=== PATIENT | male | born 1940 | race Caucasian/White ===

== ENCOUNTER 2021-11-14 08:51 | Emergency (ER) | payer MEDICAID, SELFPAY ==
[2021-11-14 08:54] VITALS: BP 153/77; PULSE 66; RESP 14; TEMP 36.6; O2SAT 97; BMI 25.8
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
[2021-11-14] MEDS: Ketorolac 30 MG/ML Syringe IM (10:09)
[2021-11-14 10:33] VITALS: BP 128/77; PULSE 62; RESP 15; O2SAT 98
== END 2021-11-14 10:34 | disposition home or self-care (01) ==
LOC: ED 10:29
PROVIDERS: Emergency Provider Emergency Medicine; Visit Provider Emergency Medicine
DX: E11.40 Type 2 diabetes mellitus with diabetic neuropathy, unspecified (principal); G89.29 Other chronic pain; Z87.891 Personal history of nicotine dependence; Z86.73 Personal history of transient ischemic attack (TIA), and cerebral infarction without residual deficits
CPT/HCPCS: 96372; 99282

== ENCOUNTER 2022-01-04 20:11 | Observation (INO) | payer MEDICAID, SELFPAY ==
[2022-01-04] VITALS (9 sets, daily range): BP systolic 129–168; BP diastolic 62–88; PULSE 56–59; RESP 18–20; TEMP 37.1; O2SAT 96; BMI 26.6
--- NOTE | 2022-01-04 21:10 | RAD_ITS ---
STUDY: X-RAY CHEST REASON FOR EXAM: Male, 81 years old. Neuro deficit, acute, stroke suspected TECHNIQUE: Single AP portable view of the chest. COMPARISON: None. FINDINGS: The lungs are clear and expanded. There is no demonstrated pleural abnormality. There is moderate cardiac enlargement. Normal mediastinum and deepa. Normal visualized pulmonary arteries. Normal visualized aortic arch and descending thoracic aorta. Normal visualized thoracic spine. Healed fracture the right clavicle. Status post resection of the medial left clavicle. There is no demonstrated abnormality of the visualized soft tissue structures of the upper abdomen. RAD/Chest 1 View IMPRESSION: No active disease. Electronically Signed: Jake Lima MD at 22:41 EDT ,
--- NOTE | 2022-01-04 21:10 | CT_ITS ---
EXAM: CT HEAD WITHOUT INTRAVENOUS CONTRAST CLINICAL INDICATION: Neuro deficit, acute, stroke suspected TECHNIQUE: Multiple axial images were obtained of the head without intravenous contrast. This CT exam was performed using one or more of the following dose reduction techniques: automated exposure control, adjustment of the mA and/or kV according to patient size, and/or use of iterative reconstruction technique. This report was created using Neurotrack report generation technology. COMPARISON: None. FINDINGS: BRAIN AND EXTRA-AXIAL SPACES: Low density regions in the brain may signify early microvascular ischemic changes, a demyelinating process, vasculitis, or sequela related to migraines. Mild cerebral atrophy. No intra- or extra-axial hemorrhage. No intracranial mass or mass effect. Posterior fossa structures are unremarkable. No hydrocephalus. Basal cisterns are patent. BONES/JOINTS: Unremarkable. No discrete lytic or blastic abnormalities. SINUSES: There is sinus disease. MASTOID AIR CELLS: Unremarkable. Clear. ORBITS: Visualized globes, extraocular muscles, optic nerves and retrobulbar fat appear unremarkable. CT/STROKE Brain/Head without Cont IMPRESSION: No acute findings in the head/brain. N.B. : The above Results were Read Back by Ike Desai MD to Maurilio Dillon MD, and understanding confirmed on 01/04/2022 21:33:16 (ET). Electronically Signed: Ike Desai MD at 21:25 EDT ,
--- NOTE | 2022-01-04 21:10 | EKG12_ITS ---
Test Reason : GEN ILL Blood Pressure : / mmHG Vent. Rate : 058 BPM Atrial Rate : 058 BPM P-R Int : 196 ms QRS Dur : 080 ms QT Int : 410 ms P-R-T Axes : 061 012 032 degrees QTc Int : 402 ms Sinus bradycardia with marked sinus arrhythmia Otherwise normal ECG Confirmed by MARIAELENA PRINGLE, LAUREN ([id number]), editor newspaper NIURKA LEBRON ([id number]) on 01/08/2022 9:51:07 A M Referred By: LORRAINE Confirmed By:CHARLES FERRELL MD
--- NOTE | 2022-01-04 21:10 | CT_ITS ---
We are attempting to reach an attending provider to discuss findings. An addendum with communication details will be sent when the communication is complete. STUDY: CTA HEAD AND NECK WITH CONTRAST REASON FOR EXAM: Male, 81 years old. Neuro deficit, acute, stroke suspected RADIATION DOSAGE (If Supplied By Facility): CTDIvol = ( 34.45 ) mGy, DLP = ( 841.43 ) mGycm TECHNIQUE: CT angiography was performed with a multi-detector CT scanner. Data acquisition was obtained from the skull base through the vertex following intravenous administration of IV 100mL Isovue-370. MIP images were reconstructed from the axial data set. Post-processing of the angiographic images was performed, with multiplanar reformation and 3D reconstruction. Individualized dose optimization techniques were used for this CT. COMPARISON: No relevant priors. FINDINGS: Normal bilateral petrous carotid arteries. There is calcified plaque formation of the right cavernous carotid artery, with a mild stenosis (less than 50%). There is calcified plaque formation of the left cavernous carotid artery, with a mild stenosis (less than 50%). Normal right A1 segments of the anterior cerebral artery. Normal left A1 segments of the anterior cerebral artery. Normal intact anterior communicating artery (ACOM). Normal bilateral A2 segments of the anterior cerebral arteries. Normal right M1 and M2 segments of the middle cerebral arteries, with a normal M1 bifurcation. Normal left M1 and M2 segments of the middle cerebral arteries, with a normal M1 bifurcation. There is a persistent origin of the right posterior cerebral artery with absence of the posterior communicating artery (PCOM). Normal left posterior communicating artery (PCOM). Normal bilateral vertebral arteries. Normal basilar artery with a normal basilar bifurcation. The visualized bilateral superior cerebellar (SCA) arteries are normal. Normal bilateral P1, P2 and visualized P3 segments of the posterior cerebral arteries. There is no demonstrated aneurysm of the [place]. There is no demonstrated abnormality of the visualized brain. AORTIC ARCH: Normal visualized aortic arch. Normal origins of the brachiocephalic, left common carotid, and left subclavian arteries. RIGHT CAROTID ARTERIES: Normal right common carotid artery (CCA). There is mild atherosclerotic plaque formation with minimal narrowing of the right carotid bulb. There is mild atherosclerotic plaque formation of the origin of the right internal carotid artery with less than 50% cross sectional diameter stenosis. Normal visualized cervical portion of the right internal carotid artery. Normal origin of the right external carotid artery (ECA). LEFT CAROTID ARTERIES: Normal left common carotid artery (CCA). There is mild atherosclerotic plaque formation with minimal narrowing of the left carotid bulb. There is mild atherosclerotic plaque formation of the origin of the left internal carotid artery with less than 50% cross sectional diameter stenosis. Normal visualized cervical portion of the left internal carotid artery. Normal origin of the left external carotid artery (ECA). VERTEBRAL ARTERIES: Normal bilateral vertebral arteries. CT/STROKE CTA Head AND Neck W/Con IMPRESSION: Normal CTA Head with contrast. Mild (40%) right carotid stenosis. Mild (20%) left carotid stenosis. Patent vertebral arteries bilaterally. Electronically Signed: Jake Lima MD at 22:09 EDT ,
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
[2022-01-04 21:23] LABS: Absolute Lymphocyte Count 0.95 X10^3/uL (0.83-4.51); Absolute Neutrophil Count 5.4 X10^3/uL (2.0-7.7); Basophil# 0.01 X10^3/uL; Basophil% 0.1 % (0-1); Eosinophil# 0.03 X10^3/uL; Eosinophils% 0.4 % (0-5); Hematocrit 33.3 % (40-54); Hemoglobin 10.2 g/dL (13.0-16.5); Lymphocyte # 0.95 X10^3/ul (0.83-4.51); Lymphocyte % 13.9 % (19-41); Mean Corp Hgb Conc 30.6 g/dL (32-36); Mean Corpuscular Hgb 26.6 pg (27.0-32.0); Mean Corpuscular Volume 86.7 fL (80-94); Mean Platelet Vol. 10.7 fl (6.2-12.0); Monocyte% 5.8 % (0-10); NRBC Flagged by Analyzer 0 % (0-5); Neutrophil # 5.44 X10^3/uL (2.7-7.7); Neutrophil % 79.5 % (47-70); Platelet Count 231 K/mm3 (150-450); RBC Distribution Width CV 15.7 % (11.6-14.6); RBC Distribution Width SD 49.8 fl (35.1-43.9); Red Blood Count 3.84 M/mm3 (4.6-6.2); White Blood Count 6.9 K/mm3 (4.4-11.0)
[2022-01-04 21:33] LABS: International Normalized Ratio 1.1; Partial Thromboplast Time 30.5 Seconds (24.1-36.2); Prothrombin Time (Protime)PT. 13.9 SECONDS (11.7-14.9)
--- NOTE | 2022-01-04 21:39 | ED.RN ---
2013 TRIAGE INFORMATION OBTAINED FROM [facility]ER[facility] NELSON CONVERSATION WITH DAUGHTER ON PHONE AND SOME FROM THE PT'S .PT AND DECLINE THE INTEPRETOR IPAD.
[2022-01-04 21:44] LABS: Anion Gap 6 (5-15); BUN 26 mg/dL (7-18); BUN/Creat Ratio 12.3 RATIO (10-20); Calcium,Total 8.9 mg/dL (8.5-10.1); Chloride 106 mmol/L (98-107); Creatinine, Serum 2.12 mg/dL (0.70-1.30); EST Glomerular Filtration Rate 32 mL/min (>60); Est Glom Filt Rate - Afr Amer 39 mL/min (>60); Estimated Creatinine Clearance 26.42 ml/min; Glucose 153 mg/dL (74-106); Potassium 4.7 mmol/L (3.5-5.1); Sodium Level 135 mmol/L (136-145); Troponin-I HS 31 pg/mL (3.0-78.0)
[2022-01-04] MEDS: Ondansetron 4 MG/2 ML Vial IV (21:53)
--- NOTE | 2022-01-04 22:12 | ED.RN ---
At triage desk, received pt's name and from daughter on phone that was handed to this RN from pt's . stated complaint of nausea/vomitting and confusion. offered ela teacher ipad and took down daughter Fozia's phone number.
[2022-01-04 22:20] LABS: Bedside Glucose 151 mg/dL (74-106)
--- NOTE | 2022-01-04 23:08 | PCM.HP.STD ---
HPI - General General Date of Admission: 01/04/22 Date of Service: 01/04/22 Chief Complaint: Right facial droop, slurred speech, headache, unsteady gait. 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 He notes onset vertigo with Neurology upon their evaluation which is typical for him at ~ 1 pm with room spinning sensation. Patient is primarily Bermudian speaking and ED physician did discuss case with patient's daughter who reports that he has had significant stroke prior history with at least 13-14 other strokes potentially TIAs which have not left him permanently debilitated reportedly only taking daily aspirin therapy. Daughter reports that he is able to perform his own ADLs with no history of falls or injuries. Initial NIH stroke scale per ED physician 1 for LOC questions, 1 for facial palsy, 1 for left upper extremity motor as well as 1 for dysarthria with a total score of 4. Repeat NIHSS by staff later in ED evaluation improved to 2 for minor paralysis face and mild to moderate aphasia. Given patient timeline of unclear duration as noted to have occurred upon awakening he was not considered a tPA candidate per neurology. Work-up in the ED included T98.7, heart rate 58, BP 168/88 with most recent repeat 141/62, respiratory rate 18, 96% on room air, CBC with WC 6.9, hemoglobin 10.2, MCV 86.7, platelet 231 without marked shift, unremarkable coags, BMP with sodium 135, BUN/creat 26/2.12, glucose 153, troponin 31, CT head no acute intracranial findings, CTA head and neck with normal CT of the head with contrast, mild 40% right carotid stenosis, mild 20% left carotid stenosis, patent vertebral arteries bilaterally, chest x-ray with no acute cardiopulmonary findings 8 sodium is, EKG with sinus rhythm with no acute evidence of ischemia. In the ED patient ministered Zofran 4 mg IV x1. PFSH Medical History (Updated 01/05/22 @ 00:[address] Roseanna Solomon MD) Chronic asthmatic bronchitis CKD (chronic kidney disease), stage III Diabetic neuropathy DM type 2 (diabetes mellitus, type 2) History of CVA (cerebrovascular accident) History of seizure disorder History of tobacco use Hypercholesterolemia Home Medications oxycodone-acetaminophen 5 mg-325 mg tablet 1 - 2 tab PO Q4H PRN PRN Pain #20 tabs 08/24/15 [Rx Last Taken Unknown] atorvastatin 40 mg tablet 40 mg PO DAILY 11/14/21 [History Last Taken Unknown] dulaglutide 0.75 mg/0.5 mL subcutaneous pen injector (Trulicity) 0.5 mg subcut QWEEK 11/14/21 [History Last Taken Unknown] losartan 25 mg tablet 25 mg PO DAILY 11/14/21 [History Last Taken Unknown] oxycodone-acetaminophen 5 mg-325 mg tablet 1 tab PO Q6H PRN PRN pain 5 days #20 TABLETS 11/14/21 [Rx Last Taken Unknown] pregabalin 150 mg capsule 150 mg PO TID 11/14/21 [History Last Taken Unknown] ropinirole 4 mg tablet mg 11/14/21 [History Last Taken Unknown] Allergy/AdvReac Type Severity Reaction Status Date / Time No Known Allergies Allergy Verified 01/04/22 20:15 Family History (Updated 01/05/22 @ 00:[address] Roseanna Solomon MD) Mother Myocardial infarction Hypertension Father Diabetes Alzheimer disease Surgical History (Updated 01/05/22 @ 00:[address] Roseanna Solomon MD) History of appendectomy History of esophageal surgery History of eye surgery Social History (Updated 01/05/22 @ 00:[address] Roseanna Solomon MD) household members: spouse Smoking Status: Former smoker how long ago did patient quit smoking: Quit 1-2 years prior, smoked occasional cigars. alcohol intake: never substance use type: does not use ROS ROS Narrative Physical Examination: General: Awake, alert, oriented to self, place and recent events, does speak some Lithuanian but it is limited and is primarily Bermudian speaking, remains cooperative, laying in the ED bed, no acute distress, NIH stroke scale continues to improve, currently down to 2. Skin: Normal color, normal turgor, no icterus, no cyanosis except occasional staged ecchymoses, graft scarring to the right lower extremity notable. HEENT: AT/NC, EOMI, PERRLA, MMM, no carotid bruits or JVD noted, mild residual right facial droop but corrects mostly with smiling and primarily more so flattening of the nasolabial fold, still mild dysarthria. Lungs: CTA bilaterally, moderate effort, mild decrease BL bases, no rales, ronchi or wheezing. Heart: Currently regular rate and rhythm; no gallop, rub audible. Abdomen: Soft, overweight, NTTP, ND, normal BS, no HSM. Extremities: No cyanosis, clubbing, or edema, see skin. Neurological: Patient awake, alert, oriented as noted, cognitive function appears baseline intact; pupils equally reactive to light and accommodation, cranial nerves grossly normal except noted mild right-sided flattening nasolabial fold but corrects with smiling, very mild ongoing dysarthria, finger-nose and utyg-hi-vady appropriate except where limited by left upper extremity and right lower extremity chronic debility/pain, equivocal Babinski, strength preserved although difficulty with left upper extremity movements and also right lower extremity movement secondary to chronic debility/pain. Psychiatric: Affect appears normal, no acute evidence of depressive or anxiety feelings. Vital Signs Vital Signs Vital Signs: 01/04/22 20:13 01/04/22 20:55 01/04/22 20:55 Temperature 98.7 F Temperature Source Temporal Pulse Rate 58 L 59 L Respiratory Rate 18 20 H Respiratory Pattern Normal Blood Pressure 168/88 H 141/62 H Blood Pressure Mean 114 88 Pulse Ox 96 96 Oxygen Delivery Method Room Air Room Air 01/04/22 21:10 01/04/22 21:40 01/04/22 21:57 Temperature Temperature Source Pulse Rate 58 L 59 L Respiratory Rate 20 H 18 Respiratory Pattern Blood Pressure 161/71 H 141/72 H Blood Pressure Mean 101 95 Pulse Ox 96 96 Oxygen Delivery Method Room Air Room Air Room Air Weight Weight: 170 lb Body Mass Index (BMI) 26.6 Results Lab / Micro Data Result Diagrams: 01/04/22 21:00 01/04/22 21:00 Labs: Laboratory Results - last 24 hr 01/04/22 21:00: WBC 6.9, RBC 3.84 L, Hgb 10.2 L, Hct 33.3 L, MCV 86.7, MCH 26.6 L, MCHC 30.6 L, RDW Std Deviation 49.8 H, RDW Coeff of Meenu 15.7 H, Plt Count 231, MPV 10.7, Immature Gran % (Auto) 0.300, Neut % (Auto) 79.5 H, Lymph % (Auto) 13.9 L, Alexander % (Auto) 5.8, Eos % (Auto) 0.4, Baso % (Auto) 0.1, Absolute Neuts (auto) 5.4, Absolute Lymphs (auto) 0.95, Nucleated RBC % 0 01/04/22 21:00: PT 13.9, INR 1.1, APTT 30.5 01/04/22 21:00: Sodium 135 L, Potassium 4.7, Chloride 106, Carbon Dioxide 23.0, Anion Gap 6, BUN 26 H, Creatinine 2.12 H, Estim Creat Clear Calc 26.42, Est GFR (MDRD) Af Amer 39 L, Est GFR (MDRD) Non-Af 32 L, BUN/Creatinine Ratio 12.3, Glucose 153 H, Calcium 8.9, Troponin I High Sens 31 01/04/22 21:30: POC Glucose 151 H Rhythm Strip Rhythm Strip: Sinus Rhythm Rate: 60 Ectopy: None Radiology Impression Brain CT 01/04/22 21:10 IMPRESSION: No acute findings in the head/brain. N.B. : The above Results were Read Back by Ike Desai MD to Maurilio Dillon MD, and understanding confirmed on 01/04/2022 21:33:16 (ET). Electronically Signed: Ike Desai MD at 21:25 EDT , ADDENDUM: 01/04/222231 IMPRESSION: undefined Chest X-Ray 01/04/22 21:10 IMPRESSION: No active disease. Electronically Signed: Jake Lima MD at 22:41 EDT , Head/Neck CTA 01/04/22 21:10 IMPRESSION: Normal CTA Head with contrast. Mild (40%) right carotid stenosis. Mild (20%) left carotid stenosis. Patent vertebral arteries bilaterally. Electronically Signed: Jake Lima MD at 22:09 EDT , ADDENDUM: 01/04/228 IMPRESSION: Normal CTA Head with contrast. Mild (40%) right carotid stenosis. Mild (20%) left carotid stenosis. Patent vertebral arteries bilaterally. N.B. : The above Results were Read Back by Jake Lima MD to Maurilio Dillon MD, and understanding confirmed on 01/04/2022 22:11:38 (ET). 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 He notes onset vertigo with Neurology upon their evaluation which is typical for him at ~ 1 pm with room spinning sensation. #1. Right-sided facial droop, slurred speech and gait disturbance concerning for Acute CVA/TIA, possible concurrent BPPV w/ prior Hx CVA/TIA with mild bilateral carotid stenosis: Will admit to PCU, will obtain MRI Brain, ECHO, PT/OT/Speech/Nutrition evaluation per protocol. Will allow permissive HTN, maintain on asa, given history will add plavix, continue home statin w/ AM FLP, fall precautions. TSH, Mag, FLP, HgbA1c pending. Will obtain carotid ultrasound in order for baseline and may consider vascular surgery consultation to establish. Once imaging and work-up obtained would potentially plan for Neurology re-assessment for recommendations. Neurologist upon ED evaluation noted suspected BPPV but inability to rule out small acute CVA. Will have PRN low dose meclizine. #2. Mild cognitive impairment/possibly dementia: Unclear type of possible dementia and noted to be without behavioral disturbance history, complicates presentation, maintain on fall and aspiration precautions, therapies and CM consulted as noted. #3. Chronic Kidney Disease Stage III, unclear subtype: Admission BUN/Cr 26/2.12, baseline renal function noted remotely prior 08/24/2015 with BUN/creatinine 25/1.86, will continue to trend and judiciously hydrate given acute presentation #1 is noted. #4. Normocytic anemia, unclear chronicity: Admission hemoglobin 10.2, most recent lab noted prior remotely in 2016 Hgb 13.9, will obtain iron panel, ferritin, guaiac especially given potential use for dual antiplatelet therapy as noted above #1. #5. Diabetes mellitus type II with neuropathy: Hold oral home regimen, continue home insulin regimen, ADA diet, accu checks w/ ISS, continue patient home pregabalin regimen. #6. Chronic COPD/asthma: Not on any chronic inhalers per current list, will maintain on PRN albuterol, HOB, IS parameters. #7. Stiff-man syndrome: Patient utilizes chronic as needed diazepam regimen, will continue closely monitor, as needed diazepam if necessary but hold if able given need for serial NIHSS evaluations. #8. Hypertension: We will maintain permissive hypertension given acute presentation as noted with as needed agents per stroke protocol. #9. Hyperlipidemia: Continue home statin regimen. AM FLP. #10. Former Tobacco Abuse: Encouraged continued tobacco cessation. #11. Restless leg syndrome: We will continue patient home Requip regimen. #12. DVT prophylaxis: SCDs, heparin. #13. CODE status: Patient HCPOA is and daughter and living will is currently in place. Discussed CODE status at length including difference between FULL code, DNR-CCA and DNR-CC status. Following discussions about the differences in these status, requested Full Code status. Advanced Care Planning Face to Face Time: 16 minutes. Charges/Coding Visit Charges OBSV E&M: 87308 Initial observation care L3 Procedures Hospitalists Procedures: 14231 Advncd Care Plan 30 Min
[2022-01-04 23:41] LABS: Magnesium 1.9 mg/dL (1.6-2.6)
[2022-01-05] VITALS (10 sets, daily range): BP systolic 126–163; BP diastolic 69–77; PULSE 48–58; RESP 16–20; TEMP 36.4–36.8; O2SAT 94–100; BMI 29.4
--- NOTE | 2022-01-05 01:20 | ECHOCS_ITS ---
Reason For Study: CVA Procedure This was a 2D Doppler, Color Flow transthoracic echocardiogram. The study was technically difficult. Contrast injection was performed. Exam performed portable in patient room. Left Ventricle Normal LV size. The estimated ejection fraction is 65 %. No evidence for diastolic dysfunction. No regional wall motion abnormalities noted. Right Ventricle Normal RV size. Normal systolic function. Atria The left atrium is moderately enlarged. Normal right atrium. No doppler evidence for ASD. Mitral Valve There is moderate to severe mitral annular calcification. There is no mitral valve stenosis. Trivial mitral valve insufficiency. Tricuspid Valve There is no tricuspid stenosis. Trivial tricuspid valve insufficiency. Unable to estimate RV systolic pressure due to insufficient tricuspid regurgitant envelope. Aortic Valve Trisinus/trileaflet aortic valve. There is no aortic stenosis. Mild (1+) aortic valve insufficiency. Pulmonic Valve There is no pulmonic valvular stenosis. No pulmonic valve insufficiency. Great Vessels Normal aortic root. Pericardium/Pleural No pericardial effusion. Medication Diluted definity 1ml given slow IV push to enhance endocardial definition. Performed a rapid injection of agitated mix of 9 cc saline and 1cc air to assess for atrial septal defect. MMode/2D Measurements & Calculations LVIDd: 4.8 cm IVSd: 1.3 cm LA dimension: 4.2 cm LVIDs: 3.0 cm LVPWd: 1.5 cm RVDd: 3.7 cm FS: 37.1 % LAV(MOD-bp): 92.4 ml LA A4 area: 26.7 cm2 RA A4 area: 20.8 cm2 LAV(MOD-bp) Indexed: 49.0 ml/m2 LAV(MOD-sp2): 81.5 ml LAV(MOD-sp4): 78.8 ml Time Measurements MV dec time: 0.19 sec Doppler Measurements & Calculations MV E max frank: 65.0 cm/sec Lat Peak E' Frank: 10.0 cm/sec Med Peak E' Frank: 8.9 cm/sec MV A max frank: 75.1 cm/sec E/E' lat: 6.5 E/E' med: 7.3 MV E/A: 0.86 MV V2 max: 85.7 cm/sec MV P1/2t max frank: 85.7 cm/sec Ao V2 max: 133.0 cm/sec MV max P.9 mmHg MV P1/2t: 81.4 msec Ao max P.1 mmHg MV V2 mean: 44.8 cm/sec MV dec slope: 308.5 cm/sec2 MV mean P.99 mmHg MV V2 VTI: 32.8 cm MVA(P1/2t): 2.7 cm2 AI max frank: 476.7 cm/sec LV V1 max: 85.5 cm/sec PA V2 max: 74.2 cm/sec AI max P.9 mmHg LV V1 max P.9 mmHg AI dec slope: 167.0 cm/sec2 AI P1/2t: 836.3 msec TR max frank: 278.1 cm/sec TR max P.1 mmHg ECHO/Echo Complete W/ Contrast Interpretation Summary The estimated ejection fraction is 65 %. No evidence for diastolic dysfunction. The left atrium is moderately enlarged. Trivial mitral valve insufficiency. Mild (1+) aortic valve insufficiency. Ordering Physician: Roseanna Solomon Referring Physician: Lloyd Jalloh M.D. Performed By: Maxime Sierra RCS
--- NOTE | 2022-01-05 01:28 | NURSING ---
[pt states had Juno and Juno immunization. pt is unsure of administration date. per pt medications will have to be reviewed with spouse in AM
[2022-01-05] MEDS: 0.9% Saline Lock 10 ML Syringe IV (01:51)
[2022-01-05] MEDS: 0.9% Normal Saline 1,000 ML 100 ML IV ×2 (01:51→13:43)
[2022-01-05] MEDS: Meclizine 12.5 MG Tablet PO (01:54)
[2022-01-05 04:37] LABS: Absolute Lymphocyte Count 1.76 X10^3/uL (0.83-4.51); Absolute Neutrophil Count 4.6 X10^3/uL (2.0-7.7); Basophil# 0.02 X10^3/uL; Basophil% 0.3 % (0-1); Eosinophil# 0.11 X10^3/uL; Eosinophils% 1.5 % (0-5); Hematocrit 33.8 % (40-54); Hemoglobin 10.4 g/dL (13.0-16.5); Lymphocyte # 1.76 X10^3/ul (0.83-4.51); Lymphocyte % 24.7 % (19-41); Mean Corp Hgb Conc 30.8 g/dL (32-36); Mean Corpuscular Hgb 26.3 pg (27.0-32.0); Mean Corpuscular Volume 85.6 fL (80-94); Mean Platelet Vol. 10.9 fl (6.2-12.0); Monocyte# 0.61 X10^3/uL; Monocyte% 8.6 % (0-10); NRBC Flagged by Analyzer 0 % (0-5); Neutrophil # 4.61 X10^3/uL (2.7-7.7); Neutrophil % 64.6 % (47-70); Platelet Count 225 K/mm3 (150-450); RBC Distribution Width CV 15.8 % (11.6-14.6); RBC Distribution Width SD 49.2 fl (35.1-43.9); Red Blood Count 3.95 M/mm3 (4.6-6.2); White Blood Count 7.1 K/mm3 (4.4-11.0)
[2022-01-05] MEDS: Pregabalin 75 MG Capsule 150 MG PO ×2 (05:03→13:45)
[2022-01-05 05:16] LABS: ALB/GLOB Ratio 1.1 RATIO (0.9-2.4); AST(SGOT) 17 U/L (15-37); Alanine Aminotransfer ALT/SGPT 32 U/L (16-61); Albumin, Serum 3.3 g/dL (3.2-5.0); Alkaline Phosphatase 49 U/L (45-117); Anion Gap 5 (5-15); BUN 23 mg/dL (7-18); BUN/Creat Ratio 11.7 RATIO (10-20); Calcium,Total 8.8 mg/dL (8.5-10.1); Chloride 108 mmol/L (98-107); Cholesterol 177 mg/dL (200); Creatinine, Serum 1.97 mg/dL (0.70-1.30); EST Glomerular Filtration Rate 35 mL/min (>60); Est Glom Filt Rate - Afr Amer 42 mL/min (>60); Estimated Creatinine Clearance 28.43 ml/min; Globulin 3.1 g/dL (2.2-4.2); Glucose 95 mg/dL (74-106); High Density Lipoprotein 72 mg/dL; Potassium 4.7 mmol/L (3.5-5.1); Protein, Total 6.4 g/dL (6.4-8.2); Sodium Level 138 mmol/L (136-145); Thyroid Stim Hormone (TSH) 0.23 uIU/mL (0.358-3.74); Triglycerides 68 mg/dL; Very Low Density Lipoprotein 14 mg/dL (5-40)
--- NOTE | 2022-01-05 05:22 | NURSING ---
MRI checklist completed with pt daughter MANUEL, per pt daughter pt had MRI 2 years ago. MANUEL is no able to verify pt medications. MANUEL states, pt will know
--- NOTE | 2022-01-05 05:55 | CDU_ITS ---
Reason For Study: Carotid Stenosis Rt. Velocities/BP Lt. Velocities/BP Prox CCA 45/11 cm/sec. Prox CCA 53/7 cm/sec. Mid CCA 49/10 cm/sec. Mid CCA 44/7 cm/sec. Dist CCA 42/12 cm/sec. Dist CCA 54/10 cm/sec. Prox ICA 77/25 cm/sec. Prox ICA 60/15 cm/sec. Mid ICA 74/22 cm/sec. Mid ICA 40/15 cm/sec. Dist ICA 121/35 cm/sec. Dist ICA 69/22 cm/sec. Rt. ICA/CCA = 2.47. Lt. ICA/CCA = 1.57. Prox ECA 83 cm/sec. Prox ECA 50/5 cm/sec. Rt. Vert. 59/9 cm/sec. Lt. Vert. 43/11 cm/sec. Right Extracranial There is intimal thickening but no significant atherosclerotic plaque noted in the right common carotid artery. There is heterogeneous, irregular atherosclerotic plaque noted in the right internal carotid artery. The right internal carotid artery is very tortuous. There is no significant atherosclerotic plaque noted in the right external carotid artery. Antegrade flow is noted in the right vertebral artery. Left Extracranial There is heterogeneous, irregular atherosclerotic plaque noted in the left common carotid artery. There is heterogeneous, irregular atherosclerotic plaque noted in the left internal carotid artery. The left internal carotid artery is very tortuous. There is heterogeneous, irregular atherosclerotic plaque noted in the left external carotid artery. Antegrade flow is noted in the left vertebral artery. Procedure Carotid Duplex 76273. This is a Carotid Duplex examination using B-mode, color flow and specral Doppler. Exam performed portable in patient room. VL/Carotid Duplex Ultrasound Interpretation Summary Mild (<50%) stenosis right extracranial internal carotid. Mild (<50%) stenosis left extracranial internal carotid. Patent and antegrade vertebrals bilaterally. Ordering Physician: Roseanna Solomon Referring Physician: Lloyd Jalloh Performed By: Bri Gomez, NADINE, RVT
[2022-01-05 07:00] LABS: Bedside Glucose 82 mg/dL (74-106)
[2022-01-05 08:12] LABS: Hemoglobin A1c 7.5 % (3.8-5.6)
[2022-01-05] MEDS: Aspirin 81 MG TAB.CHEW PO (09:14)
[2022-01-05] MEDS: Heparin Injection (Vial) 5,000 UNIT/ML VIAL 5000 UNIT SC (09:14)
[2022-01-05] MEDS: Clopidogrel Bisulfate 75 MG Tablet PO (09:14)
[2022-01-05 11:30] LABS: Bedside Glucose 102 mg/dL (74-106)
--- NOTE | 2022-01-05 12:18 | MRI_ITS ---
STUDY: MRI BRAIN WITHOUT CONTRAST REASON FOR EXAM: Male, 81 years old. CVA VOMITING, SLURRED SPEECH, DIFFICULTY WALKING SINCE YESTERDAY. Hx of MULTIPLE TIAs/CVAs. HX OF SEIZURE DISORDER. CTA HEAD AND NECK 01/04/22;CT BRAIN 01/04/22. TECHNIQUE: Standardized multiplanar fat and water weighted pulse sequences were obtained. COMPARISON: None. FINDINGS: There is mild cerebral atrophy with widening of the extra-axial spaces and ventricular dilatation. There are a limited number of small white matter hyperintensities, distributed throughout the deep white matter tracts of the cerebral hemispheres, consistent with mild chronic white matter ischemic changes. There is no evidence for recent intracranial ischemia or other cause of cytotoxic edema on diffusion weighted imaging (DWI). Normal T2* images of the brain without demonstrated susceptibility artifact. There is no demonstrated hemosiderin stain. Normal bilateral basal ganglia. Normal thalami. There is no extra-axial fluid accumulation. Normal flow voids within the major intracranial circulation suggesting patency by spin echo criteria. Normal sella turcica, pituitary gland, infundibular stalk, optic chiasm and hypothalamus. Normal tectal plate and pineal gland. Normal midbrain, darion and medulla. Normal cerebellum. Normal basal cisterns. Normal bilateral temporal bones. Normal bilateral internal auditory canals. No demonstrated orbital abnormality, within the constraints of a routine brain study. Normal visualized paranasal sinuses. Normal calvarium and skull base. Normal visualized soft tissue structures. Normal visualized upper cervical spine. MRI/Brain without Contrast IMPRESSION: 1. Mild chronic ischemic changes of the brain, as described above. 2. No demonstrated acute infarct or intracranial hemorrhage. Electronically Signed: Bishnu Carrasco MD at 13:46 EDT ,
--- NOTE | 2022-01-05 14:10 | CASEMGMT ---
Pt states has returned to baseline and therapy states no need for any further therapy at discharge. Brigido NELSON CM
--- NOTE | 2022-01-05 14:36 | DCINST_ITS ---
Discharge Instructions Diet Discharge Diet: Low fat / Low cholesterol Activity Discharge Activity: Return to Normal Activity Dressing / Incision Call your doctor if you observe: Fever of 101 or Higher, Shortness of breath, Dizziness, Fainting spells, Swelling in the ankles, Chest pain and Increased palpitations (irregular heartbeat) Follow Up Care Test Results: Test results from this visit will be discussed in further detail at your follow- up appointment, if applicable. Discharge Plan Admission Admit Date/Time: 01/04/22 23:16 Attending Provider: Juanito Samuels Primary Care Provider: Lloyd Jalloh Consulting Providers: Roseanna Solomon Discharge Orders/Prescriptions Prescriptions: New aspirin 81 mg Tablet,Chewable 81 mg PO BREAKFAST Qty: 30 0RF Continued oxycodone-acetaminophen 1 TABLET tablet 1 - 2 tab PO Q4H PRN PRN (Reason: Pain) Qty: 20 0RF atorvastatin 40 mg tablet 40 mg PO DAILY Label Comments: TAKE ONE TABLET BY MOUTH EVERY DAY losartan 25 mg tablet 25 mg PO DAILY Label Comments: TAKE ONE TABLET BY MOUTH EVERY DAY ropinirole 4 mg tablet Label Comments: TAKE ONE TABLET BY MOUTH AT BEDTIME pregabalin 150 mg capsule 150 mg PO TID Label Comments: TAKE ONE CAPSULE BY MOUTH THREE TIMES DAILY Trulicity 0.75 mg/0.5 mL pen injector 0.5 mg SUBCUT QWEEK Label Comments: Inject 0.75 mg subcutaneously one time a week. Inject dose once per week. Discard Pen After oxycodone-acetaminophen 5-325 mg tablet 1 tab PO Q6H PRN PRN (Reason: pain) 5 Days Qty: 20 0RF Referrals / Follow Up: Lloyd Jalloh MD [Primary Care Provider] - Within 1 Week Disposition Disposition (needs filled in before D/C Order can be placed): Home, Self Care
--- NOTE | 2022-01-05 14:45 | PCM.DC.SUM ---
Providers Date of Admission: 01/04/22 Primary Care Physician: Dr. Lloyd Jalloh MD Reason For Visit: CVA, POSSIBLE BPPV Diagnosis Discharge Diagnosis (1) Acute ischemic stroke: Status: Acute Code(s): I63.9 - Cerebral infarction, unspecified Medications at Discharge Home Medications oxycodone-acetaminophen 5 mg-325 mg tablet 1 - 2 tab PO Q4H PRN PRN Pain #20 tabs 08/24/15 atorvastatin 40 mg tablet 40 mg PO DAILY 11/14/21 dulaglutide 0.75 mg/0.5 mL subcutaneous pen injector (Trulicity) 0.5 mg subcut QWEEK 11/14/21 losartan 25 mg tablet 25 mg PO DAILY 11/14/21 oxycodone-acetaminophen 5 mg-325 mg tablet 1 tab PO Q6H PRN PRN pain 5 days #20 TABLETS 11/14/21 pregabalin 150 mg capsule 150 mg PO TID 11/14/21 ropinirole 4 mg tablet mg 11/14/21 aspirin 81 mg chewable tablet 81 mg PO BREAKFAST #30 tabs 01/05/22 Hospital Course Operations None Procedures 2-D Echocardiogram Summary of Care Provided Minutes Spent on Discharge: 38 Hospital Course: Per HPI: The patient is a 81 y/o M w/ PMHx: Hx recurrent episodes BPPV, CKD stage III unclear subtype, Mild cognitive impairment/possibly dementia unclear type without behavioral disturbance history, Hx Multiple TIA/CVA, Seizure disorder, HTN, HLD, Former Tobacco use, Chronic Asthma/COPD, Diabetes mellitus type II w/ neuropathy, 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 ED on 01/04/22 with history of following lunch at approximately 1-2 pm, decision to take a nap secondary to not feeling well and upon awakening noted headache, right facial droop with associated slurred speech and difficulty with ambulation with associated nausea and emesis prompting ED evaluation. He notes onset vertigo with Neurology upon their evaluation which is typical for him at ~ 1 pm with room spinning sensation. Patient is primarily Wallisian speaking and ED physician did discuss case with patient's daughter who reports that he has had significant stroke prior history with at least 13-14 other strokes potentially TIAs which have not left him permanently debilitated reportedly only taking daily aspirin therapy.? Daughter reports that he is able to perform his own ADLs with no history of falls or injuries.? Initial NIH stroke scale per ED physician 1 for LOC questions, 1 for facial palsy, 1 for left upper extremity motor as well as 1 for dysarthria with a total score of 4.? Repeat NIHSS by staff later in ED evaluation improved to 2 for minor paralysis face and mild to moderate aphasia. Given patient timeline of unclear duration as noted to have occurred upon awakening he was not considered a tPA candidate per neurology. Work-up in the ED included T98.7, heart rate 58, BP 168/88 with most recent repeat 141/62, respiratory rate 18, 96% on room air, CBC with WC 6.9, hemoglobin 10.2, MCV 86.7, platelet 231 without marked shift, unremarkable coags, BMP with sodium 135, BUN/creat 26/2.12, glucose 153, troponin 31, CT head no acute intracranial findings, CTA head and neck with normal CT of the head with contrast, mild 40% right carotid stenosis, mild 20% left carotid stenosis, patent vertebral arteries bilaterally, chest x-ray with no acute cardiopulmonary findings 8 sodium is, EKG with sinus rhythm with no acute evidence of ischemia. In the ED patient ministered Zofran 4 mg IV x1. Hospital Course: 1. TIA?81-year-old male presents to the hospital with concerns for possible stroke, he was having a right facial droop as well as slurred speech and a gait disturbance. PT and OT have worked with him today and did not recommend any further physical therapy, MRI was negative for stroke and I do not appreciate a facial droop. He does have a heavy [place]ian accent and combined with not having any dentures I feel like this is probably contributing to the diagnosis of dysarthria. Regardless, with the MRI being normal and his entire work-up being normal we will plan for discharge today aspirin and his home statin. I do recommend that he follow-up with his PCP in 3 to 5 days. I discussed with him the plan for discharge she expressed understanding of risks going and would like to go home today. 2. Possible dementia, CKD 3B, normocytic anemia, type 2 diabetes, chronic COPD, stiff man syndrome, hypertension, hyperlipidemia, restless legs are all chronic medical conditions which complicate his care. His home medications were continued where appropriate Physical Exam Narrative General: Alert, Oriented x3, Cooperative, No apparent distress HEENT: Atraumatic, PERRLA, EOMI, Normocephalic Oral: Moist Mucosa Neck: Supple, No JVD Lungs: Diminished, Normal air movement, No rhonchi, No wheeze, No rales Cardiovascular: Regular rate, Regular Rhythm, Normal S1, Normal S2, No murmurs Abdomen: Soft, Non Tender, Non-Distended, No Hepato-splenomegaly Extremities: No edema, Capillary Refill Less than 3 Seconds Skin: No rashes, No breakdown Musculoskeletal: No Tenderness to Palpation of Joints or Extremities Neurological: Cranial nerves II-XII grossly intact, Motor Exam 5/5 strength throughout, Sensory exam intact to light touch and pain, NIH of 0 Psych/Mental Status: Normal Affect, Appropriate Weight / BMI Weight Weight: 188 lb 0.869 oz Body Mass Index (BMI) 29.4 ABG / Lab / Microbiology Data Result Diagrams: 01/05/22 04:05 01/05/22 04:05 Laboratory: Laboratory Results - last 24 hr 01/04/22 21:00: WBC 6.9, RBC 3.84 L, Hgb 10.2 L, Hct 33.3 L, MCV 86.7, MCH 26.6 L, MCHC 30.6 L, RDW Std Deviation 49.8 H, RDW Coeff of Meenu 15.7 H, Plt Count 231, MPV 10.7, Immature Gran % (Auto) 0.300, Neut % (Auto) 79.5 H, Lymph % (Auto) 13.9 L, [place] % (Auto) 5.8, Eos % (Auto) 0.4, Baso % (Auto) 0.1, Absolute Neuts (auto) 5.4, Absolute Lymphs (auto) 0.95, Nucleated RBC % 0 01/04/22 21:00: PT 13.9, INR 1.1, APTT 30.5 01/04/22 21:00: Sodium 135 L, Potassium 4.7, Chloride 106, Carbon Dioxide 23.0, Anion Gap 6, BUN 26 H, Creatinine 2.12 H, Estim Creat Clear Calc 26.42, Est GFR (MDRD) Af Amer 39 L, Est GFR (MDRD) Non-Af 32 L, BUN/Creatinine Ratio 12.3, Glucose 153 H, Calcium 8.9, Troponin I High Sens 31 01/04/22 21:00: Magnesium 1.9 01/04/22 21:30: POC Glucose 151 H 01/05/22 04:05: WBC 7.1, RBC 3.95 L, Hgb 10.4 L, Hct 33.8 L, MCV 85.6, MCH 26.3 L, MCHC 30.8 L, RDW Std Deviation 49.2 H, RDW Coeff of Meenu 15.8 H, Plt Count 225, MPV 10.9, Immature Gran % (Auto) 0.300, Neut % (Auto) 64.6, Lymph % (Auto) 24.7, [place] % (Auto) 8.6, Eos % (Auto) 1.5, Baso % (Auto) 0.3, Absolute Neuts (auto) 4.6, Absolute Lymphs (auto) 1.76, Nucleated RBC % 0 01/05/22 04:05: Sodium 138, Potassium 4.7, Chloride 108 H, Carbon Dioxide 25.0, Anion Gap 5, BUN 23 H, Creatinine 1.97 H, Estim Creat Clear Calc 28.43, Est GFR (MDRD) Af Amer 42 L, Est GFR (MDRD) Non-Af 35 L, BUN/Creatinine Ratio 11.7, Glucose 95, Calcium 8.8, Total Bilirubin 0.50, AST 17, ALT 32, Alkaline Phosphatase 49, Total Protein 6.4, Albumin 3.3, Globulin 3.1, Albumin/Globulin Ratio 1.1, Triglycerides 68, Cholesterol 177, LDL Cholesterol 91, VLDL Cholesterol 14, HDL Cholesterol 72, TSH 0.23 L 01/05/22 04:05: Hemoglobin A1c 7.5 H 01/05/22 06:33: POC Glucose 82 01/05/22 11:09: POC Glucose 102 Radiography Diagnostic Testing: Radiology Impression Brain CT 01/04/22 21:10 IMPRESSION: No acute findings in the head/brain. N.B. : The above Results were Read Back by Ike Desai MD to Maurilio Dillon MD, and understanding confirmed on 01/04/2022 21:33:16 (ET). Electronically Signed: Ike Desai MD at 21:25 EDT Reading Location ID and State: [facility] / [place] , Service support , ADDENDUM: 01/04/222231 IMPRESSION: undefined Chest X-Ray 01/04/22 21:10 IMPRESSION: No active disease. Electronically Signed: Jake Lima MD at 22:41 EDT , Head/Neck CTA 01/04/22 21:10 IMPRESSION: Normal CTA Head with contrast. Mild (40%) right carotid stenosis. Mild (20%) left carotid stenosis. Patent vertebral arteries bilaterally. Electronically Signed: Jake Lima MD at 22:09 EDT , ADDENDUM: 01/04/228 IMPRESSION: Normal CTA Head with contrast. Mild (40%) right carotid stenosis. Mild (20%) left carotid stenosis. Patent vertebral arteries bilaterally. N.B. : The above Results were Read Back by Jake Lima MD to Maurilio Dillon MD, and understanding confirmed on 01/04/2022 22:11:38 (ET). Electronically Signed: Jake Lima MD at 22:09 EDT , Echocardiogram 01/05/22 01:20 Interpretation Summary The estimated ejection fraction is 65 %. No evidence for diastolic dysfunction. The left atrium is moderately enlarged. Trivial mitral valve insufficiency. Mild (1+) aortic valve insufficiency. Ordering Physician: Roseanna Solomon Referring Physician: Lloyd Jalloh M.D. Performed By: Maxime Sierra RCS Brain MRI 01/05/22 12:18 IMPRESSION: 1. Mild chronic ischemic changes of the brain, as described above. 2. No demonstrated acute infarct or intracranial hemorrhage. Electronically Signed: Bishnu Carrasco MD at 13:46 EDT Reading Location ID and State: [facility] / [place] , Service support , D/C Instructions Discharge Diet: Low fat / Low cholesterol Call your doctor if you observe: Fever of 101 or Higher, Shortness of breath, Dizziness, Fainting spells, Swelling in the ankles, Chest pain and Increased palpitations (irregular heartbeat) Meaningful Use Info Meaningful Use Diagnoses (Choose all that apply): None applicable Discharge Plan Admission Admit Date/Time: 01/04/22 23:16 Attending Provider: Juanito Samuels Primary Care Provider: Lloyd Jalloh Consulting Providers: Roseanna Solomon Discharge Orders/Prescriptions Prescriptions: New aspirin 81 mg Tablet,Chewable 81 mg PO BREAKFAST Qty: 30 0RF Continued oxycodone-acetaminophen 1 TABLET tablet 1 - 2 tab PO Q4H PRN PRN (Reason: Pain) Qty: 20 0RF atorvastatin 40 mg tablet 40 mg PO DAILY Label Comments: TAKE ONE TABLET BY MOUTH EVERY DAY losartan 25 mg tablet 25 mg PO DAILY Label Comments: TAKE ONE TABLET BY MOUTH EVERY DAY ropinirole 4 mg tablet Label Comments: TAKE ONE TABLET BY MOUTH AT BEDTIME pregabalin 150 mg capsule 150 mg PO TID Label Comments: TAKE ONE CAPSULE BY MOUTH THREE TIMES DAILY Trulicity 0.75 mg/0.5 mL pen injector 0.5 mg SUBCUT QWEEK Label Comments: Inject 0.75 mg subcutaneously one time a week. Inject dose once per week. Discard Pen After oxycodone-acetaminophen 5-325 mg tablet 1 tab PO Q6H PRN PRN (Reason: pain) 5 Days Qty: 20 0RF Referrals / Follow Up: Lloyd Jalloh MD [Primary Care Provider] - Within 1 Week Disposition Disposition (needs filled in before D/C Order can be placed): Home, Self Care Charges/Coding Visit Charges OBSV E&M: 10695 Observation care discharge
--- NOTE | 2022-01-05 14:59 | CASEMGMT ---
SW did not complete a PHQ9 as per physician patient did not have a TIA or Stroke. Cassandra CARREON
== END 2022-01-05 14:43 | disposition home or self-care (01) ==
LOC: ED 22:23 → PCU 01-05 00:03
PROVIDERS: Admitting Provider Family Medicine; Emergency Provider Emergency Medicine; PCP Internal Medicine; Visit Provider Family Medicine
DX: G45.9 Transient cerebral ischemic attack, unspecified (principal); J44.9 Chronic obstructive pulmonary disease, unspecified; E11.22 Type 2 diabetes mellitus with diabetic chronic kidney disease; E11.40 Type 2 diabetes mellitus with diabetic neuropathy, unspecified; N18.30 Chronic kidney disease, stage 3 unspecified; E78.00 Pure hypercholesterolemia, unspecified; I12.9 Hypertensive chronic kidney disease with stage 1 through stage 4 chronic kidney disease, or unspecified chronic kidney disease; R42 Dizziness and giddiness; R11.2 Nausea with vomiting, unspecified; R26.81 Unsteadiness on feet; R47.81 Slurred speech; E78.5 Hyperlipidemia, unspecified; R47.1 Dysarthria and anarthria; R29.810 Facial weakness; G31.84 Mild cognitive impairment of uncertain or unknown etiology; Z87.891 Personal history of nicotine dependence; Z79.899 Other long term (current) drug therapy; R29.704 NIHSS score 4; Z79.85 Long-term (current) use of injectable non-insulin antidiabetic drugs; G25.82 Stiff-man syndrome; G25.81 Restless legs syndrome
CPT/HCPCS: 36415; 70450; 70496; 70498; 70551; 71045; 80048; 80053; 80061; 82962; 83036; 83735; 84443; 84484; 85025; 85610; 85730; 92523; 92610; 93005; 93306; 93880; 94762; 96361; 96372; 96374; 97162; 97166; 99218; 99285; J7030; Q9957; Q9967; A4216; C8929; G0378; J2405

== ENCOUNTER 2022-02-17 03:06 | Emergency (ER) | payer MEDICAID, SELFPAY ==
[2022-02-17 03:07] VITALS: BP 150/75; PULSE 67; RESP 18; TEMP 36.3; O2SAT 97; BMI 29.5
--- NOTE | 2022-02-17 03:28 | CT_ITS ---
STUDY: CT ABDOMEN AND PELVIS WITHOUT CONTRAST REASON FOR EXAM: Male, 81 years old. flank pain RADIATION DOSAGE (If Supplied By Facility): CTDIvol = ( 11.21 ) mGy, DLP = ( 545.93 ) mGycm TECHNIQUE: Transaxial images were obtained from the dome of the diaphragm to the symphysis pubis without oral contrast, and without intravenous contrast. Sagittal and coronal images were reconstructed. Individualized dose optimization techniques were used for this CT. COMPARISON: None. FINDINGS: The visualized lung bases are unremarkable. The visualized portions of the heart are within normal limits. Normal liver. Normal gallbladder and extrahepatic biliary system. Normal spleen. Normal pancreas. Normal bilateral adrenal glands. 15 mm stone in the distal right ureter within 5 cm from the UVJ with resultant moderate right hydronephrosis. There is 9 mm stone in the right kidney. Bilateral renal cysts the largest measures 3 cm. Esophagectomy and partial gastrectomy. There are multiple colonic diverticula consistent with diverticulosis. The patient had partial colectomy. There is right lower quadrant ileostomy. Normal abdominal aorta. Normal inferior vena cava. Normal retroperitoneum. Normal urinary bladder. Normal abdominal wall. Normal osseous structures. CT/Abdomen/Pelvis without Cont IMPRESSION: 15 mm stone in the distal right ureter within 5 cm from the UVJ with resultant moderate right hydronephrosis. There is 9 mm stone in the right kidney. Electronically Signed: Alan Perez MD at 4:15 EST ,
[2022-02-17 03:36] LABS: Absolute Neutrophil Count 5.5 X10^3/uL (2.0-7.7); Basophil# 0.02 X10^3/uL; Basophil% 0.2 % (0-1); Eosinophil# 0.18 X10^3/uL; Eosinophils% 2.2 % (0-5); Hematocrit 36.3 % (40-54); Hemoglobin 11.1 g/dL (13.0-16.5); Lymphocyte % 22.9 % (19-41); Mean Corp Hgb Conc 30.6 g/dL (32-36); Mean Corpuscular Hgb 26.4 pg (27.0-32.0); Mean Corpuscular Volume 86.4 fL (80-94); Mean Platelet Vol. 10.3 fl (6.2-12.0); Monocyte# 0.63 X10^3/uL; Monocyte% 7.6 % (0-10); NRBC Flagged by Analyzer 0 % (0-5); Neutrophil # 5.51 X10^3/uL (2.7-7.7); Neutrophil % 66.5 % (47-70); Platelet Count 214 K/mm3 (150-450); RBC Distribution Width CV 15.9 % (11.6-14.6); RBC Distribution Width SD 50.2 fl (35.1-43.9); White Blood Count 8.3 K/mm3 (4.4-11.0)
[2022-02-17] MEDS: Ondansetron 4 MG/2 ML Vial IV (03:39)
[2022-02-17] MEDS: Morphine 4 MG/ML Syringe IV (03:39)
[2022-02-17 03:48] LABS: Anion Gap 4 (5-15); BUN 34 mg/dL (7-18); BUN/Creat Ratio 13.9 RATIO (10-20); Calcium,Total 8.6 mg/dL (8.5-10.1); Chloride 110 mmol/L (98-107); Creatinine, Serum 2.44 mg/dL (0.70-1.30); EST Glomerular Filtration Rate 27 mL/min (>60); Est Glom Filt Rate - Afr Amer 33 mL/min (>60); Estimated Creatinine Clearance 22.15 ml/min; Glucose 162 mg/dL (74-106); Sodium Level 138 mmol/L (136-145)
--- NOTE | 2022-02-17 04:46 | EDS_ITS ---
HPI History of Present Illness Chief Complaint: Flank Pain Narrative Narrative: Patient is a 81-year-old male with past medical history of chronic kidney disease as well as type 2 diabetes. He is also had previous kidney stones in the past. He states he went to bed normally then awoke around 2 in the morning with right-sided flank/abdominal pain. He states the pain is sharp in nature and feels similar to his previous kidney stone. He has concern for that and therefore comes in for evaluation. He denies any fevers or chills or recent dysuria. He denies any recent trauma or excessive activity [facility] Medical History Chronic asthmatic bronchitis CKD (chronic kidney disease), stage III Diabetic neuropathy DM type 2 (diabetes mellitus, type 2) History of CVA (cerebrovascular accident) History of seizure disorder History of tobacco use Hypercholesterolemia Home Medications oxycodone-acetaminophen 5 mg-325 mg tablet 1 - 2 tab PO Q4H PRN PRN Pain #20 tabs 08/24/15 [Rx Last Taken Unknown] atorvastatin 40 mg tablet 40 mg PO DAILY 11/14/21 [History Last Taken Unknown] dulaglutide 0.75 mg/0.5 mL subcutaneous pen injector (Trulicity) 0.5 mg subcut QWEEK 11/14/21 [History Last Taken Unknown] losartan 25 mg tablet 25 mg PO DAILY 11/14/21 [History Last Taken Unknown] oxycodone-acetaminophen 5 mg-325 mg tablet 1 tab PO Q6H PRN PRN pain 5 days #20 TABLETS 11/14/21 [Rx Last Taken Unknown] pregabalin 150 mg capsule 150 mg PO TID 11/14/21 [History Last Taken Unknown] ropinirole 4 mg tablet mg 11/14/21 [History Last Taken Unknown] aspirin 81 mg chewable tablet 81 mg PO BREAKFAST #30 tabs 01/05/22 [Rx Last Taken Unknown] oxycodone-acetaminophen 5 mg-325 mg tablet (Percocet) 1 tab PO Q6H PRN pain 5 days #20 tabs 02/17/22 [Rx Last Taken Unknown] tamsulosin 0.4 mg capsule (Flomax) 0.4 mg PO DAILY 14 days #14 caps 02/17/22 [Rx Last Taken Unknown] Allergy/AdvReac Type Severity Reaction Status Date / Time No Known Allergies Allergy Verified 01/04/22 20:15 Family History (Updated 01/05/22 @ 00:[address] Roseanna Solomon MD) Mother Myocardial infarction Hypertension Father Diabetes Alzheimer disease Surgical History (Updated 01/05/22 @ 00:[address] Roseanna Solomon MD) History of appendectomy History of esophageal surgery History of eye surgery Social History (Updated 01/05/22 @ 00:[address] Roseanna Solomon MD) household members: spouse Smoking Status: Former smoker how long ago did patient quit smoking: Quit 1-2 years prior, smoked occasional cigars. alcohol intake: never substance use type: does not use ROS ROS ED Constitutional Constitutional ED: Denies chills or fever(s) ENT ENT ED: Denies sore throat Cardiovascular Cardiovascular: Denies chest pain Respiratory/Chest Respiratory/Chest: Denies cough or dyspnea Gastrointestinal Gastrointestinal: Reports abdominal pain; Denies diarrhea, nausea or vomiting Genitourinary Genitourinary ED: Denies dysuria or hematuria Musculoskeletal Musculoskeletal: Reports back pain; Denies myalgias Integumentary Denies rash Neurologic Neurologic: Denies headache(s) Hematologic/Lymphatic Hematologic/Lymphatic: Denies easy bleeding or easy bruising EXAM Physical Exam Const Vital Signs: 02/17/22 03:07 02/17/22 03:41 Temperature 97.3 F L Temperature Source Temporal Pulse Rate 67 Respiratory Rate 18 Respiratory Pattern Normal Blood Pressure 150/75 H Blood Pressure Mean 100 Pulse Ox 97 Oxygen Delivery Method Room Air Positive well nourished and well developed General Appearance ED: well developed Eyes PERRL and EOMs intact bilaterally Neck supple Resp normal respiratory effort and clear to auscultation bilaterally Cardio regular rate and regular rhythm Rate: other Other Details: Radial pulses are +2-4 bilaterally are equal and symmetric GI non-tender, non-distended and no masses GI Narrative: Patient has a colostomy in place in the right lower quadrant that is draining brown stool. 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 Otherwise no voluntary guarding or rigidity no pulsatile mass Auscultation: normoactive bowel sounds Palpation: soft Back/Spine Back/Spine Narrative: Positive right CVA pain Extremity normal to inspection Neuro oriented x3 and CN's II-XII intact bilaterally Sensorium / Orientation: alert Psych mental status grossly normal Skin no rashes or lesions noted Skin Narrative: No soft tissue changes to suggest trauma or infection MDM MDM MDM Narrative Medical decision making narrative: Patient presented to the ER mildly hypertensive but does have a history of this and is in pain so this is to be expected. He has right-sided flank pain with history of kidney stone and it came on spontaneously while he was sleeping. Therefore as his history and exam most likely correlates with kidney stone basic labs and a noncontrast CT were ordered. Patient has elevation to his kidney function with a creatinine of 2.44. Chart review reveals that his baseline is approximately 1.9-2. Therefore he is only up slightly compared to his baseline and does not classify as acute kidney injury. His white count is not elevated he is afebrile going against infectious process associated with the. CT scan confirmed a large stone that is 15 mm in size approximate 5 cm from the distal UVJ. The patient was given IV fluids and morphine and did report improvement of his pain down to a value of a 4. Therefore this time as he does not have changes to suggest urosepsis or acute kidney injury and his pain is improved he will be given symptomatic medications and follow-up with urology on an outpatient basis. He does understand to return to the ER if he has worsening pain or develops a fever before his urology appointment. Lab Data Attestation: I reviewed the patient's lab results. Labs: Laboratory Results - last 24 hr 02/17/22 02/17/22 03:13 03:13 WBC 8.3 RBC 4.20 L Hgb 11.1 L Hct 36.3 L MCV 86.4 MCH 26.4 L MCHC 30.6 L RDW Std Deviation 50.2 H RDW Coeff of Meenu 15.9 H Plt Count 214 MPV 10.3 Immature Gran % (Auto) 0.600 Neut % (Auto) 66.5 Lymph % (Auto) 22.9 [place] % (Auto) 7.6 Eos % (Auto) 2.2 Baso % (Auto) 0.2 Absolute Neuts (auto) 5.5 Absolute Lymphs (auto) 1.90 Nucleated RBC % 0 Sodium 138 Potassium 4.0 Chloride 110 H Carbon Dioxide 24.0 Anion Gap 4 L BUN 34 H Creatinine 2.44 H Estim Creat Clear Calc 22.15 Est GFR (MDRD) Af Amer 33 L Est GFR (MDRD) Non-Af 27 L BUN/Creatinine Ratio 13.9 Glucose 162 H Calcium 8.6 Radiography Diagnostic Testing: Clinical Impression(s) from Imaging Studies Abdomen/Pelvis CT 02/17/22 03:28 IMPRESSION: 15 mm stone in the distal right ureter within 5 cm from the UVJ with resultant moderate right hydronephrosis. There is 9 mm stone in the right kidney. Electronically Signed: Alan Perez MD at 4:15 EST , Discharge Plan Triage Chief Complaint: Flank Pain ED Provider: Hu Pappas Dx/Rx/DC Orders Clinical Impression: Renal colic, Kidney stone, Hydronephrosis Instructions: ED Kidney Stone w/ Colic Prescriptions: New oxycodone-acetaminophen [Percocet] 5-325 mg tablet 1 tab PO Q6H PRN (Reason: pain) 5 Days Qty: 20 0RF tamsulosin [Flomax] 0.4 mg capsule 0.4 mg PO DAILY 14 Days Qty: 14 0RF No Action oxycodone-acetaminophen 1 TABLET tablet 1 - 2 tab PO Q4H PRN PRN (Reason: Pain) Qty: 20 0RF atorvastatin 40 mg tablet 40 mg PO DAILY Label Comments: TAKE ONE TABLET BY MOUTH EVERY DAY losartan 25 mg tablet 25 mg PO DAILY Label Comments: TAKE ONE TABLET BY MOUTH EVERY DAY ropinirole 4 mg tablet Label Comments: TAKE ONE TABLET BY MOUTH AT BEDTIME pregabalin 150 mg capsule 150 mg PO TID Label Comments: TAKE ONE CAPSULE BY MOUTH THREE TIMES DAILY Trulicity 0.75 mg/0.5 mL pen injector 0.5 mg SUBCUT QWEEK Label Comments: Inject 0.75 mg subcutaneously one time a week. Inject dose once per week. Discard Pen After oxycodone-acetaminophen 5-325 mg tablet 1 tab PO Q6H PRN PRN (Reason: pain) 5 Days Qty: 20 0RF aspirin 81 mg Tablet,Chewable 81 mg PO BREAKFAST Qty: 30 0RF Primary Care Provider: Lloyd Jalloh Referrals: Alphonse Aguero MD [Med Staff - Active Staff] - Jalloh,Lloyd, MD [Primary Care Provider] - Activity Restrictions/Additional Instructions: Please call the urologist on Saturday to schedule a repeat appointment to discuss need for stent placement and/or lithotripsy because of your large kidney stone. If you develop a fever over 100.4 or have intractable pain despite taking your Percocet please return for repeat evaluation. Disposition Disposition: Home, Self Care
[2022-02-17] MEDS: oxyCODONE 5 MG Tablet PO (05:03)
== END 2022-02-17 04:46 | disposition home or self-care (01) ==
PROVIDERS: Emergency Provider Emergency Medicine; PCP Internal Medicine; Visit Provider Emergency Medicine
DX: N13.2 Hydronephrosis with renal and ureteral calculous obstruction (principal); E11.40 Type 2 diabetes mellitus with diabetic neuropathy, unspecified; E11.22 Type 2 diabetes mellitus with diabetic chronic kidney disease; N18.30 Chronic kidney disease, stage 3 unspecified; N23 Unspecified renal colic; E78.00 Pure hypercholesterolemia, unspecified; Z87.891 Personal history of nicotine dependence; Z86.73 Personal history of transient ischemic attack (TIA), and cerebral infarction without residual deficits; Z87.442 Personal history of urinary calculi
CPT/HCPCS: 74176; 80048; 85025; 96361; 96374; 96375; 99283; J7040; A4216; J2405

== ENCOUNTER 2022-05-30 17:36 | Inpatient (IN) | payer MEDICAID, SELFPAY ==
[2022-05-30] VITALS (11 sets, daily range): BP systolic 119–169; BP diastolic 78–114; PULSE 46–60; RESP 13–17; TEMP 36.3–37; O2SAT 97–100; BMI 29.2; BMI 25.4
--- NOTE | 2022-05-30 18:16 | EDS_ITS ---
HPI History of Present Illness Chief Complaint: Chest Other Narrative Narrative: 81-year-old male presenting with his for evaluation. They are Kuwaiti and Mauritanian speaking. Even with an diplomatic interpreter iPad it is quite difficult to get a history from them. The diplomatic interpreter is able to get some information, but repeatedly cannot hear the patient speaking because she does not keep her face near the speaker and is mumbling any either Kuwaiti or [place]ian. Initially she stated the patient had chest pain, cough, fever. She then stated he was having abdominal pain and pointed to his ostomy bag. She states she was here a few weeks ago with him and he had kidney stones. I did try to ask her about follow- up and she was able to say it was Dr. Membreno, she also states that she was in the emergency room at [facility] for several hours and then went home. I do not know if she saw me in follow-up or prior to this. The patient himself is a poor informant. The does tell me that he is too weak at home to get around, he was having difficulty having a bowel movement, she has trouble caring for him. [facility] Medical History Chronic asthmatic bronchitis CKD (chronic kidney disease), stage III Diabetic neuropathy DM type 2 (diabetes mellitus, type 2) History of CVA (cerebrovascular accident) History of seizure disorder History of tobacco use Hypercholesterolemia Home Medications oxycodone-acetaminophen 5 mg-325 mg tablet 1 - 2 tab PO Q4H PRN PRN Pain #20 tabs 08/24/15 [Rx Last Taken Unknown] atorvastatin 40 mg tablet 80 mg PO DAILY 11/14/21 [History Last Taken Unknown] dulaglutide 0.75 mg/0.5 mL subcutaneous pen injector (Trulicity) 0.5 mg subcut QWEEK 11/14/21 [History Last Taken Unknown] losartan 25 mg tablet 25 mg PO DAILY 11/14/21 [History Last Taken Unknown] pregabalin 150 mg capsule 150 mg PO TID 11/14/21 [History Last Taken Unknown] ropinirole 4 mg tablet 4 mg PO QHS 11/14/21 [History Last Taken Unknown] aspirin 81 mg chewable tablet 81 mg PO BREAKFAST #30 tabs 01/05/22 [Rx Last Taken Unknown] albuterol sulfate 90 mcg/actuation aerosol inhaler (Ventolin HFA) 2 puff inha lation Q6H PRN sob 05/30/22 [History Last Taken Unknown] ascorbic acid (vitamin C) 500 mg tablet 500 mg PO BID 05/30/22 [History Last Taken Unknown] diazepam 5 mg/5 mL (1 mg/mL) oral solution 5 mg PO BID PRN Muscle Spasm 05/30/22 [History Last Taken Unknown] donepezil 10 mg tablet 10 mg PO DAILY 05/30/22 [History Last Taken Unknown] insulin lispro 100 unit/mL subcutaneous pen subcut 05/30/22 [History Last Taken Unknown] melatonin 3 mg tablet 3 mg PO QHS 05/30/22 [History Last Taken Unknown] tamsulosin 0.4 mg capsule 0.4 mg PO QHS 05/30/22 [History Last Taken Unknown] triamcinolone acetonide 0.025 % topical cream 1 applic topical BID 05/30/22 [History Last Taken Unknown] venlafaxine 37.5 mg capsule,extended release 24 hr 37.5 mg PO DAILY 05/30/22 [History Last Taken Unknown] Allergy/AdvReac Type Severity Reaction Status Date / Time No Known Allergies Allergy Verified 05/30/22 17:43 Family History Mother Myocardial infarction Hypertension Father Diabetes Alzheimer disease Surgical History History of appendectomy History of esophageal surgery History of eye surgery Social History household members: spouse Smoking Status: Former smoker how long ago did patient quit smoking: Quit 1-2 years prior, smoked occasional cigars. alcohol intake: never substance use type: does not use ROS ROS ED Constitutional Constitutional ED: Reports fever(s) Eyes Eyes: Denies change in vision or diplopia ENT ENT ED: Denies rhinorrhea or sore throat Cardiovascular Cardiovascular: Reports chest pain; Denies palpitations Respiratory/Chest Respiratory/Chest: Reports cough Gastrointestinal Gastrointestinal: Reports abdominal pain and constipation; Denies vomiting Genitourinary Genitourinary ED: Reports urinary frequency Musculoskeletal Musculoskeletal: Reports back pain; Denies arthralgias Integumentary Denies abscess or Abrasions Neurologic Neurologic: Reports headache(s) Psychiatric Psychiatric: Reports anxiety and depression EXAM Physical Exam Const Vital Signs: 05/30/22 17:37 05/30/22 17:51 05/30/22 18:33 Temperature 98.6 F Temperature Source Temporal Pulse Rate 52 L 53 L Respiratory Rate 17 16 Respiratory Effort Normal Non-Labored Respiratory Pattern Normal Blood Pressure 166/114 H 162/78 H Blood Pressure Mean 131 106 Pulse Ox 100 99 Oxygen Delivery Method Room Air Room Air 05/30/22 19:32 05/30/22 19:38 05/30/22 20:02 Temperature Temperature Source Pulse Rate 51 L 46 L 59 L Respiratory Rate 15 13 Respiratory Effort Respiratory Pattern Blood Pressure 119/79 157/80 H Blood Pressure Mean 92 105 Pulse Ox 98 99 Oxygen Delivery Method Room Air Room Air Positive obese General Appearance ED: NAD Nutritional Appearance: obese HEENT Reports moist mucous membranes Resp normal respiratory effort Cardio regular rhythm Rate: bradycardia GI GI Narrative: Generalized tenderness. No peritoneal signs. No rebound or guarding. Ostomy bag full of brown stool. Extremity normal to inspection Neuro Sensorium / Orientation: alert Skin no rashes or lesions noted and no wounds MDM MDM MDM Narrative Medical decision making narrative: Patient seen and evaluated with the diplomatic interpreter phone. Even with the diplomatic interpreter phone it was fairly difficult to get any kind of a history. The patient and his speaks Mauritanian and [place]i. The patient himself is a poor informant, and his does all of the speaking for him. I was able to speak with her about he was generally weak and unable to care for himself. We did discuss the possibility of group home placement at that point since I had her on the diplomatic interpreter phone. She was adamant that this would not happen. At this point the patient has symptoms of chest pain, abdominal pain, cough, fever although his vital signs are stable he is afebrile. Patient's states that he had a fever of 101 ?F yesterday. I asked her if she had given anything that would mask a fever in the last 24 hours and she initially said no but the diplomatic interpreter stated she said something about Tylenol which she could not make out. The patient's was repeatedly redirected to speak closer to the microphone and to answer the questions asked so we can get answers to some of these questions. She repeatedly keeps talking about kidneys. At this point I was called from the room to speak with their daughter who does speak Turkmen. She states that she does not have any idea why her parents are there. I informed her that there was a language barrier and that we were going to get lab work and that hit her mother was saying he was having chest pain, abdominal pain, fever so we would need to do a work-up. At this point the differential is broad since he is having chest pain differential includes but is not limited to ACS, PE, aortic dissection, pneumonia, pneumothorax, muscle strain, costochondritis, GERD, gastritis, peptic ulcer disease, acute cholecystitis, acute cholelithiasis, appendicitis, diverticulitis, pancreatitis, small bowel obstruction. EKG is sinus rhythm with a ventricular to 62 bpm with first-degree AV block. No evidence of ischemia or dysrhythmia. Chest x-ray my interpretation shows no acute process. The radiologist services agrees. Patient is PERC negative. CBC shows a white blood cell count of 6.4. Hemoglobin 11.4. Platelets 235. Creatinine improved to 2.20. GFR 31 it was previously 27. Glucose 144 without anion gap. Lipase returned at 1679. Patient is having severe pain and unable to ambulate at this point I feel he should probably stay in the hospital for treatment of his pain and some gentle hydration. Discussed this with the hospitalist. I did call the patient's daughter again to explain everything to her so that she could better explain it to her mother as the diplomatic interpreter phone was not working very well. Hospitalist also interpreted these were findings. Patient was admitted in stable condition. Impression: 1. Chest pain 2. Abdominal pain 3. Acute pancreatitis 4. History of fever Lab Data Labs: Laboratory Results - last 24 hr 05/30/22 05/30/22 05/30/22 18:20 18:20 18:20 WBC 6.4 RBC 4.14 L Hgb 11.4 L Hct 36.4 L MCV 87.9 MCH 27.5 MCHC 31.3 L RDW Std Deviation 46.9 H RDW Coeff of Meenu 14.7 H Plt Count 235 MPV 10.3 Immature Gran % (Auto) 0.300 Neut % (Auto) 64.0 Lymph % (Auto) 24.4 Grainger % (Auto) 8.3 Eos % (Auto) 2.7 Baso % (Auto) 0.3 Absolute Neuts (auto) 4.1 Absolute Lymphs (auto) 1.55 Nucleated RBC % 0 Sodium 138 Potassium 4.2 Chloride 109 H Carbon Dioxide 26.0 Anion Gap 3 L BUN 23 H Creatinine 2.20 H Estim Creat Clear Calc 25.46 Est GFR (MDRD) Af Amer 37 L Est GFR (MDRD) Non-Af 31 L BUN/Creatinine Ratio 10.5 Glucose 144 H Calcium 8.9 Total Bilirubin 0.40 Direct Bilirubin 0.14 AST 16 ALT 23 Alkaline Phosphatase 60 Troponin I High Sens 19 Total Protein 6.7 Albumin 3.6 Globulin 3.1 Albumin/Globulin Ratio 1.2 Lipase 1679 H Radiography Diagnostic Testing: Clinical Impression(s) from Imaging Studies Abdomen/Pelvis CT 05/30/22 19:11 IMPRESSION: Postoperative change including with ileostomy in the right lower quadrant. No obstruction. Electronically Signed: Maurilio Garcia MD at 20:06 EST , Chest X-Ray 05/30/22 19:18 IMPRESSION: Degenerative changes, as described above. No demonstrated acute cardiopulmonary process. Electronically Signed: Maurilio Garcia MD at 19:50 EST , Discharge Plan Triage Chief Complaint: Chest Other ED Provider: Lexa Maldonado Dx/Rx/DC Orders Primary Care Provider: Lloyd Jalloh
[2022-05-30 18:31] LABS: Absolute Lymphocyte Count 1.55 X10^3/uL (0.83-4.51); Absolute Neutrophil Count 4.1 X10^3/uL (2.0-7.7); Basophil# 0.02 X10^3/uL; Basophil% 0.3 % (0-1); Eosinophil# 0.17 X10^3/uL; Eosinophils% 2.7 % (0-5); Hematocrit 36.4 % (40-54); Hemoglobin 11.4 g/dL (13.0-16.5); Lymphocyte # 1.55 X10^3/ul (0.83-4.51); Lymphocyte % 24.4 % (19-41); Mean Corp Hgb Conc 31.3 g/dL (32-36); Mean Corpuscular Hgb 27.5 pg (27.0-32.0); Mean Corpuscular Volume 87.9 fL (80-94); Mean Platelet Vol. 10.3 fl (6.2-12.0); Monocyte# 0.53 X10^3/uL; Monocyte% 8.3 % (0-10); NRBC Flagged by Analyzer 0 % (0-5); Neutrophil # 4.06 X10^3/uL (2.7-7.7); Platelet Count 235 K/mm3 (150-450); RBC Distribution Width CV 14.7 % (11.6-14.6); RBC Distribution Width SD 46.9 fl (35.1-43.9); Red Blood Count 4.14 M/mm3 (4.6-6.2); White Blood Count 6.4 K/mm3 (4.4-11.0)
[2022-05-30 18:50] LABS: ALB/GLOB Ratio 1.2 RATIO (0.9-2.4); AST(SGOT) 16 U/L (15-37); Alanine Aminotransfer ALT/SGPT 23 U/L (16-61); Albumin, Serum 3.6 g/dL (3.2-5.0); Alkaline Phosphatase 60 U/L (45-117); Anion Gap 3 (5-15); BUN 23 mg/dL (7-18); BUN/Creat Ratio 10.5 RATIO (10-20); Bilirubin, Direct 0.14 mg/dL (0.00-0.30); Calcium,Total 8.9 mg/dL (8.5-10.1); Chloride 109 mmol/L (98-107); EST Glomerular Filtration Rate 31 mL/min (>60); Est Glom Filt Rate - Afr Amer 37 mL/min (>60); Estimated Creatinine Clearance 25.46 ml/min; Globulin 3.1 g/dL (2.2-4.2); Glucose 144 mg/dL (74-106); Potassium 4.2 mmol/L (3.5-5.1); Protein, Total 6.7 g/dL (6.4-8.2); Sodium Level 138 mmol/L (136-145); Troponin-I HS 19 pg/mL (3.0-78.0)
--- NOTE | 2022-05-30 19:11 | CT_ITS ---
STUDY: CT ABDOMEN AND PELVIS WITH CONTRAST REASON FOR EXAM: Male, 81 years old. Abdominal pain RADIATION DOSAGE (If Supplied By Facility): CTDIvol = ( 21.19 ) mGy, DLP = ( 969.01 ) mGycm TECHNIQUE: Transaxial images were obtained from the dome of the diaphragm to the symphysis pubis without oral contrast. IV 100mL Isovue-[id number] was administered. Sagittal and coronal images were reconstructed. Individualized dose optimization techniques were used for this CT. COMPARISON: February 17, 2022 FINDINGS: There are chronic interstitial fibrotic changes of the lung bases. There are valvular calcifications of the heart Normal liver. Normal gallbladder and extrahepatic biliary system. Normal spleen. Normal pancreas. Normal bilateral adrenal glands. There is mild atrophy of the right kidney. There are bilateral renal cysts Normal left kidney. There is postoperative change of the stomach with possible colonic interposition in the anterior lower chest. Normal small intestine. There is resection of the right colon. There are multiple diverticula of the distal colon. There is non-visualization of the appendix. There is ileostomy in the right lower quadrant. Normal abdominal aorta. Normal inferior vena cava. Normal retroperitoneum. Normal urinary bladder. There is no free fluid in the abdomen or pelvis. There is postoperative change of the abdominal wall. There is mild degenerative change of the spine. CT/Abdomen/Pelvis W IV Cont ONLY IMPRESSION: Postoperative change including with ileostomy in the right lower quadrant. No obstruction. Electronically Signed: Maurilio Garcia MD at 20:06 EST ,
--- NOTE | 2022-05-30 19:18 | RAD_ITS ---
STUDY: X-RAY CHEST REASON FOR EXAM: Male, 81 years old. Cough TECHNIQUE: Single AP portable view of the chest. COMPARISON: January 04, 2022 FINDINGS: There are monitoring devices. There are surgical clips in the upper chest. There is stable right lower lung scarring or atelectasis. There is no demonstrated pleural abnormality. Normal size heart. Normal mediastinum and deepa. Normal visualized pulmonary arteries. Normal visualized aortic arch and descending thoracic aorta. Normal visualized thoracic spine. There is resection of the medial left clavicle. There is no demonstrated abnormality of the visualized soft tissue structures of the upper abdomen. RAD/Chest 1 View (Portable) IMPRESSION: Degenerative changes, as described above. No demonstrated acute cardiopulmonary process. Electronically Signed: Maurilio Garcia MD at 19:50 EST ,
[2022-05-30] MEDS: 0.9% Normal Saline 1,000 ML 999 ML IV (19:37)
[2022-05-30] MEDS: Ondansetron 4 MG/2 ML Vial IV (19:53)
[2022-05-30] MEDS: Morphine 4 MG/ML Syringe IV (19:54)
--- NOTE | 2022-05-30 19:59 | ED.RN ---
dr bang made aware of pt's heart rate dropping down to 36 (nonsustaining). heart rate ranges 36-50
[2022-05-30 20:16] LABS: Lipase 1679 U/L (73-393)
--- NOTE | 2022-05-30 20:43 | PCM.HP.STD ---
HPI - General General Date of Admission: 05/30/22 Date of Service: 05/30/22 Chief Complaint: Abdominal pain. 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 notes that he is been very weak and she is unable to assist him in the home. Unfortunately the and are poor historians with need for questioning the same item and different ways to get an answer occasionally encumbered by translation used given primary language Icelandic. The colostomy is continue to make stool. Work-up in the ED included T98.6, heart rate 52, BP 166/114 initially with most recent repeat 157/80, respiratory rate 17, 100% room air, CBC with WC 6.4, hemoglobin 11.4, MCV 87.9, platelet 235 without marked shift, CMP with chloride 109, anion gap 3, BUN/creatinine 23/2.20, glucose 144, unremarkable hepatic profile, troponin 19, lipase 1679, rapid COVID antigen and influenza antigen negative, chest x-ray with degenerative changes with no acute cardiopulmonary findings, CT abdomen and pelvis with postop changes including ileostomy right lower quadrant possible colonic interposition in the anterior lower chest, evidence resection right colon with normal-appearing pancreas as well as gallbladder and extrahepatic biliary system. In the ED patient administered Zofran 4 mg IV x1, morphine 4 mg IV x1 and 1 L normal saline bolus. [facility] Medical History (Updated 05/30/22 @ 22:[address] Roseanna Solomon MD) Anxiety and depression Chronic asthmatic bronchitis CKD (chronic kidney disease), stage III Diabetic neuropathy DM type 2 (diabetes mellitus, type 2) History of CVA (cerebrovascular accident) History of seizure disorder History of tobacco use Hypercholesterolemia Home Medications oxycodone-acetaminophen 5 mg-325 mg tablet 1 - 2 tab PO Q4H PRN PRN Pain #20 tabs 08/24/15 [Rx Last Taken Unknown] atorvastatin 40 mg tablet 80 mg PO DAILY 11/14/21 [History Last Taken Unknown] dulaglutide 0.75 mg/0.5 mL subcutaneous pen injector (Trulicity) 0.5 mg subcut QWEEK 11/14/21 [History Last Taken Unknown] losartan 25 mg tablet 25 mg PO DAILY 11/14/21 [History Last Taken Unknown] pregabalin 150 mg capsule 150 mg PO TID 11/14/21 [History Last Taken Unknown] ropinirole 4 mg tablet 4 mg PO QHS 11/14/21 [History Last Taken Unknown] aspirin 81 mg chewable tablet 81 mg PO BREAKFAST #30 tabs 01/05/22 [Rx Last Taken Unknown] albuterol sulfate 90 mcg/actuation aerosol inhaler (Ventolin HFA) 2 puff inhalation Q6H PRN sob 05/30/22 [History Last Taken Unknown] ascorbic acid (vitamin C) 500 mg tablet 500 mg PO BID 05/30/22 [History Last Taken Unknown] diazepam 5 mg/5 mL (1 mg/mL) oral solution 5 mg PO BID PRN Muscle Spasm 05/30/22 [History Last Taken Unknown] donepezil 10 mg tablet 10 mg PO DAILY 05/30/22 [History Last Taken Unknown] insulin lispro 100 unit/mL subcutaneous pen 10 unit subcut Check with primary doctor 05/30/22 [History Last Taken Unknown] melatonin 3 mg tablet 3 mg PO QHS 05/30/22 [History Last Taken Unknown] tamsulosin 0.4 mg capsule 0.4 mg PO QHS 05/30/22 [History Last Taken Unknown] triamcinolone acetonide 0.025 % topical cream 1 applic topical BID 05/30/22 [History Last Taken Unknown] venlafaxine 37.5 mg capsule,extended release 24 hr 37.5 mg PO DAILY 05/30/22 [History Last Taken Unknown] Allergy/AdvReac Type Severity Reaction Status Date / Time No Known Allergies Allergy Verified 05/30/22 17:43 Family History Mother Myocardial infarction Hypertension Father Diabetes Alzheimer disease Surgical History History of appendectomy History of esophageal surgery History of eye surgery Social History household members: spouse Smoking Status: Former smoker how long ago did patient quit smoking: Quit 1-2 years prior, smoked occasional cigars. alcohol intake: never substance use type: does not use ROS ROS Narrative Admission Review of Systems: CONSTITUTIONAL: No weight loss, fever, chills, + weakness or fatigue. HEENT: Eyes: No visual loss, blurred vision, double vision or yellow sclerae. Ears, Nose, Throat: No hearing loss, sneezing, congestion, runny nose or sore throat. SKIN: No rash or itching, lesions, wounds. CARDIOVASCULAR: No chest pain, chest pressure or chest discomfort, palpitations, edema, orthopnea, syncopal events. RESPIRATORY: No shortness of breath, cough or sputum, wheezing, hemoptysis. GASTROINTESTINAL: + anorexia, nausea without vomiting, abdominal pain, ostomy in place with history of extensive surgery following hiatal hernia repair, no significant increased ostomy output above prior baseline, melena or BRBPR. GENITOURINARY: No dysuria, frequency, urgency or retention. NEUROLOGICAL: + Generalized weakness and debility, history of stiff man syndrome, chronic mild cognitive impairment, no headache, dizziness, syncope, paralysis, ataxia, numbness or tingling in the extremities, focal weakness, change in bowel or bladder control, seizure. MUSCULOSKELETAL: + muscle, back pain, joint pain or stiffness. HEMATOLOGIC: + anemia, bleeding or bruising. LYMPHATICS: No enlarged nodes. No history of splenectomy. PSYCHIATRIC: + history of depression or anxiety. ENDOCRINOLOGIC: No reports of sweating, cold or heat intolerance. No polyuria or polydipsia. ALLERGIES: No history of asthma, hives, eczema or rhinitis. Vital Signs Vital Signs Vital Signs: 05/30/22 17:37 05/30/22 17:51 05/30/22 18:33 Temperature 98.6 F Temperature Source Temporal Pulse Rate 52 L 53 L Respiratory Rate 17 16 Respiratory Effort Normal Non-Labored Respiratory Pattern Normal Blood Pressure 166/114 H 162/78 H Blood Pressure Mean 131 106 Pulse Ox 100 99 Oxygen Delivery Method Room Air Room Air 05/30/22 19:32 05/30/22 19:38 05/30/22 20:02 Temperature Temperature Source Pulse Rate 51 L 46 L 59 L Respiratory Rate 15 13 Respiratory Effort Respiratory Pattern Blood Pressure 119/79 157/80 H Blood Pressure Mean 92 105 Pulse Ox 98 99 Oxygen Delivery Method Room Air Room Air Weight Weight: 186 lb 11.704 oz Body Mass Index (BMI) 29.2 Physical Exam Narrative Physical Examination: General: Awake, alert, oriented x 3 and cooperative, seated upright in the ED bed, fatigued appearing, discussions via translation, notes still abdominal pain ongoing, aching, 2-3 out of 10. Skin: Normal color, normal turgor, no icterus, no cyanosis except for occasional staged ecchymoses. HEENT: AT/NC, EOMI, PERRLA, dry MM, no carotid bruits or JVD noted. Lungs: Diminished, greater bases, mildly decreased effort, no rales, ronchi or wheezing. Heart: Currently regular rate and rhythm; no gallop, rub audible. Abdomen: Soft, mild epigastric discomfort with no marked rebound or guarding, no obvious marked distention, right lower quadrant with ostomy in place with appropriate output in the bag, currently normal bowel sounds, no obvious HSM. Extremities: No cyanosis, no clubbing, mild bilateral ankle edema. Neurological: Patient awake, alert, oriented as noted, cognitive function appears per family baseline intact but more fatigued and weak per their report; pupils equally reactive to light and accommodation, cranial nerves grossly normal, moving all 4 extremities, strength moderately to severely globally decreased secondary to acute presentation complaints. Psychiatric: Affect appears fatigued, no acute evidence of depressive or anxiety feelings but does have underlying history. Results Lab / Micro Data Result Diagrams: 05/30/22 18:20 05/30/22 18:20 Labs: Laboratory Results - last 24 hr 05/30/22 18:20: WBC 6.4, RBC 4.14 L, Hgb 11.4 L, Hct 36.4 L, MCV 87.9, MCH 27.5, MCHC 31.3 L, RDW Std Deviation 46.9 H, RDW Coeff of Meenu 14.7 H, Plt Count 235, MPV 10.3, Immature Gran % (Auto) 0.300, Neut % (Auto) 64.0, Lymph % (Auto) 24.4, Crane % (Auto) 8.3, Eos % (Auto) 2.7, Baso % (Auto) 0.3, Absolute Neuts (auto) 4.1, Absolute Lymphs (auto) 1.55, Nucleated RBC % 0 05/30/22 18:20: Sodium 138, Potassium 4.2, Chloride 109 H, Carbon Dioxide 26.0, Anion Gap 3 L, BUN 23 H, Creatinine 2.20 H, Estim Creat Clear Calc 25.46, Est GFR (MDRD) Af Amer 37 L, Est GFR (MDRD) Non-Af 31 L, BUN/Creatinine Ratio 10.5, Glucose 144 H, Calcium 8.9, Total Bilirubin 0.40, Direct Bilirubin 0.14, AST 16, ALT 23, Alkaline Phosphatase 60, Troponin I High Sens 19, Total Protein 6.7, Albumin 3.6, Globulin 3.1, Albumin/Globulin Ratio 1.2 05/30/22 18:20: Lipase 1679 H Micro: Microbiology 05/30/22 18:45 Nasal Secretion SARS-CoV-2 & FLU Antigen (Rapid) - Final Radiology Impression Abdomen/Pelvis CT 05/30/22 19:11 IMPRESSION: Postoperative change including with ileostomy in the right lower quadrant. No obstruction. Electronically Signed: Maurilio Garcia MD at 20:06 EST , Chest X-Ray 05/30/22 19:18 IMPRESSION: Degenerative changes, as described above. No demonstrated acute cardiopulmonary process. 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 #1. Adult FTT secondary to underlying comorebidities and Acute pancreatitis w/ abdominal pain, nausea without emesis: Will admit to medical surgical floor, maintain on IVFs, NPO, PPI, IV/po pain control, trend lipase, CMP. CT abdomen pelvis with no obvious acute findings of the gallbladder, will obtain FLP, denies alcohol consumption as etiology for pancreatitis but will obtain level to be cautious. PT, OT, case management consulted for discharge planning #2. Mild cognitive impairment/possibly dementia: Unclear type of possible dementia and noted to be without behavioral disturbance history, we will continue patient home donepezil regimen, complicates presentation, maintain on fall and aspiration precautions, therapies and CM consulted for discharge planning with potential need for skilled versus assisted living as is unable to safely assist in caring for him at their home although seems hesitant about placement. #3. Chronic Kidney Disease Stage III, unclear subtype: Admission BUN/Cr 23/2.20, baseline renal function appears primarily 1.9-2.4, will continue to closely monitor. #4. Chronic normocytic anemia: Admission hemoglobin 11.4, most recent trending 10-11, stable, continue to monitor. #5. Diabetes mellitus type II with neuropathy: Hold oral home regimen, will hold patient Trulicity, n.p.o. status given acute presentation with every 6 hours accu checks w/ ISS, continue patient home pregabalin regimen. #6. Chronic COPD/asthma: Not on any chronic inhalers per current list, will maintain on PRN albuterol, HOB, IS parameters. #7. Stiff-man syndrome: Patient previously utilized as needed diazepam, will continue. #8. Hypertension: We will continue patient home losartan regimen, as needed IV hydralazine. #9. Hyperlipidemia: Continue home statin regimen. AM FLP. #10. Former Tobacco Abuse: Encouraged continued tobacco cessation. #11. Restless leg syndrome: We will continue patient home Requip regimen. #12. BPH: We will continue patient on Flomax regimen. #13. Anxiety and depression: We will continue patient home venlafaxine regimen. #14. History TIA/CVA: We will continue patient aspirin, statin, hypertensive regimen as noted, diabetic regimen with alterations as noted. #15. DVT prophylaxis: We will maintain on chemoprophylaxis with heparin. #16. CODE status: Patient HCPOA is and daughter and living will is currently in place. Discussed CODE status at length including difference between FULL code, DNR-CCA and DNR-CC status. Following discussions about the differences in these status, requested Full Code status. ED physician discussed admission with patient daughter and updated on plan of care. Advanced Care Planning Face to Face Time: 16 minutes. Admission Evaluation Time spent evaluating chart, patient history, patient evaluation, care planning and discussion with specialists: 75 minutes. Charges/Coding Visit Charges Inpatient E&M: 83746 Init Hosp L3 Procedures Hospitalists Procedures: 81728 Advncd Care Plan 30 Min
[2022-05-30] MEDS: 0.9% Normal Saline 1,000 ML 150 ML IV (22:32)
[2022-05-30] MEDS: proCHLORPERazine 10 MG/2 ML Vial 5 MG IV (22:35)
[2022-05-30] MEDS: Heparin Injection (Vial) 5,000 UNIT/ML VIAL 5000 UNIT SC (22:52)
[2022-05-30] MEDS: MELATONIN 3 MG TABLET PO (22:59)
[2022-05-30] MEDS: Pramipexole Di-HCl 1 MG Tablet 1.5 MG PO (23:00)
[2022-05-31] VITALS (9 sets, daily range): BP systolic 117–169; BP diastolic 61–81; PULSE 55–65; RESP 16–18; TEMP 36.3–36.7; O2SAT 97–99; BMI 25.4
[2022-05-31 00:15] LABS: Bedside Glucose 162 mg/dL (74-106)
[2022-05-31 05:27] LABS: Absolute Lymphocyte Count 1.25 X10^3/uL (0.83-4.51); Absolute Neutrophil Count 5.8 X10^3/uL (2.0-7.7); Basophil# 0.02 X10^3/uL; Basophil% 0.3 % (0-1); Eosinophil# 0.03 X10^3/uL; Eosinophils% 0.4 % (0-5); Hematocrit 33.4 % (40-54); Hemoglobin 10.5 g/dL (13.0-16.5); Lymphocyte # 1.25 X10^3/ul (0.83-4.51); Lymphocyte % 16.6 % (19-41); Mean Corp Hgb Conc 31.4 g/dL (32-36); Mean Corpuscular Hgb 27.4 pg (27.0-32.0); Mean Corpuscular Volume 87.2 fL (80-94); Mean Platelet Vol. 10.5 fl (6.2-12.0); Monocyte% 5.3 % (0-10); NRBC Flagged by Analyzer 0 % (0-5); Neutrophil % 76.9 % (47-70); Platelet Count 225 K/mm3 (150-450); RBC Distribution Width CV 14.6 % (11.6-14.6); Red Blood Count 3.83 M/mm3 (4.6-6.2); White Blood Count 7.5 K/mm3 (4.4-11.0)
[2022-05-31] MEDS: 0.9% Normal Saline 1,000 ML 150 ML IV ×3 (05:48→19:13)
[2022-05-31 05:58] LABS: ALB/GLOB Ratio 1.1 RATIO (0.9-2.4); AST(SGOT) 20 U/L (15-37); Alanine Aminotransfer ALT/SGPT 24 U/L (16-61); Alkaline Phosphatase 50 U/L (45-117); Anion Gap 8 (5-15); BUN 21 mg/dL (7-18); BUN/Creat Ratio 10.9 RATIO (10-20); Calcium,Total 8.4 mg/dL (8.5-10.1); Chloride 109 mmol/L (98-107); Creatinine, Serum 1.93 mg/dL (0.70-1.30); EST Glomerular Filtration Rate 36 mL/min (>60); Est Glom Filt Rate - Afr Amer 43 mL/min (>60); Estimated Creatinine Clearance 34.06 ml/min; Globulin 2.7 g/dL (2.2-4.2); Glucose 138 mg/dL (74-106); Lipase 281 U/L (73-393); Potassium 4.7 mmol/L (3.5-5.1); Protein, Total 5.7 g/dL (6.4-8.2); Sodium Level 138 mmol/L (136-145)
[2022-05-31] MEDS: Pregabalin 75 MG Capsule 150 MG PO ×3 (07:04→21:21)
[2022-05-31 07:26] LABS: Bedside Glucose 130 mg/dL (74-106)
[2022-05-31 08:43] LABS: Hemoglobin A1c 7.7 % (3.8-5.6)
[2022-05-31] MEDS: Donepezil HCl 10 MG Tablet PO (08:46)
[2022-05-31] MEDS: Losartan Potassium 25 MG Tablet PO (08:46)
[2022-05-31] MEDS: Heparin Injection (Vial) 5,000 UNIT/ML VIAL 5000 UNIT SC ×2 (08:46→20:58)
[2022-05-31] MEDS: Aspirin 81 MG TAB.CHEW PO (08:46)
[2022-05-31] MEDS: Venlafaxine XR 37.5 MG Capsule PO (08:46)
[2022-05-31] MEDS: Tamsulosin HCl 0.4 MG Capsule PO (08:46)
[2022-05-31] MEDS: Ondansetron 4 MG/2 ML Vial IV ×2 (10:25→21:20)
--- NOTE | 2022-05-31 10:25 | CASEMGMT ---
RN?CM?SECURITY TECHNICIAN?CM?to room to meet with patient for initial transition planning/care coordination?assessment.?RN?CM?introduced self and role at [facility].? ? Pt resting in bed in no distress at this time.? Pt difficult to understand, as Yoruba is his primary language. Pt did request for OMAR LINARES to contact his dtr, Fozia, re: car keys that she was looking for, as he wished to speak to her. OMAR LINARES placed call to Fozia at this time, who states she did find the keys. Pt spoke w/Olympia briefly and then Olympia got back on the phone with OMAR LINARES to complete assessment. Care providers, pharmacy, and demographics verified/updated at this time. PCP: Dr Jalloh Specialists: Dr Membreno-nephrology. Fozia states he has referred them to f/u with a manager diesel in [place]. Preferred Pharmacy: [facility] Retail Insurance: [employer] Prescription Benefit:?yes Living Will/HPOA:?[place]ia states pt has completed both LW and HCPOA, stating her mother is HCPOA, and she (Fozia) is 1st alternative. LNOK: , [place]. Dtr, Fozia. Son who [place] of the [place]. Living Arrangements: Lives w/his in one-story home w/2 steps to enter. When pt @ his baseline, he is able to navigate the stairs well, is indep w/ADL's, and manages his own medications. does oversee his meds and she does home mgmt tasks. also does colostomy care. Transportation:?Pt, family DME: Pt has the following DME:?functioning glucometer w/supplies, colostomy supplies via mail-order (dtr, Fozia, takes care of ordering supplies), shower chair. Pt also has a cane and walker available, but does not use them. ?Dtr states no need for further DME at this time.? HHC/SNF: Pt has been to a SNF in the past in [place], but states it was a bad experience. Pt has also had HHC in the past. Discussed discharge planning and Fozia made aware therapy evals pending. Fozia states wants to avoid pt going to a SNF, if possible. She prefers for pt to be able to go home and agreeable to HHC, if is is recommended. CM?to follow for any further discharge planning/needs.?Dtr voices no further concerns/needs at this time.? Advised her to ask for?CM?if any further questions/concerns/needs arise.? Voices understanding. PLAN:??TBD--most likely home w/possible HHC. PT/OT evals pending. Henri BSN?RN?CM
--- NOTE | 2022-05-31 10:55 | PN_ITS ---
Subjective Subjective Patient seen and examined. He was able to communicate in Cambodian fairly well. He denied any abdominal pain and said he felt very well. He denied any nausea, vomiting, fever or chills or any other symptoms. Review of systems is otherwise negative. He has remained hemodynamically stable. Objective Data Objective Data Vital Signs: Vital Signs Temp Pulse Resp BP Pulse Ox O2 Del Method 98.1 F 56 L 18 118/67 99 Room Air 05/31/22 10:00 05/31/22 10:00 05/31/22 10:00 05/31/22 10:00 05/31/22 10:00 05/31/22 10:00 Oxygen Delivery Method Room Air Weight: 187 lb 13.341 oz Body Mass Index (BMI) 25.4 Intake & Output: Intake and Output for Last 24 Hours 05/29/22 05/30/22 05/31/22 23:59 23:59 23:59 Intake Total 1000 / 1000 1220 / 1220 Output Total 0 / 0 Balance 1000 / 1000 1220 / 1220 Lab / Micro Data Result Diagrams: 05/31/22 04:28 05/31/22 04:28 Labs: Laboratory Results - last 24 hr 05/30/22 18:20: WBC 6.4, RBC 4.14 L, Hgb 11.4 L, Hct 36.4 L, MCV 87.9, MCH 27.5, MCHC 31.3 L, RDW Std Deviation 46.9 H, RDW Coeff of Meenu 14.7 H, Plt Count 235, MPV 10.3, Immature Gran % (Auto) 0.300, Neut % (Auto) 64.0, Lymph % (Auto) 24.4, Hopkins % (Auto) 8.3, Eos % (Auto) 2.7, Baso % (Auto) 0.3, Absolute Neuts (auto) 4.1, Absolute Lymphs (auto) 1.55, Nucleated RBC % 0 05/30/22 18:20: Sodium 138, Potassium 4.2, Chloride 109 H, Carbon Dioxide 26.0, Anion Gap 3 L, BUN 23 H, Creatinine 2.20 H, Estim Creat Clear Calc 25.46, Est GFR (MDRD) Af Amer 37 L, Est GFR (MDRD) Non-Af 31 L, BUN/Creatinine Ratio 10.5, Glucose 144 H, Calcium 8.9, Total Bilirubin 0.40, Direct Bilirubin 0.14, AST 16, ALT 23, Alkaline Phosphatase 60, Troponin I High Sens 19, Total Protein 6.7, Albumin 3.6, Globulin 3.1, Albumin/Globulin Ratio 1.2 05/30/22 18:20: Lipase 1679 H 05/30/22 23:46: POC Glucose 162 H 05/31/22 04:28: WBC 7.5, RBC 3.83 L, Hgb 10.5 L, Hct 33.4 L, MCV 87.2, MCH 27.4, MCHC 31.4 L, RDW Std Deviation 46.0 H, RDW Coeff of Meenu 14.6, Plt Count 225, MPV 10.5, Immature Gran % (Auto) 0.500, Neut % (Auto) 76.9 H, Lymph % (Auto) 16.6 L, Hopkins % (Auto) 5.3, Eos % (Auto) 0.4, Baso % (Auto) 0.3, Absolute Neuts (auto) 5.8, Absolute Lymphs (auto) 1.25, Nucleated RBC % 0 05/31/22 04:28: Sodium 138, Potassium 4.7, Chloride 109 H, Carbon Dioxide 21.0, Anion Gap 8, BUN 21 H, Creatinine 1.93 H, Estim Creat Clear Calc 34.06, Est GFR (MDRD) Af Amer 43 L, Est GFR (MDRD) Non-Af 36 L, BUN/Creatinine Ratio 10.9, Glucose 138 H, Calcium 8.4 L, Total Bilirubin 0.70, AST 20, ALT 24, Alkaline Phosphatase 50, Total Protein 5.7 L, Albumin 3.0 L, Globulin 2.7, Albumin/Globulin Ratio 1.1, Lipase 281 05/31/22 04:28: Hemoglobin A1c 7.7 H 05/31/22 06:51: POC Glucose 130 H Micro: Microbiology 05/30/22 18:45 Nasal Secretion SARS-CoV-2 & FLU Antigen (Rapid) - Final Radiography Diagnostic Testing: Radiology Impression Abdomen/Pelvis CT 05/30/22 19:11 IMPRESSION: Postoperative change including with ileostomy in the right lower quadrant. No obstruction. Electronically Signed: Maurilio Garcia MD at 20:06 EST , Chest X-Ray 05/30/22 19:18 IMPRESSION: Degenerative changes, as described above. No demonstrated acute cardiopulmonary process. Electronically Signed: Maurilio Garcia MD at 19:50 EST Reading Location ID and State: [address] [place] [address] , Service support , Physical Exam Const alert, oriented x3 and no apparent distress General Appearance: cooperative HEENT normocephalic, head/scalp atraumatic, moist oral mucous membranes and oropharynx normal Eyes PERRL and EOMs intact bilaterally Neck no lymphadenopathy, supple and no JVD Lymph Lymphatic: no lymphadenopathy noted Resp normal respiratory effort, normal air movement and clear to auscultation bilaterally Cardio regular rate, regular rhythm, S1 normal heart sound, S2 normal heart sound and no murmurs GI normal to inspection, nondistended, normoactive bowel sounds, soft to palpation, non-tender and non-distended GI Narrative: colostomy bag in place Extremity normal capillary refill and no clubbing, cyanosis or edema Skin General Skin Exam: no breakdown Neuro CN's II-XII intact bilaterally, no focal motor deficits and no sensory deficits noted Motor Exam: strength 5/5 throughout Psych thought process normal Assessment & Plan Assessment/Plan (1) Acute pancreatitis: PLAN: Plan #Acute pancreatitis * improved markedly. Abdominal pain is much better * will start on full liquid diet and advance as tolerated * PO tylenol and PO oxycodone prn for pain * * #CKD: Cr is 1.93; his baseline is ~ 1.8-1.9. Stable. Will monitor. #Dementia: On donepezil #Hypertension: On losartan #Type 2 diabetes mellitus: On Trulicity 0.5 subcu weekly. Accuchecks ACHS since he is now on a diet BPH: On Flomax Depression: On venlafaxine DVT prophylaxis: heparin Charges/Coding Visit Charges Inpatient E&M: 78242 Subs Hosp L2
[2022-05-31] MEDS: Acetaminophen 325 MG Tablet 650 MG PO ×3 (11:41→21:21)
[2022-05-31] MEDS: oxyCODONE 5 MG Tablet PO ×3 (11:42→21:21)
[2022-05-31] MEDS: proCHLORPERazine 10 MG/2 ML Vial 5 MG IV (11:42)
[2022-05-31] MEDS: Insulin Lispro 100 UNIT/ML INSULN.PEN SC ×3 (11:42→20:59)
[2022-05-31 12:21] LABS: Bedside Glucose 162 mg/dL (74-106)
[2022-05-31 17:10] LABS: Bedside Glucose 226 mg/dL (74-106)
[2022-05-31] MEDS: MELATONIN 3 MG TABLET PO (20:59)
[2022-05-31] MEDS: Pramipexole Di-HCl 1 MG Tablet 1.5 MG PO (20:59)
[2022-05-31] MEDS: Atorvastatin Calcium 40 MG Tablet PO (20:59)
[2022-05-31] MEDS: Triamcinolone Acetonide 0.1% Cream 15 gm 1 APPLIC TOPICAL (21:00)
[2022-05-31] MEDS: Mag Hydrox/Al Hydrox/Simeth 30 ML UDC PO (21:20)
[2022-05-31] MEDS: 0.9% Saline Lock 10 ML Syringe IV (21:21)
[2022-05-31 22:25] LABS: Bedside Glucose 175 mg/dL (74-106)
[2022-06-01] MEDS: 0.9% Normal Saline 1,000 ML 150 ML IV ×4 (01:18→22:18)
[2022-06-01 02:32] VITALS: BP 126/72; PULSE 64; RESP 16; TEMP 36.5; O2SAT 97
[2022-06-01 04:37] LABS: Absolute Lymphocyte Count 0.68 X10^3/uL (0.83-4.51); Basophil# 0.02 X10^3/uL; Basophil% 0.2 % (0-1); Eosinophil# 0.04 X10^3/uL; Eosinophils% 0.4 % (0-5); Hematocrit 33.9 % (40-54); Hemoglobin 10.6 g/dL (13.0-16.5); Lymphocyte # 0.68 X10^3/ul (0.83-4.51); Lymphocyte % 6.6 % (19-41); Mean Corp Hgb Conc 31.3 g/dL (32-36); Mean Corpuscular Hgb 27.8 pg (27.0-32.0); Mean Platelet Vol. 10.1 fl (6.2-12.0); Monocyte# 0.45 X10^3/uL; Monocyte% 4.4 % (0-10); NRBC Flagged by Analyzer 0 % (0-5); Neutrophil # 8.98 X10^3/uL (2.7-7.7); Neutrophil % 87.6 % (47-70); Platelet Count 232 K/mm3 (150-450); RBC Distribution Width CV 14.6 % (11.6-14.6); RBC Distribution Width SD 46.6 fl (35.1-43.9); Red Blood Count 3.81 M/mm3 (4.6-6.2); White Blood Count 10.3 K/mm3 (4.4-11.0)
[2022-06-01 04:55] LABS: Anion Gap 7 (5-15); BUN 19 mg/dL (7-18); BUN/Creat Ratio 10.1 RATIO (10-20); Calcium,Total 8.4 mg/dL (8.5-10.1); Chloride 108 mmol/L (98-107); Creatinine, Serum 1.89 mg/dL (0.70-1.30); EST Glomerular Filtration Rate 37 mL/min (>60); Est Glom Filt Rate - Afr Amer 44 mL/min (>60); Estimated Creatinine Clearance 34.79 ml/min; Glucose 148 mg/dL (74-106); Potassium 4.7 mmol/L (3.5-5.1); Sodium Level 137 mmol/L (136-145)
[2022-06-01] MEDS: Acetaminophen 325 MG Tablet 650 MG PO (05:20)
[2022-06-01] MEDS: Mag Hydrox/Al Hydrox/Simeth 30 ML UDC PO (05:20)
[2022-06-01] MEDS: Pregabalin 75 MG Capsule 150 MG PO ×3 (05:21→22:23)
[2022-06-01 06:00] VITALS: BMI 25.8
[2022-06-01 07:20] LABS: Bedside Glucose 145 mg/dL (74-106)
[2022-06-01 08:28] VITALS: O2SAT 97
[2022-06-01 08:58] VITALS: BP 140/78; PULSE 68; RESP 17; TEMP 36.8; O2SAT 98
[2022-06-01] MEDS: Losartan Potassium 25 MG Tablet PO (09:01)
[2022-06-01] MEDS: Venlafaxine XR 37.5 MG Capsule PO (09:01)
[2022-06-01] MEDS: Donepezil HCl 10 MG Tablet PO (09:01)
[2022-06-01] MEDS: Tamsulosin HCl 0.4 MG Capsule PO (09:01)
[2022-06-01] MEDS: Aspirin 81 MG TAB.CHEW PO (09:02)
[2022-06-01] MEDS: Heparin Injection (Vial) 5,000 UNIT/ML VIAL 5000 UNIT SC ×2 (09:02→22:24)
--- NOTE | 2022-06-01 11:47 | WOUNDNOTE ---
Was asked to see patient for his ileostomy. patient difficult to understand. patient currently has a coloplast high volume pouch, but only has the pouches and not the flange. there is stool noted under the current flange. there is moderate soft brown stool in the appliance. removed the entire appliance. pt does have a peristomal hernia as well as a stomal prolapse. family not present currently at bedside. peristomal skin is intact otherwise. new appliance placed
--- NOTE | 2022-06-01 11:58 | PN_ITS ---
Subjective Subjective Patient seen and examined. He feels better today. His abdominal pain has improved. He did have some recurrence of the pain when he was placed on a diet yesterday but this has improved and he is tolerating his breakfast today. Review of stems otherwise negative. He has remained hemodynamically stable. Objective Data Objective Data Vital Signs: Vital Signs Temp Pulse Resp BP Pulse Ox O2 Del Method 98.2 F 68 17 140/78 H 98 Room Air 06/01/22 08:58 06/01/22 08:58 06/01/22 08:58 06/01/22 08:58 06/01/22 08:58 06/01/22 09:00 Oxygen Delivery Method Room Air Weight: 190 lb 4.143 oz Body Mass Index (BMI) 25.8 Intake & Output: Intake and Output for Last 24 Hours 05/30/22 05/31/22 06/01/22 23:59 23:59 23:59 Intake Total 1000 / 1000 4580 / 4580 1872.5 / 1872.5 Output Total 1500 / 1500 300 / 300 Balance 1000 / 1000 3080 / 3080 1572.5 / 1572.5 Lab / Micro Data Result Diagrams: 06/01/22 04:24 06/01/22 04:24 Labs: Laboratory Results - last 24 hr 05/31/22 11:36: POC Glucose 162 H 05/31/22 16:25: POC Glucose 226 H 05/31/22 20:56: POC Glucose 175 H 06/01/22 04:24: WBC 10.3, RBC 3.81 L, Hgb 10.6 L, Hct 33.9 L, MCV 89.0, MCH 27.8, MCHC 31.3 L, RDW Std Deviation 46.6 H, RDW Coeff of Meenu 14.6, Plt Count 232, MPV 10.1, Immature Gran % (Auto) 0.800, Neut % (Auto) 87.6 H, Lymph % (Auto) 6.6 L, [place] % (Auto) 4.4, Eos % (Auto) 0.4, Baso % (Auto) 0.2, Absolute Neuts (auto) 9.0 H, Absolute Lymphs (auto) 0.68 L, Nucleated RBC % 0 06/01/22 04:24: Sodium 137, Potassium 4.7, Chloride 108 H, Carbon Dioxide 22.0, Anion Gap 7, BUN 19 H, Creatinine 1.89 H, Estim Creat Clear Calc 34.79, Est GFR (MDRD) Af Amer 44 L, Est GFR (MDRD) Non-Af 37 L, BUN/Creatinine Ratio 10.1, Glucose 148 H, Calcium 8.4 L 06/01/22 06:59: POC Glucose 145 H Micro: Microbiology 05/30/22 18:45 Nasal Secretion SARS-CoV-2 & FLU Antigen (Rapid) - Final Physical Exam Const alert, oriented x3 and no apparent distress General Appearance: cooperative HEENT normocephalic, head/scalp atraumatic, moist oral mucous membranes and oropharynx normal Eyes PERRL and EOMs intact bilaterally Neck no lymphadenopathy, supple and no JVD Lymph Lymphatic: no lymphadenopathy noted Resp normal respiratory effort, normal air movement and clear to auscultation bilaterally Cardio regular rate, regular rhythm, S1 normal heart sound, S2 normal heart sound and no murmurs GI normal to inspection, nondistended, normoactive bowel sounds, soft to palpation, non-tender and non-distended GI Narrative: colostomy bag in place Extremity normal capillary refill and no clubbing, cyanosis or edema Skin General Skin Exam: no breakdown Neuro CN's II-XII intact bilaterally, no focal motor deficits and no sensory deficits noted Motor Exam: strength 5/5 throughout Psych thought process normal Assessment & Plan Assessment/Plan (1) Acute pancreatitis: PLAN: Plan #Acute pancreatitis * improved markedly. Abdominal pain is much better today * did have some pain with the diet yesterday, but has resolved today * on full liquid diet, advance as tolerated. * PO tylenol and PO oxycodone prn for pain * * #CKD stage IIIB: Cr is 1.89; his baseline is ~ 1.8-1.9. Stable. Will monitor. #Dementia: On donepezil #Hypertension: On losartan #Type 2 diabetes mellitus: On Trulicity 0.5 subcu weekly. Accuchecks ACHS since he is now on a diet BPH: On Flomax Depression: On venlafaxine DVT prophylaxis: heparin Disposition: For discharge home today. Patient said he want to stay 1 more day as he was having challenges with transportation with regards to his and brayan uld be ready to pick him up tomorrow. Charges/Coding Visit Charges Inpatient E&M: 74416 Subs Hosp L2
[2022-06-01 12:06] LABS: Bedside Glucose 155 mg/dL (74-106)
--- NOTE | 2022-06-01 14:21 | CASEMGMT ---
Addendum entered by Christianne Hansen 06/01/22 16:00: Per [place], [facility] and both unable to accept pt. Call received from Kristine @ [facility]. They have received the referral and it is still being reviewed. She states someone will either call this OMAR LINARES back today re: acceptance or will respond in [facility]. Addendum entered by Christianne Hansen 06/01/22 15:18: Per [place], [facility] and [facility] unable to accept pt. OMAR LINARES had spoken w/Mook @ [facility] earlier today and she stated they may have an opening, but would review referral once received. No response from N yet in [facility]. Referral faxed to [facility] at this time. Original Note: OMAR LINARES NOTE: Anticipate pt may discharge home either today or tomorrow. OMAR LINARES attempted to contact pt's dtr, [place], x 3 today w/out success and have left VM, but no return call as of yet. OMAR LINARES to room to discuss discharge planning w/pt. Pt w/limited German, but OMAR LINARES was able to communicate w/him re: d/c plan. Pt states he does want to go home and is agreeable to having C. Offered list of [facility] agencies, but pt states anyone. OMAR LINARES sent referral to [address] [facility] agencies via [facility] at this time. Awaiting responses. Henri BRAVO RN, CM
[2022-06-01 15:20] VITALS: BP 132/72; PULSE 70; RESP 16; TEMP 36.6; O2SAT 100
[2022-06-01] MEDS: Insulin Lispro 100 UNIT/ML INSULN.PEN SC (16:52)
[2022-06-01 20:45] VITALS: BP 147/68; PULSE 66; RESP 18; TEMP 36.6; O2SAT 98
[2022-06-01] MEDS: MELATONIN 3 MG TABLET PO (22:23)
[2022-06-01] MEDS: Pramipexole Di-HCl 1 MG Tablet 1.5 MG PO (22:23)
[2022-06-01] MEDS: Atorvastatin Calcium 40 MG Tablet PO (22:24)
[2022-06-01] MEDS: Triamcinolone Acetonide 0.1% Cream 15 gm 1 APPLIC TOPICAL (22:25)
[2022-06-01 22:40] LABS: Bedside Glucose 105 mg/dL (74-106)
[2022-06-02 02:51] LABS: Bedside Glucose 199 mg/dL (74-106)
[2022-06-02 03:34] VITALS: BP 152/81; PULSE 66; RESP 18; TEMP 36.6; O2SAT 95
[2022-06-02] MEDS: 0.9% Normal Saline 1,000 ML 150 ML IV (04:10)
[2022-06-02 06:00] VITALS: BMI 25.7
[2022-06-02] MEDS: Pregabalin 75 MG Capsule 150 MG PO ×3 (06:11→23:24)
[2022-06-02 06:30] LABS: Bedside Glucose 110 mg/dL (74-106)
[2022-06-02 07:17] LABS: Absolute Lymphocyte Count 1.01 X10^3/uL (0.83-4.51); Absolute Neutrophil Count 5.3 X10^3/uL (2.0-7.7); Basophil# 0.01 X10^3/uL; Basophil% 0.1 % (0-1); Eosinophil# 0.12 X10^3/uL; Eosinophils% 1.7 % (0-5); Hematocrit 34.3 % (40-54); Hemoglobin 10.3 g/dL (13.0-16.5); Lymphocyte # 1.01 X10^3/ul (0.83-4.51); Lymphocyte % 14.6 % (19-41); Mean Corpuscular Hgb 27.2 pg (27.0-32.0); Mean Corpuscular Volume 90.7 fL (80-94); Mean Platelet Vol. 10.8 fl (6.2-12.0); Monocyte# 0.47 X10^3/uL; Monocyte% 6.8 % (0-10); NRBC Flagged by Analyzer 0 % (0-5); Neutrophil # 5.29 X10^3/uL (2.7-7.7); Neutrophil % 76.4 % (47-70); Platelet Count 216 K/mm3 (150-450); RBC Distribution Width CV 14.7 % (11.6-14.6); RBC Distribution Width SD 48.8 fl (35.1-43.9); Red Blood Count 3.78 M/mm3 (4.6-6.2); White Blood Count 6.9 K/mm3 (4.4-11.0)
[2022-06-02 07:52] VITALS: O2SAT 96
[2022-06-02 07:53] LABS: Anion Gap 4 (5-15); BUN 14 mg/dL (7-18); BUN/Creat Ratio 7.1 RATIO (10-20); Calcium,Total 8.3 mg/dL (8.5-10.1); Chloride 110 mmol/L (98-107); Creatinine, Serum 1.96 mg/dL (0.70-1.30); EST Glomerular Filtration Rate 35 mL/min (>60); Est Glom Filt Rate - Afr Amer 43 mL/min (>60); Estimated Creatinine Clearance 33.54 ml/min; Glucose 128 mg/dL (74-106); Potassium 4.5 mmol/L (3.5-5.1); Sodium Level 138 mmol/L (136-145)
[2022-06-02 09:30] VITALS: BP 148/85; PULSE 66; RESP 17; TEMP 36.7; O2SAT 94
[2022-06-02] MEDS: Venlafaxine XR 37.5 MG Capsule PO (09:34)
[2022-06-02] MEDS: Heparin Injection (Vial) 5,000 UNIT/ML VIAL 5000 UNIT SC ×2 (09:35→23:16)
[2022-06-02] MEDS: Donepezil HCl 10 MG Tablet PO (09:35)
[2022-06-02] MEDS: Losartan Potassium 25 MG Tablet PO (09:35)
[2022-06-02] MEDS: Tamsulosin HCl 0.4 MG Capsule PO (09:35)
[2022-06-02] MEDS: Aspirin 81 MG TAB.CHEW PO (09:35)
--- NOTE | 2022-06-02 11:27 | DS.PCM_ITS ---
Providers Date of Admission: 05/30/22 Primary Care Physician: Dr. Lloyd Jalloh MD Consultations 05/31/22 21:42 Consult: Onc/Wound/jute bag clipper Routine Comment: Reason for Consult:: ILEOSTOMY Reason For Visit: ACUTE PANCREATITIS Diagnosis Discharge Diagnosis (1) Acute pancreatitis: Status: Acute Code(s): K85.90 - Acute pancreatitis without necrosis or infection, unspecified Plan #Acute pancreatitis * improved markedly. Abdominal pain is much better today * did have some pain with the diet yesterday, but has resolved today * on full liquid diet, advance as tolerated. * PO tylenol and PO oxycodone prn for pain * * #CKD stage IIIB: Cr is 1.89; his baseline is ~ 1.8-1.9. Stable. Will monitor. #Dementia: On donepezil #Hypertension: On losartan #Type 2 diabetes mellitus: On Trulicity 0.5 subcu weekly. Accuchecks ACHS since he is now on a diet BPH: On Flomax Depression: On venlafaxine DVT prophylaxis: heparin Disposition: For discharge home today. Patient said he want to stay 1 more day as he was having challenges with transportation with regards to his and ould be ready to pick him up tomorrow. Medications at Discharge Home Medications oxycodone-acetaminophen 5 mg-325 mg tablet 1 - 2 tab PO Q4H PRN PRN Pain #20 tabs 08/24/15 atorvastatin 40 mg tablet 80 mg PO DAILY 11/14/21 dulaglutide 0.75 mg/0.5 mL subcutaneous pen injector (Trulicity) 0.5 mg subcut QWEEK 11/14/21 losartan 25 mg tablet 25 mg PO DAILY 11/14/21 pregabalin 150 mg capsule 150 mg PO TID 11/14/21 ropinirole 4 mg tablet 4 mg PO QHS 11/14/21 aspirin 81 mg chewable tablet 81 mg PO BREAKFAST #30 tabs 01/05/22 albuterol sulfate 90 mcg/actuation aerosol inhaler (Ventolin HFA) 2 puff inhalation Q6H PRN sob 05/30/22 ascorbic acid (vitamin C) 500 mg tablet 500 mg PO BID 05/30/22 diazepam 5 mg/5 mL (1 mg/mL) oral solution 5 mg PO BID PRN Muscle Spasm 05/30/22 donepezil 10 mg tablet 10 mg PO DAILY 05/30/22 insulin lispro 100 unit/mL subcutaneous pen 10 unit subcut Check with primary doctor 05/30/22 melatonin 3 mg tablet 3 mg PO QHS 05/30/22 tamsulosin 0.4 mg capsule 0.4 mg PO QHS 05/30/22 triamcinolone acetonide 0.025 % topical cream 1 applic topical BID 05/30/22 venlafaxine 37.5 mg capsule,extended release 24 hr 37.5 mg PO DAILY 05/30/22 Weight / BMI Weight Weight: 189 lb 6.033 oz Body Mass Index (BMI) 25.7 ABG / Lab / Microbiology Data Result Diagrams: 06/02/22 06:11 06/02/22 06:11 Laboratory: Laboratory Results - last 24 hr 06/01/22 11:39: POC Glucose 155 H 06/01/22 16:51: POC Glucose 199 H 06/01/22 22:17: POC Glucose 105 06/02/22 06:09: POC Glucose 110 H 06/02/22 06:11: WBC 6.9, RBC 3.78 L, Hgb 10.3 L, Hct 34.3 L, MCV 90.7, MCH 27.2, MCHC 30.0 L, RDW Std Deviation 48.8 H, RDW Coeff of Meenu 14.7 H, Plt Count 216, MPV 10.8, Immature Gran % (Auto) 0.400, Neut % (Auto) 76.4 H, Lymph % (Auto) 14.6 L, [place] % (Auto) 6.8, Eos % (Auto) 1.7, Baso % (Auto) 0.1, Absolute Neuts (auto) 5.3, Absolute Lymphs (auto) 1.01, Nucleated RBC % 0 06/02/22 06:11: Sodium 138, Potassium 4.5, Chloride 110 H, Carbon Dioxide 24.0, Anion Gap 4 L, BUN 14, Creatinine 1.96 H, Estim Creat Clear Calc 33.54, Est GFR (MDRD) Af Amer 43 L, Est GFR (MDRD) Non-Af 35 L, BUN/Creatinine Ratio 7.1 L, Glucose 128 H, Calcium 8.3 L Microbiology: Microbiology 05/30/22 18:45 Nasal Secretion SARS-CoV-2 & FLU Antigen (Rapid) - Final D/C Instructions Discharge Diet: Low fat / Low cholesterol Weight Bearing Status: Weight bearing as tolerated Call your doctor if you observe: Fever of 101 or Higher, Shortness of breath, Dizziness, Swelling in the ankles, Chest pain and Uncontrolled pain Discharge Plan Admission Admit Date/Time: 05/30/22 20:45 Primary Reason for Your Visit: acute pancreatitis Attending Provider: Dede Alvarez Primary Care Provider: Lloyd Jalloh Consulting Providers: Roseanna Solomon Instructions Patient Instructions: Understanding Pancreatitis, Pancreatitis Acute Dc Discharge Orders/Prescriptions Prescriptions: Continued oxycodone-acetaminophen 1 TABLET tablet 1 - 2 tab PO Q4H PRN PRN (Reason: Pain) Qty: 20 0RF atorvastatin 40 mg tablet 80 mg PO DAILY Label Comments: TAKE ONE TABLET BY MOUTH EVERY DAY losartan 25 mg tablet 25 mg PO DAILY Label Comments: TAKE ONE TABLET BY MOUTH EVERY DAY ropinirole 4 mg tablet 4 mg PO QHS Label Comments: TAKE ONE TABLET BY MOUTH AT BEDTIME pregabalin 150 mg capsule 150 mg PO TID Label Comments: TAKE ONE CAPSULE BY MOUTH THREE TIMES DAILY Trulicity 0.75 mg/0.5 mL pen injector 0.5 mg SUBCUT QWEEK Label Comments: Inject 0.75 mg subcutaneously one time a week. Inject dose once per week. Discard Pen After aspirin 81 mg Tablet,Chewable 81 mg PO BREAKFAST Qty: 30 0RF melatonin 3 mg tablet 3 mg PO QHS Label Comments: TAKE ONE TABLET BY MOUTH AT BEDTIME ascorbic acid (vitamin C) 500 mg tablet 500 mg PO BID Label Comments: TAKE ONE TABLET BY MOUTH TWICE DAILY diazepam 5 mg/5 mL (1 mg/mL) solution 5 mg PO BID PRN (Reason: Muscle Spasm) Label Comments: Take 5 mL by mouth twice daily for 90 days. As needed. Muscle cramps donepezil 10 mg tablet 10 mg PO DAILY Label Comments: TAKE 1 TABLET BY MOUTH ONCE DAILY WITH FOOD tamsulosin 0.4 mg capsule 0.4 mg PO QHS Label Comments: TAKE 1 CAPSULE BY MOUTH ONCE DAILY AT BEDTIME triamcinolone acetonide 0.025 % cream 1 applic TOPICAL BID Label Comments: APPLY TO THE AFFECTED AREA(S) ON FOR BACK TWICE DAILY NEEDED FOR ITCHING venlafaxine 37.5 mg capsule,extended release 24hr 37.5 mg PO DAILY Label Comments: TAKE ONE CAPSULE BY MOUTH EVERY DAY albuterol sulfate [Ventolin HFA] 90 mcg/actuation HFA aerosol inhaler 2 puff INHALATION Q6H PRN (Reason: sob) Label Comments: INHALE TWO PUFFS BY MOUTH EVERY 6 HOURS NEEDED FOR wheezing OR SHORTNESS OF BREATH insulin lispro 100 unit/mL insulin pen 10 unit SUBCUT Label Comments: USE 3 TIMES DAILY DIRECTED PER SLIDING SCALE. UNDER 200= NONE. 201-300= 4 UNITS. 301-400= 6 UNITS. OVER 400= 8 UNITS Referrals / Follow Up: Lloyd Jalloh MD [Primary Care Provider] - Within 2 Weeks Disposition Disposition (needs filled in before D/C Order can be placed): Home, Self Care
[2022-06-02 11:45] LABS: Bedside Glucose 136 mg/dL (74-106)
--- NOTE | 2022-06-02 12:01 | CASEMGMT ---
OMAR LINARES Follow-up: Face to face with pt in room. Pt alert and sitting up in chair. Discussed previous plan for HHC. Pt's speech is difficult to understand but pt did convey concern related to cost. Explained to pt it would be covered under his CARR[employer]. Pt then nodded his head. Explained that [facility] has not yet responded to referral request. Offered to contact pt's daughter Fozia which pt nodded and pointed to her phone number on the white board. Call placed to pt's daughter Fozia, relayed pt's discharge on this date and plan for HHC which has not been secured. Explained that 4 providers have declined pt and [facility] referral is pending. Fozia states pt has had HHC in the past and she can provide the phone number for this provider when she arrives to the hospital. Reviewed PT notes and explained to [place] that pt did not do well with PT today and recommendation for SNF at [facility] for ongoin tx. Fozia states pt will not be agreeable as pt has gone to SNF in the past and it was not a good experience. Fozia states pt's will be with him at all times and that [place] will be available to assist intermittently. Fozia also states pt's broke her elbow and when this RN CM explained that pt required a lot of assistance to stand this AM, Fozia states pt's will still be able to assist him. Will continue to discuss when [place] arrives to pt's room. This RN CM discussed with PREMA Griffith pt's mobility during today's treatment. Gladis to work with pt a second time with family present to all family to eval pt's level of assist needed. Will continue to follow. Sheila Gonzales RN CM
--- NOTE | 2022-06-02 12:41 | PCM.PROGNOTE ---
Subjective Subjective Patient seen and examined. He had no active complaints today. He had an uneventful night. Review of systems was otherwise negative. Plan was for discharge home today, but family subsequently said he was too weak for them to care for him at home. Family now opting for placement. Objective Data Objective Data Vital Signs: Vital Signs Temp Pulse Resp BP Pulse Ox O2 Del Method 98.1 F 66 17 148/85 H 94 Room Air 06/02/22 09:30 06/02/22 09:30 06/02/22 09:30 06/02/22 09:30 06/02/22 09:30 06/02/22 09:30 Oxygen Delivery Method Room Air Weight: 189 lb 6.033 oz Body Mass Index (BMI) 25.7 Intake & Output: Intake and Output for Last 24 Hours 05/31/22 06/01/22 06/02/22 23:59 23:59 23:59 Intake Total 4580 / 4580 4877.5 / 4877.5 1989 Output Total 1500 / 1500 750 / 750 200 / 200 Balance 3080 / 3080 4127.5 / 4127.5 1790 / 1790 Lab / Micro Data Result Diagrams: 06/02/22 06:11 06/02/22 06:11 Labs: Laboratory Results - last 24 hr 06/01/22 16:51: POC Glucose 199 H 06/01/22 22:17: POC Glucose 105 06/02/22 06:09: POC Glucose 110 H 06/02/22 06:11: WBC 6.9, RBC 3.78 L, Hgb 10.3 L, Hct 34.3 L, MCV 90.7, MCH 27.2, MCHC 30.0 L, RDW Std Deviation 48.8 H, RDW Coeff of Meenu 14.7 H, Plt Count 216, MPV 10.8, Immature Gran % (Auto) 0.400, Neut % (Auto) 76.4 H, Lymph % (Auto) 14.6 L, [place] % (Auto) 6.8, Eos % (Auto) 1.7, Baso % (Auto) 0.1, Absolute Neuts (auto) 5.3, Absolute Lymphs (auto) 1.01, Nucleated RBC % 0 06/02/22 06:11: Sodium 138, Potassium 4.5, Chloride 110 H, Carbon Dioxide 24.0, Anion Gap 4 L, BUN 14, Creatinine 1.96 H, Estim Creat Clear Calc 33.54, Est GFR (MDRD) Af Amer 43 L, Est GFR (MDRD) Non-Af 35 L, BUN/Creatinine Ratio 7.1 L, Glucose 128 H, Calcium 8.3 L 06/02/22 11:22: POC Glucose 136 H Micro: Microbiology 05/30/22 18:45 Nasal Secretion SARS-CoV-2 & FLU Antigen (Rapid) - Final Physical Exam Const alert, oriented x3 and no apparent distress General Appearance: cooperative HEENT normocephalic, head/scalp atraumatic, moist oral mucous membranes and oropharynx normal Eyes PERRL and EOMs intact bilaterally Neck no lymphadenopathy, supple and no JVD Lymph Lymphatic: no lymphadenopathy noted and no lymphedema noted Resp normal respiratory effort, normal air movement and clear to auscultation bilaterally Cardio regular rate, regular rhythm, S1 normal heart sound, S2 normal heart sound and no murmurs GI normal to inspection, nondistended, normoactive bowel sounds, soft to palpation, non-tender and non-distended GI Narrative: colostomy bag in place Extremity normal capillary refill and no clubbing, cyanosis or edema General Extremity: clubbing Skin General Skin Exam: no breakdown Neuro CN's II-XII intact bilaterally, no focal motor deficits and no sensory deficits noted Motor Exam: strength 5/5 throughout Psych thought process normal and cooperative Assessment & Plan Assessment/Plan (1) Acute pancreatitis: PLAN: Plan #Acute pancreatitis largely resolved. tolerating an oral diet. PO tylenol and PO oxycodone prn for pain #CKD stage IIIB: Cr is 1.96; his baseline is ~ 1.8-1.9. Stable. Will monitor. #Dementia: On donepezil #Hypertension: On losartan #Type 2 diabetes mellitus: On Trulicity 0.5 subcu weekly. Accuchecks ACHS since he is now on a diet BPH: On Flomax Depression: On venlafaxine DVT prophylaxis: heparin Disposition: plan was for discharge home today, but family now opting for SNF. Awaiting placement Charges/Coding Visit Charges Inpatient E&M: 70299 Subs Hosp L2
--- NOTE | 2022-06-02 13:05 | CASEMGMT ---
Social Work SW informed by CM that family now is thinking pt needs to go to SNF. SW met w/pt, and daughter in room. SW spoke w/ and daughter, they are at this time agreeable to SNF placement for pt. fell and broke her elbow and needs to follow up Saturday with orthopedics. SW gave daughter list of intermediate facilities in pt's preferred geographic area, that takes his insurance, complete with quality and resource use data. SW asked daughter to follow up w/SW Saturday with 3 choices. Daughter states understanding. Pt will need a level of care as pt has Medicaid as primary. Plan: SNF, will make referral Saturday once family gives choices. FREDERIC Owens
[2022-06-02] MEDS: Mag Hydrox/Al Hydrox/Simeth 30 ML UDC PO (13:38)
[2022-06-02] MEDS: diazePAM 5 MG Tablet PO (13:38)
[2022-06-02 16:10] VITALS: BP 150/80; PULSE 64; RESP 17; TEMP 37.1; O2SAT 98
[2022-06-02 16:31] LABS: Bedside Glucose 146 mg/dL (74-106)
[2022-06-02 22:00] VITALS: BP 144/77; PULSE 63; RESP 16; TEMP 37.4; O2SAT 98
[2022-06-02] MEDS: MELATONIN 3 MG TABLET PO (23:19)
[2022-06-02] MEDS: Atorvastatin Calcium 40 MG Tablet PO (23:19)
[2022-06-02] MEDS: Pramipexole Di-HCl 1 MG Tablet 1.5 MG PO (23:20)
[2022-06-02] MEDS: 0.9% Saline Lock 10 ML Syringe IV (23:30)
[2022-06-03 01:05] LABS: Bedside Glucose 114 mg/dL (74-106)
[2022-06-03 04:00] VITALS: BP 142/79; PULSE 60; RESP 18; TEMP 36.4; O2SAT 97
[2022-06-03 06:00] VITALS: BMI 25.8
[2022-06-03] MEDS: Pregabalin 75 MG Capsule 150 MG PO ×2 (06:16→13:20)
[2022-06-03 07:00] LABS: Bedside Glucose 127 mg/dL (74-106)
[2022-06-03 07:11] LABS: Absolute Lymphocyte Count 1.16 X10^3/uL (0.83-4.51); Absolute Neutrophil Count 4.9 X10^3/uL (2.0-7.7); Basophil# 0.01 X10^3/uL; Basophil% 0.1 % (0-1); Eosinophils% 1.5 % (0-5); Hematocrit 32.9 % (40-54); Hemoglobin 10.1 g/dL (13.0-16.5); Lymphocyte # 1.16 X10^3/ul (0.83-4.51); Lymphocyte % 17.4 % (19-41); Mean Corp Hgb Conc 30.7 g/dL (32-36); Mean Corpuscular Hgb 27.4 pg (27.0-32.0); Mean Corpuscular Volume 89.2 fL (80-94); Mean Platelet Vol. 10.9 fl (6.2-12.0); Monocyte# 0.51 X10^3/uL; Monocyte% 7.6 % (0-10); NRBC Flagged by Analyzer 0 % (0-5); Neutrophil # 4.88 X10^3/uL (2.7-7.7); Neutrophil % 73.1 % (47-70); Platelet Count 213 K/mm3 (150-450); RBC Distribution Width CV 14.6 % (11.6-14.6); RBC Distribution Width SD 46.9 fl (35.1-43.9); Red Blood Count 3.69 M/mm3 (4.6-6.2); White Blood Count 6.7 K/mm3 (4.4-11.0)
[2022-06-03 07:50] LABS: Anion Gap 8 (5-15); BUN 14 mg/dL (7-18); BUN/Creat Ratio 7.5 RATIO (10-20); Calcium,Total 8.5 mg/dL (8.5-10.1); Chloride 107 mmol/L (98-107); Creatinine, Serum 1.86 mg/dL (0.70-1.30); EST Glomerular Filtration Rate 37 mL/min (>60); Est Glom Filt Rate - Afr Amer 45 mL/min (>60); Estimated Creatinine Clearance 35.35 ml/min; Glucose 134 mg/dL (74-106); Potassium 4.1 mmol/L (3.5-5.1); Sodium Level 137 mmol/L (136-145)
[2022-06-03 08:49] VITALS: BP 154/92; PULSE 62; RESP 17; TEMP 36.8; O2SAT 96
[2022-06-03] MEDS: Tamsulosin HCl 0.4 MG Capsule PO (08:52)
[2022-06-03] MEDS: Donepezil HCl 10 MG Tablet PO (08:52)
[2022-06-03] MEDS: Venlafaxine XR 37.5 MG Capsule PO (08:52)
[2022-06-03] MEDS: Heparin Injection (Vial) 5,000 UNIT/ML VIAL 5000 UNIT SC (08:52)
[2022-06-03] MEDS: Losartan Potassium 25 MG Tablet PO (08:52)
[2022-06-03] MEDS: Aspirin 81 MG TAB.CHEW PO (08:52)
[2022-06-03] MEDS: 0.9% Saline Lock 10 ML Syringe IV (10:33)
[2022-06-03 11:51] LABS: Bedside Glucose 162 mg/dL (74-106)
--- NOTE | 2022-06-03 13:15 | PN_ITS ---
Subjective Subjective Patient seen and examined. He had no complaints this morning. He has remained hemodynamically stable. He is awaiting placement. Objective Data Objective Data Vital Signs: Vital Signs Temp Pulse Resp BP Pulse Ox O2 Del Method 98.3 F 62 17 154/92 H 96 Room Air 06/03/22 08:49 06/03/22 08:49 06/03/22 08:49 06/03/22 08:49 06/03/22 08:49 06/03/22 08:49 Oxygen Delivery Method Room Air Weight: 190 lb 7.67 oz Body Mass Index (BMI) 25.8 Intake & Output: Intake and Output for Last 24 Hours 06/01/22 06/02/22 06/04/22 23:59 23:59 00:59 Intake Total 4877.5 / 4877.5 2440 / 2440 660 / 660 Output Total 750 / 750 1700 / 2100 1500 / 1500 Balance 4127.5 / 4127.5 740 / 340 -840 / -840 Lab / Micro Data Result Diagrams: 06/03/22 05:35 06/03/22 05:35 Labs: Laboratory Results - last 24 hr 06/02/22 16:12: POC Glucose 146 H 06/02/22 23:18: POC Glucose 114 H 06/03/22 05:20: POC Glucose 127 H 06/03/22 05:35: WBC 6.7, RBC 3.69 L, Hgb 10.1 L, Hct 32.9 L, MCV 89.2, MCH 27.4, MCHC 30.7 L, RDW Std Deviation 46.9 H, RDW Coeff of Meenu 14.6, Plt Count 213, MPV 10.9, Immature Gran % (Auto) 0.300, Neut % (Auto) 73.1 H, Lymph % (Auto) 17.4 L, [place] % (Auto) 7.6, Eos % (Auto) 1.5, Baso % (Auto) 0.1, Absolute Neuts (auto) 4.9, Absolute Lymphs (auto) 1.16, Nucleated RBC % 0 06/03/22 05:35: Sodium 137, Potassium 4.1, Chloride 107, Carbon Dioxide 22.0, Anion Gap 8, BUN 14, Creatinine 1.86 H, Estim Creat Clear Calc 35.35, Est GFR (MDRD) Af Amer 45 L, Est GFR (MDRD) Non-Af 37 L, BUN/Creatinine Ratio 7.5 L, Glucose 134 H, Calcium 8.5 06/03/22 11:24: POC Glucose 162 H Micro: Microbiology 05/30/22 18:45 Nasal Secretion SARS-CoV-2 & FLU Antigen (Rapid) - Final Physical Exam Const alert, oriented x3 and no apparent distress General Appearance: cooperative HEENT normocephalic, head/scalp atraumatic, moist oral mucous membranes and oropharynx normal Eyes PERRL and EOMs intact bilaterally Neck no lymphadenopathy, supple and no JVD Lymph Lymphatic: no lymphadenopathy noted and no lymphedema noted Resp normal respiratory effort, normal air movement and clear to auscultation bilaterally Cardio regular rate, regular rhythm, S1 normal heart sound, S2 normal heart sound and no murmurs GI normal to inspection, nondistended, normoactive bowel sounds, soft to palpation, non-tender and non-distended GI Narrative: colostomy bag in place Extremity normal capillary refill and no clubbing, cyanosis or edema General Extremity: clubbing Skin General Skin Exam: no breakdown Neuro CN's II-XII intact bilaterally, no focal motor deficits and no sensory deficits noted Motor Exam: strength 5/5 throughout Psych thought process normal and cooperative Assessment & Plan Assessment/Plan (1) Acute pancreatitis: PLAN: Plan #Acute pancreatitis * largely resolved. * tolerating an oral diet. * PO tylenol and PO oxycodone prn for pain * * #CKD stage IIIB: Cr is stable at his baseline. Will monitor. #Dementia: On donepezil #Hypertension: On losartan #Type 2 diabetes mellitus: On Trulicity 0.5 subcu weekly. Accuchecks ACHS BPH: On Flomax Depression: On venlafaxine DVT prophylaxis: heparin Disposition: awaiting placement Charges/Coding Visit Charges Inpatient E&M: 02626 Subs Hosp L2
[2022-06-03 15:56] VITALS: BP 158/86; PULSE 66; RESP 17; TEMP 36.6; O2SAT 98
[2022-06-03 17:21] LABS: Bedside Glucose 125 mg/dL (74-106)
[2022-06-04] MEDS: Heparin Injection (Vial) 5,000 UNIT/ML VIAL 5000 UNIT SC ×3 (00:03→21:30)
[2022-06-04] MEDS: Atorvastatin Calcium 40 MG Tablet PO ×2 (00:05→21:30)
[2022-06-04] MEDS: MELATONIN 3 MG TABLET PO ×2 (00:06→21:30)
[2022-06-04] MEDS: Pramipexole Di-HCl 1 MG Tablet 1.5 MG PO ×2 (00:06→21:30)
[2022-06-04] MEDS: Pregabalin 75 MG Capsule 150 MG PO ×4 (00:09→21:30)
[2022-06-04] MEDS: 0.9% Saline Lock 10 ML Syringe IV ×2 (00:12→21:36)
[2022-06-04 03:31] LABS: Bedside Glucose 138 mg/dL (74-106)
[2022-06-04 06:00] VITALS: BMI 25.8
[2022-06-04 06:04] LABS: Anion Gap 7 (5-15); BUN 17 mg/dL (7-18); BUN/Creat Ratio 8.7 RATIO (10-20); Calcium,Total 8.8 mg/dL (8.5-10.1); Chloride 106 mmol/L (98-107); Creatinine, Serum 1.96 mg/dL (0.70-1.30); EST Glomerular Filtration Rate 35 mL/min (>60); Est Glom Filt Rate - Afr Amer 43 mL/min (>60); Estimated Creatinine Clearance 33.54 ml/min; Glucose 130 mg/dL (74-106); Sodium Level 137 mmol/L (136-145)
[2022-06-04 06:17] LABS: Absolute Lymphocyte Count 1.15 X10^3/uL (0.83-4.51); Absolute Neutrophil Count 3.7 X10^3/uL (2.0-7.7); Basophil# 0.03 X10^3/uL; Basophil% 0.5 % (0-1); Eosinophil# 0.15 X10^3/uL; Eosinophils% 2.7 % (0-5); Hematocrit 32.7 % (40-54); Hemoglobin 10.1 g/dL (13.0-16.5); Lymphocyte # 1.15 X10^3/ul (0.83-4.51); Lymphocyte % 20.8 % (19-41); Mean Corp Hgb Conc 30.9 g/dL (32-36); Mean Corpuscular Hgb 27.5 pg (27.0-32.0); Mean Corpuscular Volume 89.1 fL (80-94); Mean Platelet Vol. 10.6 fl (6.2-12.0); Monocyte# 0.45 X10^3/uL; Monocyte% 8.2 % (0-10); NRBC Flagged by Analyzer 0 % (0-5); Neutrophil # 3.72 X10^3/uL (2.7-7.7); Neutrophil % 67.4 % (47-70); Platelet Count 212 K/mm3 (150-450); RBC Distribution Width CV 14.5 % (11.6-14.6); RBC Distribution Width SD 46.5 fl (35.1-43.9); Red Blood Count 3.67 M/mm3 (4.6-6.2); White Blood Count 5.5 K/mm3 (4.4-11.0)
[2022-06-04 07:57] VITALS: BP 155/84; PULSE 63; RESP 14; TEMP 36.8; O2SAT 100
[2022-06-04] MEDS: Tamsulosin HCl 0.4 MG Capsule PO (08:04)
[2022-06-04] MEDS: Losartan Potassium 25 MG Tablet PO (08:04)
[2022-06-04] MEDS: Aspirin 81 MG TAB.CHEW PO (08:04)
[2022-06-04] MEDS: Venlafaxine XR 37.5 MG Capsule PO (08:04)
[2022-06-04] MEDS: Donepezil HCl 10 MG Tablet PO (08:04)
--- NOTE | 2022-06-04 10:03 | PCM.PN.HOSP ---
Subjective Subjective Doing well, tolerating a diet, no longer having any significant abdominal pain Objective Data Objective Data Vital Signs: Vital Signs Temp Pulse Resp BP Pulse Ox O2 Del Method 98.2 F 63 14 155/84 H 100 Room Air 06/04/22 07:57 06/04/22 07:57 06/04/22 07:57 06/04/22 07:57 06/04/22 07:57 06/04/22 07:59 Oxygen Delivery Method Room Air Weight: 190 lb 11.198 oz Body Mass Index (BMI) 25.8 Intake & Output: Intake and Output for Last 24 Hours 06/03/22 06/04/22 06/05/22 03:59 03:59 03:59 Intake Total 1100 / 1100 Output Total 1400 / 1400 500 / 500 Balance -300 / -300 -500 / -500 Lab / Micro Data Result Diagrams: 06/04/22 05:30 06/04/22 05:30 Labs: Laboratory Results - last 24 hr 06/03/22 11:24: POC Glucose 162 H 06/03/22 16:59: POC Glucose 125 H 06/03/22 23:52: POC Glucose 138 H 06/04/22 05:30: WBC 5.5, RBC 3.67 L, Hgb 10.1 L, Hct 32.7 L, MCV 89.1, MCH 27.5, MCHC 30.9 L, RDW Std Deviation 46.5 H, RDW Coeff of Meenu 14.5, Plt Count 212, MPV 10.6, Immature Gran % (Auto) 0.400, Neut % (Auto) 67.4, Lymph % (Auto) 20.8, [place] % (Auto) 8.2, Eos % (Auto) 2.7, Baso % (Auto) 0.5, Absolute Neuts (auto) 3.7, Absolute Lymphs (auto) 1.15, Nucleated RBC % 0 06/04/22 05:30: Sodium 137, Potassium 4.0, Chloride 106, Carbon Dioxide 24.0, Anion Gap 7, BUN 17, Creatinine 1.96 H, Estim Creat Clear Calc 33.54, Est GFR (MDRD) Af Amer 43 L, Est GFR (MDRD) Non-Af 35 L, BUN/Creatinine Ratio 8.7 L, Glucose 130 H, Calcium 8.8 Micro: Microbiology 05/30/22 18:45 Nasal Secretion SARS-CoV-2 & FLU Antigen (Rapid) - Final Physical Exam Narrative General: Alert, Oriented x3, Cooperative, No apparent distress HEENT: Atraumatic, PERRLA, EOMI, Normocephalic Oral: Moist Mucosa Neck: Supple, No JVD Lungs: Clear to auscultation, Normal air movement, No rhonchi, No wheeze, No rales Cardiovascular: Regular rate, Regular Rhythm, Normal S1, Normal S2, No murmurs Abdomen: Soft, Non Tender, Non-Distended, No Hepato-splenomegaly, colostomy in place Extremities: No edema, Capillary Refill Less than 3 Seconds Skin: No rashes, No breakdown Musculoskeletal: No Tenderness to Palpation of Joints or Extremities Neurological: Cranial nerves II-XII grossly intact, Motor Exam 5/5 strength throughout, Sensory exam intact to light touch and pain Psych/Mental Status: Normal Affect, Appropriate Assessment & Plan Assessment/Plan (1) Acute pancreatitis: PLAN: Plan 1. Acute pancreatitis with adult failure to thrive and debility ? Pancreatitis has resolved ? PT/OT for placement as family is unable to take care of him at home given his significant weakness and debility 2. HTN/HLD ? Blood pressures are stable ? Can resume his home blood pressure medications 3. DM2/CKD 3B ? Continue with sliding scale ? Accu-Cheks ACHS, will make adjustments as necessary 4. Dementia/anxiety/depression ? Stable ? Continue with his home medications 5. BPH ? Stable ? Continue with Flomax 6. GERD ? Stable ? Can continue with EPI DVT: Heparin Charges/Coding Visit Charges Inpatient E&M: 84906 Subs Hosp L2
--- NOTE | 2022-06-04 11:02 | WOUNDNOTE ---
Ileostomy appliance remains intact to the right lower abdomen. no sign of leakage noted. appliance emptied for approx 350 cc's watery stool with some pieces of undigested food. pt tolerated well. will monitor. present at bedside.
[2022-06-04 11:13] VITALS: O2SAT 98
[2022-06-04] MEDS: Pantoprazole Sodium 40 MG Tablet PO ×2 (11:23→21:30)
[2022-06-04 11:33] VITALS: O2SAT 98
[2022-06-04 11:45] LABS: Bedside Glucose 144 mg/dL (74-106)
--- NOTE | 2022-06-04 12:02 | CASEMGMT ---
Patient's daughter called [facility] and explained patient's is in patient's room and she has the residential list for social work. SW went to patient's room and introduced self and role at [facility]. Patient's gave SW the list. [facility] told them [facility] will work on referrals. Their choices were [place], [facility], [facility], and [place]. [facility] [place] [facility]. Cassandra CARREON
--- NOTE | 2022-06-04 12:05 | PCM.TXEXTCAR ---
Diet Diet Order/Speech Therapy: 06/04/22 11:12 Diet: Carbohydrate Controlled Food consistency:: Regular Liquid Consistency:: Regular/Thin Dietary Modifications:: Fat Restricted Is pt able to select menu?: No Routine Orders/Code Status Routine Lab Work: CBC and BMP Code Status: Full Code Therapies Physical Therapy: Eval and Treat Occupational Therapy: Eval and Treat Problem/Diagnosis (1) Acute pancreatitis: Status: Acute Code(s): K85.90 - Acute pancreatitis without necrosis or infection, unspecified Plan 1. Acute pancreatitis with adult failure to thrive and debility ? Pancreatitis has resolved ? PT/OT for placement as family is unable to take care of him at home given his significant weakness and debility 2. HTN/HLD ? Blood pressures are stable ? Can resume his home blood pressure medications 3. DM2/CKD 3B ? Continue with sliding scale ? Accu-Cheks ACHS, will make adjustments as necessary 4. Dementia/anxiety/depression ? Stable ? Continue with his home medications 5. BPH ? Stable ? Continue with Flomax 6. GERD ? Stable ? Can continue with EPI DVT: Heparin Allergies/Procedures Done in Hospital Allergies No Known Allergies Allergy (Verified 05/30/22 17:43) Procedures: None Type of Care/Length of Stay Estimated LOS: Convalescent Care Less Than 30 days Type of Care Needed: Skilled Rehab Potential: Good Prognosis: Good Additional Orders/Day of Discharge Day of Discharge: 06/04/22 Dietary and Speech Recommendations Dietitian Recommendations/Changes: Will restrict dietary carbohydrates and fat to manage medical conditions; liberalize diet as indicated. ONS as needed if weight and/or PO decline. Discharge Plan Admission Admit Date/Time: 05/30/22 20:45 Primary Reason for Your Visit: acute pancreatitis Attending Provider: Juanito Samuels Primary Care Provider: Lloyd Jalloh Consulting Providers: Roseanna Solomon ; Dede Alvarez Instructions Patient Instructions: Understanding Pancreatitis, Pancreatitis Acute Dc Discharge Orders/Prescriptions Prescriptions: Continued oxycodone-acetaminophen 1 TABLET tablet 1 - 2 tab PO Q4H PRN PRN (Reason: Pain) Qty: 20 0RF atorvastatin 40 mg tablet 80 mg PO DAILY Label Comments: TAKE ONE TABLET BY MOUTH EVERY DAY losartan 25 mg tablet 25 mg PO DAILY Label Comments: TAKE ONE TABLET BY MOUTH EVERY DAY ropinirole 4 mg tablet 4 mg PO QHS Label Comments: TAKE ONE TABLET BY MOUTH AT BEDTIME pregabalin 150 mg capsule 150 mg PO TID Label Comments: TAKE ONE CAPSULE BY MOUTH THREE TIMES DAILY Trulicity 0.75 mg/0.5 mL pen injector 0.5 mg SUBCUT QWEEK Label Comments: Inject 0.75 mg subcutaneously one time a week. Inject dose once per week. Discard Pen After aspirin 81 mg Tablet,Chewable 81 mg PO BREAKFAST Qty: 30 0RF melatonin 3 mg tablet 3 mg PO QHS Label Comments: TAKE ONE TABLET BY MOUTH AT BEDTIME ascorbic acid (vitamin C) 500 mg tablet 500 mg PO BID Label Comments: TAKE ONE TABLET BY MOUTH TWICE DAILY diazepam 5 mg/5 mL (1 mg/mL) solution 5 mg PO BID PRN (Reason: Muscle Spasm) Label Comments: Take 5 mL by mouth twice daily for 90 days. As needed. Muscle cramps donepezil 10 mg tablet 10 mg PO DAILY Label Comments: TAKE 1 TABLET BY MOUTH ONCE DAILY WITH FOOD tamsulosin 0.4 mg capsule 0.4 mg PO QHS Label Comments: TAKE 1 CAPSULE BY MOUTH ONCE DAILY AT BEDTIME triamcinolone acetonide 0.025 % cream 1 applic TOPICAL BID Label Comments: APPLY TO THE AFFECTED AREA(S) ON FOR BACK TWICE DAILY NEEDED FOR ITCHING venlafaxine 37.5 mg capsule,extended release 24hr 37.5 mg PO DAILY Label Comments: TAKE ONE CAPSULE BY MOUTH EVERY DAY albuterol sulfate [Ventolin HFA] 90 mcg/actuation HFA aerosol inhaler 2 puff INHALATION Q6H PRN (Reason: sob) Label Comments: INHALE TWO PUFFS BY MOUTH EVERY 6 HOURS NEEDED FOR wheezing OR SHORTNESS OF BREATH insulin lispro 100 unit/mL insulin pen 10 unit SUBCUT Label Comments: USE 3 TIMES DAILY DIRECTED PER SLIDING SCALE. UNDER 200= NONE. 201-300= 4 UNITS. 301-400= 6 UNITS. OVER 400= 8 UNITS Referrals / Follow Up: Lloyd Jallho MD [Primary Care Provider] - Within 2 Weeks Disposition Disposition (needs filled in before D/C Order can be placed[facility]
--- NOTE | 2022-06-04 13:14 | CASEMGMT ---
[facility] declined patient. [facility] faxed a referral to [facility]. [facility] also sent referral to [facility] via [facility]. Cassandra CARREON
--- NOTE | 2022-06-04 13:46 | PHA.DC.MR ---
Pharmacy Service has performed discharge medication reconciliation for this patient. The patient's discharge medication list was reviewed for discrepancies and discrepancies were resolved. Home Medications oxycodone-acetaminophen 5 mg-325 mg tablet 1 - 2 tab PO Q4H PRN PRN Pain #20 tabs 08/24/15 atorvastatin 40 mg tablet 80 mg PO DAILY 11/14/21 dulaglutide 0.75 mg/0.5 mL subcutaneous pen injector (Trulicity) 0.5 mg subcut QWEEK 11/14/21 losartan 25 mg tablet 25 mg PO DAILY 11/14/21 pregabalin 150 mg capsule 150 mg PO TID 11/14/21 ropinirole 4 mg tablet 4 mg PO QHS 11/14/21 aspirin 81 mg chewable tablet 81 mg PO BREAKFAST #30 tabs 01/05/22 albuterol sulfate 90 mcg/actuation aerosol inhaler (Ventolin HFA) 2 puff inhalation Q6H PRN sob 05/30/22 ascorbic acid (vitamin C) 500 mg tablet 500 mg PO BID 05/30/22 diazepam 5 mg/5 mL (1 mg/mL) oral solution 5 mg PO BID PRN Muscle Spasm 05/30/22 donepezil 10 mg tablet 10 mg PO DAILY 05/30/22 insulin lispro 100 unit/mL subcutaneous pen 10 unit subcut Check with primary doctor 05/30/22 melatonin 3 mg tablet 3 mg PO QHS 05/30/22 tamsulosin 0.4 mg capsule 0.4 mg PO QHS 05/30/22 triamcinolone acetonide 0.025 % topical cream 1 applic topical BID 05/30/22 venlafaxine 37.5 mg capsule,extended release 24 hr 37.5 mg PO DAILY 05/30/22
[2022-06-04 14:14] VITALS: BP 149/82; PULSE 65; RESP 16; TEMP 36.8; O2SAT 98
--- NOTE | 2022-06-04 14:15 | CASEMGMT ---
OMEGA called [facility] and they are still reviewing the referral. Cassandra Howell GUN CLUB MANAGER VELMA
--- NOTE | 2022-06-04 15:45 | CASEMGMT ---
SW called patient's daughter and let her know [facility] is not able to take patient. SW let her know a referral has been made to [facility] ([facility]), but have not heard back yet. [facility] explained patient won't go anywhere today. Await response from [facility]. Cassandra Howell STRUCTURAL STEEL ERECTION SUPERVISOR VELMA
[2022-06-04 17:45] LABS: Bedside Glucose 125 mg/dL (74-106)
[2022-06-04 21:25] VITALS: BP 160/89; PULSE 72; RESP 18; TEMP 36.5; O2SAT 99
[2022-06-04 21:29] VITALS: BP 150/77
[2022-06-04 22:50] LABS: Bedside Glucose 116 mg/dL (74-106)
[2022-06-05 03:57] VITALS: BP 159/81; PULSE 65; RESP 18; TEMP 36.7; O2SAT 96
[2022-06-05 05:05] LABS: Basophil# 0.01 X10^3/uL; Basophil% 0.1 % (0-1); Eosinophil# 0.11 X10^3/uL; Eosinophils% 1.3 % (0-5); Hematocrit 33.5 % (40-54); Hemoglobin 10.5 g/dL (13.0-16.5); Lymphocyte % 12.5 % (19-41); Mean Corp Hgb Conc 31.3 g/dL (32-36); Mean Corpuscular Hgb 27.8 pg (27.0-32.0); Mean Corpuscular Volume 88.6 fL (80-94); Mean Platelet Vol. 9.8 fl (6.2-12.0); Monocyte# 0.55 X10^3/uL; Monocyte% 6.3 % (0-10); NRBC Flagged by Analyzer 0 % (0-5); Neutrophil # 6.99 X10^3/uL (2.7-7.7); Neutrophil % 79.5 % (47-70); Platelet Count 212 K/mm3 (150-450); RBC Distribution Width CV 14.6 % (11.6-14.6); RBC Distribution Width SD 46.5 fl (35.1-43.9); Red Blood Count 3.78 M/mm3 (4.6-6.2); White Blood Count 8.8 K/mm3 (4.4-11.0)
[2022-06-05 05:37] LABS: Anion Gap 6 (5-15); BUN 16 mg/dL (7-18); Calcium,Total 8.8 mg/dL (8.5-10.1); Chloride 106 mmol/L (98-107); Creatinine, Serum 2.01 mg/dL (0.70-1.30); EST Glomerular Filtration Rate 34 mL/min (>60); Est Glom Filt Rate - Afr Amer 41 mL/min (>60); Estimated Creatinine Clearance 32.71 ml/min; Glucose 139 mg/dL (74-106); Potassium 3.8 mmol/L (3.5-5.1); Sodium Level 137 mmol/L (136-145)
[2022-06-05] MEDS: Pregabalin 75 MG Capsule 150 MG PO (05:37)
[2022-06-05] MEDS: Ipratropium/Albuterol Sulfate 3 ML AMPUL.NEB INHALATION (05:42)
[2022-06-05 05:43] VITALS: PULSE 68; RESP 18
[2022-06-05 06:00] VITALS: BMI 25.8
[2022-06-05 07:00] LABS: Bedside Glucose 128 mg/dL (74-106)
[2022-06-05 08:21] VITALS: BP 154/82; PULSE 64
[2022-06-05] MEDS: Tamsulosin HCl 0.4 MG Capsule PO (08:21)
[2022-06-05] MEDS: Pantoprazole Sodium 40 MG Tablet PO (08:21)
[2022-06-05] MEDS: Losartan Potassium 25 MG Tablet PO (08:21)
[2022-06-05] MEDS: Venlafaxine XR 37.5 MG Capsule PO (08:22)
[2022-06-05] MEDS: Aspirin 81 MG TAB.CHEW PO (08:22)
[2022-06-05] MEDS: Heparin Injection (Vial) 5,000 UNIT/ML VIAL 5000 UNIT SC (08:22)
[2022-06-05] MEDS: Donepezil HCl 10 MG Tablet PO (08:22)
--- NOTE | 2022-06-05 09:00 | CASEMGMT ---
SW called [facility] and they are not able to accept patient as it would be a financial loss. [facility] sent referral to [facility] [address] [place] [address] ([facility]) [facility]. Await response. Cassandra CARREON
--- NOTE | 2022-06-05 09:45 | WOUNDNOTE ---
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 in to reassess. the prolapse actually appears better today, but will most likely change at times. does get worse when patient coughs, etc. removed the appliance. peristomal skin remains intact. stoma is beefy red. cleansed skin with warm water. pat dry. applied a new flat 2 piece Eron appliance with an [employer] ring. pt tolerated well. denies further needs at this time.
[2022-06-05 09:53] VITALS: BP 138/72; PULSE 80; RESP 14; TEMP 36.6; O2SAT 97
--- NOTE | 2022-06-05 10:22 | CASEMGMT ---
[facility] accepted patient. SW sent all necessary information to [facility] to obtain a level of care. SW called patient's daughter Hydro and let her know patient will be going to [facility] today. SW also asked if she could bring in patient's Trulicity from home. SW will notify physician that patient can go today. Await level of care. Plan: d/c to [facility] under intermediate level of care on a convalescent stay. Physicians will transport patient. Cassandra CARREON
[2022-06-05] MEDS: Acetaminophen 325 MG Tablet 650 MG PO (10:46)
[2022-06-05] MEDS: oxyCODONE 5 MG Tablet PO (10:47)
--- NOTE | 2022-06-05 11:03 | CASEMGMT ---
SW received level of care. SW sent orders, med list, and level of care to [facility] via [facility]. Cassandra Howell CROWN BLOCKER DEICER KIT ASSEMBLER
[2022-06-05 11:10] LABS: Bedside Glucose 145 mg/dL (74-106)
--- NOTE | 2022-06-05 12:00 | CASEMGMT ---
SW called [facility] and arranged for patient to get picked up at 130p via wheelchair van. SW notified RN, racing secretary and handicapper, and patient's daughter via voice mail. Plan: [facility] under intermediate level of care. Physicians will transport via wheelchair van. Cassandra CARREON
--- NOTE | 2022-06-05 12:15 | DS.PCM_ITS ---
Providers Date of Admission: 05/30/22 Primary Care Physician: Dr. Lloyd Jalloh MD Consultations 05/31/22 21:42 Consult: Onc/Wound/computer forensic specialist Routine Comment: Reason for Consult:: ILEOSTOMY Reason For Visit: ACUTE PANCREATITIS Diagnosis Discharge Diagnosis (1) Acute pancreatitis: Status: Acute Code(s): K85.90 - Acute pancreatitis without necrosis or infection, unspecified Medications at Discharge Home Medications oxycodone-acetaminophen 5 mg-325 mg tablet 1 - 2 tab PO Q4H PRN PRN Pain #20 tabs 08/24/15 atorvastatin 40 mg tablet 80 mg PO DAILY 11/14/21 dulaglutide 0.75 mg/0.5 mL subcutaneous pen injector (Trulicity) 0.5 mg subcut QWEEK 11/14/21 losartan 25 mg tablet 25 mg PO DAILY 11/14/21 pregabalin 150 mg capsule 150 mg PO TID 11/14/21 ropinirole 4 mg tablet 4 mg PO QHS 11/14/21 aspirin 81 mg chewable tablet 81 mg PO BREAKFAST #30 tabs 01/05/22 albuterol sulfate 90 mcg/actuation aerosol inhaler (Ventolin HFA) 2 puff inhalation Q6H PRN sob 05/30/22 ascorbic acid (vitamin C) 500 mg tablet 500 mg PO BID 05/30/22 diazepam 5 mg/5 mL (1 mg/mL) oral solution 5 mg PO BID PRN Muscle Spasm 05/30/22 donepezil 10 mg tablet 10 mg PO DAILY 05/30/22 insulin lispro 100 unit/mL subcutaneous pen 10 unit subcut Check with primary doctor 05/30/22 melatonin 3 mg tablet 3 mg PO QHS 05/30/22 tamsulosin 0.4 mg capsule 0.4 mg PO QHS 05/30/22 triamcinolone acetonide 0.025 % topical cream 1 applic topical BID 05/30/22 venlafaxine 37.5 mg capsule,extended release 24 hr 37.5 mg PO DAILY 05/30/22 Hospital Course Operations None Procedures None Summary of Care Provided Minutes Spent on Discharge: 36 Hospital Course: Per HPI: The patient is a 81 y/o M w/ PMHx: Chronic normocytic anemia, Hx recurrent episodes BPPV, CKD stage III unclear subtype, Mild cognitive impairment/possibly dementia unclear type without behavioral disturbance history, Hx Multiple TIA/CVA, Anxiety and Depression, HTN, HLD, Former Tobacco use, Chronic Asthma/COPD, Diabetes mellitus type II w/ chronic neuropathy, 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 notes that he is been very weak and she is unable to assist him in the home.? Unfortunately the and are poor historians with need for questioning the same item and different ways to get an answer occasionally encumbered by translation used given primary language Swedish.? The colostomy is continue to make stool.? Work-up in the ED included T98.6, heart rate 52, BP 166/114 initially with most recent repeat 157/80, respiratory rate 17, 100% room air, CBC with WC 6.4, hemoglobin 11.4, MCV 87.9, platelet 235 without marked shift, CMP with chloride 109, anion gap 3, BUN/creatinine 23/2.20, glucose 144, unremarkable hepatic profile, troponin 19, lipase 1679, rapid COVID antigen and influenza antigen negative, chest x-ray with degenerative changes with no acute cardiopulmonary findings, CT abdomen and pelvis with postop changes including ileostomy right lower quadrant possible colonic interposition in the anterior lower chest, evidence resection right colon with normal-appearing pancreas as well as gallbladder and extrahepatic biliary system.? In the ED patient administered Zofran 4 mg IV x1, morphine 4 mg IV x1 and 1 L normal saline bolus. Hospital Course: 1. Acute pancreatitis. Failure to thrive and debility?81-year-old male presents to the hospital with acute pancreatitis. There is unclear etiology for the pancreatitis and the CT scan was ambiguous in terms of determining inflammation surrounding the pancreas. He had a significant and rapid improvement in his lipase and under 24 hours. He is doing much better today and he is pain-free and tolerating a diet. Initially family was planning to take him home however he had been in the hospital long enough that when they tried to get him up and ambulate and they felt that they could not safely handle him at home. PT and OT were consulted and agreed that he likely needs placement. I discussed with him the plan for discharge today he expressed understanding of the risk benefits going to the [facility] today and would like to go today. On occasion his right lower quadrant ostomy can herniate but this resolves on its own and there is no obstruction his ostomy is at baseline according to him. 2. Hypertension, hyperlipidemia, type 2 diabetes, chronic kidney disease stage IIIb, dementia, anxiety, depression, BPH, GERD are all chronic medical conditions which complicate his care. His home medications were continued where appropriate Physical Exam Narrative General: Alert, Oriented x3, Cooperative, No apparent distress HEENT: Atraumatic, PERRLA, EOMI, Normocephalic Oral: Moist Mucosa Neck: Supple, No JVD Lungs: Clear to auscultation, Normal air movement, No rhonchi, No wheeze, No rales Cardiovascular: Regular rate, Regular Rhythm, Normal S1, Normal S2, No murmurs Abdomen: Soft, Non Tender, Non-Distended, No Hepato-splenomegaly, colostomy in place Extremities: No edema, Capillary Refill Less than 3 Seconds Skin: No rashes, No breakdown Musculoskeletal: No Tenderness to Palpation of Joints or Extremities Neurological: Cranial nerves II-XII grossly intact, Motor Exam 5/5 strength throughout, Sensory exam intact to light touch and pain Psych/Mental Status: Normal Affect, Appropriate Weight / BMI Weight Weight: 190 lb 4.143 oz Body Mass Index (BMI) 25.8 ABG / Lab / Microbiology Data Result Diagrams: 06/05/22 04:59 06/05/22 04:59 Laboratory: Laboratory Results - last 24 hr 06/04/22 17:28: POC Glucose 125 H 06/04/22 21:24: POC Glucose 116 H 06/05/22 04:59: WBC 8.8, RBC 3.78 L, Hgb 10.5 L, Hct 33.5 L, MCV 88.6, MCH 27.8, MCHC 31.3 L, RDW Std Deviation 46.5 H, RDW Coeff of Meenu 14.6, Plt Count 212, MPV 9.8, Immature Gran % (Auto) 0.300, Neut % (Auto) 79.5 H, Lymph % (Auto) 12.5 L, Corson % (Auto) 6.3, Eos % (Auto) 1.3, Baso % (Auto) 0.1, Absolute Neuts (auto) 7.0, Absolute Lymphs (auto) 1.10, Nucleated RBC % 0 06/05/22 04:59: Sodium 137, Potassium 3.8, Chloride 106, Carbon Dioxide 25.0, Anion Gap 6, BUN 16, Creatinine 2.01 H, Estim Creat Clear Calc 32.71, Est GFR (MDRD) Af Amer 41 L, Est GFR (MDRD) Non-Af 34 L, BUN/Creatinine Ratio 8.0 L, Glucose 139 H, Calcium 8.8 06/05/22 06:34: POC Glucose 128 H 06/05/22 10:53: POC Glucose 145 H Microbiology: Microbiology 05/30/22 18:45 Nasal Secretion SARS-CoV-2 & FLU Antigen (Rapid) - Final D/C Instructions Discharge Diet: Low fat / Low cholesterol Weight Bearing Status: Weight bearing as tolerated Call your doctor if you observe: Fever of 101 or Higher, Shortness of breath, Dizziness, Swelling in the ankles, Chest pain and Uncontrolled pain Meaningful Use Info Meaningful Use Diagnoses (Choose all that apply): None applicable Discharge Plan Admission Admit Date/Time: 05/30/22 20:45 Primary Reason for Your Visit: acute pancreatitis Attending Provider: Juanito Samuels Primary Care Provider: Lloyd Jalloh Consulting Providers: Roseanna Solomon ; Dede Alvarez Instructions Patient Instructions: Understanding Pancreatitis, Pancreatitis Acute Dc Discharge Orders/Prescriptions Prescriptions: Continued oxycodone-acetaminophen 1 TABLET tablet 1 - 2 tab PO Q4H PRN PRN (Reason: Pain) Qty: 20 0RF atorvastatin 40 mg tablet 80 mg PO DAILY Label Comments: TAKE ONE TABLET BY MOUTH EVERY DAY losartan 25 mg tablet 25 mg PO DAILY Label Comments: TAKE ONE TABLET BY MOUTH EVERY DAY ropinirole 4 mg tablet 4 mg PO QHS Label Comments: TAKE ONE TABLET BY MOUTH AT BEDTIME pregabalin 150 mg capsule 150 mg PO TID Label Comments: TAKE ONE CAPSULE BY MOUTH THREE TIMES DAILY Trulicity 0.75 mg/0.5 mL pen injector 0.5 mg SUBCUT QWEEK Label Comments: Inject 0.75 mg subcutaneously one time a week. Inject dose once per week. D iscard Pen After aspirin 81 mg Tablet,Chewable 81 mg PO BREAKFAST Qty: 30 0RF melatonin 3 mg tablet 3 mg PO QHS Label Comments: TAKE ONE TABLET BY MOUTH AT BEDTIME ascorbic acid (vitamin C) 500 mg tablet 500 mg PO BID Label Comments: TAKE ONE TABLET BY MOUTH TWICE DAILY diazepam 5 mg/5 mL (1 mg/mL) solution 5 mg PO BID PRN (Reason: Muscle Spasm) Label Comments: Take 5 mL by mouth twice daily for 90 days. As needed. Muscle cramps donepezil 10 mg tablet 10 mg PO DAILY Label Comments: TAKE 1 TABLET BY MOUTH ONCE DAILY WITH FOOD tamsulosin 0.4 mg capsule 0.4 mg PO QHS Label Comments: TAKE 1 CAPSULE BY MOUTH ONCE DAILY AT BEDTIME triamcinolone acetonide 0.025 % cream 1 applic TOPICAL BID Label Comments: APPLY TO THE AFFECTED AREA(S) ON FOR BACK TWICE DAILY NEEDED FOR ITCHING venlafaxine 37.5 mg capsule,extended release 24hr 37.5 mg PO DAILY Label Comments: TAKE ONE CAPSULE BY MOUTH EVERY DAY albuterol sulfate [Ventolin HFA] 90 mcg/actuation HFA aerosol inhaler 2 puff INHALATION Q6H PRN (Reason: sob) Label Comments: INHALE TWO PUFFS BY MOUTH EVERY 6 HOURS NEEDED FOR wheezing OR SHORTNESS OF BREATH insulin lispro 100 unit/mL insulin pen 10 unit SUBCUT Label Comments: USE 3 TIMES DAILY DIRECTED PER SLIDING SCALE. UNDER 200= NONE. 201-300= 4 UNITS. 301-400= 6 UNITS. OVER 400= 8 UNITS Referrals / Follow Up: Lloyd Jalloh MD [Primary Care Provider] - Within 2 Weeks Disposition Disposition (needs filled in before D/C Order can be placed): [facility] Charges/Coding Visit Charges Inpatient E&M: 07900 Disch Hosp >30min
--- NOTE | 2022-06-05 13:13 | NURSING ---
report called to [facility] to nurse Annalisa
== END 2022-06-05 13:40 | DRG 282 ==
LOC: ED 19:02 → PCU 21:24
PROVIDERS: Student in an Organized Health Care Education/Training Program; Admitting Provider Family Medicine; Emergency Provider Student in an Organized Health Care Education/Training Program; PCP Internal Medicine; Visit Provider Family Medicine
DX: K85.90 Acute pancreatitis without necrosis or infection, unspecified (principal); G25.82 Stiff-man syndrome; E11.22 Type 2 diabetes mellitus with diabetic chronic kidney disease; E11.40 Type 2 diabetes mellitus with diabetic neuropathy, unspecified; N18.32 Chronic kidney disease, stage 3b; J44.9 Chronic obstructive pulmonary disease, unspecified; Z79.4 Long term (current) use of insulin; F03.90 Unspecified dementia, unspecified severity, without behavioral disturbance, psychotic disturbance, mood disturbance, and anxiety; Z93.3 Colostomy status; Z93.2 Ileostomy status; G25.81 Restless legs syndrome; E78.00 Pure hypercholesterolemia, unspecified; I12.9 Hypertensive chronic kidney disease with stage 1 through stage 4 chronic kidney disease, or unspecified chronic kidney disease; K21.9 Gastro-esophageal reflux disease without esophagitis; F41.9 Anxiety disorder, unspecified; R62.7 Adult failure to thrive; F32.A Depression, unspecified; N40.0 Benign prostatic hyperplasia without lower urinary tract symptoms; R53.81 Other malaise; Z68.25 Body mass index [BMI] 25.0-25.9, adult; Z79.82 Long term (current) use of aspirin; Z79.899 Other long term (current) drug therapy; Z86.73 Personal history of transient ischemic attack (TIA), and cerebral infarction without residual deficits; Z87.891 Personal history of nicotine dependence
CPT/HCPCS: 36415; 71045; 74177; 80048; 80053; 80076; 82962; 83036; 83690; 84484; 85025; 87428; 93005; 94640; 94668; 97110; 97116; 97162; 97166; 97530; 97535; 99252; 99284; J7030; Q9967; A4216; G0463; J2405

== ENCOUNTER → 2022-06-07 | Outpatient (REF) | payer MEDICAID, SELFPAY ==
[2022-06-07 08:54] LABS: Hemoglobin A1c 7.4 % (3.8-5.6)
[2022-06-07 08:59] LABS: Anion Gap 8 (5-15); BUN 18 mg/dL (7-18); Chloride 107 mmol/L (98-107); Creatinine, Serum 2.26 mg/dL (0.70-1.30); EST Glomerular Filtration Rate 30 mL/min (>60); Est Glom Filt Rate - Afr Amer 36 mL/min (>60); Glucose 134 mg/dL (74-106); Potassium 3.7 mmol/L (3.5-5.1); Sodium Level 137 mmol/L (136-145)
[2022-06-07 10:19] LABS: Hematocrit 36.4 % (40-54); Hemoglobin 10.9 g/dL (13.0-16.5); Mean Corp Hgb Conc 29.9 g/dL (32-36); Mean Corpuscular Hgb 27.3 pg (27.0-32.0); Mean Platelet Vol. 10.4 fl (6.2-12.0); Platelet Count 213 K/mm3 (150-450); RBC Distribution Width CV 14.6 % (11.6-14.6); RBC Distribution Width SD 48.2 fl (35.1-43.9); White Blood Count 4.7 K/mm3 (4.4-11.0)
== END | disposition home or self-care (01) ==
LOC: OLS.SW 05:00
PROVIDERS: PCP Internal Medicine; Visit Provider Family Medicine
DX: R79.9 Abnormal finding of blood chemistry, unspecified (principal); R97.8 Other abnormal tumor markers; Z13.228 Encounter for screening for other metabolic disorders
CPT/HCPCS: 36415; 80048; 83036; 85027

== ENCOUNTER → 2022-06-11 | Outpatient (REF) | payer MEDICAID, SELFPAY ==
[2022-06-11 08:46] LABS: Hematocrit 40.8 % (40-54); Hemoglobin 12.3 g/dL (13.0-16.5); Mean Corp Hgb Conc 30.1 g/dL (32-36); Mean Corpuscular Hgb 27.2 pg (27.0-32.0); Mean Corpuscular Volume 90.3 fL (80-94); Mean Platelet Vol. 10.4 fl (6.2-12.0); Platelet Count 235 K/mm3 (150-450); RBC Distribution Width CV 14.6 % (11.6-14.6); RBC Distribution Width SD 48.1 fl (35.1-43.9); Red Blood Count 4.52 M/mm3 (4.6-6.2); White Blood Count 8.2 K/mm3 (4.4-11.0)
[2022-06-11 08:50] LABS: ALB/GLOB Ratio 1.1 RATIO (0.9-2.4); AST(SGOT) 26 U/L (15-37); Alanine Aminotransfer ALT/SGPT 31 U/L (16-61); Albumin, Serum 3.9 g/dL (3.2-5.0); Alkaline Phosphatase 55 U/L (45-117); Anion Gap 7 (5-15); BUN 20 mg/dL (7-18); BUN/Creat Ratio 9.6 RATIO (10-20); Calcium,Total 9.4 mg/dL (8.5-10.1); Chloride 108 mmol/L (98-107); Cholesterol 113 mg/dL (200); Creatinine, Serum 2.08 mg/dL (0.70-1.30); EST Glomerular Filtration Rate 33 mL/min (>60); Est Glom Filt Rate - Afr Amer 40 mL/min (>60); Globulin 3.5 g/dL (2.2-4.2); Glucose 158 mg/dL (74-106); High Density Lipoprotein 79 mg/dL; Protein, Total 7.4 g/dL (6.4-8.2); Sodium Level 137 mmol/L (136-145); Triglycerides 60 mg/dL; Very Low Density Lipoprotein 12 mg/dL (5-40)
== END | disposition home or self-care (01) ==
LOC: OLS.SW 05:00
PROVIDERS: PCP Internal Medicine; Visit Provider Family Medicine
DX: D64.9 Anemia, unspecified (principal); E11.40 Type 2 diabetes mellitus with diabetic neuropathy, unspecified
CPT/HCPCS: 36415; 80053; 80061; 85027

== ENCOUNTER 2022-07-31 20:13 | Emergency (ER) | payer MEDICAID, SELFPAY ==
[2022-07-31 20:13] VITALS: BP 168/92; PULSE 67; RESP 15; TEMP 36.3; O2SAT 99
[2022-07-31 20:54] LABS: Absolute Lymphocyte Count 1.94 X10^3/uL (0.83-4.51); Absolute Neutrophil Count 4.3 X10^3/uL (2.0-7.7); Basophil# 0.02 X10^3/uL; Basophil% 0.3 % (0-1); Eosinophil# 0.15 X10^3/uL; Eosinophils% 2.2 % (0-5); Hematocrit 37.8 % (40-54); Hemoglobin 11.3 g/dL (13.0-16.5); Lymphocyte # 1.94 X10^3/ul (0.83-4.51); Lymphocyte % 28.1 % (19-41); Mean Corp Hgb Conc 29.9 g/dL (32-36); Mean Corpuscular Hgb 26.1 pg (27.0-32.0); Mean Corpuscular Volume 87.3 fL (80-94); Mean Platelet Vol. 10.2 fl (6.2-12.0); Monocyte# 0.52 X10^3/uL; Monocyte% 7.5 % (0-10); NRBC Flagged by Analyzer 0 % (0-5); Neutrophil # 4.25 X10^3/uL (2.7-7.7); Neutrophil % 61.5 % (47-70); Platelet Count 250 K/mm3 (150-450); RBC Distribution Width CV 15.7 % (11.6-14.6); RBC Distribution Width SD 49.8 fl (35.1-43.9); Red Blood Count 4.33 M/mm3 (4.6-6.2); White Blood Count 6.9 K/mm3 (4.4-11.0)
[2022-07-31 21:17] LABS: ALB/GLOB Ratio 1.1 RATIO (0.9-2.4); AST(SGOT) 22 U/L (15-37); Alanine Aminotransfer ALT/SGPT 27 U/L (16-61); Albumin, Serum 3.7 g/dL (3.2-5.0); Alkaline Phosphatase 69 U/L (45-117); Anion Gap 6 (5-15); BUN 31 mg/dL (7-18); BUN/Creat Ratio 11.2 RATIO (10-20); Chloride 112 mmol/L (98-107); Creatinine, Serum 2.77 mg/dL (0.70-1.30); EST Glomerular Filtration Rate 24 mL/min (>60); Est Glom Filt Rate - Afr Amer 29 mL/min (>60); Globulin 3.5 g/dL (2.2-4.2); Glucose 120 mg/dL (74-106); Potassium 4.3 mmol/L (3.5-5.1); Protein, Total 7.2 g/dL (6.4-8.2); Sodium Level 142 mmol/L (136-145)
--- NOTE | 2022-07-31 22:03 | CT_ITS ---
INDICATION: Abdominal pain EXAMINATION: CT ABDOMEN AND PELVIS WITHOUT CONTRAST - CT Abdomen And Pelvis W/O Contrast Injection TECHNIQUE: Helically acquired images were obtained of the abdomen and pelvis without oral or IV contrast. A radiation dose optimization technique was used for this scan. IV Contrast dosage and agent: None. Oral contrast: None. RADIATION DOSAGE (If Supplied By Facility): CTDIvol = ( 8.26 ) mGy, DLP = ( 753.39 ) mGycm COMPARISON: 05/30/2022 FINDINGS: LOWER CHEST: Interval development of significant distention of a postoperative pull-through extending through the anterior mediastinum. Coronary vascular calcifications are present. No pericardial effusion LIVER: The liver has normal configuration and density given the limitation of noncontrast exam. No focal mass. GALLBLADDER AND BILIARY TREE: No calcified gallstones. No gallbladder distension or wall edema. No intra- or extrahepatic biliary ductal dilation. PANCREAS: No focal cystic or solid mass. SPLEEN: Normal size without focal cystic or solid mass. ADRENAL GLANDS: No nodules. KIDNEYS AND URETERS: Kidneys have unchanged configuration, mild atrophy and renal calcifications greater on the RIGHT than LEFT without evidence of ureteral stones or evidence of obstructive uropathy. No hydronephrosis. PERITONEUM: No ascites or free air. No other fluid collection. BOWEL: 1. Extensive postoperative changes with a RIGHT lower quadrant ileostomy, evidence of a RIGHT hemicolectomy, and a pull-through with anastomotic sutures at the body of the stomach with the pull-through extending through the anterior mediastinum which is distended with semisolid material. 2. No small bowel obstruction. 3. No free fluid, abscess or free air. LYMPH NODES: No enlarged mesenteric or retroperitoneal lymph nodes. VESSELS: Aorta is non-dilated. URINARY BLADDER: Unremarkable. REPRODUCTIVE ORGANS: No pelvic masses. ABDOMINAL WALL: RIGHT lower quadrant ileostomy is noted. No peristomal hernia. BONES: Diffuse lumbar spondylosis, no evidence of fracture destructive bony process. CT/Abdomen/Pelvis without Cont IMPRESSION: 1. Postoperative changes of RIGHT hemicolectomy, RIGHT lower quadrant ostomy, and a pull-through or colonic bypass status post esophagectomy. The pull-through/bypass is currently distended with semisolid material to the level of the anastomotic sutures at the body the stomach. Stasis versus obstruction are considerations. 2. No small bowel obstruction. 3. No evidence of obstructive uropathy. Nonobstructing calcifications in the RIGHT kidney. 4. No evidence cholelithiasis. Electronically Signed: Jake Webb MD at 23:31 EDT ,
--- NOTE | 2022-07-31 22:12 | EDS_ITS ---
HPI HPI - GI History of Present Illness Chief Complaint: Abd Pain Informant: patient and spouse/S.O. Abdominal Pain/Flank Pain Onset: Today Context: Sudden Onset Timing: Continuous Quality: Sharp Location: Epigastric, RUQ and LUQ Worsened by: Nothing Relieved by: Nothing Nausea/Vomiting/Emesis GI Symptom: Positive for Nausea and Vomiting Quality: Positive for Nonbilious; Negative for Blood streaks, Coffee ground or Hematemesis Diarrhea/Melena/Hematochezia GI Symptom: Negative for Diarrhea, Melena or Hematochezia Associated Symptoms Associated Symptoms: Positive for - (Patient admits to difficulty starting his urine.); Negative for Dysuria, Frequency or Hematuria Narrative Narrative: Patient presents with abdominal pain that has been getting worse over the last 6 hours. Patient states the pain is mainly over the upper abdomen. Patient describes the pain as sharp. Patient states nothing makes it better nothing makes it worse. Patient admits to some nausea and vomiting but denies any hematemesis or coffee-ground emesis. Patient denies any diarrhea, melena, or hematochezia. Patient denies any dysuria, frequency, or hematuria. Patient states he has difficulty starting his urine stream. Patient denies any fevers or chills. [facility] Medical History Anxiety and depression Chronic asthmatic bronchitis CKD (chronic kidney disease), stage III Colostomy fistula Diabetic neuropathy DM type 2 (diabetes mellitus, type 2) History of CVA (cerebrovascular accident) History of seizure disorder History of tobacco use Hypercholesterolemia Home Medications atorvastatin 40 mg tablet 80 mg PO DAILY 11/14/21 [History Last Taken Unknown] dulaglutide 0.75 mg/0.5 mL subcutaneous pen injector (Trulicity) 0.5 mg subcut QWEEK 11/14/21 [History Last Taken Unknown] losartan 25 mg tablet 25 mg PO DAILY 11/14/21 [History Last Taken Unknown] pregabalin 150 mg capsule 150 mg PO TID 11/14/21 [History Last Taken Unknown] ropinirole 4 mg tablet 4 mg PO QHS 11/14/21 [History Last Taken Unknown] aspirin 81 mg chewable tablet 81 mg PO BREAKFAST #30 tabs 01/05/22 [Rx Last Taken Unknown] albuterol sulfate 90 mcg/actuation aerosol inhaler (Ventolin HFA) 2 puff inhalation Q6H PRN sob 05/30/22 [History Last Taken Unknown] ascorbic acid (vitamin C) 500 mg tablet 500 mg PO BID 05/30/22 [History Last Taken Unknown] diazepam 5 mg/5 mL (1 mg/mL) oral solution 5 mg PO BID PRN Muscle Spasm 05/30/22 [History Last Taken Unknown] donepezil 10 mg tablet 10 mg PO DAILY 05/30/22 [History Last Taken Unknown] insulin lispro 100 unit/mL subcutaneous pen 10 unit subcut TIDCM Check with primary doctor 05/30/22 [History Last Taken Unknown] melatonin 3 mg tablet 3 mg PO QHS 05/30/22 [History Last Taken Unknown] tamsulosin 0.4 mg capsule 0.4 mg PO QHS 05/30/22 [History Last Taken Unknown] triamcinolone acetonide 0.025 % topical cream 1 applic topical BID 05/30/22 [History Last Taken Unknown] venlafaxine 37.5 mg capsule,extended release 24 hr 37.5 mg PO DAILY 05/30/22 [History Last Taken Unknown] Allergy/AdvReac Type Severity Reaction Status Date / Time No Known Allergies Allergy Verified 07/31/22 20:18 Family History Mother Myocardial infarction Hypertension Father Diabetes Alzheimer disease Surgical History History of appendectomy History of esophageal surgery History of eye surgery Social History household members: spouse Smoking Status: Former smoker how long ago did patient quit smoking: Quit 1-2 years prior, smoked occasional cigars. alcohol intake: never substance use type: does not use ROS ROS ED Constitutional Constitutional ED: Denies chills or fever(s) Eyes Eyes: Denies blurry vision or change in vision ENT ENT ED: Denies rhinorrhea or sore throat Cardiovascular Cardiovascular: Reports chest pain; Denies palpitations Respiratory/Chest Respiratory/Chest: Reports dyspnea; Denies cough Gastrointestinal Gastrointestinal: Reports abdominal pain, nausea and vomiting Genitourinary Genitourinary ED: Denies dysuria or hematuria Musculoskeletal Musculoskeletal: Denies back pain or neck pain Integumentary Denies abscess or rash Neurologic Neurologic: Reports headache(s); Denies weakness Allergic/Immunologic Allergic/Immunologic ED: Denies mouth swelling or urticaria EXAM Physical Exam Const Vital Signs: 07/31/22 20:13 07/31/22 22:18 08/01/22 00:14 Temperature 97.4 F L Temperature Source Temporal Pulse Rate 67 67 Respiratory Rate 15 Blood Pressure 168/92 H 134/78 H 141/79 H Blood Pressure Mean 117 96 99 Pulse Ox 99 98 96 Oxygen Delivery Method Room Air Room Air Room Air Positive well nourished and well developed General Appearance ED: well developed HEENT Reports moist mucous membranes Neck supple and no JVD Chest Wall Chest Narrative: There is edema over the left upper chest. There is no erythema or warmth. There is no ecchymosis. There is no discharge or drainage. There is some mild fluctuance. There are healed scars over this area. Resp normal respiratory effort and clear to auscultation bilaterally Cardio regular rate, regular rhythm and no murmurs GI normal to inspection, nondistended, normoactive bowel sounds GI Narrative: There is a colostomy in place in the right lower abdomen. There is no tenderness around the colostomy site. Palpation: soft and tender epigastric, LUQ and RUQ; Negative for guarding or rebound tenderness present Extremity normal to inspection General Extremety ED: Negative for edema or tenderness General Extremity: Negative for edema Neuro oriented x3, CN's II-XII intact bilaterally and no sensory deficits noted Sensorium / Orientation: alert Motor Exam: strength 5/5 throughout Psych mental status grossly normal Skin no rashes or lesions noted MDM MDM MDM Narrative Medical decision making narrative: Differential diagnosis includes gastritis, pancreatitis, bowel obstruction, perforation, urinary tract infection, ureteral calculus, pyelonephritis, and enteritis. CBC will be obtained to assess for leukocytosis and anemia. Comprehensive metabolic profile will be obtained to assess for hepatic function, renal function, and electrolyte abnormality. Lipase will be obtained to assess for pancreatitis. Urinalysis will be obtained to assess for urinary tract infection and hematuria. CT scan of the abdomen pelvis will be obtained to assess for ureteral calculus, bowel obstruction, and perforation. Chest x-ray will be obtained to assess for soft tissue swelling, pneumonia, pneumothorax. History & Record Review Additional record(s) reviewed:: Prior labs Lab Data Attestation: I reviewed the patient's lab results. Lab results narrative: CBC was reviewed. There is a mild anemia with a hemoglobin of 11.3 hematocrit 37.8. This is similar to prior results. Comprehensive metabolic profile was reviewed. BUN was slightly elevated at 31 and creatinine was 2.77. These are only slightly increased from previous results. Lipase was reviewed and was normal at 37. Urine this is was reviewed. There is no evidence of urinary tract infection or hematuria. Labs: Laboratory Results - last 24 hr 07/31/22 07/31/22 07/31/22 20:47 20:47 20:47 WBC 6.9 RBC 4.33 L Hgb 11.3 L Hct 37.8 L MCV 87.3 MCH 26.1 L MCHC 29.9 L RDW Std Deviation 49.8 H RDW Coeff of Meenu 15.7 H Plt Count 250 MPV 10.2 Immature Gran % (Auto) 0.400 Neut % (Auto) 61.5 Lymph % (Auto) 28.1 Clayton % (Auto) 7.5 Eos % (Auto) 2.2 Baso % (Auto) 0.3 Absolute Neuts (auto) 4.3 Absolute Lymphs (auto) 1.94 Nucleated RBC % 0 Sodium 142 Potassium 4.3 Chloride 112 H Carbon Dioxide 24.0 Anion Gap 6 BUN 31 H Creatinine 2.77 H Est GFR (MDRD) Af Amer 29 L Est GFR (MDRD) Non-Af 24 L BUN/Creatinine Ratio 11.2 Glucose 120 H Calcium 9.0 Total Bilirubin 0.40 AST 22 ALT 27 Alkaline Phosphatase 69 Total Protein 7.2 Albumin 3.7 Globulin 3.5 Albumin/Globulin Ratio 1.1 Lipase 37 Urine Color Urine Clarity Urine pH Ur Specific [place] Urine Protein Urine Glucose (UA) Urine Ketones Urine Occult Blood Urine Nitrite Urine Bilirubin Urine Urobilinogen Ur Leukocyte Esterase Urine RBC Urine WBC Ur Squamous Epith Cells Calcium Oxalate Crystal Amorphous Sediment Urine Bacteria Urine Mucus 07/31/22 23:00 WBC RBC Hgb Hct MCV MCH MCHC RDW Std Deviation RDW Coeff of Meenu Plt Count MPV Immature Gran % (Auto) Neut % (Auto) Lymph % (Auto) Clayton % (Auto) Eos % (Auto) Baso % (Auto) Absolute Neuts (auto) Absolute Lymphs (auto) Nucleated RBC % Sodium Potassium Chloride Carbon Dioxide Anion Gap BUN Creatinine Est GFR (MDRD) Af Amer Est GFR (MDRD) Non-Af BUN/Creatinine Ratio Glucose Calcium Total Bilirubin AST ALT Alkaline Phosphatase Total Protein Albumin Globulin Albumin/Globulin Ratio Lipase Urine Color Yellow Urine Clarity Clear Urine pH 5.0 Ur Specific [place] 1.025 Urine Protein 30 H Urine Glucose (UA) 50 H Urine Ketones Negative Urine Occult Blood 10 H Urine Nitrite Negative Urine Bilirubin Negative Urine Urobilinogen 1 H Ur Leukocyte Esterase Negative Urine RBC 0-5 SEEN Urine WBC RETAIL PROJECT MERCHANDISER Ur Squamous Epith Cells RETAIL PROJECT MERCHANDISER Calcium Oxalate Crystal RETAIL PROJECT MERCHANDISER Amorphous Sediment RETAIL PROJECT MERCHANDISER Urine Bacteria 1+ Urine Mucus 0 SEEN Radiography Diagnostic Testing: Clinical Impression(s) from Imaging Studies Abdomen/Pelvis CT 07/31/22 22:03 IMPRESSION: 1. Postoperative changes of RIGHT hemicolectomy, RIGHT lower quadrant ostomy, and a pull-through or colonic bypass status post esophagectomy. The pull-through/bypass is currently distended with semisolid material to the level of the anastomotic sutures at the body the stomach. Stasis versus obstruction are considerations. 2. No small bowel obstruction. 3. No evidence of obstructive uropathy. Nonobstructing calcifications in the RIGHT kidney. 4. No evidence cholelithiasis. Electronically Signed: Jake Webb MD at 23:31 EDT , Chest CT 07/31/22 22:32 IMPRESSION: 1. Extensive postoperative changes consistent with prior gastrectomy and pull-through extending through the anterior mediastinum projecting in the LEFT supraclavicular region. The pull-through is distended with semisolid food material to the level of the anastomotic sutures at the body of the stomach. 2. No focal infiltrate consolidation or effusion. Chronic interstitial changes at the lung bases. Electronically Signed: Jake Webb MD at 23:24 EDT , CT scan of the abdomen pelvis was obtained. There are postoperative changes of a right hemicolectomy and a right lower quadrant ostomy. There are postoperative changes from a prior esophagectomy and colon pull-through or bypass. There is no evidence of small bowel obstruction. This was interpreted by the radiologist and was independently reviewed by myself. CT scan of the chest was obtained. There are postoperative changes with prior gastrectomy and pull-through with bowel in the left supraclavicular region. There is some mild distention with semisolid food material to the anastomosis at the body of the stomach. There are chronic interstitial changes at the lung bases. This was interpreted by the radiologist and was also independently reviewed by myself. Treatment and Re-Evaluation :: Patient was given IV fluids, morphine, and Zofran. Patient was advised of his findings. Patient is feeling better on reevaluation. Patient was instructed to follow-up with his primary care physician in 3 to 5 days. Patient was instructed to eat a liquid diet and advance as tolerated. Patient was instructed to return if worse in any way. Patient understood and was agreeable with the plan. All questions were answered. Discharge Plan Triage Chief Complaint: Abd Pain ED Provider: Gio Saucedo Dx/Rx/DC Orders Clinical Impression: Abdominal pain, Diabetes Instructions: ED Abdominal Pain Unkn Cause Male... Prescriptions: No Action atorvastatin 40 mg tablet 80 mg PO DAILY Label Comments: TAKE ONE TABLET BY MOUTH EVERY DAY losartan 25 mg tablet 25 mg PO DAILY Label Comments: TAKE ONE TABLET BY MOUTH EVERY DAY ropinirole 4 mg tablet 4 mg PO QHS Label Comments: TAKE ONE TABLET BY MOUTH AT BEDTIME pregabalin 150 mg capsule 150 mg PO TID Label Comments: TAKE ONE CAPSULE BY MOUTH THREE TIMES DAILY Trulicity 0.75 mg/0.5 mL pen injector 0.5 mg SUBCUT QWEEK Label Comments: Inject 0.75 mg subcutaneously one time a week. Inject dose once per week. Discard Pen After aspirin 81 mg Tablet,Chewable 81 mg PO BREAKFAST Qty: 30 0RF melatonin 3 mg tablet 3 mg PO QHS Label Comments: TAKE ONE TABLET BY MOUTH AT BEDTIME ascorbic acid (vitamin C) 500 mg tablet 500 mg PO BID Label Comments: TAKE ONE TABLET BY MOUTH TWICE DAILY diazepam 5 mg/5 mL (1 mg/mL) solution 5 mg PO BID PRN (Reason: Muscle Spasm) Label Comments: Take 5 mL by mouth twice daily for 90 days. As needed. Muscle cramps donepezil 10 mg tablet 10 mg PO DAILY Label Comments: TAKE 1 TABLET BY MOUTH ONCE DAILY WITH FOOD tamsulosin 0.4 mg capsule 0.4 mg PO QHS Label Comments: TAKE 1 CAPSULE BY MOUTH ONCE DAILY AT BEDTIME triamcinolone acetonide 0.025 % cream 1 applic TOPICAL BID Label Comments: APPLY TO THE AFFECTED AREA(S) ON FOR BACK TWICE DAILY NEEDED FOR ITCHING venlafaxine 37.5 mg capsule,extended release 24hr 37.5 mg PO DAILY Label Comments: TAKE ONE CAPSULE BY MOUTH EVERY DAY albuterol sulfate [Ventolin HFA] 90 mcg/actuation HFA aerosol inhaler 2 puff INHALATION Q6H PRN (Reason: sob) Label Comments: INHALE TWO PUFFS BY MOUTH EVERY 6 HOURS NEEDED FOR wheezing OR SHORTNESS OF BREATH insulin lispro 100 unit/mL insulin pen 10 unit SUBCUT TIDCM Label Comments: USE 3 TIMES DAILY DIRECTED PER SLIDING SCALE. UNDER 200= NONE. 201-300= 4 UNITS. 301-400= 6 UNITS. OVER 400= 8 UNITS Primary Care Provider: Lloyd Jalloh Referrals: Lloyd Jalloh MD [Primary Care Provider] - 3-5 Days Disposition Disposition: Home, Self Care
[2022-07-31] MEDS: 0.9% Normal Saline 1,000 ML 1000 ML IV (22:16)
[2022-07-31] MEDS: Ondansetron 4 MG/2 ML Vial IV (22:17)
[2022-07-31] MEDS: Morphine 4 MG/ML Syringe IV (22:17)
[2022-07-31 22:18] VITALS: BP 134/78; PULSE 67; O2SAT 98; BMI 25.5
--- NOTE | 2022-07-31 22:32 | CT_ITS ---
INDICATION: Chest pain EXAMINATION: CT CHEST WITHOUT CONTRAST - CT Chest W/O Contrast Injection TECHNIQUE: Helically acquired images were obtained of the chest. A radiation dose optimization technique was used for this scan. IV Contrast dosage and agent: None. Radiation Dose (provided by facility) CTDIvol (17.41 ) mGy, DLP ( 665.57) mGy-cm COMPARISON: None. FINDINGS: LUNGS, PLEURA AND LARGE AIRWAYS: No focal infiltrate or consolidation. Mild pleural thickening and atelectasis at the lung bases. No pleural effusion or thickening. No pneumothorax. THYROID: No thyroid lesions. HEART AND PERICARDIUM: Cardiac contour is within normal limits, scattered coronary vascular calcifications are present. No pericardial effusion. VESSELS: Thoracic aorta is not dilated. MEDIASTINUM AND ORTEGA: Mediastinum is remarkable for postoperative changes consistent with esophagectomy. There is a gastric pull-through extending through the anterior mediastinum, and projects into the LEFT supraclavicular region. There is marked distention of the pull-through with semisolid food material. UPPER ABDOMEN: Distended pull-through with anastomotic sutures at the level of the body of the stomach. Diffuse calcifications in the RIGHT kidney without evidence of obstructive uropathy. BONES: No suspicious lytic or blastic abnormality. CT/Chest without Contrast IMPRESSION: 1. Extensive postoperative changes consistent with prior gastrectomy and pull-through extending through the anterior mediastinum projecting in the LEFT supraclavicular region. The pull-through is distended with semisolid food material to the level of the anastomotic sutures at the body of the stomach. 2. No focal infiltrate consolidation or effusion. Chronic interstitial changes at the lung bases. Electronically Signed: Jake Webb MD at 23:24 EDT ,
[2022-07-31 23:04] LABS: Lipase 37 U/L (13-75)
[2022-07-31 23:06] LABS: Mucous, Urine 0 SEEN /hpf (<or=2+)
[2022-07-31 23:07] LABS: Color, Urine Yellow (Yellow); Glucose, Dipstick 50 mg/dl (Normal); Ketone-Dipstick Negative (Negative); Leukocyte Esterase-Dipstick Negative /ul (Negative); Nitrite-Dipstick Negative (Negative); Occult Blood-Urine 10 /ul (Negative); Protein-Dipstick 30 mg/dl (Negative); Specific Gravity, Urine 1.025 (1.002-1.030); Urine Bilirubin Dipstick Negative (Negative); Urine Clarity Clear (Clear); Urine Urobilinogen 1 mg/dl (Normal)
[2022-07-31 23:22] LABS: Red Blood Cells-Urine 0-5 SEEN /hpf (0-5)
[2022-07-31 23:24] LABS: Bacteria 1+ /hpf (None Seen)
[2022-08-01 00:14] VITALS: BP 141/79; O2SAT 96
[2022-08-01 01:02] VITALS: BP 161/82; PULSE 64; RESP 16; O2SAT 98
== END 2022-08-01 01:14 | disposition home or self-care (01) ==
PROVIDERS: Emergency Provider Emergency Medicine; PCP Internal Medicine; Visit Provider Emergency Medicine
DX: R10.13 Epigastric pain (principal); Z93.3 Colostomy status; E11.22 Type 2 diabetes mellitus with diabetic chronic kidney disease; E11.40 Type 2 diabetes mellitus with diabetic neuropathy, unspecified; Z79.4 Long term (current) use of insulin; N18.30 Chronic kidney disease, stage 3 unspecified; R10.11 Right upper quadrant pain; R10.12 Left upper quadrant pain; E78.00 Pure hypercholesterolemia, unspecified; Z90.49 Acquired absence of other specified parts of digestive tract; Z79.82 Long term (current) use of aspirin; Z79.899 Other long term (current) drug therapy; Z86.73 Personal history of transient ischemic attack (TIA), and cerebral infarction without residual deficits; Z87.891 Personal history of nicotine dependence
CPT/HCPCS: 71250; 74176; 80053; 81001; 83690; 85025; 96361; 96374; 96375; 99282; A4216; J2405

== ENCOUNTER 2022-08-01 21:47 | Emergency (ER) | payer MEDICAID, SELFPAY ==
[2022-08-01 21:52] VITALS: BP 148/71; PULSE 78; RESP 15; TEMP 36.9; O2SAT 96
--- NOTE | 2022-08-01 22:29 | EDS_ITS ---
HPI History of Present Illness Chief Complaint: General Illness Detail of Chief Complaint: Nausea vomiting and swelling anterior medial neck Informant: patient and spouse/S.O. Limited: language barrier (Questions had to be repeated and allow for yes no answers) Onset/Context/Timing Onset: Yesterday Context: Sudden Onset Timing: Intermittent Quality: Nausea vomiting and swelling Location: Swelling near gastric pull-through status post esophagectomy Current Severity: Moderate Maximum Severity: Moderate Worsened by: Attempt to eat or drink Relieved by: Nothing Associated Symptoms Associated Symptoms: Anterior chest swelling Narrative Narrative: Patient is a 81-year-old male who does not have a good command of the [place] language nor does his spouse. Questions were asked so that his answers could be yes or no. He does not know why he had surgery. gave me a piece of paper which indicates he will have surgery March 25. He does have a colostomy. He is still passing gas and there is stool in the colostomy bag. is concerned because he has been vomiting. He acknowledges he has been vomiting. Emesis does not appear bloody or coffee-ground in appearance. He denies fever, chills or night sweats. He denies chest pain or shortness of breath. He is concerned because of the swelling. He he denies decreased urine output. He denies polyuria or polydipsia. 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 Unable to determine if he has had decreased urine output. Prior similar symptoms: Yes Recent Illness/Hospitalization: Yes (Patient was seen yesterday with CT of the chest as well as CT of the abdome) [facility] Medical History Anxiety and depression Chronic asthmatic bronchitis CKD (chronic kidney disease), stage III Colostomy fistula Diabetic neuropathy DM type 2 (diabetes mellitus, type 2) History of CVA (cerebrovascular accident) History of seizure disorder History of tobacco use Hypercholesterolemia Home Medications atorvastatin 40 mg tablet 80 mg PO DAILY 11/14/21 [History Last Taken Unknown] dulaglutide 0.75 mg/0.5 mL subcutaneous pen injector (Trulicity) 0.5 mg subcut QWEEK 11/14/21 [History Last Taken Unknown] losartan 25 mg tablet 25 mg PO DAILY 11/14/21 [History Last Taken Unknown] pregabalin 150 mg capsule 150 mg PO TID 11/14/21 [History Last Taken Unknown] ropinirole 4 mg tablet 4 mg PO QHS 11/14/21 [History Last Taken Unknown] aspirin 81 mg chewable tablet 81 mg PO BREAKFAST #30 tabs 01/05/22 [Rx Last Taken Unknown] albuterol sulfate 90 mcg/actuation aerosol inhaler (Ventolin HFA) 2 puff inhalation Q6H PRN sob 05/30/22 [History Last Taken Unknown] ascorbic acid (vitamin C) 500 mg tablet 500 mg PO BID 05/30/22 [History Last Taken Unknown] diazepam 5 mg/5 mL (1 mg/mL) oral solution 5 mg PO BID PRN Muscle Spasm 05/30/22 [History Last Taken Unknown] donepezil 10 mg tablet 10 mg PO DAILY 05/30/22 [History Last Taken Unknown] insulin lispro 100 unit/mL subcutaneous pen 10 unit subcut TIDCM Check with primary doctor 05/30/22 [History Last Taken Unknown] melatonin 3 mg tablet 3 mg PO QHS 05/30/22 [History Last Taken Unknown] tamsulosin 0.4 mg capsule 0.4 mg PO QHS 05/30/22 [History Last Taken Unknown] triamcinolone acetonide 0.025 % topical cream 1 applic topical BID 05/30/22 [History Last Taken Unknown] venlafaxine 37.5 mg capsule,extended release 24 hr 37.5 mg PO DAILY 05/30/22 [History Last Taken Unknown] Allergy/AdvReac Type Severity Reaction Status Date / Time No Known Allergies Allergy Verified 07/31/22 20:18 Family History Mother Myocardial infarction Hypertension Father Diabetes Alzheimer disease Surgical History History of appendectomy History of esophageal surgery History of eye surgery Social History household members: spouse Smoking Status: Former smoker how long ago did patient quit smoking: Quit 1-2 years prior, smoked occasional cigars. alcohol intake: never substance use type: does not use ROS ROS ED Constitutional Constitutional ED: Denies chills, fever(s), subjective, sweats or weight loss Eyes Eyes: Denies blurry vision, change in vision or diplopia ENT ENT ED: Denies ear pain, rhinorrhea or sore throat Cardiovascular Cardiovascular: Reports other Details: Medial superior anterior left chest swelling. This represents his stomach based on review of yesterday's records and CAT scan reports. ; Denies chest pain, orthopnea, palpitations, paroxysmal nocturnal dyspnea or racing heartbeat Respiratory/Chest Respiratory/Chest: Denies cough, dyspnea, dyspnea on exertion, orthopnea or paroxysmal nocturnal dyspnea Gastrointestinal Gastrointestinal: Reports nausea and vomiting; Denies abdominal pain, constipation, diarrhea or melena Genitourinary Genitourinary ED: Denies dysuria, hematuria or urinary frequency Musculoskeletal Musculoskeletal: Denies arthralgias, back pain, myalgias or neck pain Integumentary Denies abscess, Abrasions or rash Neurologic Neurologic: Denies headache(s), paresthesias or weakness Psychiatric Psychiatric: Denies anxiety Endocrine Endocrinology: Denies cold intolerance or heat intolerance Hematologic/Lymphatic Hematologic/Lymphatic: Reports systems reviewed and no addt'l complaints, except as documented EXAM Physical Exam Const Vital Signs: 08/01/22 21:52 08/01/22 23:23 08/02/22 01:32 Temperature 98.5 F Temperature Source Temporal Pulse Rate 78 96 Respiratory Rate 15 18 Respiratory Effort Normal Respiratory Pattern Normal Blood Pressure 148/71 H 140/80 H Blood Pressure Mean 96 100 Pulse Ox 96 95 Oxygen Delivery Method Room Air Room Air Positive well nourished, well developed and obese; Negative for cachectic, contractures or unkempt General Appearance ED: well developed and NAD; Negative for unkempt, cachectic, contractures, cyanotic, diaphoretic or pallor Nutritional Appearance: obese; Negative for cachectic HEENT Reports moist mucous membranes HEENT Narrative: Head is atraumatic normocephalic. Ears normal. Nares patent. Posterior pharynx out erythema or exudate. Uvula is midline. There is no deviation tongue or protrusion. Eyes PERRL and EOMs intact bilaterally General Eye ED: Negative for pale conjunctiva or scleral icterus Neck no lymphadenopathy, supple and no JVD Chest Wall inspection of chest normal; Negative for palpation of chest normal Chest Narrative: Palpation of the stomach left subclavian region medially. According to the and patient this is not normal. This would correspond with the dilatation noted yesterday on the CAT scan and semifood noted in the stomach. Resp normal respiratory effort and clear to auscultation bilaterally Cardio regular rate, regular rhythm, S1 normal heart sound, S2 normal heart sound and no murmurs GI Negative for normal to inspection, nondistended, normoactive bowel sounds GI Narrative: There is a colostomy noted right lower quadrant. There is gas and fecal matter noted in the colostomy bag. Abdomen is slightly tympanitic. Bowel sounds are diminished. There is no tenderness, guarding or peritoneal findings. Palpation: soft Back/Spine no CVA tenderness Extremity normal to inspection General Extremety ED: Negative for edema or tenderness General Extremity: Negative for edema Neuro oriented x3 and CN's II-XII intact bilaterally Sensorium / Orientation: alert Psych mental status grossly normal Appearance: Negative for unkempt Mood & Affect: Negative for depressed or anxious Skin no rashes or lesions noted, no wounds and No skin turgor normal General Skin Exam: Negative for elasticity normal, jaundice or pallor MDM MDM MDM Narrative Medical decision making narrative: Reviewed ER documentation from yesterday as well as CAT scan interpretations by radiologist. Concern patient may have obstruction. IV fluids were ordered. Zofran for his nausea. Will obtain chest x-ray is determine if there is air- fluid level as well as BMP to assess electrolytes, glucose anion gap. Attempt was made to contact his daughter. There was no response. Voicemail was left. Extensive postoperative changes consistent with prior gastrectomy and pull-through extending through the anterior mediastinum projecting in the LEFT supraclavicular region. The pull-through is distended with semisolid food material to the level of the anastomotic sutures at the body of the stomach. Noted by radiologist on CT of the chest performed yesterday when patient was evaluated. History & Record Review Additional record(s) reviewed:: Prior outpatient record, Prior ED visit and Prior labs Lab Data Attestation: I reviewed the patient's lab results. Lab results narrative: Creatinine is 2.43 which is improved from yesterday, 2.77. Glucose is 137 with normal CO2 anion gap. Labs: Laboratory Results - last 24 hr 08/01/22 22:50 Sodium 140 Potassium 4.1 Chloride 110 H Carbon Dioxide 22.0 Anion Gap 8 BUN 26 H Creatinine 2.43 H Estim Creat Clear Calc 27.06 Est GFR (MDRD) Af Amer 33 L Est GFR (MDRD) Non-Af 28 L BUN/Creatinine Ratio 10.7 Glucose 137 H Calcium 8.9 Radiography Chest X-Ray - ED: 2 View and Read by ED Physician (There is air-fluid level noted left apical region due to the gastrostomy pull-through. There is no dilation of small bowel upper abdomen. There is no pneumothorax. There is no subcu air. Cardiac silhouette size unremarkable. The x-ray is unchanged from prior. This is independent reviewed inter) Diagnostic Testing: Clinical Impression(s) from Imaging Studies Chest X-Ray 08/01/22 23:05 IMPRESSION: Postoperative changes consistent with prior gastrectomy and pull-through extending through the anterior mediastinum projecting in the left supraclavicular region. No pneumonia. No other acute disease. Electronically Signed: Hu Orellana MD at 0:32 EDT , Treatment and Re-Evaluation :: Since patient had no vomiting since initiation of treatment. P.o. challenge was ordered. Spoke with the daughter. Patient had hiatal hernia surgery at [facility]. This was complicated and had a tenuous course postoperatively requiring an esophagectomy and gastric pull-through according to the daughter, who I spoke with at 0018. She was unaware that he is scheduled for surgery for August 23. She does acknowledge that he normally does not have swelling of his anterior left chest wall. Since patient is still not able to eat or drink anyth ing and concerned that patient may have gastric outlet partial obstruction will contact [facility] is especially in light of the fact that he is reportedly scheduled for surgery August 23. I am unable to obtain records from the [facility] since he does not have a my account and presently I am unable to access his records through [employer] [email or web address]). Spoke with the colorectal surgeon Dr. Velásquez at [facility]. She informed that Dr. Peters performed the surgery February 27, 2018. He is a thoracic surgeon. The transfer line nurse will contact him or who is on-call fo r thoracic. Spoke with the thoracic surgeon on-call for Dr. Peters. He accepted patient. Comments:: I was informed by patient's nurse at 0022 that patient is vomiting. Discharge Plan Triage Chief Complaint: General Illness ED Provider: Osiel Severino Dx/Rx/DC Orders Clinical Impression: Bowel obstruction, Type 1 diabetes mellitus with hyperglycemia, Chronic kidney disease, stage 3 unspecified Prescriptions: No Action atorvastatin 40 mg tablet 80 mg PO DAILY Label Comments: TAKE ONE TABLET BY MOUTH EVERY DAY losartan 25 mg tablet 25 mg PO DAILY Label Comments: TAKE ONE TABLET BY MOUTH EVERY DAY ropinirole 4 mg tablet 4 mg PO QHS Label Comments: TAKE ONE TABLET BY MOUTH AT BEDTIME pregabalin 150 mg capsule 150 mg PO TID Label Comments: TAKE ONE CAPSULE BY MOUTH THREE TIMES DAILY Trulicity 0.75 mg/0.5 mL pen injector 0.5 mg SUBCUT QWEEK Label Comments: Inject 0.75 mg subcutaneously one time a week. Inject dose once per week. Discard Pen After aspirin 81 mg Tablet,Chewable 81 mg PO BREAKFAST Qty: 30 0RF melatonin 3 mg tablet 3 mg PO QHS Label Comments: TAKE ONE TABLET BY MOUTH AT BEDTIME ascorbic acid (vitamin C) 500 mg tablet 500 mg PO BID Label Comments: TAKE ONE TABLET BY MOUTH TWICE DAILY diazepam 5 mg/5 mL (1 mg/mL) solution 5 mg PO BID PRN (Reason: Muscle Spasm) Label Comments: Take 5 mL by mouth twice daily for 90 days. As needed. Muscle cramps donepezil 10 mg tablet 10 mg PO DAILY Label Comments: TAKE 1 TABLET BY MOUTH ONCE DAILY WITH FOOD tamsulosin 0.4 mg capsule 0.4 mg PO QHS Label Comments: TAKE 1 CAPSULE BY MOUTH ONCE DAILY AT BEDTIME triamcinolone acetonide 0.025 % cream 1 applic TOPICAL BID Label Comments: APPLY TO THE AFFECTED AREA(S) ON FOR BACK TWICE DAILY NEEDED FOR ITCHING venlafaxine 37.5 mg capsule,extended release 24hr 37.5 mg PO DAILY Label Comments: TAKE ONE CAPSULE BY MOUTH EVERY DAY albuterol sulfate [Ventolin HFA] 90 mcg/actuation HFA aerosol inhaler 2 puff INHALATION Q6H PRN (Reason: sob) Label Comments: INHALE TWO PUFFS BY MOUTH EVERY 6 HOURS NEEDED FOR wheezing OR SHORTNESS OF BREATH insulin lispro 100 unit/mL insulin pen 10 unit SUBCUT TIDCM Label Comments: USE 3 TIMES DAILY DIRECTED PER SLIDING SCALE. UNDER 200= NONE. 201-300= 4 UNITS. 301-400= 6 UNITS. OVER 400= 8 UNITS Primary Care Provider: Lloyd Jalloh Referrals: Lloyd Jalloh MD [Primary Care Provider] - Disposition Disposition: Acute Care Hospital Discharge Location: [facility]
[2022-08-01] MEDS: 0.9% Normal Saline 1,000 ML 1000 ML IV (22:55)
[2022-08-01] MEDS: Ondansetron 4 MG/2 ML Vial IV (22:55)
[2022-08-01 22:56] VITALS: BMI 25.2
--- NOTE | 2022-08-01 23:05 | RAD_ITS ---
EXAM: XR CHEST, 2 VIEWS CLINICAL INDICATION: Gastric distention left subclavian region due to g TECHNIQUE: Frontal and lateral views of the chest. COMPARISON: July 31, [address] FINDINGS: LUNGS AND PLEURAL SPACES: No consolidation. Pleural parenchymal scarring at the right base. No pneumothorax. HEART: Ectatic thoracic aortic arch with atherosclerotic calcifications. Cardiac silhouette not enlarged. MEDIASTINUM: Postoperative changes consistent with prior gastrectomy and pull-through extending through the anterior mediastinum projecting in the left supraclavicular region. Top normal-size of the cardiac silhouette. No hilar enlargement. No other mediastinal enlargement. BONES/JOINTS: Moderate superior to the spine with degenerative changes at multiple levels. Old healed fracture involving the right mid clavicle. SOFT TISSUES: Unremarkable. RAD/Chest PA and Lateral IMPRESSION: Postoperative changes consistent with prior gastrectomy and pull-through extending through the anterior mediastinum projecting in the left supraclavicular region. No pneumonia. No other acute disease. Electronically Signed: Hu Orellana MD at 0:32 EDT ,
[2022-08-01 23:19] LABS: Anion Gap 8 (5-15); BUN 26 mg/dL (7-18); BUN/Creat Ratio 10.7 RATIO (10-20); Calcium,Total 8.9 mg/dL (8.5-10.1); Chloride 110 mmol/L (98-107); Creatinine, Serum 2.43 mg/dL (0.70-1.30); EST Glomerular Filtration Rate 28 mL/min (>60); Est Glom Filt Rate - Afr Amer 33 mL/min (>60); Estimated Creatinine Clearance 27.06 ml/min; Glucose 137 mg/dL (74-106); Potassium 4.1 mmol/L (3.5-5.1); Sodium Level 140 mmol/L (136-145)
[2022-08-02] MEDS: 0.9% Normal Saline 1,000 ML 250 ML IV (00:57)
[2022-08-02 01:32] VITALS: BP 140/80; PULSE 96; RESP 18; O2SAT 95
--- NOTE | 2022-08-02 01:44 | NURSING ---
ACCEPTED AT [facility], WAITING ON A BED
[2022-08-02] MEDS: Morphine 4 MG/ML Syringe IV ×2 (01:45→05:15)
[2022-08-02 03:00] VITALS: BP 120/77; PULSE 61; RESP 19; O2SAT 96
--- NOTE | 2022-08-02 04:13 | NURSING ---
[facility] MAIN J53 BED 1 NURSE TO NURSE [phone] GOMEZ
--- NOTE | 2022-08-02 04:31 | NURSING ---
CALLED [facility], ETA IS ABOUT 2 HOURS
[2022-08-02 05:09] VITALS: BP 130/69; PULSE 63; RESP 20; TEMP 36.8; O2SAT 97
--- NOTE | 2022-08-02 05:10 | ED.RN ---
Report given to Tasha NELSON at [facility]. Update given to POA, daughter, about plan of care.
[2022-08-02 07:00] VITALS: BP 128/77; PULSE 62; RESP 17; O2SAT 97
== END 2022-08-02 07:05 | disposition short-term general hospital (02) ==
PROVIDERS: Emergency Provider Emergency Medicine; PCP Internal Medicine; Visit Provider Emergency Medicine
DX: K56.609 Unspecified intestinal obstruction, unspecified as to partial versus complete obstruction (principal); Z93.3 Colostomy status; E10.65 Type 1 diabetes mellitus with hyperglycemia; E10.40 Type 1 diabetes mellitus with diabetic neuropathy, unspecified; E10.22 Type 1 diabetes mellitus with diabetic chronic kidney disease; Z79.4 Long term (current) use of insulin; N18.30 Chronic kidney disease, stage 3 unspecified; E78.00 Pure hypercholesterolemia, unspecified; E66.9 Obesity, unspecified; Z90.49 Acquired absence of other specified parts of digestive tract; Z79.82 Long term (current) use of aspirin; Z79.899 Other long term (current) drug therapy; Z86.73 Personal history of transient ischemic attack (TIA), and cerebral infarction without residual deficits; Z87.891 Personal history of nicotine dependence
CPT/HCPCS: 71046; 80048; 96361; 96374; 96375; 96376; 99284; J7030; A4216; J2405

== ENCOUNTER → 2022-08-09 | Outpatient (REF) | payer MEDICAID, SELFPAY ==
[2022-08-09 07:12] LABS: Hematocrit 30.5 % (40-54); Hemoglobin 9.2 g/dL (13.0-16.5); Mean Corp Hgb Conc 30.2 g/dL (32-36); Mean Corpuscular Hgb 26.7 pg (27.0-32.0); Mean Corpuscular Volume 88.4 fL (80-94); Platelet Count 235 K/mm3 (150-450); RBC Distribution Width CV 15.9 % (11.6-14.6); RBC Distribution Width SD 50.9 fl (35.1-43.9); Red Blood Count 3.45 M/mm3 (4.6-6.2); White Blood Count 6.6 K/mm3 (4.4-11.0)
[2022-08-09 07:36] LABS: Anion Gap 6 (5-15); BUN 33 mg/dL (7-18); BUN/Creat Ratio 17.6 RATIO (10-20); Calcium,Total 8.6 mg/dL (8.5-10.1); Chloride 104 mmol/L (98-107); Creatinine, Serum 1.87 mg/dL (0.70-1.30); EST Glomerular Filtration Rate 37 mL/min (>60); Est Glom Filt Rate - Afr Amer 45 mL/min (>60); Glucose 133 mg/dL (74-106); Sodium Level 139 mmol/L (136-145)
== END | disposition home or self-care (01) ==
LOC: OLS.SW 05:00
PROVIDERS: PCP Internal Medicine; Visit Provider Family Medicine
DX: I10 Essential (primary) hypertension (principal)
CPT/HCPCS: 36415; 80048; 85027

== ENCOUNTER 2022-09-30 02:43 | Emergency (ER) | payer MEDICAID, SELFPAY ==
[2022-09-30 02:45] VITALS: BP 128/62; PULSE 55; RESP 18; TEMP 36.6; O2SAT 99; BMI 27.8
--- NOTE | 2022-09-30 03:00 | RAD_ITS ---
EXAM: XR CHEST, 1 VIEW CLINICAL INDICATION: cp TECHNIQUE: Frontal view of the chest. COMPARISON: Previous chest radiographs of 08/01/2022 and 05/30/2022. Chest CT of 07/31/2022. FINDINGS: LUNGS AND PLEURAL SPACES: Surgical sutures and clips are projected over the left apex. No acute pulmonary infiltrates are identified. There is chronic blunting of the right lateral costophrenic angle by basilar pleural thickening. HEART: Heart size is borderline enlarged with normal pulmonary vasculature. MEDIASTINUM: Thoracic aorta remains mildly elongated. There is no mediastinal widening. Numerous surgical clips are again projected over the superior mediastinum and left lung apex secondary to prior esophagectomy and gastric pull-up procedure. The air-fluid level previously seen within the superior mediastinum has resolved. BONES/JOINTS: Old rib and clavicular fractures are demonstrated. Cervical and thoracic degenerative changes are present. SOFT TISSUES: Unremarkable. RAD/Chest 1 View (Portable) IMPRESSION: No acute findings in the chest. Electronically Signed: Edilberto Robles MD at 3:32 EDT ,
[2022-09-30 03:04] LABS: Absolute Lymphocyte Count 1.86 X10^3/uL (0.83-4.51); Absolute Neutrophil Count 5.2 X10^3/uL (2.0-7.7); Basophil# 0.02 X10^3/uL; Basophil% 0.3 % (0-1); Eosinophil# 0.25 X10^3/uL; Eosinophils% 3.2 % (0-5); Hemoglobin 10.3 g/dL (13.0-16.5); Lymphocyte # 1.86 X10^3/ul (0.83-4.51); Lymphocyte % 23.7 % (19-41); Mean Corp Hgb Conc 31.2 g/dL (32-36); Mean Corpuscular Hgb 27.3 pg (27.0-32.0); Mean Corpuscular Volume 87.5 fL (80-94); Mean Platelet Vol. 9.9 fl (6.2-12.0); Monocyte# 0.55 X10^3/uL; NRBC Flagged by Analyzer 0 % (0-5); Neutrophil # 5.15 X10^3/uL (2.7-7.7); Neutrophil % 65.5 % (47-70); Platelet Count 242 K/mm3 (150-450); RBC Distribution Width CV 16.9 % (11.6-14.6); RBC Distribution Width SD 54.1 fl (35.1-43.9); Red Blood Count 3.77 M/mm3 (4.6-6.2); White Blood Count 7.9 K/mm3 (4.4-11.0)
[2022-09-30] MEDS: Morphine 4 MG/ML Syringe IV (03:06)
[2022-09-30] MEDS: Ondansetron 4 MG/2 ML Vial IV (03:07)
--- NOTE | 2022-09-30 03:25 | EDS_ITS ---
HPI History of Present Illness Chief Complaint: Chest Pain Narrative Narrative: Patient presents with chest pain that started just a few hours ago it is left- sided. He has no back pain or tearing sensation he feels a pressure on his chest. He does not have any cough or congestion or difficulty breathing. There is no pleuritic component. [facility] Medical History Anxiety and depression Chronic asthmatic bronchitis CKD (chronic kidney disease), stage III Colostomy fistula Diabetic neuropathy DM type 2 (diabetes mellitus, type 2) History of CVA (cerebrovascular accident) History of seizure disorder History of tobacco use Hypercholesterolemia Home Medications atorvastatin 40 mg tablet 80 mg PO DAILY 11/14/21 [History Last Taken Unknown] dulaglutide 0.75 mg/0.5 mL subcutaneous pen injector (Trulicity) 0.5 mg subcut QWEEK 11/14/21 [History Last Taken Unknown] losartan 25 mg tablet 25 mg PO DAILY 11/14/21 [History Last Taken Unknown] pregabalin 150 mg capsule 150 mg PO TID 11/14/21 [History Last Taken Unknown] ropinirole 4 mg tablet 4 mg PO QHS 11/14/21 [History Last Taken Unknown] aspirin 81 mg chewable tablet 81 mg PO BREAKFAST #30 tabs 01/05/22 [Rx Last Taken Unknown] albuterol sulfate 90 mcg/actuation aerosol inhaler (Ventolin HFA) 2 puff inhalation Q6H PRN sob 05/30/22 [History Last Taken Unknown] ascorbic acid (vitamin C) 500 mg tablet 500 mg PO BID 05/30/22 [History Last Taken Unknown] diazepam 5 mg/5 mL (1 mg/mL) oral solution 5 mg PO BID PRN Muscle Spasm 05/30/22 [History Last Taken Unknown] donepezil 10 mg tablet 10 mg PO DAILY 05/30/22 [History Last Taken Unknown] insulin lispro 100 unit/mL subcutaneous pen 10 unit subcut TIDCM Check with primary doctor 05/30/22 [History Last Taken Unknown] melatonin 3 mg tablet 3 mg PO QHS 05/30/22 [History Last Taken Unknown] tamsulosin 0.4 mg capsule 0.4 mg PO QHS 05/30/22 [History Last Taken Unknown] triamcinolone acetonide 0.025 % topical cream 1 applic topical BID 05/30/22 [History Last Taken Unknown] venlafaxine 37.5 mg capsule,extended release 24 hr 37.5 mg PO DAILY 05/30/22 [History Last Taken Unknown] Allergy/AdvReac Type Severity Reaction Status Date / Time No Known Allergies Allergy Verified 09/30/22 02:47 Family History Mother Myocardial infarction Hypertension Father Diabetes Alzheimer disease Surgical History History of appendectomy History of esophageal surgery History of eye surgery Social History household members: spouse Smoking Status: Former smoker how long ago did patient quit smoking: Quit 1-2 years prior, smoked occasional cigars. alcohol intake: never substance use type: does not use ROS ROS ED ROS Narrative Past medical history: Reviewed Medications: Reviewed Social history: Noncontributory Review of systems: All systems negative except as indicated General: No fever Eyes: No visual changes ENT: No upper airway congestion, normal voice Neck: No neck pain Cardiovascular: Chest pain as in HPI Respiratory: No shortness of breath or cough. Gastrointestinal: No abdominal pain, nausea vomiting or diarrhea Musculoskeletal: Denies myalgias no difficulty with ambulation Skin: No rash Neurological: No memory loss, confusion or any focal weakness EXAM Physical Exam Narrative Exam Narrative: Physical exam General: Patient appears slightly uncomfortable Head: Normocephalic, Atraumatic Eyes: Conjunctiva not pale ENT: Moist mucous membranes Neck: Supple, Nontender, No lymphadenopathy Cardiovascular: Regular rate, Regular rhythm Respiratory: No distress, CTA bilaterally Chest wall: There is a chronic upper chest wall deformity from prior gastric surgery. Abdomen: Soft, Nontender, Nondistended Back: Nontender, Normal Inspection. Negative for: CVA tenderness Extremities: Nontender, No edema Skin: Normal color, No rash Const Vital Signs: 09/30/22 02:45 09/30/22 02:49 09/30/22 04:56 Temperature 98 F Temperature Source Oral Pulse Rate 55 L 56 L Respiratory Rate 18 18 Respiratory Effort Short of Breath Blood Pressure 128/62 H 107/64 Blood Pressure Mean 84 78 Pulse Ox 99 98 Oxygen Delivery Method Room Air Room Air MDM MDM MDM Narrative Medical decision making narrative: Chest x-ray read by me as normal EKG interpretation: Sinus rhythm with a rate of 55. Normal NE and QTc intervals. No ischemic changes Interpreted by me Telemetry: Sinus rhythm with a rate in the 50s with PACs. Patient has a normal work-up. D-dimer is unremarkable for age, no evidence of PE. CT and x-ray are normal. He is ruled out as far as cardiac work-up according to hospital protocol. He appears well he also has reproducible pain. Patient was treated with analgesia I think he can be safely discharged home if anything changes he is to return I talked his also getting some of the history. Lab Data Labs: Laboratory Results - last 24 hr 09/30/22 09/30/22 09/30/22 02:55 04:50 05:08 WBC 7.9 RBC 3.77 L Hgb 10.3 L Hct 33.0 L MCV 87.5 MCH 27.3 MCHC 31.2 L RDW Std Deviation 54.1 H RDW Coeff of Meenu 16.9 H Plt Count 242 MPV 9.9 Immature Gran % (Auto) 0.300 Neut % (Auto) 65.5 Lymph % (Auto) 23.7 [place] % (Auto) 7.0 Eos % (Auto) 3.2 Baso % (Auto) 0.3 Absolute Neuts (auto) 5.2 Absolute Lymphs (auto) 1.86 Nucleated RBC % 0 D-Dimer Quant (PE/DVT) 0.57 H* Sodium 140 Potassium 3.8 Chloride 114 H Carbon Dioxide 22.0 Anion Gap 4 L BUN 27 H Creatinine 2.34 H Estim Creat Clear Calc 23.93 Est GFR (MDRD) Af Amer 35 L Est GFR (MDRD) Non-Af 29 L BUN/Creatinine Ratio 11.5 Glucose 150 H Calcium 8.3 L Total Bilirubin 0.30 AST 23 ALT 32 Alkaline Phosphatase 68 Troponin I High Sens 26 27 Total Protein 6.3 L Albumin 3.0 L Globulin 3.3 Albumin/Globulin Ratio 0.9 Lipase 57 Radiography Diagnostic Testing: Clinical Impression(s) from Imaging Studies Chest X-Ray 09/30/22 03:00 IMPRESSION: No acute findings in the chest. Electronically Signed: Edilberto Robles MD at 3:32 EDT , Chest CT 09/30/22 04:26 IMPRESSION: 1. 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 The distal third of the interposed colonic segment shows mural thickening and edema with pericolonic stranding indicating a colitis affecting this interposed segment. 2. No acute pulmonary infiltrates. 3. Heavy coronary artery calcification. 4. Nonobstructing right renal calculi. Electronically Signed: Edilberto Robles MD at 5:18 EDT , Discharge Plan Triage Chief Complaint: Chest Pain ED Provider: Melvin Torres Dx/Rx/DC Orders Clinical Impression: Acute chest wall pain, Chest pain Instructions: ED Chest Pain, Uncertain Cause Prescriptions: No Action atorvastatin 40 mg tablet 80 mg PO DAILY Patient Comments: TAKE ONE TABLET BY MOUTH EVERY DAY losartan 25 mg tablet 25 mg PO DAILY Patient Comments: TAKE ONE TABLET BY MOUTH EVERY DAY ropinirole 4 mg tablet 4 mg PO QHS Patient Comments: TAKE ONE TABLET BY MOUTH AT BEDTIME pregabalin 150 mg capsule 150 mg PO TID Patient Comments: TAKE ONE CAPSULE BY MOUTH THREE TIMES DAILY Trulicity 0.75 mg/0.5 mL pen injector 0.5 mg SUBCUT QWEEK Patient Comments: Inject 0.75 mg subcutaneously one time a week. Inject dose once per week. Discard Pen After aspirin 81 mg Tablet,Chewable 81 mg PO BREAKFAST Qty: 30 0RF melatonin 3 mg tablet 3 mg PO QHS Patient Comments: TAKE ONE TABLET BY MOUTH AT BEDTIME ascorbic acid (vitamin C) 500 mg tablet 500 mg PO BID Patient Comments: TAKE ONE TABLET BY MOUTH TWICE DAILY diazepam 5 mg/5 mL (1 mg/mL) solution 5 mg PO BID PRN (Reason: Muscle Spasm) Patient Comments: Take 5 mL by mouth twice daily for 90 days. As needed. Muscle cramps donepezil 10 mg tablet 10 mg PO DAILY Patient Comments: TAKE 1 TABLET BY MOUTH ONCE DAILY WITH FOOD tamsulosin 0.4 mg capsule 0.4 mg PO QHS Patient Comments: TAKE 1 CAPSULE BY MOUTH ONCE DAILY AT BEDTIME triamcinolone acetonide 0.025 % cream 1 applic TOPICAL BID Patient Comments: APPLY TO THE AFFECTED AREA(S) ON FOR BACK TWICE DAILY NEEDED FOR ITCHING venlafaxine 37.5 mg capsule,extended release 24hr 37.5 mg PO DAILY Patient Comments: TAKE ONE CAPSULE BY MOUTH EVERY DAY albuterol sulfate [Ventolin HFA] 90 mcg/actuation HFA aerosol inhaler 2 puff INHALATION Q6H PRN (Reason: sob) Patient Comments: INHALE TWO PUFFS BY MOUTH EVERY 6 HOURS NEEDED FOR wheezing OR SHORTNESS OF BREATH insulin lispro 100 unit/mL insulin pen 10 unit SUBCUT TIDCM Patient Comments: USE 3 TIMES DAILY DIRECTED PER SLIDING SCALE. UNDER 200= NONE. 201-300= 4 UNITS. 301-400= 6 UNITS. OVER 400= 8 UNITS Primary Care Provider: Lloyd Jalloh Referrals: Lloyd Jalloh MD [Primary Care Provider] - 3-5 Days Disposition Disposition: Home, Self Care
[2022-09-30 03:30] LABS: ALB/GLOB Ratio 0.9 RATIO (0.9-2.4); AST(SGOT) 23 U/L (15-37); Alanine Aminotransfer ALT/SGPT 32 U/L (16-61); Alkaline Phosphatase 68 U/L (45-117); Anion Gap 4 (5-15); BUN 27 mg/dL (7-18); BUN/Creat Ratio 11.5 RATIO (10-20); Calcium,Total 8.3 mg/dL (8.5-10.1); Chloride 114 mmol/L (98-107); Creatinine, Serum 2.34 mg/dL (0.70-1.30); EST Glomerular Filtration Rate 29 mL/min (>60); Est Glom Filt Rate - Afr Amer 35 mL/min (>60); Estimated Creatinine Clearance 23.93 ml/min; Globulin 3.3 g/dL (2.2-4.2); Glucose 150 mg/dL (74-106); Lipase 57 U/L (13-75); Potassium 3.8 mmol/L (3.5-5.1); Protein, Total 6.3 g/dL (6.4-8.2); Sodium Level 140 mmol/L (136-145); Troponin-I HS 26 pg/mL (3.0-78.0); Troponin-I HS (w/2H Reflex) 26 pg/mL (3.0-78.0)
--- NOTE | 2022-09-30 04:26 | CT_ITS ---
EXAM: CT CHEST WITHOUT INTRAVENOUS CONTRAST CLINICAL INDICATION: chest pain TECHNIQUE: Helically acquired images were obtained of the chest without intravenous contrast. This CT exam was performed using one or more of the following dose reduction techniques: automated exposure control, adjustment of the mA and/or kV according to patient size, and/or use of iterative reconstruction technique. RADIATION DOSE: Total DLP: 603.15 mGy-cm. COMPARISON: Portable chest radiograph of this same date. Nonenhanced chest CT of 07/31/2022. FINDINGS: LUNGS AND PLEURAL SPACES: Calcified pleural thickening noted at the right apex. Chronic fibrotic changes within the left lower lobe posterior laterally. Chronic linear scarring in the right lower lobe. Minimal dependent atelectasis. No mass. No patchy pneumonia. No pneumothorax or pleural fluid collection. HEART: Heavy coronary artery calcification is present. No significant pericardial effusion. MEDIASTINUM: . No mediastinal or hilar adenopathy. Esophagus is surgical absent. Findings of previous esophagectomy are again noted. There is been interval interposition of a long segment of bowel/colon which extends from the gastric body superiorly into the anterior mediastinum to level of the left lower neck where surgical clips are present. The interposed segment is no longer distended as was noted on prior CT of 07/31/2022. The interposed segment is decompressed, with thickening and edema of the wall of the distal third of the interposed segment, with associated luminal narrowing and minimal surrounding fat stranding. No pneumatosis or extraluminal air. THYROID: Unremarkable. No thyroid lesions. BONES/JOINTS: Old bilateral rib fractures. Old right clavicular fracture. Lower cervical degenerative disc disease. Thoracic degenerative spurring. No lytic or blastic osseous lesion. VASCULATURE: Thoracic aorta is mildly calcific and is normal in caliber. No aneurysm or intimal calcification displacement. Atherosclerotic calcification noted affecting both carotid bulbs. UPPER ABDOMEN Visualized portions of the liver, gallbladder, spleen, adrenal glands are unremarkable. Pancreas is mildly atrophic. No findings of acute pancreatitis. Asymmetric right renal cortical thinning. Nonobstructing stones in the right renal upper pole collecting system. Small simple cyst at the upper pole of the left kidney, which requires no follow-up. No pneumoperitoneum. Surgical suture material noted about the stomach and distal transverse colon. Scattered diverticula project from the visualized portions of the proximal descending colon, without evidence for diverticulitis. CT/Chest without Contrast IMPRESSION: 1. 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 The distal third of the interposed colonic segment shows mural thickening and edema with pericolonic stranding indicating a colitis affecting this interposed segment. 2. No acute pulmonary infiltrates. 3. Heavy coronary artery calcification. 4. Nonobstructing right renal calculi. Electronically Signed: Edilberto Robles MD at 5:18 EDT ,
[2022-09-30 04:56] VITALS: BP 107/64; PULSE 56; RESP 18; O2SAT 98
[2022-09-30 04:59] LABS: Reflex Troponin-HS? (from REC) Y
--- NOTE | 2022-09-30 05:10 | EKG12_ITS ---
Test Reason : CP Blood Pressure : / mmHG Vent. Rate : 055 BPM Atrial Rate : 055 BPM P-R Int : 204 ms QRS Dur : 076 ms QT Int : 424 ms P-R-T Axes : 073 008 042 degrees QTc Int : 405 ms Sinus bradycardia with Premature atrial complexes in a pattern of bigeminy Otherwise normal ECG Confirmed by MARIAELENA PRINGLE, LAUREN ([id number]), tape editor NIURKA LEBRON ([id number]) on 10/01/2022 12:40:41 P M Referred By: PC Confirmed By:CHARLES FERRELL MD
[2022-09-30 05:12] LABS: D-Dimer Quantitative (DVT/PE) 0.57 FEU/ug/m (0.27-0.49)
[2022-09-30 05:38] LABS: Troponin-I HS 27 pg/mL (3.0-78.0)
[2022-09-30 06:17] VITALS: BP 115/62; PULSE 746; RESP 18; O2SAT 95
== END 2022-09-30 06:19 | disposition home or self-care (01) ==
PROVIDERS: Emergency Provider Emergency Medicine; PCP Internal Medicine; Visit Provider Emergency Medicine
DX: R07.89 Other chest pain (principal); E11.22 Type 2 diabetes mellitus with diabetic chronic kidney disease; E11.40 Type 2 diabetes mellitus with diabetic neuropathy, unspecified; Z79.4 Long term (current) use of insulin; N18.30 Chronic kidney disease, stage 3 unspecified; E78.00 Pure hypercholesterolemia, unspecified; Z79.82 Long term (current) use of aspirin; Z79.899 Other long term (current) drug therapy; Z86.73 Personal history of transient ischemic attack (TIA), and cerebral infarction without residual deficits; Z87.891 Personal history of nicotine dependence
CPT/HCPCS: 71045; 71250; 80053; 83690; 84484; 85025; 85379; 93005; 96374; 96375; 99284; A4216; J2405

== ENCOUNTER 2023-02-01 21:12 | Emergency (ER) | payer SELFPAY ==
[2023-02-01 21:17] VITALS: BP 168/91; PULSE 66; RESP 25; TEMP 36.7; O2SAT 100; BMI 28.2
--- NOTE | 2023-02-01 22:08 | EKG12_ITS ---
Test Reason : CP Blood Pressure : / mmHG Vent. Rate : 066 BPM Atrial Rate : 066 BPM P-R Int : 198 ms QRS Dur : 068 ms QT Int : 408 ms P-R-T Axes : 085 -19 084 degrees QTc Int : 427 ms Normal sinus rhythm Nonspecific ST abnormality Abnormal ECG Confirmed by MARIAELENA PRINGLE, LAUREN ([id number]), pictures editor JANI BOATENG ([id number]) on 02/04/2023 8:33:10 AM Referred By: KEENAN Confirmed By:CHARLES FERRELL MD
--- NOTE | 2023-02-01 22:10 | RAD_ITS ---
EXAM: XR CHEST, 1 VIEW CLINICAL INDICATION: chest pain TECHNIQUE: Frontal view of the chest. COMPARISON: August 01, 2022, September 30, 2022. FINDINGS: LUNGS AND PLEURAL SPACES: There is increased hazy opacity and suspicion of reaccumulation of fluid in a structure at the left mediastinum measuring roughly 4.7 cm x 5.6 cm or larger, there was a larger fluid and gas-filled cavity of roughly 7 cm x 6.6 cm projecting into this location August 01, 2022. This was reported to be gastrectomy and pull-through extending to the anterior mediastinum projecting into the left supraclavicular region. Stable slight blunting of the right lateral costophrenic angle may be scarring. No pneumothorax. No definite infiltrates or effusions. HEART: Stable borderline cardiomegaly. MEDIASTINUM: There are persistent postoperative changes left lung apex and surgical clips over the left mediastinum superior to the aortic knob. BONES/JOINTS: There is absence of medial left clavicle as on prior exam. SOFT TISSUES: Unremarkable. RAD/Chest 1 View (Portable) IMPRESSION: 1. Fluid-filled structure projecting to the left at the mediastinum was previously reported to be related to gastrectomy and pull-through in the anterior mediastinum, it now contains mild fluid. It contained gas September 30, 2022 and was more distended with a larger amount of fluid and gas August 01, 2022. Surrounding postoperative changes. 2. Otherwise stable chest. Borderline cardiomegaly. Minimal suspected scarring at the right lateral lung base. Electronically Signed: Jessie Teague MD at 23:05 EST ,
[2023-02-01 22:11] LABS: Absolute Lymphocyte Count 2.21 X10^3/uL (0.83-4.51); Absolute Neutrophil Count 4.5 X10^3/uL (2.0-7.7); Basophil# 0.03 X10^3/uL; Basophil% 0.4 % (0-1); Eosinophil# 0.12 X10^3/uL; Eosinophils% 1.6 % (0-5); Hematocrit 38.5 % (40-54); Hemoglobin 11.7 g/dL (13.0-16.5); Lymphocyte # 2.21 X10^3/ul (0.83-4.51); Lymphocyte % 30.2 % (19-41); Mean Corp Hgb Conc 30.4 g/dL (32-36); Mean Corpuscular Hgb 25.9 pg (27.0-32.0); Mean Corpuscular Volume 85.4 fL (80-94); Mean Platelet Vol. 10.8 fl (6.2-12.0); Monocyte# 0.47 X10^3/uL; Monocyte% 6.4 % (0-10); NRBC Flagged by Analyzer 0 % (0-5); Neutrophil # 4.46 X10^3/uL (2.7-7.7); Platelet Count 239 K/mm3 (150-450); RBC Distribution Width CV 14.8 % (11.6-14.6); RBC Distribution Width SD 46.4 fl (35.1-43.9); Red Blood Count 4.51 M/mm3 (4.6-6.2); White Blood Count 7.3 K/mm3 (4.4-11.0)
[2023-02-01 22:18] VITALS: O2SAT 96
[2023-02-01 22:20] VITALS: PULSE 76; RESP 18
[2023-02-01] MEDS: Ipratropium/Albuterol Sulfate 3 ML AMPUL.NEB INHALATION (22:20)
[2023-02-01 22:25] LABS: Anion Gap 3 (5-15); BUN 21 mg/dL (7-18); BUN/Creat Ratio 7.7 RATIO (10-20); Calcium,Total 9.2 mg/dL (8.5-10.1); Chloride 103 mmol/L (98-107); Creatinine, Serum 2.71 mg/dL (0.70-1.30); EST Glomerular Filtration Rate 24 mL/min (>60); Est Glom Filt Rate - Afr Amer 29 mL/min (>60); Estimated Creatinine Clearance 19.62 ml/min; Glucose 313 mg/dL (74-106); Potassium 4.2 mmol/L (3.5-5.1); Sodium Level 133 mmol/L (136-145); Troponin-I HS (w/2H Reflex) 23 pg/mL (3.0-78.0)
[2023-02-01 22:47] LABS: Lipase 35 U/L (13-75)
[2023-02-01 22:51] LABS: AST(SGOT) 21 U/L (15-37); Alanine Aminotransfer ALT/SGPT 25 U/L (16-61); Albumin, Serum 3.7 g/dL (3.2-5.0); Alkaline Phosphatase 83 U/L (45-117); Bilirubin, Direct 0.16 mg/dL (0.00-0.30); Globulin 3.4 g/dL (2.2-4.2); Protein, Total 7.1 g/dL (6.4-8.2)
[2023-02-01 23:13] VITALS: BP 141/84; PULSE 73; RESP 16; O2SAT 93
--- NOTE | 2023-02-01 23:40 | CT_ITS ---
We are attempting to reach an attending provider to discuss findings. An addendum with communication details will be sent when the communication is complete. EXAM: CT CHEST, ABDOMEN AND PELVIS WITHOUT INTRAVENOUS CONTRAST CLINICAL INDICATION: chest and abd pain TECHNIQUE: Helically acquired images were obtained of the chest, abdomen and pelvis without intravenous contrast. This CT exam was performed using one or more of the following dose reduction techniques: automated exposure control, adjustment of the mA and/or kV according to patient size, and/or use of iterative reconstruction technique. RADIATION DOSE: CTDIvol = 19.24 mGy, DLP = 1706.52 mGy-cm. COMPARISON: September 30, 2022 FINDINGS: CHEST: LUNGS AND PLEURAL SPACES: Minimal bands of linear atelectasis or scarring in the lung bases, and slightly increased interstitial markings in the left lung base. No confluent infiltrates or airway obstruction. No mass. No pleural effusion or thickening. HEART: Is mild calcification of aortic valve leaflets. Marked coronary artery calcifications or stents, greater on the left. Upper limits of normal heart size. Mild flattening of the ventral cord by distended interposed bowel segment. No pericardial effusion. MEDIASTINUM: Unremarkable. Esophagus is unremarkable. No hiatal hernia. No significant mediastinal adenopathy. THYROID: See below. ABDOMEN: LIVER: Unremarkable. Homogeneous. GALLBLADDER AND BILE DUCTS: Unremarkable. No calcified gallstones. No gallbladder distention or wall edema. No intra- or extrahepatic biliary ductal dilation. PANCREAS: Mildly atrophic pancreas, no obvious mass or cyst on unenhanced exam. SPLEEN: Unremarkable. Normal size without focal cystic or solid mass. ADRENALS: Unremarkable. No nodules. KIDNEYS AND URETERS: Mildly atrophic right kidney with medullary calcifications or nonobstructing stones again noted. No right hydronephrosis. STOMACH AND BOWEL: . Resection of the thoracic esophagus with cervical esophagus to bowel interposition segment anastomosis at the level of T2. There is prominent distention of the bowel interposition segment, distended with mixed density material, to the level of the upper abdomen anterior to the liver and proximal to the stomach. Suspicion of significant degree of obstruction due to stenosis at the interposition segment-gastric body anastomosis. Maximum distention of the interposed segment of bowel roughly 7.3 cm x 8.2 cm distally and 8.8 cm x 8.8 cm proximally, bulging into the left supraclavicular region. Mild soft tissue stranding to the left of the bowel-stomach anastomosis possibly inflammatory changes. Right abdominal small bowel ostomy. Moderate hyperdense contents in the rectum. Partial colectomy, likely small bowel to splenic flexure anastomosis. Mild diverticulosis in the collapsed descending colon, no evidence of acute diverticulitis. No evidence of a high-grade small bowel obstruction, mildly prominent contents in multiple small bowel loops in the left abdomen. PELVIS: APPENDIX: The appendix is presumably not present. BLADDER: Unremarkable. REPRODUCTIVE: Unremarkable as visualized. No mass. CHEST, ABDOMEN and PELVIS: INTRAPERITONEAL SPACE: Unremarkable. No ascites or other fluid collection. No free air. BONES/JOINTS: Absence of a segment of medial left clavicle appears surgical. No acute bone findings. No suspicious lytic or blastic abnormality. SOFT TISSUES: Unremarkable. No discrete abdominal or pelvic wall hernia. VASCULATURE: Heavily calcified aortoiliac vessels and calcifications at the origins of the celiac axis and SMA, suspicion of at least moderate to high-grade stenosis at SMA origin. There is mild-moderate carotid calcification in the lower neck, greater on the right. Mild fullness of the thyroid. Prominent vessels in the left abdomen near the bowel anastomosis. LYMPH NODES: See above. CT/CT Chest, Abd, Pelvis WO Cont IMPRESSION: 1. Marked distention of the colon interposition segment from the cervical esophageal to interposition anastomosis the neck, throughout the chest, and in the upper abdomen, to the level of the interposition segment-stomach anastomosis. It contains a large amount complex mixed density material and a small amount of gas. 2. Estimated roughly 1.5 cm craniocaudal lumen at the anastomosis with some of the complex material from the interposition segment slightly bulging into the almost collapsed stomach. Presumed mechanical obstruction at the gastric-position segment anastomosis which may be due to stenosis, food bolus, and/or inflammation or a combination. 3. Soft tissue stranding anterior and to the left of the prominently distended distal colonic interposition segment and anastomosis. No suspicious fluid collections. 4. The interposition segment was only minimally distended with gas in the chest prior CT September 30, 2022, it was collapsed and moderately thick walled near the gastric anastomosis previously. 5. Similar appearance of right nephrolithiasis. 6. Small bowel ostomy. No evidence of small bowel obstruction. Electronically Signed: Jessie Teague MD at 1:08 EST ,
[2023-02-02 00:09] LABS: Reflex Troponin-HS? (from REC) Y
--- NOTE | 2023-02-02 00:12 | ED.VIS.CHEST ---
HPI History of Present Illness Chief Complaint: Chest Pain Informant: patient and spouse/S.O. Narrative Narrative: Patient is an 82-year-old male with significant past medical history including Alzheimer's dementia, atrial fibrillation, BPH, stroke, chronic atypical chest pain, type 2 diabetes mellitus, CKD 4, GERD as well as prior esophagectomy with gastric pull-through as well as ileostomy and prior esophageal obstruction due to food impaction in July of this year presenting for increased swelling of his left chest wall as well as chest pain.. This started 3 to 4 hours prior to arrival. Patient and his only speak some Belarusian and Chinese speaking at baseline. He denies any significant shortness of breath. He is spitting/coughing more. tells me that he needs to go back to [facility]. He also states he was recently at [facility]. I eventually spoke to his daughter on the phone who states he was at [facility] for kidney stone about 2 weeks ago. [facility] Medical History Anxiety and depression Chronic asthmatic bronchitis CKD (chronic kidney disease), stage III Colostomy fistula Diabetic neuropathy DM type 2 (diabetes mellitus, type 2) History of CVA (cerebrovascular accident) History of seizure disorder History of tobacco use Hypercholesterolemia Home Medications atorvastatin 40 mg tablet 80 mg PO DAILY 11/14/21 [History Last Taken Unknown] dulaglutide 0.75 mg/0.5 mL subcutaneous pen injector (Trulicity) 0.5 mg subcut QWEEK 11/14/21 [History Last Taken Unknown] losartan 25 mg tablet 25 mg PO DAILY 11/14/21 [History Last Taken Unknown] pregabalin 150 mg capsule 150 mg PO TID 11/14/21 [History Last Taken Unknown] ropinirole 4 mg tablet 4 mg PO QHS 11/14/21 [History Last Taken Unknown] aspirin 81 mg chewable tablet 81 mg PO BREAKFAST #30 tabs 01/05/22 [Rx Last Taken Unknown] albuterol sulfate 90 mcg/actuation aerosol inhaler (Ventolin HFA) 2 puff inhalation Q6H PRN sob 05/30/22 [History Last Taken Unknown] ascorbic acid (vitamin C) 500 mg tablet 500 mg PO BID 05/30/22 [History Last Taken Unknown] diazepam 5 mg/5 mL (1 mg/mL) oral solution 5 mg PO BID PRN Muscle Spasm 05/30/22 [History Last Taken Unknown] donepezil 10 mg tablet 10 mg PO DAILY 05/30/22 [History Last Taken Unknown] insulin lispro 100 unit/mL subcutaneous pen 10 unit subcut TIDCM Check with primary doctor 05/30/22 [History Last Taken Unknown] melatonin 3 mg tablet 3 mg PO QHS 05/30/22 [History Last Taken Unknown] tamsulosin 0.4 mg capsule 0.4 mg PO QHS 05/30/22 [History Last Taken Unknown] triamcinolone acetonide 0.025 % topical cream 1 applic topical BID 05/30/22 [History Last Taken Unknown] venlafaxine 37.5 mg capsule,extended release 24 hr 37.5 mg PO DAILY 05/30/22 [History Last Taken Unknown] Allergy/AdvReac Type Severity Reaction Status Date / Time No Known Allergies Allergy Verified 09/30/22 02:47 Family History Mother Myocardial infarction Hypertension Father Diabetes Alzheimer disease Surgical History History of appendectomy History of esophageal surgery History of eye surgery Social History household members: spouse Smoking Status: Former smoker how long ago did patient quit smoking: Quit 1-2 years prior, smoked occasional cigars. alcohol intake: never substance use type: does not use ROS ROS ED Constitutional Constitutional ED: Denies chills or fever(s) Cardiovascular Cardiovascular: Reports as per HPI and chest pain Respiratory/Chest Respiratory/Chest: Reports cough; Denies dyspnea Gastrointestinal Gastrointestinal: Denies constipation, nausea or vomiting Genitourinary Genitourinary ED: Denies dysuria or urinary frequency Integumentary Denies rash Neurologic Neurologic: Denies headache(s) Hematologic/Lymphatic Hematologic/Lymphatic: Denies easy bleeding or easy bruising EXAM Physical Exam Const Vital Signs: 02/01/23 21:17 02/01/23 21:22 02/01/23 22:18 Temperature 98.1 F Temperature Source Temporal Pulse Rate 66 Respiratory Rate 25 H Respiratory Effort Normal Non-Labored Respiratory Pattern Blood Pressure 168/91 H Blood Pressure Mean 116 Pulse Ox 100 96 Oxygen Delivery Method Room Air Room Air 02/01/23 22:20 02/01/23 23:13 02/02/23 01:00 Temperature Temperature Source Pulse Rate 76 73 63 Respiratory Rate 18 16 15 Respiratory Effort Respiratory Pattern Normal Blood Pressure 141/84 H 156/88 H Blood Pressure Mean 103 110 Pulse Ox 93 98 Oxygen Delivery Method Room Air Room Air Positive well nourished and well developed General Appearance ED: well developed and NAD HEENT Reports moist mucous membranes Eyes PERRL Chest Wall Chest Narrative: Soft tissue swelling of the superior left anterior chest consistent with known gastric pull-through. states it is much more swollen than normal. Nontender. No pulsatile mass. Resp normal respiratory effort Resp Narrative: Coarse breath sounds with some scattered wheezing Cardio regular rate, regular rhythm and no murmurs GI normal to inspection, nondistended, normoactive bowel sounds and soft to palpation GI Narrative: Ileostomy in place Extremity normal to inspection Neuro Sensorium / Orientation: awake, alert, oriented to person and oriented to place Motor Exam: Negative for general weakness Psych mental status grossly normal Skin no rashes or lesions noted MDM MDM MDM Narrative Medical decision making narrative: Patient presented to the ER for complaint of chest pain. Little while to determine that his chest pain seems to be from his gastric pull-through after his esophagectomy. Cardiac work-up including EKG and troponin is normal. I do not think this chest pain is cardiac in nature. He is given a DuoNeb and feels a little wheezy. He has some chronic kidney disease which is stable. No significant electrolyte abnormalities. He does have mild anemia actually improved. CT of the chest abdomen pelvis ordered to better evaluate the swelling in his chest wall and pain. Waiting for the official read however concerned that he has impaction of food that is causing this. Likely he will need transfer for thoracic services. Discussed with radiology who confirmed that patient does have impaction/obstruction of his anastomosis. Patient will require thoracic surgery evaluation. Spoke with the patient's daughter as patient is waiting to leave. She states that his understands why he needs to stay and wait for us to arrange transfer but his Alzheimer's is making it hard for him. She states it would be fine to give him some medication to calm him down/make him more comfortable. He is given 0.5 IV Ativan. Case discussed with thoracic surgery at [facility], Dr. Moser. He is excepted. Patient awaiting a bed at this time. Lab Data Attestation: I reviewed the patient's lab results. Labs: Laboratory Results - last 24 hr 02/01/23 02/02/23 21:25 00:30 WBC 7.3 RBC 4.51 L Hgb 11.7 L Hct 38.5 L MCV 85.4 MCH 25.9 L MCHC 30.4 L RDW Std Deviation 46.4 H RDW Coeff of Meenu 14.8 H Plt Count 239 MPV 10.8 Immature Gran % (Auto) 0.400 Neut % (Auto) 61.0 Lymph % (Auto) 30.2 Lander % (Auto) 6.4 Eos % (Auto) 1.6 Baso % (Auto) 0.4 Absolute Neuts (auto) 4.5 Absolute Lymphs (auto) 2.21 Nucleated RBC % 0 Sodium 133 L Potassium 4.2 Chloride 103 Carbon Dioxide 27.0 Anion Gap 3 L BUN 21 H Creatinine 2.71 H Estim Creat Clear Calc 19.62 Est GFR (MDRD) Af Amer 29 L Est GFR (MDRD) Non-Af 24 L BUN/Creatinine Ratio 7.7 L Glucose 313 H Calcium 9.2 Total Bilirubin 0.50 Direct Bilirubin 0.16 AST 21 ALT 25 Alkaline Phosphatase 83 Troponin I High Sens 23 19 Total Protein 7.1 Albumin 3.7 Globulin 3.4 Lipase 35 Radiography Chest X-Ray - ED: 1 View, Read by ED Physician, Read by Radiologist, No Acute Disease and Chronic Changes Diagnostic Testing: Clinical Impression(s) from Imaging Studies Chest X-Ray 02/01/23 22:10 IMPRESSION: 1. Fluid-filled structure projecting to the left at the mediastinum was previously reported to be related to gastrectomy and pull-through in the anterior mediastinum, it now contains mild fluid. It contained gas September 30, 2022 and was more distended with a larger amount of fluid and gas August 01, 2022. Surrounding postoperative changes. 2. Otherwise stable chest. Borderline cardiomegaly. Minimal suspected scarring at the right lateral lung base. Electronically Signed: Jessie Teague MD at 23:05 EST , Chest/Abdomen/Pelvis CT 02/01/23 23:40 IMPRESSION: 1. Marked distention of the colon interposition segment from the cervical esophageal to interposition anastomosis the neck, throughout the chest, and in the upper abdomen, to the level of the interposition segment-stomach anastomosis. It contains a large amount complex mixed density material and a small amount of gas. 2. Estimated roughly 1.5 cm craniocaudal lumen at the anastomosis with some of the complex material from the interposition segment slightly bulging into the almost collapsed stomach. Presumed mechanical obstruction at the gastric-position segment anastomosis which may be due to stenosis, food bolus, and/or inflammation or a combination. 3. Soft tissue stranding anterior and to the left of the prominently distended distal colonic interposition segment and anastomosis. No suspicious fluid collections. 4. The interposition segment was only minimally distended with gas in the chest prior CT September 30, 2022, it was collapsed and moderately thick walled near the gastric anastomosis previously. 5. Similar appearance of right nephrolithiasis. 6. Small bowel ostomy. No evidence of small bowel obstruction. Electronically Signed: Jessie Teague MD at 1:08 EST , ADDENDUM: 02/02/23 0126 IMPRESSION: 1. Marked distention of the colon interposition segment from the cervical esophageal to interposition anastomosis the neck, throughout the chest, and in the upper abdomen, to the level of the interposition segment-stomach anastomosis. It contains a large amount complex mixed density material and a small amount of gas. 2. Estimated roughly 1.5 cm craniocaudal lumen at the anastomosis with some of the complex material from the interposition segment slightly bulging into the almost collapsed stomach. Presumed mechanical obstruction at the gastric-position segment anastomosis which may be due to stenosis, food bolus, and/or inflammation or a combination. 3. Soft tissue stranding anterior and to the left of the prominently distended distal colonic interposition segment and anastomosis. No suspicious fluid collections. 4. The interposition segment was only minimally distended with gas in the chest prior CT September 30, 2022, it was collapsed and moderately thick walled near the gastric anastomosis previously. 5. Similar appearance of right nephrolithiasis. 6. Small bowel ostomy. No evidence of small bowel obstruction. N.B. : The above Results were Read Back by Jessie Teague MD to Lexa Maldonado MD, and understanding confirmed on 02/02/2023 01:19:33 (ET). Electronically Signed: Jessie Teague MD at 1:08 EST Reading Location ID and State: [facility] / [place] Tel , Service support , Rhythm Strip Rhythm Strip: Sinus Rhythm Rate: 66 Ectopy: None EKG Initial EKG: Attestation: I personally reviewed and interpreted this EKG as follows: Interpretation: Sinus Rhythm Comments: Normal sinus rhythm rate of 66 bpm Normal axis Normal intervals ST segments with nonspecific abnormalities Management Discussion w/another healthcare provider: [employer] Discharge Plan Triage Chief Complaint: Chest Pain ED Provider: Joleen Chamorro Dx/Rx/DC Orders Clinical Impression: History of esophagectomy, Bowel obstruction Prescriptions: No Action atorvastatin 40 mg tablet 80 mg PO DAILY Patient Comments: TAKE ONE TABLET BY MOUTH EVERY DAY losartan 25 mg tablet 25 mg PO DAILY Patient Comments: TAKE ONE TABLET BY MOUTH EVERY DAY ropinirole 4 mg tablet 4 mg PO QHS Patient Comments: TAKE ONE TABLET BY MOUTH AT BEDTIME pregabalin 150 mg capsule 150 mg PO TID Patient Comments: TAKE ONE CAPSULE BY MOUTH THREE TIMES DAILY Trulicity 0.75 mg/0.5 mL pen injector 0.5 mg SUBCUT QWEEK Patient Comments: Inject 0.75 mg subcutaneously one time a week. Inject dose once per week. Discard Pen After aspirin 81 mg Tablet,Chewable 81 mg PO BREAKFAST Qty: 30 0RF melatonin 3 mg tablet 3 mg PO QHS Patient Comments: TAKE ONE TABLET BY MOUTH AT BEDTIME ascorbic acid (vitamin C) 500 mg tablet 500 mg PO BID Patient Comments: TAKE ONE TABLET BY MOUTH TWICE DAILY diazepam 5 mg/5 mL (1 mg/mL) solution 5 mg PO BID PRN (Reason: Muscle Spasm) Patient Comments: Take 5 mL by mouth twice daily for 90 days. As needed. Muscle cramps donepezil 10 mg tablet 10 mg PO DAILY Patient Comments: TAKE 1 TABLET BY MOUTH ONCE DAILY WITH FOOD tamsulosin 0.4 mg capsule 0.4 mg PO QHS Patient Comments: TAKE 1 CAPSULE BY MOUTH ONCE DAILY AT BEDTIME triamcinolone acetonide 0.025 % cream 1 applic TOPICAL BID Patient Comments: APPLY TO THE AFFECTED AREA(S) ON FOR BACK TWICE DAILY NEEDED FOR ITCHING venlafaxine 37.5 mg capsule,extended release 24hr 37.5 mg PO DAILY Patient Comments: TAKE ONE CAPSULE BY MOUTH EVERY DAY albuterol sulfate [Ventolin HFA] 90 mcg/actuation HFA aerosol inhaler 2 puff INHALATION Q6H PRN (Reason: sob) Patient Comments: INHALE TWO PUFFS BY MOUTH EVERY 6 HOURS NEEDED FOR wheezing OR SHORTNESS OF BREATH insulin lispro 100 unit/mL insulin pen 10 unit SUBCUT TIDCM Patient Comments: USE 3 TIMES DAILY DIRECTED PER SLIDING SCALE. UNDER 200= NONE. 201-300= 4 UNITS. 301-400= 6 UNITS. OVER 400= 8 UNITS Primary Care Provider: Lloyd Jalloh Referrals: Lloyd Jalloh MD [Primary Care Provider] - Disposition Disposition: Acute Care Hospital Discharge Location: [facility]
[2023-02-02 00:59] LABS: Troponin-I HS 19 pg/mL (3.0-78.0)
[2023-02-02 01:00] VITALS: BP 156/88; PULSE 63; RESP 15; O2SAT 98
[2023-02-02] MEDS: LORazepam 2 MG/ML Syringe 0.5 MG IV (01:26)
[2023-02-02] MEDS: 0.9% Normal Saline (1000mL) 1,000 ML 125 ML IV (01:30)
--- NOTE | 2023-02-02 01:32 | ED.RN ---
[facility] main campus paged for thoracic surgery for diagnosis of gastric pull through that is obstructed and impacted, h/o esophagectomy.
--- NOTE | 2023-02-02 01:51 | ED.RN ---
Accepted at [facility], waiting bed, per Dr. Chamorro, okay to drive pt to facility.
--- NOTE | 2023-02-02 02:19 | ED.RN ---
PT ACCEPTED AT [facility]. BED ASSIGNMENT J52 RM 2 [id number]. [facility] ETA 315/345AM 02/02/23.
[2023-02-02] MEDS: Ondansetron 4 MG/2 ML Vial IV (02:52)
[2023-02-02 02:53] VITALS: BP 136/63; PULSE 70; RESP 18; O2SAT 95
[2023-02-02 03:00] VITALS: PULSE 76; RESP 16; O2SAT 96
--- NOTE | 2023-02-02 03:04 | ED.RN ---
Pt and pt requesting to drive pt to hospital. Dr. Chamorro ok with taking pt. Transfer packet completed and given to . Pt in agreement on where she needs to go and the room number. Report called to Lizbeth at [facility]. Pt dressed and assisted into passenger seat of vehicle.
== END 2023-02-02 03:08 | disposition short-term general hospital (02) ==
PROVIDERS: Emergency Provider Emergency Medicine; PCP Internal Medicine; Visit Provider Emergency Medicine
DX: K56.609 Unspecified intestinal obstruction, unspecified as to partial versus complete obstruction (principal); G30.9 Alzheimer's disease, unspecified; E11.22 Type 2 diabetes mellitus with diabetic chronic kidney disease; E11.40 Type 2 diabetes mellitus with diabetic neuropathy, unspecified; N18.30 Chronic kidney disease, stage 3 unspecified; Z86.73 Personal history of transient ischemic attack (TIA), and cerebral infarction without residual deficits; Z87.891 Personal history of nicotine dependence
CPT/HCPCS: 71045; 71250; 74176; 80048; 80076; 83690; 84484; 85025; 87811; 93005; 94640; 96374; 96375; 99284; J7030; A4216; J2405

== ENCOUNTER 2023-06-20 12:51 | Inpatient (IN) | payer SELFPAY ==
[2023-06-20 12:52] VITALS: BP 144/82; PULSE 74; RESP 20; TEMP 36.3; O2SAT 95; BMI 29.6
--- NOTE | 2023-06-20 12:59 | EKG12_ITS ---
Test Reason : WEAKNESS Blood Pressure : / mmHG Vent. Rate : 071 BPM Atrial Rate : 071 BPM P-R Int : 188 ms QRS Dur : 080 ms QT Int : 380 ms P-R-T Axes : -27 000 039 degrees QTc Int : 412 ms Normal sinus rhythm Normal ECG Confirmed by LORENE PRINGLE, GURMEET ([id number]), field map editor NIURKA LEBRON ([id number]) on 06/24/2023 10:59:27 AM Referred By: Confirmed By:GURMEET PAULSON MD
--- NOTE | 2023-06-20 13:02 | EX.ED.DYSGE1 ---
HPI <ANGELY Alston - Last Filed: 06/20/23 15:09> History of Present Illness Chief Complaint: Weakness Narrative Narrative: 82-year-old male with PMH of HTN, HLD, DM2, CVA presents via EMS after he fell getting out of bed this morning. He states he does not know why he fell. He did not feel dizzy or lightheaded. He did not strike his head or have any injuries. He was unable to get up and his called the paramedics. He states he has a walker but only uses it in the garage. He is not on blood thinners. He states his mouth feels dry this morning but he has been eating and drinking normally this week. He has had a cough this week but no fever or chills. No chest pain or shortness of breath. No GI symptoms. PFSH <ANGELY Alston - Last Filed: 06/20/23 15:09> [facility] Medical History Anxiety and depression Chronic asthmatic bronchitis CKD (chronic kidney disease), stage III Colostomy fistula Diabetic neuropathy DM type 2 (diabetes mellitus, type 2) History of CVA (cerebrovascular accident) History of seizure disorder History of tobacco use Hypercholesterolemia Home Medications atorvastatin 40 mg tablet 80 mg PO DAILY 11/14/21 [History Last Taken Unknown] dulaglutide 0.75 mg/0.5 mL subcutaneous pen injector (Trulicity) 0.5 mg subcut QWEEK 11/14/21 [History Last Taken Unknown] losartan 25 mg tablet 25 mg PO DAILY 11/14/21 [History Last Taken Unknown] pregabalin 150 mg capsule 150 mg PO TID 11/14/21 [History Last Taken Unknown] ropinirole 4 mg tablet 4 mg PO QHS 11/14/21 [History Last Taken Unknown] aspirin 81 mg chewable tablet 81 mg PO BREAKFAST #30 tabs 01/05/22 [Rx Last Taken Unknown] albuterol sulfate 90 mcg/actuation aerosol inhaler (Ventolin HFA) 2 puff inhalation Q6H PRN sob 05/30/22 [History Last Taken Unknown] ascorbic acid (vitamin C) 500 mg tablet 500 mg PO BID 05/30/22 [History Last Taken Unknown] diazepam 5 mg/5 mL (1 mg/mL) oral solution 5 mg PO BID PRN Muscle Spasm 05/30/22 [History Last Taken Unknown] donepezil 10 mg tablet 10 mg PO DAILY 05/30/22 [History Last Taken Unknown] insulin lispro 100 unit/mL subcutaneous pen 10 unit subcut TIDCM Check with primary doctor 05/30/22 [History Last Taken Unknown] melatonin 3 mg tablet 3 mg PO QHS 05/30/22 [History Last Taken Unknown] tamsulosin 0.4 mg capsule 0.4 mg PO QHS 05/30/22 [History Last Taken Unknown] triamcinolone acetonide 0.025 % topical cream 1 applic topical BID 05/30/22 [History Last Taken Unknown] venlafaxine 37.5 mg capsule,extended release 24 hr 37.5 mg PO DAILY 05/30/22 [History Last Taken Unknown] Allergy/AdvReac Type Severity Reaction Status Date / Time No Known Allergies Allergy Verified 06/20/23 12:59 Family History Mother Myocardial infarction Hypertension Father Diabetes Alzheimer disease Surgical History History of appendectomy History of esophageal surgery History of eye surgery Social History household members: spouse Smoking Status: Former smoker how long ago did patient quit smoking: Quit 1-2 years prior, smoked occasional cigars. alcohol intake: never substance use type: does not use ROS <ANGELY Alston - Last Filed: 06/20/23 15:09> ROS ED ROS Narrative Constitutional: Negative for fever, chills, malaise. CVS: Negative for chest pain, syncope. Respiratory: Negative for shortness of breath. GI: Negative for abdominal pain, nausea, vomiting. : Negative for dysuria. Neuro: Negative for headache. EXAM <ANGELY Alston - Last Filed: 06/20/23 15:09> Physical Exam Narrative Exam Narrative: CONST: Patient sitting in no acute distress. EYES: Normal inspection. HEAD: Normocephalic atraumatic. ENT: Dry mucous membranes. NECK: Normal inspection. RESP: No respiratory distress, CTAB. CVS: Regular rate and rhythm, no murmur, no gallop. ABD: Soft and nontender, no guarding or rebound, nondistended. Colostomy bag right lower abdomen. SKIN: Color normal, no rash, warm, dry, intact. EXTREMITIES: Normal appearance, full ROM upper and lower extremities, no tenderness, 2+ radial and DP pulses. NEURO: Alert to self, place, situation. Face symmetric. Follows commands. PSYCH: Normal affect. Const Vital Signs: 06/20/23 12:52 06/20/23 12:56 06/20/23 15:07 Temperature 97.4 F L Temperature Source Axillary Pulse Rate 74 61 Respiratory Rate 20 H 14 Respiratory Effort Normal Non-Labored Respiratory Pattern Tachypnea Blood Pressure 144/82 H 157/71 H Blood Pressure Mean 102 99 Pulse Ox 95 95 Oxygen Delivery Method Room Air 06/20/23 15:35 Temperature 97.4 F L Temperature Source Pulse Rate 64 Respiratory Rate 16 Respiratory Effort Respiratory Pattern Blood Pressure 151/76 H Blood Pressure Mean 101 Pulse Ox 97 Oxygen Delivery Method <Dr. Gio Saucedo DO - Last Filed: 06/20/23 15:40> Physical Exam Const Vital Signs: 06/20/23 12:52 06/20/23 12:56 06/20/23 15:07 Temperature 97.4 F L Temperature Source Axillary Pulse Rate 74 61 Respiratory Rate 20 H 14 Respiratory Effort Normal Non-Labored Respiratory Pattern Tachypnea Blood Pressure 144/82 H 157/71 H Blood Pressure Mean 102 99 Pulse Ox 95 95 Oxygen Delivery Method Room Air 06/20/23 15:35 Temperature 97.4 F L Temperature Source Pulse Rate 64 Respiratory Rate 16 Respiratory Effort Respiratory Pattern Blood Pressure 151/76 H Blood Pressure Mean 101 Pulse Ox 97 Oxygen Delivery Method [facility] <ANGELY Alston - Last Filed: 06/20/23 15:09> [facility] Narrative Medical decision making narrative: History gathered from: Patient and Differential: Mechanical fall, infectious etiology such as pneumonia or UTI, electrolyte abnormality Patient fell while getting out of bed this morning. He cannot clearly delineate why he fell but denies any preceding chest pain, shortness of breath, or lightheadedness etc. He has no injuries. He is awake and alert with stable vital signs. His exam is notable for dry mucous membranes. His speech is hard to understand secondary to dehydration and a strong [place] accent but he is alert to self, place, and situation and answers questions appropriately and follows commands. He states he is having no difficulty speaking and has no focal neurological deficits. Workup shows normal white count of 9.0. Chronic anemia at 11.6. Normal electrolytes, BUN 21, creatinine 2.85 which appears around his baseline with chronic kidney disease. UA is positive for UTI. I ordered IV Rocephin and a urine culture. Patient was ambulated and is unsteady especially with turns. His speaks Maltese and [place] and is hard to understand but indicates he is holding onto things to ambulate at home and has fallen twice. Case will be discussed with the hospitalist for admission for falls, generalized weakness, and UTI. Lab Data Attestation: I reviewed the patient's lab results. Labs: Laboratory Results - last 24 hr 06/20/23 06/20/23 13:30 14:30 WBC 9.0 RBC 4.51 L Hgb 11.6 L Hct 39.1 L MCV 86.7 MCH 25.7 L MCHC 29.7 L RDW Std Deviation 46.7 H RDW Coeff of Meenu 14.8 H Plt Count 220 MPV 10.3 Immature Gran % (Auto) 0.400 Neut % (Auto) 78.9 H Lymph % (Auto) 13.0 L Sharp % (Auto) 6.2 Eos % (Auto) 1.3 Baso % (Auto) 0.2 Absolute Neuts (auto) 7.1 Absolute Lymphs (auto) 1.17 Nucleated RBC % 0 Sodium 137 Potassium 4.6 Chloride 107 Carbon Dioxide 27.0 Anion Gap 3 L BUN 21 H Creatinine 2.85 H Estim Creat Clear Calc 21.63 Est GFR (MDRD) Af Amer 28 L Est GFR (MDRD) Non-Af 23 L BUN/Creatinine Ratio 7.4 L Glucose 190 H Calcium 9.1 Total Bilirubin 1.10 H AST 43 H ALT 36 Alkaline Phosphatase 70 Troponin I High Sens 25 Total Protein 7.4 Albumin 3.8 Globulin 3.6 Albumin/Globulin Ratio 1.1 Urine Color Yellow Urine Clarity Sl. Cloudy Urine pH 5.0 Ur Specific [place] 1.020 Urine Protein 30 H Urine Glucose (UA) 1000 H Urine Ketones Negative Urine Occult Blood 250 H Urine Nitrite Positive H Urine Bilirubin Negative Urine Urobilinogen Normal Ur Leukocyte Esterase 500 H Urine RBC 25-50 SEEN Urine WBC 25-50 SEEN Ur Squamous Epith Cells 0-5 SEEN Urine Bacteria 1+ Urine Mucus 0 SEEN Radiography Diagnostic Testing: Clinical Impression(s) from Imaging Studies Chest X-Ray 06/20/23 13:55 IMPRESSION: No acute abnormality is seen. Electronically Signed: Christian Kelly MD at 14:14 EDT , ED attending interpretation of 1-view chest x-ray shows normal heart size, no acute infiltrate. <Dr. Gio Saucedo, DO - Last Filed: 06/20/23 15:40> [facility] Lab Data Labs: Laboratory Results - last 24 hr 06/20/23 06/20/23 13:30 14:30 WBC 9.0 RBC 4.51 L Hgb 11.6 L Hct 39.1 L MCV 86.7 MCH 25.7 L MCHC 29.7 L RDW Std Deviation 46.7 H RDW Coeff of Meenu 14.8 H Plt Count 220 MPV 10.3 Immature Gran % (Auto) 0.400 Neut % (Auto) 78.9 H Lymph % (Auto) 13.0 L Sharp % (Auto) 6.2 Eos % (Auto) 1.3 Baso % (Auto) 0.2 Absolute Neuts (auto) 7.1 Absolute Lymphs (auto) 1.17 Nucleated RBC % 0 Sodium 137 Potassium 4.6 Chloride 107 Carbon Dioxide 27.0 Anion Gap 3 L BUN 21 H Creatinine 2.85 H Estim Creat Clear Calc 21.63 Est GFR (MDRD) Af Amer 28 L Est GFR (MDRD) Non-Af 23 L BUN/Creatinine Ratio 7.4 L Glucose 190 H Calcium 9.1 Total Bilirubin 1.10 H AST 43 H ALT 36 Alkaline Phosphatase 70 Troponin I High Sens 25 Total Protein 7.4 Albumin 3.8 Globulin 3.6 Albumin/Globulin Ratio 1.1 Urine Color Yellow Urine Clarity Sl. Cloudy Urine pH 5.0 Ur Specific [place] 1.020 Urine Protein 30 H Urine Glucose (UA) 1000 H Urine Ketones Negative Urine Occult Blood 250 H Urine Nitrite Positive H Urine Bilirubin Negative Urine Urobilinogen Normal Ur Leukocyte Esterase 500 H Urine RBC 25-50 SEEN Urine WBC 25-50 SEEN Ur Squamous Epith Cells 0-5 SEEN Urine Bacteria 1+ Urine Mucus 0 SEEN Radiography Diagnostic Testing: Clinical Impression(s) from Imaging Studies Chest X-Ray 06/20/23 13:55 IMPRESSION: No acute abnormality is seen. Electronically Signed: Christian Kelly MD at 14:14 EDT , EKG Initial EKG: Attestation: I personally reviewed and interpreted this EKG as follows: Interpretation: Sinus Rhythm (71) and No Acute Injury Pattern Comments: EKG was obtained. On my independent interpretation, it showed a normal sinus rhythm with a rate of 71. [place] interval, QRS interval, and QTc intervals were all normal. [place] was normal. There are no acute ST or T wave changes. Prior EKG tracings: available for review Prior: Unchanged (02/01/2023) Treatment and Re-Evaluation :: I have personally performed a face to face assessment of the patient and have reviewed the PATRICIA Note. I performed a substantive portion of the visit including all aspects of the following. My singleton findings include: History: Patient presents with generalized weakness that became worse today. Patient is a poor informant. states patient has a history of dementia. Patient has been complaining of some abdominal pain around his colostomy site. Patient denies any nausea or vomiting. Patient denies any diarrhea. Patient denies any fevers or chills. Exam: Vital signs are stable. Patient is afebrile. Patient is in no acute distress. Oral mucosa is pink and dry. Neck is supple. Trachea is midline. There is no JVD. Heart was regular rate and rhythm. Lungs are clear and equal bilaterally. There is adequate respiratory effort noted. Abdomen is soft. Bowel sounds are normal. There is some mild Fuhs tenderness. There is no rebound or guarding noted. Cranial nerves II through XII are grossly intact. There are no focal motor or sensory deficits noted. Medical Decision Making: Differential diagnosis includes dehydration, electrolyte abnormality, anemia, cardiac dysrhythmia, cardiac ischemia, pneumonia, and urinary tract infection. EKG will be obtained to assess for cardiac dysrhythmia and cardiac ischemia. Chest x-ray will be obtained to assess for pneumonia and pneumothorax. CBC will be obtained to assess for leukocytosis and anemia. Comprehensive metabolic profile will be obtained to assess for hepatic function, renal function, and electrolyte abnormality. High-sensitivity troponin will be obtained to assess for cardiac ischemia. Urinalysis will be obtained to assess for urinary tract infection and hematuria. EKG was obtained. On my independent interpretation, it showed a normal sinus rhythm with a rate of 71. [place] interval, QRS interval, and QTc intervals were all normal. [place] was normal. There are no acute ST or T wave changes. Portable 1 view chest x-ray was obtained. On my independent interpretation, lung wright are clear. There is normal cardiac silhouette. Bony thorax is normal. There is no acute process noted. Radiologist also interpreted the x-ray and agrees. CBC was reviewed. There is a mild anemia with a hemoglobin of 11.6 and hematocrit 39.1. Comprehensive metabolic profile was reviewed. BUN was 21 and creatinine was 2.85. These are consistent with prior results. The remainder was essentially within normal limits. Urinalysis was reviewed. There are positive nitrates. Leukocyte esterase was 500. There are 25-50 red blood cells and 25-50 white blood cells. There is 1+ bacteria. Urine culture was ordered. Patient started on Rocephin. Patient was having difficulty ambulating here in the emergency department. Patient was unsteady on his feet when assisted to standing. Because of this, I recommended admission to the hospital. Case was discussed with the hospitalist. He will admit the patient to his service. Patient and family understood and were agreeable with the plan. All questions were answered. Discharge Plan Triage Chief Complaint: Weakness ED Midlevel Provider: Dorinda Carmona ED Provider: Gio Saucedo Dx/Rx/DC Orders Clinical Impression: Weakness, Acute UTI, Falls Prescriptions: No Action atorvastatin 40 mg tablet 80 mg PO DAILY losartan 25 mg tablet 25 mg PO DAILY ropinirole 4 mg tablet 4 mg PO QHS pregabalin 150 mg capsule 150 mg PO TID Trulicity 0.75 mg/0.5 mL pen injector 0.5 mg SUBCUT QWEEK Patient Comments: Inject 0.75 mg subcutaneously one time a week. Inject dose once per week. Discard Pen After aspirin 81 mg Tablet,Chewable 81 mg PO BREAKFAST Qty: 30 0RF melatonin 3 mg tablet 3 mg PO QHS ascorbic acid (vitamin C) 500 mg tablet 500 mg PO BID diazepam 5 mg/5 mL (1 mg/mL) solution 5 mg PO BID PRN (Reason: Muscle Spasm) donepezil 10 mg tablet 10 mg PO DAILY tamsulosin 0.4 mg capsule 0.4 mg PO QHS triamcinolone acetonide 0.025 % cream 1 applic TOPICAL BID Patient Comments: APPLY TO THE BACK TWICE DAILY NEEDED FOR ITCHING venlafaxine 37.5 mg capsule,extended release 24hr 37.5 mg PO DAILY albuterol sulfate [Ventolin HFA] 90 mcg/actuation HFA aerosol inhaler 2 puff INHALATION Q6H PRN (Reason: sob) insulin lispro 100 unit/mL insulin pen 10 unit SUBCUT TIDCM Patient Comments: USE 3 TIMES DAILY DIRECTED PER SLIDING SCALE. UNDER 200= NONE. 201-300= 4 UNITS. 301-400= 6 UNITS. OVER 400= 8 UNITS Primary Care Provider: Lloyd Jalloh Referrals: Lloyd Jalloh MD [Primary Care Provider] - Disposition Disposition: Acute Care Hospital [facility]
[2023-06-20 13:42] LABS: Absolute Lymphocyte Count 1.17 X10^3/uL (0.83-4.51); Absolute Neutrophil Count 7.1 X10^3/uL (2.0-7.7); Basophil# 0.02 X10^3/uL; Basophil% 0.2 % (0-1); Eosinophil# 0.12 X10^3/uL; Eosinophils% 1.3 % (0-5); Hematocrit 39.1 % (40-54); Hemoglobin 11.6 g/dL (13.0-16.5); Lymphocyte # 1.17 X10^3/ul (0.83-4.51); Mean Corp Hgb Conc 29.7 g/dL (32-36); Mean Corpuscular Hgb 25.7 pg (27.0-32.0); Mean Corpuscular Volume 86.7 fL (80-94); Mean Platelet Vol. 10.3 fl (6.2-12.0); Monocyte# 0.56 X10^3/uL; Monocyte% 6.2 % (0-10); NRBC Flagged by Analyzer 0 % (0-5); Neutrophil # 7.12 X10^3/uL (2.7-7.7); Neutrophil % 78.9 % (47-70); Platelet Count 220 K/mm3 (150-450); RBC Distribution Width CV 14.8 % (11.6-14.6); RBC Distribution Width SD 46.7 fl (35.1-43.9); Red Blood Count 4.51 M/mm3 (4.6-6.2)
[2023-06-20] MEDS: 0.9% Normal Saline (1000mL) 1,000 ML 1000 ML IV (13:50)
--- NOTE | 2023-06-20 13:55 | RAD_ITS ---
STUDY: X-RAY CHEST REASON FOR EXAM: Male, 82 years old. Weakness TECHNIQUE: Single AP portable view of the chest. COMPARISON: Comparison is made with prior study dated February 01, 2023. FINDINGS: EKG electrodes are seen. Surgical clips are seen in the left lung apex and left side of the neck. There is no demonstrated pleural abnormality. There is borderline cardiomegaly. Normal mediastinum and deepa. Normal visualized pulmonary arteries. There is atherosclerotic tortuosity of the aortic arch and descending thoracic aorta. Normal visualized thoracic spine. Healed right midclavicular fracture. The patient is status post esophagectomy and gastric pull-through procedure. RAD/Chest 1 View (Portable) IMPRESSION: No acute abnormality is seen. Electronically Signed: Christian Kelly MD at 14:14 EDT ,
[2023-06-20 14:03] LABS: ALB/GLOB Ratio 1.1 RATIO (0.9-2.4); AST(SGOT) 43 U/L (15-37); Alanine Aminotransfer ALT/SGPT 36 U/L (16-61); Albumin, Serum 3.8 g/dL (3.2-5.0); Alkaline Phosphatase 70 U/L (45-117); Anion Gap 3 (5-15); BUN 21 mg/dL (7-18); BUN/Creat Ratio 7.4 RATIO (10-20); Calcium,Total 9.1 mg/dL (8.5-10.1); Chloride 107 mmol/L (98-107); Creatinine, Serum 2.85 mg/dL (0.70-1.30); EST Glomerular Filtration Rate 23 mL/min (>60); Est Glom Filt Rate - Afr Amer 28 mL/min (>60); Estimated Creatinine Clearance 21.63 ml/min; Globulin 3.6 g/dL (2.2-4.2); Glucose 190 mg/dL (74-106); Potassium 4.6 mmol/L (3.5-5.1); Protein, Total 7.4 g/dL (6.4-8.2); Sodium Level 137 mmol/L (136-145); Troponin-I HS 25 pg/mL (3.0-78.0)
--- NOTE | 2023-06-20 14:37 | ED.RN ---
Pt straight cath for UA. Pt output 750 cc.
[2023-06-20 14:40] LABS: Mucous, Urine 0 SEEN /hpf (<or=2+)
[2023-06-20 14:43] LABS: Color, Urine Yellow (Yellow); Glucose, Dipstick 1000 mg/dl (Normal); Ketone-Dipstick Negative (Negative); Leukocyte Esterase-Dipstick 500 /ul (Negative); Nitrite-Dipstick Positive (Negative); Occult Blood-Urine 250 /ul (Negative); Protein-Dipstick 30 mg/dl (Negative); Urine Bilirubin Dipstick Negative (Negative); Urine Clarity Sl. Cloudy (Clear); Urine Urobilinogen Normal (Normal)
[2023-06-20 14:50] LABS: Bacteria 1+ /hpf (None Seen); Red Blood Cells-Urine 25-50 SEEN /hpf (0-5); White Blood Cells 25-50 SEEN /hpf (0-5)
[2023-06-20 14:51] LABS: Squamous Epithelial Cells - UA 0-5 SEEN /hpf (0-5)
[2023-06-20 15:07] VITALS: BP 157/71; PULSE 61; RESP 14; O2SAT 95
[2023-06-20 15:35] VITALS: BP 151/76; PULSE 64; RESP 16; TEMP 36.3; O2SAT 97
[2023-06-20 15:36] VITALS: BP 151/76; PULSE 67; RESP 16; TEMP 36.5; O2SAT 97
[2023-06-20] MEDS: Ceftriaxone 1 GM/50 ML BAG IV (15:57)
--- NOTE | 2023-06-20 16:12 | HP.PCM.HOS_ITS ---
HPI - General General Date of Admission: 06/20/23 Date of Service: 06/20/23 Chief Complaint: Debility HPI Narrative JOSE DARLING, is a 82 M who presents with weakness. tried to get him up today and he was just profoundly weak and she was unable to adequately care for him and brought him to the emergency room. The patient is a speak limited Lithuanian so much of the history is obtained if you are through limited understanding using Lithuanian but also using Google translate to help with the interpretation. Patient was found to have a urinary tract infection. Patient does not have a catheter normally. Patient did receive ceftriaxone in the emergency room. states that she is unable to care for him noted that his blood sugar was 350-450 this morning as he is an insulin-dependent diabetic. But with his debility she is unable to care for him. She does have concerns about him going to a snf facility because he has no insurance. Patient has had surgery and hospitalizations here before but has had Medicaid. They states that he does not have Medicare. [facility] Medical History (Updated 06/20/23 @ 16:[address] Gio Camacho, ) Anxiety and depression Chronic asthmatic bronchitis CKD (chronic kidney disease), stage III Colostomy fistula Diabetic neuropathy DM type 2 (diabetes mellitus, type 2) History of CVA (cerebrovascular accident) History of seizure disorder History of tobacco use Hypercholesterolemia Stroke due to embolism Home Medications losartan 25 mg tablet 25 mg PO DAILY 11/14/21 [History Last Taken Unknown] pregabalin 150 mg capsule 150 mg PO TID 11/14/21 [History Last Taken Unknown] ropinirole 4 mg tablet 4 mg PO QHS 11/14/21 [History Last Taken Unknown] aspirin 81 mg chewable tablet 81 mg PO BREAKFAST #30 tabs 01/05/22 [Rx Last Taken Unknown] albuterol sulfate 90 mcg/actuation aerosol inhaler (Ventolin HFA) 2 puff inhalation Q6H PRN sob 05/30/22 [History Last Taken Unknown] ascorbic acid (vitamin C) 500 mg tablet 500 mg PO BID 05/30/22 [History Last Taken Unknown] diazepam 5 mg/5 mL (1 mg/mL) oral solution 5 mg PO BID PRN Muscle Spasm 05/30/22 [History Last Taken Unknown] melatonin 3 mg tablet 3 mg PO QHS 05/30/22 [History Last Taken Unknown] triamcinolone acetonide 0.025 % topical cream 1 applic topical BID 05/30/22 [History Last Taken Unknown] venlafaxine 37.5 mg capsule,extended release 24 hr 37.5 mg PO DAILY 05/30/22 [History Last Taken Unknown] acetaminophen 325 mg tablet 650 mg PO Q6H PRN pain 06/20/23 [History Last Taken Unknown] atorvastatin 80 mg tablet 80 mg PO DAILY CHOLESTEROL 06/20/23 [History Last Taken Unknown] diclofenac sodium 1 % topical gel (Voltaren Arthritis Pain) 2 g topical 4X/DAY ARTHRITIS 06/20/23 [History Last Taken Unknown] insulin glargine 100 unit/mL (3 mL) subcutaneous pen (Basaglar KwikPen U-100 Insulin) 15 unit subcut QHS DIABETES 06/20/23 [History Last Taken Unknown] mirtazapine 15 mg tablet 15 mg PO QHS 06/20/23 [History Last Taken Unknown] polyethylene glycol 3350 17 gram/dose oral powder (Miralax) 17 g PO DAILY CONSTI PATION 06/20/23 [History Last Taken Unknown] tramadol 50 mg tablet 50 mg PO BID PRN pain 06/20/23 [History Last Taken Unknown] Allergy/AdvReac Type Severity Reaction Status Date / Time No Known Allergies Allergy Verified 06/20/23 12:59 Family History Mother Myocardial infarction Hypertension Father Diabetes Alzheimer disease Surgical History History of appendectomy History of esophageal surgery History of eye surgery Social History household members: spouse Smoking Status: Former smoker how long ago did patient quit smoking: Quit 1-2 years prior, smoked occasional cigars. alcohol intake: never substance use type: does not use ROS ROS Narrative concerned the patient has a right facial weakness. She is concerned about fasciculations that he is having in his left shoulder. Weakness. No fever or chills. Has ostomy in right lower quadrant. Limited review of system given language barriers but otherwise all review of systems were negative except as mentioned above in the history of present illness and the other review of systems. Vital Signs Vital Signs Vital Signs: 06/20/23 12:52 06/20/23 12:56 06/20/23 15:07 Temperature 36.3 C L Temperature Source Axillary Pulse Rate 74 61 Respiratory Rate 20 H 14 Respiratory Effort Normal Non-Labored Respiratory Pattern Tachypnea Blood Pressure 144/82 H 157/71 H Blood Pressure Mean 102 99 Pulse Ox 95 95 Oxygen Delivery Method Room Air 06/20/23 15:35 06/20/23 15:36 Temperature 36.3 C L 36.5 C L Temperature Source Temporal Pulse Rate 64 67 Respiratory Rate 16 16 Respiratory Effort Respiratory Pattern Blood Pressure 151/76 H 151/76 H Blood Pressure Mean 101 101 Pulse Ox 97 97 Oxygen Delivery Method Room Air Weight Weight: 85.8 kg Body Mass Index (BMI) 29.6 Physical Exam Narrative When taken patient takes in a deep breath, there is no defect in his upper chest next to his manubrium on the left. Const alert and no apparent distress HEENT normocephalic and head/scalp atraumatic HEENT Narrative: Edentulous. Mucous membranes moist. I do not appreciate any right facial weakness. Patient is slightly asymmetric but patient is edentulous. Eyes PERRL and EOMs intact bilaterally Neck no lymphadenopathy Resp normal respiratory effort, no retractions, no use of accessory muscles and clear to auscultation bilaterally Cardio regular rate, regular rhythm, S1 normal heart sound and S2 normal heart sound GI normal to inspection, nondistended, normoactive bowel sounds, soft to palpation and non-tender GI Narrative: Ostomy in right lower quadrant with protuberant stoma. Extremity no clubbing, cyanosis or edema Extremity Narrative: Old healed skin graft on distal right lower extremity from his knee down to his ankle medially. Neuro moves all extremities Sensorium / Orientation: awake Psych affect normal Results Lab / Micro Data Attestation: I reviewed the patient's lab results. 06/20/23 13:30 06/20/23 13:30 Labs: Laboratory Results - last 24 hr 06/20/23 13:30: WBC 9.0, RBC 4.51 L, Hgb 11.6 L, Hct 39.1 L, MCV 86.7, MCH 25.7 L, MCHC 29.7 L, RDW Std Deviation 46.7 H, RDW Coeff of Meenu 14.8 H, Plt Count 220, MPV 10.3, Immature Gran % (Auto) 0.400, Neut % (Auto) 78.9 H, Lymph % (Auto) 13.0 L, [place] % (Auto) 6.2, Eos % (Auto) 1.3, Baso % (Auto) 0.2, Absolute Neuts (auto) 7.1, Absolute Lymphs (auto) 1.17, Nucleated RBC % 0, Sodium 137, Potassium 4.6, Chloride 107, Carbon Dioxide 27.0, Anion Gap 3 L, BUN 21 H, Creatinine 2.85 H, Estim Creat Clear Calc 21.63, Est GFR (MDRD) Af Amer 28 L, Est GFR (MDRD) Non-Af 23 L, BUN/Creatinine Ratio 7.4 L, Glucose 190 H, Calcium 9.1, Total Bilirubin 1.10 H, AST 43 H, ALT 36, Alkaline Phosphatase 70, Troponin I High Sens 25, Total Protein 7.4, Albumin 3.8, Globulin 3.6, Albumin/Globulin R atio 1.1 06/20/23 14:30: Urine Color Yellow, Urine Clarity Sl. Cloudy, Urine pH 5.0, Ur Specific [place] 1.020, Urine Protein 30 H, Urine Glucose (UA) 1000 H, Urine Ketones Negative, Urine Occult Blood 250 H, Urine Nitrite Positive H, Urine Bilirubin Negative, Urine Urobilinogen Normal, Ur Leukocyte Esterase 500 H, Urine RBC 25-50 SEEN, Urine WBC 25-50 SEEN, Ur Squamous Epith Cells 0-5 SEEN, Urine Bacteria 1+, Urine Mucus 0 SEEN Imaging Radiology Impression Chest X-Ray 06/20/23 13:55 IMPRESSION: No acute abnormality is seen. Electronically Signed: Christian Kelly MD at 14:14 EDT Reading Location ID and State: [facility] / [place] , Service support , Assessment & Plan Assessment/Plan (1) Acute UTI: (2) Weakness: PLAN: Plan UTI * Ceftriaxone * Follow-up urine culture Debility * Secondary to UTI as well as patient's advanced age and multiple medical comorbidities. * PT OT evaluate and treat. * Case management to assist. Complicating this is patient is documented as self-pay but patient may have had Medicaid in the past. It is unclear. I did asked the if he does have Medicare and she said he does not. Some of this history may be limited due to language barrier. Chronic kidney disease stage IV * Hold losartan. IV fluids and reevaluate in the morning. Chronic conditions * history of stroke: Sounds like this may have been embolic though I do not have definitive evidence to suggest that at this point. Continue with aspirin and atorvastatin * Diabetes mellitus type 2: Continue with glargine. Sliding scale insulin. Check an A1c. * Seizures per history. Not on any amp antilithic medications. 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 This has been an issue before, looking at discharge summary from 2022. Does not appear to be incarcerated this time. Continue with routine with ostomy care. VTE prophylaxis with subcu heparin CODE STATUS: Addressed with the patient and his . Patient made DNR Comfort Care arrest. Disposition: To be determined., [place] the patient may not have insurance is unclear if he gets to a snf facility as he is too unsafe to go home at this time given his profound debility. Charges/Coding Visit Charges Inpatient E&M: 56803 Init Hosp L3
[2023-06-20 16:50] VITALS: BMI 63.8
[2023-06-20 16:58] VITALS: BP 124/73; PULSE 54; RESP 20; TEMP 36.9; O2SAT 99
[2023-06-20] MEDS: 0.9% Normal Saline (1000mL) 1,000 ML 150 ML IV (18:04)
[2023-06-20] MEDS: 0.9% Saline Lock 10 ML Syringe IV (18:04)
[2023-06-20 18:13] LABS: Bedside Glucose 138 mg/dL (74-106)
[2023-06-20 18:32] LABS: Hemoglobin A1c 9.3 % (3.8-5.6)
[2023-06-20 20:19] VITALS: BP 127/71; PULSE 66; RESP 20; TEMP 37; O2SAT 98
[2023-06-20] MEDS: Insulin Glargine-YFGN 100 UNIT/ML Pen 15 UNIT SC (20:31)
[2023-06-20] MEDS: Heparin Injection (Vial) 5,000 UNIT/ML VIAL 5000 UNIT SC (20:33)
[2023-06-20] MEDS: Pramipexole Di-HCl 0.5 MG Tablet 1.5 MG PO (20:37)
[2023-06-20] MEDS: MELATONIN 3 MG TABLET PO (20:37)
[2023-06-20] MEDS: Ascorbic Acid 500 MG Tablet PO (20:37)
[2023-06-20] MEDS: Mirtazapine 15 MG Tablet PO (20:37)
[2023-06-20 22:29] LABS: Bedside Glucose 213 mg/dL (74-106)
[2023-06-21 03:00] VITALS: BP 157/75; PULSE 77; RESP 18; TEMP 37.4; O2SAT 94
[2023-06-21] MEDS: Insulin Lispro 100 UNIT/ML INSULN.PEN SC ×3 (03:33→17:01)
[2023-06-21 06:57] LABS: Bedside Glucose 277 mg/dL (74-106)
[2023-06-21 07:19] LABS: Absolute Lymphocyte Count 0.92 X10^3/uL (0.83-4.51); Absolute Neutrophil Count 6.5 X10^3/uL (2.0-7.7); Basophil# 0.01 X10^3/uL; Basophil% 0.1 % (0-1); Hematocrit 34.5 % (40-54); Hemoglobin 10.4 g/dL (13.0-16.5); Lymphocyte # 0.92 X10^3/ul (0.83-4.51); Lymphocyte % 11.6 % (19-41); Mean Corp Hgb Conc 30.1 g/dL (32-36); Mean Corpuscular Hgb 25.9 pg (27.0-32.0); Mean Platelet Vol. 10.4 fl (6.2-12.0); Monocyte# 0.45 X10^3/uL; Monocyte% 5.7 % (0-10); NRBC Flagged by Analyzer 0 % (0-5); Neutrophil # 6.49 X10^3/uL (2.7-7.7); Neutrophil % 82.1 % (47-70); Platelet Count 209 K/mm3 (150-450); RBC Distribution Width CV 14.8 % (11.6-14.6); RBC Distribution Width SD 46.5 fl (35.1-43.9); Red Blood Count 4.01 M/mm3 (4.6-6.2); White Blood Count 7.9 K/mm3 (4.4-11.0)
[2023-06-21 07:39] LABS: Anion Gap 3 (5-15); BUN 24 mg/dL (7-18); BUN/Creat Ratio 9.4 RATIO (10-20); Calcium,Total 8.5 mg/dL (8.5-10.1); Chloride 110 mmol/L (98-107); Creatinine, Serum 2.55 mg/dL (0.70-1.30); EST Glomerular Filtration Rate 26 mL/min (>60); Est Glom Filt Rate - Afr Amer 31 mL/min (>60); Glucose 262 mg/dL (74-106); Potassium 4.9 mmol/L (3.5-5.1); Sodium Level 135 mmol/L (136-145)
--- NOTE | 2023-06-21 08:04 | WOUNDNOTE ---
In to assess the ostomy appliance to the right lower abdomen. appliance intact with no signs of leakage. stoma appears prolapsed but is nice and pink. patient currently using a 2 piece appliance with a large volume pouch. had brought supplies in for patient if appliance needs changed. will leave in place at this time since is intact. pt resting in bed. no signs of discomfort noted.
[2023-06-21 08:38] VITALS: BP 133/72; PULSE 65; RESP 18; TEMP 37.3; O2SAT 98
--- NOTE | 2023-06-21 08:40 | PCM.PN.HOSP ---
Reason for Visit Reason for Visit: Generalized weakness/debility Subjective Subjective Patient is an 82-year-old white male who presented to the emergency department at which prehospital [facility]23 with generalized weakness and debility. Per documentation his tried to get him up on the day of admission and he was found to be profoundly weak and she was unable to adequately care for him at home and brought him to the emergency department. The patient was uncertain why he fell. He did not feel lightheaded or dizzy. He denied striking his head or having any injuries. Due to him being unable to get up his called the paramedics. Patient states that he uses a walker intermittently but it is in the garage and he does not tend to use in the house. He reported that he had a cough on the week of presentation but no fever or chills. He denies shortness of breath chest pain and had no GI symptoms. Vital signs on presentation showed temperature of 97.4, heart rate 74, blood pressure 144/82, respiratory was 20 oxygen saturation was 95% room air. CBC showed a mild anemia with a hemoglobin of 11.6 and this appears to be stable compared to previous he did have a left shift but a normal white count. 78.9% neutrophilia was noted. His chemistry panel showed normal electrolytes however his BUN was slightly elevated at 21 but his serum creatinine was 2.85. His baseline serum creatinine seems to fluctuate some but seems to run between 2 and 2.5 at baseline. His UA was suggestive of infection and some dehydration with a specific gravity of 1.02, positive for blood, nitrites, leuk esterase, white cells, and bacteria. Urine culture was sent. Ceftriaxone was initiated. He was admitted to the medical floor and physical and Occupational Therapy were consulted. Evidently, there is a language barrier as they are predominantly which is Grenadian and they speak very little Iranian. Difficult communication as we currently are having difficulty locating translation/interpretation. Patient is fatigued and was able to tell me he is not having any pain but he is quite fatigued. This is consistent with his appearance. Objective Data Objective Data Vital Signs: Vital Signs Temp Pulse Resp BP Pulse Ox O2 Del Method 99.3 F H 77 18 157/75 H 94 Room Air 06/21/23 03:00 06/21/23 03:00 06/21/23 03:00 06/21/23 03:00 06/21/23 03:00 06/21/23 03:00 Oxygen Delivery Method Room Air Weight: 184.7 kg Body Mass Index (BMI) 63.8 Intake & Output: Intake and Output for Last 24 Hours 06/19/23 06/20/23 06/21/23 23:59 23:59 23:59 Intake Total 1050 / 1050 1000 / 1000 Output Total 750 / 750 1500 / 1500 Balance 300 / 300 -500 / -500 Lab / Micro Data 06/21/23 06:39 06/21/23 06:39 Labs: Laboratory Results - last 24 hr 06/20/23 13:30: WBC 9.0, RBC 4.51 L, Hgb 11.6 L, Hct 39.1 L, MCV 86.7, MCH 25.7 L, MCHC 29.7 L, RDW Std Deviation 46.7 H, RDW Coeff of Meenu 14.8 H, Plt Count 220, MPV 10.3, Immature Gran % (Auto) 0.400, Neut % (Auto) 78.9 H, Lymph % (Auto) 13.0 L, [place] % (Auto) 6.2, Eos % (Auto) 1.3, Baso % (Auto) 0.2, Absolute Neuts (auto) 7.1, Absolute Lymphs (auto) 1.17, Nucleated RBC % 0, Sodium 137, Potassium 4.6, Chloride 107, Carbon Dioxide 27.0, Anion Gap 3 L, BUN 21 H, Creatinine 2.85 H, Estim Creat Clear Calc 21.63, Est GFR (MDRD) Af Amer 28 L, Est GFR (MDRD) Non-Af 23 L, BUN/Creatinine Ratio 7.4 L, Glucose 190 H, Hemoglobin A1c 9.3 H, Calcium 9.1, Total Bilirubin 1.10 H, AST 43 H, ALT 36, Alkaline Phosphatase 70, Troponin I High Sens 25, Total Protein 7.4, Albumin 3.8, Globulin 3.6, Albumin/Globulin Ratio 1.1 06/20/23 14:30: Urine Color Yellow, Urine Clarity Sl. Cloudy, Urine pH 5.0, Ur Specific [place] 1.020, Urine Protein 30 H, Urine Glucose (UA) 1000 H, Urine Ketones Negative, Urine Occult Blood 250 H, Urine Nitrite Positive H, Urine Bilirubin Negative, Urine Urobilinogen Normal, Ur Leukocyte Esterase 500 H, Urine RBC 25-50 SEEN, Urine WBC 25-50 SEEN, Ur Squamous Epith Cells 0-5 SEEN, Urine Bacteria 1+, Urine Mucus 0 SEEN 06/20/23 17:46: POC Glucose 138 H 06/20/23 20:25: POC Glucose 213 H 06/21/23 02:59: POC Glucose 277 H 06/21/23 06:39: WBC 7.9, RBC 4.01 L, Hgb 10.4 L, Hct 34.5 L, MCV 86.0, MCH 25.9 L, MCHC 30.1 L, RDW Std Deviation 46.5 H, RDW Coeff of Meenu 14.8 H, Plt Count 209, MPV 10.4, Immature Gran % (Auto) 0.500, Neut % (Auto) 82.1 H, Lymph % (Auto) 11.6 L, [place] % (Auto) 5.7, Eos % (Auto) 0.0, Baso % (Auto) 0.1, Absolute Neuts (auto) 6.5, Absolute Lymphs (auto) 0.92, Nucleated RBC % 0, Sodium 135 L, Potassium 4.9, Chloride 110 H, Carbon Dioxide 22.0, Anion Gap 3 L, BUN 24 H, Creatinine 2.55 H, Estim Creat Clear Calc 37.10, Est GFR (MDRD) Af Amer 31 L, Est GFR (MDRD) Non-Af 26 L, BUN/Creatinine Ratio 9.4 L, Glucose 262 H, Calcium 8.5 Radiography Diagnostic Testing: Radiology Impression Chest X-Ray 06/20/23 13:55 IMPRESSION: No acute abnormality is seen. Electronically Signed: Christian Kelly MD at 14:14 EDT , Physical Exam Const alert, no apparent distress and well nourished; Negative for average body habitus or healthy appearing Constitutional Narrative: Overweight, older, fatigued, white male, sitting up in bed, appears comfortable and nontoxic HEENT head/scalp atraumatic HEENT Narrative: Dentition is poor, Mallampati is 2, no thrush Head and Scalp: normocephalic Resp normal respiratory effort, no retractions, no use of accessory muscles and clear to auscultation bilaterally Resp Narrative: Diminished at bases bilaterally due to decreased deep breathing Auscultation: Negative for rales, rhonchi or wheezes Cardio regular rate, regular rhythm, S1 normal heart sound, S2 normal heart sound, no murmurs, no rub, no gallops and no clicks Cardio Narrative: Abnormality with defect in the left upper chest wall in the area of the apex of the lung for lung due to previous removal of ribs GI normal to inspection, nondistended, normoactive bowel sounds, soft to palpation and non-tender Extremity no clubbing, cyanosis or edema Extremity Narrative: Pedal pulses are 2+ bilaterally Neuro moves all extremities and no focal motor deficits Neuro Narrative: Significant generalized weakness noted Psych Psych Narrative: Affect is flat Assessment & Plan Assessment/Plan (1) Falls: (2) Weakness: (3) Drug toxicity: PLAN: Plan Suspected acute urinary tract infection -UA suggest infection -Patient was initiated ceftriaxone -Cultures are pending Generalized weakness/debility -Patient did have a recent cough will check flu COVID and RSV to make sure that this is not contributing -Likely also related to current UTI -Will check blood cultures as well--> unfortunately they have been drawn after antibiotics have been dosed -PT/OT consultation -Social work/case management consultation for discharge planning assistance Suspected Lyrica toxicity -Patient is on 3 times the recommended limit of Lyrica for his renal function -Hold Lyrica for now until he seems to clinically improve -Plan will be to discharge on Lyrica for total of 150 mg a day dosed at 50 mg 3 times daily History of stroke -Per documentation sounds like it may have been embolic however not entirely clear -Continue aspirin HTN/HPL -Losartan initially held due to elevated serum creatinine which was slight compared to baseline -Will start losartan again today and monitor his renal function closely -Continue home atorvastatin Elevated serum creatinine with history of CKD stage IV -Was 2.5 on admission and patient did receive 1 L IV fluids -UA did look dry -Baseline serum creatinine appears to run between 2 and 2.5 -Was slightly higher than this at the time of presentation. -Monitor closely -Will restart losartan today Anemia -Appears to be chronic and stable at this time -Will continue to trend -Repeat CBC in the a.m. -If any sign of drop will workup further DM-2 -Uncontrolled with hemoglobin A1c of 9.4 -Will increase Lantus to 25 units at at bedtime -Continue SSI -Cardiac/carb controlled diet -Continue Accu-Cheks as ordered -Fasting blood sugar today was elevated at History of seizures Patient is not on any AEDs Diabetic neuropathy -Will hold pregabalin as his dose is too high for his renal clearance -Will hold for couple days to allow for clearance -This toxicity could be contributing to his weakness and falls -Max dosing with his creatinine clearance should be 100 250 mg/day -Will restart on 50 mg 3 times daily at the time of discharge Restless leg syndrome -Continue ropinirole Constipation -Continue home MiraLAX Chronic pain -Continue home diazepam -Continue home topical Voltaren arthritis -Restart home Ultram Depression -Continue home mirtazapine -Continue home venlafaxine DVT prophylaxis -Heparin 5000 units twice daily CODE STATUS -DNR CCA okay for short-term intubation per discussion prior to admission Charges/Coding Visit Charges Inpatient E&M: 72433 Subs Hosp L2
[2023-06-21 09:43] LABS: Bedside Glucose 236 mg/dL (74-106)
[2023-06-21] MEDS: Ceftriaxone 1 GM/50 ML BAG IV (10:53)
[2023-06-21] MEDS: 0.9% Saline Lock 10 ML Syringe IV (10:53)
[2023-06-21] MEDS: Arthritis Pain Compound 60 CLICK TUBE TOPICAL ×4 (10:53→20:13)
[2023-06-21] MEDS: Ascorbic Acid 500 MG Tablet PO ×2 (10:54→20:16)
[2023-06-21] MEDS: Venlafaxine XR 37.5 MG Capsule PO (10:54)
[2023-06-21] MEDS: Heparin Injection (Vial) 5,000 UNIT/ML VIAL 5000 UNIT SC ×2 (10:54→20:13)
[2023-06-21] MEDS: Atorvastatin Calcium 80 MG Tablet PO (10:54)
[2023-06-21] MEDS: Polyethylene Glycol 3350 17 GM PACKET PO (10:54)
[2023-06-21] MEDS: Aspirin 81 MG TAB.CHEW PO (10:55)
[2023-06-21] MEDS: Losartan Potassium 25 MG Tablet PO (10:58)
[2023-06-21] MEDS: Hydrocortisone 2.5% Crm 1 APPLIC TOPICAL (11:10)
[2023-06-21 11:12] VITALS: PULSE 80
--- NOTE | 2023-06-21 11:27 | NURSING ---
corrected weight placed in computer
[2023-06-21 12:14] LABS: Bedside Glucose 226 mg/dL (74-106)
--- NOTE | 2023-06-21 13:37 | CASEMGMT ---
Discharge Planning A list of SNF providers including quality and resource use data and consistent with the patient's preferred geographic region, medical needs, and insurance network was created in [facility] Guide.? This list was provided to the SW. Devi Hassan Discharge Planning Asst.
--- NOTE | 2023-06-21 13:52 | CHAPLAIN ---
Type of Pastoral Visit _x__ Initial Visit ___ Follow-up Visit ___ On-call Visit ___ General Patient Visit ___ Spiritual Assessment ___ Family Conference ___ Bereavement ___ Rapid Response ___ Code Blue ___ Other (describe below) Pastoral Care Referral From _x__ Patient ___ Family ___ Nurse ___ Physician ___ Documentation Writer ___ Senior Relationship Manager ___ Other (describe below) Sacrament/Intervention _x__ Active listening ___ Anointing ___ Jain ___ Bereavement ___ Communion ___ Kacie exploration ___ ___ Life review ___ Prayer ___ Reconciliation ___ Sacrament of Sick _x__ Supportive presence ___ Wedding ___ Other (describe below) Pastoral Comments patient is lying still in bed; offer of support and presence; pt speaks but somewhat difficult to understand; pt indicates that he has pain, I'm not feeling well and grimaces; asked more about his pain and his feelings, the patient repeats that he is just not feeling well, pain; spouse walks into room at this time; pt says this is his and they speak briefly in Luxembourgish; spouse hands packet to this spike driver and says paperwork, you want it?; explained to spouse that SW probably wants that and that I would tell individual in charge; offer of other support and then went to CM and SW to communicate that spouse was wanting to speak
[2023-06-21 15:00] VITALS: BP 121/65; PULSE 68; RESP 20; TEMP 37.2; O2SAT 94
--- NOTE | 2023-06-21 15:35 | CASEMGMT ---
OMAR LINARES Assessment: Face to Face with pt for initial transition planning/care coordination assessment. OMAR LINARES introduced self and role at [facility], pt voices understanding and consents to assessment. Pt is A&O, at bedside and used american sign language interpreter via ipad. OMAR LINARES spent 1 hour in the patient's room. Care providers, pharmacy, and demographics verified/updated. Admitting Dx: UTI, weakness PCP:Shubham Specialists:eye doctor [facility]erred [facility]acy: [facility] Insurance: None Prescription Benefit: none LNOK: Ivis Aguayo, ; Fozia Rubi, dtr Living Arrangements: Pt lives with in a single story home with 4 steps to enter with a rail. states sometimes pt is able to bathe and dress self and sometimes not. It depends how he feels. Transportation: Pt does not drive. Pt transports pt. DME:cane, walker, BGM with sufficient supplies as well as insulin. HHC/SNF: Pt has had HHC in the past, unsure of the name of agency but per it was too expensive and she cancelled it. Pt has been to SNF but unsure of the name of the SNF. Therapy recommending pt go to a SNF per verbal conversation. Spent a long time discussing this with pt and and they are not agreeable to this unless it is paid for. They are also declinging HHC d/t cost. Discussed the concern of pt returning home with needing assist of 2 people. They still are declining. TC to pt dtr per pt request, she states that pt is having surgery on July 01 and will not be able to lift anything which is even more of a concern of pt returning home. She has no solutions to offer other than call APS. Pt/ states no further concerns/needs. CM to follow. Advised pt to ask CM if any further question/concerns/needs arise, voices understanding. Pt Goal: Home Plan: TBD Updated Olamide DUFF of the above who will follow with pt tomorrow. Fátima NELSON CM
[2023-06-21] MEDS: NYSTATIN 500,000 UNIT/5 ML UDC 500000 UNIT PO ×2 (16:48→20:14)
[2023-06-21 17:14] VITALS: BP 149/80; PULSE 70; RESP 16; TEMP 36.6; O2SAT 96
[2023-06-21 17:24] LABS: Bedside Glucose 225 mg/dL (74-106)
[2023-06-21] MEDS: Pramipexole Di-HCl 0.5 MG Tablet 1.5 MG PO (20:14)
[2023-06-21] MEDS: MELATONIN 3 MG TABLET PO (20:15)
[2023-06-21] MEDS: Mirtazapine 15 MG Tablet PO (20:15)
[2023-06-21] MEDS: Insulin Glargine-YFGN 100 UNIT/ML Pen 25 UNIT SC (20:29)
[2023-06-21 21:06] VITALS: BP 150/85; PULSE 68; RESP 16; TEMP 36.9; O2SAT 98
[2023-06-21 21:36] LABS: Bedside Glucose 228 mg/dL (74-106)
[2023-06-22] MEDS: diazePAM 5 MG Tablet PO (01:57)
[2023-06-22] MEDS: Acetaminophen 325 MG Tablet 650 MG PO (01:57)
[2023-06-22 02:10] VITALS: BP 136/70; PULSE 65; RESP 18; TEMP 36.6; O2SAT 99
[2023-06-22 05:41] LABS: Absolute Neutrophil Count 5.5 X10^3/uL (2.0-7.7); Basophil# 0.02 X10^3/uL; Basophil% 0.3 % (0-1); Eosinophil# 0.07 X10^3/uL; Eosinophils% 0.9 % (0-5); Hematocrit 35.1 % (40-54); Hemoglobin 10.7 g/dL (13.0-16.5); Lymphocyte % 18.3 % (19-41); Mean Corp Hgb Conc 30.5 g/dL (32-36); Mean Corpuscular Hgb 26.6 pg (27.0-32.0); Mean Corpuscular Volume 87.3 fL (80-94); Mean Platelet Vol. 10.3 fl (6.2-12.0); Monocyte# 0.62 X10^3/uL; Monocyte% 8.1 % (0-10); NRBC Flagged by Analyzer 0 % (0-5); Neutrophil # 5.53 X10^3/uL (2.7-7.7); Platelet Count 177 K/mm3 (150-450); RBC Distribution Width CV 14.7 % (11.6-14.6); RBC Distribution Width SD 47.3 fl (35.1-43.9); Red Blood Count 4.02 M/mm3 (4.6-6.2); White Blood Count 7.7 K/mm3 (4.4-11.0)
[2023-06-22 06:04] LABS: ALB/GLOB Ratio 0.9 RATIO (0.9-2.4); AST(SGOT) 33 U/L (15-37); Alanine Aminotransfer ALT/SGPT 28 U/L (16-61); Alkaline Phosphatase 57 U/L (45-117); Anion Gap 4 (5-15); BUN 25 mg/dL (7-18); BUN/Creat Ratio 11.1 RATIO (10-20); Calcium,Total 8.7 mg/dL (8.5-10.1); Chloride 109 mmol/L (98-107); Creatinine, Serum 2.26 mg/dL (0.70-1.30); EST Glomerular Filtration Rate 30 mL/min (>60); Est Glom Filt Rate - Afr Amer 36 mL/min (>60); Estimated Creatinine Clearance 27.16 ml/min; Globulin 3.2 g/dL (2.2-4.2); Glucose 218 mg/dL (74-106); Magnesium 1.7 mg/dL (1.6-2.6); Phosphorus 2.8 mg/dL (2.5-4.9); Potassium 4.5 mmol/L (3.5-5.1); Protein, Total 6.2 g/dL (6.4-8.2); Sodium Level 137 mmol/L (136-145)
[2023-06-22] MEDS: Insulin Lispro 100 UNIT/ML INSULN.PEN SC ×3 (06:29→16:57)
[2023-06-22 06:56] LABS: Bedside Glucose 190 mg/dL (74-106)
[2023-06-22 08:10] VITALS: BP 156/70; PULSE 64; RESP 18; TEMP 37.2; O2SAT 99
[2023-06-22] MEDS: Hydrocortisone 2.5% Crm 1 APPLIC TOPICAL ×2 (10:02→22:26)
[2023-06-22] MEDS: Arthritis Pain Compound 60 CLICK TUBE TOPICAL ×4 (10:02→22:26)
[2023-06-22] MEDS: Ascorbic Acid 500 MG Tablet PO ×2 (10:03→22:31)
[2023-06-22] MEDS: Venlafaxine XR 37.5 MG Capsule PO (10:03)
[2023-06-22] MEDS: Losartan Potassium 25 MG Tablet PO (10:03)
[2023-06-22] MEDS: Aspirin 81 MG TAB.CHEW PO (10:03)
[2023-06-22] MEDS: Atorvastatin Calcium 80 MG Tablet PO (10:03)
[2023-06-22] MEDS: NYSTATIN 500,000 UNIT/5 ML UDC 500000 UNIT PO ×4 (10:04→22:27)
[2023-06-22] MEDS: Heparin Injection (Vial) 5,000 UNIT/ML VIAL 5000 UNIT SC ×2 (10:06→22:01)
[2023-06-22] MEDS: Ceftriaxone 1 GM/50 ML BAG IV (10:45)
[2023-06-22 12:21] LABS: Bedside Glucose 359 mg/dL (74-106)
--- NOTE | 2023-06-22 13:17 | PN.HOSP_ITS ---
Reason for Visit Reason for Visit: Generalized weakness/debility Subjective Subjective Seems to be functionally doing better today. More awake and interactive. Able answer questions and appears much less fatigued. Patient has no complaints at this time. Objective Data Objective Data Vital Signs: Vital Signs Temp Pulse Resp BP Pulse Ox O2 Del Method 98.9 F 64 18 156/70 H 99 Room Air 06/22/23 08:10 06/22/23 08:10 06/22/23 08:10 06/22/23 08:10 06/22/23 08:10 06/22/23 10:00 Oxygen Delivery Method Room Air Weight: 85.003 kg Body Mass Index (BMI) 63.8 Intake & Output: Intake and Output for Last 24 Hours 06/20/23 06/21/23 06/22/23 23:59 23:59 23:59 Intake Total 1050 / 1050 1050 / 1050 50 / 50 Output Total 750 / 750 1500 / 1500 625 / 625 Balance 300 / 300 -450 / -450 -575 / -575 Lab / Micro Data 06/22/23 05:26 06/22/23 05:26 Labs: Laboratory Results - last 24 hr 06/21/23 17:00: POC Glucose 225 H 06/21/23 20:26: POC Glucose 228 H 06/22/23 05:26: WBC 7.7, RBC 4.02 L, Hgb 10.7 L, Hct 35.1 L, MCV 87.3, MCH 26.6 L, MCHC 30.5 L, RDW Std Deviation 47.3 H, RDW Coeff of Meenu 14.7 H, Plt Count 177, MPV 10.3, Immature Gran % (Auto) 0.400, Neut % (Auto) 72.0 H, Lymph % (Auto) 18.3 L, [facility] % (Auto) 8.1, Eos % (Auto) 0.9, Baso % (Auto) 0.3, Absolute Neuts (auto) 5.5, Absolute Lymphs (auto) 1.40, Nucleated RBC % 0, Sodium 137, Potassium 4.5, Chloride 109 H, Carbon Dioxide 24.0, Anion Gap 4 L, BUN 25 H, Creatinine 2.26 H, Estim Creat Clear Calc 27.16, Est GFR (MDRD) Af Amer 36 L, Est GFR (MDRD) Non-Af 30 L, BUN/Creatinine Ratio 11.1, Glucose 218 H, Calcium 8.7, Phosphorus 2.8, Magnesium 1.7, Total Bilirubin 0.60, AST 33, ALT 28, Alkaline Phosphatase 57, Total Protein 6.2 L, Albumin 3.0 L, Globulin 3.2, Albumin/Globulin Ratio 0.9 06/22/23 06:19: POC Glucose 190 H 06/22/23 11:55: POC Glucose 359 H Micro: Microbiology 06/20/23 14:30 Urine, Random Urine Culture - Final Mixed Gram Positive Organisms 06/21/23 09:34 Mucosa - Nasopharyngeal Respiratory Panel (PCR) - Final 06/21/23 09:34 Mucosa - Nasopharyngeal SARS-CoV-2, Influenza & RSV (PCR) - Final Physical Exam Const alert, no apparent distress and well nourished; Negative for average body habitus or healthy appearing Constitutional Narrative: Overweight, older, sitting up in bed, watching television, much more interactive and appropriate today, appears comfortable and nontoxic HEENT normocephalic and head/scalp atraumatic HEENT Narrative: Mallampati is 2, no thrush, patient is a dentulous Resp normal respiratory effort, no retractions, no use of accessory muscles and clear to auscultation bilaterally Auscultation: Negative for rales, rhonchi or wheezes Cardio regular rate, regular rhythm, S1 normal heart sound, S2 normal heart sound, no murmurs, no rub, no gallops and no clicks Cardio Narrative: Abnormality with defect in the left upper chest wall in the area of the apex of the lung for lung due to previous removal of ribs GI normal to inspection, nondistended, normoactive bowel sounds, soft to palpation and non-tender GI Narrative: Ostomy in right lower quadrant-stool output is good Extremity no clubbing, cyanosis or edema Extremity Narrative: Pedal pulses are 2+ bilaterally Neuro moves all extremities and no focal motor deficits Neuro Narrative: Still appears weak but much less so than yesterday, follows all commands Sensorium / Orientation: awake, alert and oriented to person Psych affect normal Psych Narrative: Affect is flat Assessment & Plan Assessment/Plan (1) Falls: (2) Weakness: (3) Drug toxicity: PLAN: Plan Suspected acute urinary tract infection -Ruled out -UA was suggestive of infection however urine culture only shows mixed gram- positive organisms suggestive of contaminant -No acute infection noted -Blood cultures are pending and will continue until negative Generalized weakness/debility -Respiratory viral panel and COVID/flu/RSV are negative -Blood cultures are negative -Patient does not seem to have a UTI with an unremarkable urine culture -Will check blood cultures as well--> unfortunately they have been drawn after antibiotics have been dosed -PT/OT following and recommended longterm facility however patient and family are adamant that he is going to go home because they do not have insuranc e they have also denied home health for the same reason -Social work/case management following and assisting as they can Suspected Lyrica toxicity -Patient is on 3 times the recommended limit of Lyrica for his renal function -Patient is clinically improving off the Lyrica -Will plan on restarting Lyrica discharge at a lower dose -Lyrica for total of 150 mg a day dosed at 50 mg 3 times daily History of stroke -Per documentation sounds like it may have been embolic however not entirely clear -Continue aspirin -Continue to control secondary risk factors HTN/HPL -Continue home losartan -Continue home atorvastatin Elevated serum creatinine with history of CKD stage IV -Was 2.5 on admission and patient did receive 1 L IV fluids -UA did look dry -Baseline serum creatinine appears to run between 2 and 2.5 -Serum creatinine down to 2.26 -Monitor closely Anemia -Hemoglobin remained stable -Will continue to trend -Repeat CBC in the a.m. DM-2 -Uncontrolled with hemoglobin A1c of 9.4 -Fasting glucoses still greater than 200 at 218 this morning -Will increase Lantus to 30 units at at bedtime -Continue SSI -Cardiac/carb controlled diet -Continue Accu-Cheks as ordered -Fasting blood sugar today was elevated at History of seizures Patient is not on any AEDs Diabetic neuropathy -Will hold pregabalin as his dose is too high for his renal clearance -Will hold for couple days to allow for clearance -This toxicity could be contributing to his weakness and falls -Max dosing with his creatinine clearance should be 100 250 mg/day -Will restart on 50 mg 3 times daily at the time of discharge Restless leg syndrome -Continue ropinirole Constipation -Continue home MiraLAX Chronic pain -Continue home diazepam -Continue home topical Voltaren arthritis -Restart home Ultram Depression -Continue home mirtazapine -Continue home venlafaxine DVT prophylaxis -Heparin 5000 units twice daily CODE STATUS -DNR CCA okay for short-term intubation per discussion prior to admission Charges/Coding Visit Charges Inpatient E&M: 75758 Subs Hosp L2
[2023-06-22 15:47] VITALS: BP 137/65; PULSE 74; RESP 18; TEMP 36.7; O2SAT 98
--- NOTE | 2023-06-22 16:00 | CASEMGMT ---
Social Work Spoke with patient's RN Davida, as to have patient has been doing today. Per RN patient is much improved as compared to the prior day, has been up and moving around better and appears to be less confused. Presented patients room, to attempt discussion about discharge planning but patient was not in room. This movie writer found patient walking in the hallway with a walker with therapy. Therapy also indicates patient is improved compared to the prior day. Patient interjected and stated getting better day by day. Patient's not present on the unit two include in discussion. In light of patient continuing to improve from yesterday until today, the fact that patient is self-pay status with prior reports that unwilling to go to any type of facility unless this can be paid for, and unable to communicate with first source representatives about outcome of meeting on Saturday, social work will wait to continue discussion about potential group home facility until Saturday. Will see at that time if patient has continued to improve. Note, this movie writer also observed patient walking the hallway with walker, up at the nurses station later on in the afternoon. Plan: to be determined. Short-term group home facility versus home with assistance. Lack of insurance and funding is a factor into any type of referral, and of acceptance of any referrals by this patient. Will continue to follow. -FREDERIC Pretty, JOB PUTTER UP AND TICKET PREPARER *This note was generated with [email or web address] dictation software. It may contain incorrect words, spelling, and punctuation that were not noted in review of the chart prior to signing*
[2023-06-22 16:04] VITALS: RESP 18
[2023-06-22 17:47] LABS: Bedside Glucose 190 mg/dL (74-106)
--- NOTE | 2023-06-22 20:53 | NURSING ---
Pt continues to get out of bed without help. Pt will not listen to nursing staff . Pt unsteady at this time. Pt will not use the walker. Pt put in lobo chair at the nursing station.
[2023-06-22 21:57] VITALS: BP 122/64; PULSE 67; RESP 18; TEMP 36.9; O2SAT 97
[2023-06-22] MEDS: 0.9% Saline Lock 10 ML Syringe IV (22:00)
[2023-06-22] MEDS: MELATONIN 3 MG TABLET PO (22:27)
[2023-06-22] MEDS: Pramipexole Di-HCl 0.5 MG Tablet 1.5 MG PO (22:27)
[2023-06-22] MEDS: Mirtazapine 15 MG Tablet PO (22:27)
[2023-06-22] MEDS: Insulin Glargine-YFGN 100 UNIT/ML Pen 30 UNIT SC (22:32)
[2023-06-22 23:50] LABS: Bedside Glucose 211 mg/dL (74-106)
[2023-06-23 01:59] VITALS: BP 150/80; PULSE 71; RESP 20; TEMP 36.5; O2SAT 96
[2023-06-23 05:09] LABS: Absolute Neutrophil Count 6.4 X10^3/uL (2.0-7.7); Basophil# 0.02 X10^3/uL; Basophil% 0.2 % (0-1); Eosinophil# 0.13 X10^3/uL; Eosinophils% 1.6 % (0-5); Hematocrit 34.6 % (40-54); Hemoglobin 10.2 g/dL (13.0-16.5); Lymphocyte % 14.4 % (19-41); Mean Corp Hgb Conc 29.5 g/dL (32-36); Mean Corpuscular Hgb 25.4 pg (27.0-32.0); Mean Corpuscular Volume 86.1 fL (80-94); Mean Platelet Vol. 10.8 fl (6.2-12.0); Monocyte# 0.55 X10^3/uL; Monocyte% 6.6 % (0-10); NRBC Flagged by Analyzer 0 % (0-5); Neutrophil # 6.37 X10^3/uL (2.7-7.7); Neutrophil % 76.7 % (47-70); Platelet Count 223 K/mm3 (150-450); RBC Distribution Width CV 14.8 % (11.6-14.6); RBC Distribution Width SD 45.7 fl (35.1-43.9); Red Blood Count 4.02 M/mm3 (4.6-6.2); White Blood Count 8.3 K/mm3 (4.4-11.0)
[2023-06-23 05:55] LABS: Anion Gap 4 (5-15); BUN 24 mg/dL (7-18); Calcium,Total 8.8 mg/dL (8.5-10.1); Chloride 108 mmol/L (98-107); Creatinine, Serum 2.19 mg/dL (0.70-1.30); EST Glomerular Filtration Rate 31 mL/min (>60); Est Glom Filt Rate - Afr Amer 37 mL/min (>60); Estimated Creatinine Clearance 28.03 ml/min; Glucose 185 mg/dL (74-106); Potassium 3.8 mmol/L (3.5-5.1); Sodium Level 138 mmol/L (136-145)
[2023-06-23 06:41] LABS: Bedside Glucose 139 mg/dL (74-106)
[2023-06-23 08:00] VITALS: BP 129/80; PULSE 68; RESP 18; TEMP 36.6; O2SAT 99
[2023-06-23 08:13] VITALS: PULSE 68; RESP 18; O2SAT 99
[2023-06-23] MEDS: Aspirin 81 MG TAB.CHEW PO (08:22)
[2023-06-23] MEDS: Arthritis Pain Compound 60 CLICK TUBE TOPICAL (10:15)
[2023-06-23] MEDS: Losartan Potassium 25 MG Tablet PO (10:15)
[2023-06-23] MEDS: Ascorbic Acid 500 MG Tablet PO (10:16)
[2023-06-23] MEDS: Venlafaxine XR 37.5 MG Capsule PO (10:16)
[2023-06-23] MEDS: Hydrocortisone 2.5% Crm 1 APPLIC TOPICAL (10:16)
[2023-06-23] MEDS: Heparin Injection (Vial) 5,000 UNIT/ML VIAL 5000 UNIT SC (10:16)
[2023-06-23] MEDS: NYSTATIN 500,000 UNIT/5 ML UDC 500000 UNIT PO (10:17)
[2023-06-23] MEDS: 0.9% Saline Lock 10 ML Syringe IV (10:17)
[2023-06-23] MEDS: Ceftriaxone 1 GM/50 ML BAG IV (10:17)
[2023-06-23] MEDS: Atorvastatin Calcium 80 MG Tablet PO (10:17)
--- NOTE | 2023-06-23 10:53 | DS.PCM_ITS ---
Providers Date of Admission: 06/20/23 Date of Discharge: 06/23/23 Primary Care Physician: Dr. Lloyd Jalloh MD Consultations 06/20/23 17:42 Consult: Onc/Wound/jute bag sewer Routine Comment: Reason for Consult:: ostomt care Comments:: brought in some supplies. Reason For Visit: UTI, WEAKNESS Diagnosis Discharge Diagnosis (1) Falls: Status: Acute Code(s): W19.XXXA - Unspecified fall, initial encounter (2) Weakness: Status: Acute Code(s): R53.1 - Weakness (3) Drug toxicity: Status: Acute Code(s): R89.2 - Abnormal level of other drugs, medicaments and biological substances in specimens from other organs, systems and tissues Plan Medications at Discharge Home Medications losartan 25 mg tablet 25 mg PO DAILY 11/14/21 ropinirole 4 mg tablet 4 mg PO QHS 11/14/21 aspirin 81 mg chewable tablet 81 mg PO BREAKFAST #30 tabs 01/05/22 albuterol sulfate 90 mcg/actuation aerosol inhaler (Ventolin HFA) 2 puff inhalation Q6H PRN sob 05/30/22 ascorbic acid (vitamin C) 500 mg tablet 500 mg PO BID 05/30/22 diazepam 5 mg/5 mL (1 mg/mL) oral solution 5 mg PO BID PRN Muscle Spasm 05/30/22 melatonin 3 mg tablet 3 mg PO QHS 05/30/22 triamcinolone acetonide 0.025 % topical cream 1 applic topical BID 05/30/22 venlafaxine 37.5 mg capsule,extended release 24 hr 37.5 mg PO DAILY 05/30/22 acetaminophen 325 mg tablet 650 mg PO Q6H PRN pain 06/20/23 atorvastatin 80 mg tablet 80 mg PO DAILY CHOLESTEROL 06/20/23 diclofenac sodium 1 % topical gel (Voltaren Arthritis Pain) 2 g topical 4X/DAY ARTHRITIS 06/20/23 insulin glargine 100 unit/mL (3 mL) subcutaneous pen (Basaglar KwikPen U-100 Insulin) 15 unit subcut QHS DIABETES 06/20/23 mirtazapine 15 mg tablet 15 mg PO QHS 06/20/23 polyethylene glycol 3350 17 gram/dose oral powder (Miralax) 17 g PO DAILY CONSTIPATION 06/20/23 tramadol 50 mg tablet 50 mg PO BID PRN pain 06/20/23 nystatin 100,000 unit/mL oral suspension 500,000 unit (5 mL) PO 4X/DAY 5 days #100 mL 06/23/23 pregabalin 50 mg capsule (Lyrica) 50 mg PO TID #90 caps 06/23/23 Hospital Course Operations None Procedures EKG and - (Chest x-ray) Summary of Care Provided Minutes Spent on Discharge: 38 Hospital Course: Mr Aguayo is an 82-year-old predominantly Bengali speaking white male who presented to the emergency department at which [facility]2023 with generalized weakness and debility. Per documentation his tried to get him up on the day of admission and he was found to be profoundly weak and she was unable to adequately care for him at home and brought him to the emergency department. The patient was uncertain why he fell. He did not feel lightheaded or dizzy. He denied striking his head or having any injuries. Due to him being unable to get up his called the paramedics. Patient states that he uses a walker intermittently but it is in the garage and he does not tend to use in the house. He reported that he had a cough on the week of presentation but no fever or chills. He denies shortness of breath chest pain and had no GI symptoms. Vital signs on presentation showed temperature of 97.4, heart rate 74, blood pressure 144/82, respiratory was 20 oxygen saturation was 95% room air. CBC showed a mild anemia with a hemoglobin of 11.6 and this appears to be stable compared to previous he did have a left shift but a normal white count. 78.9% neutrophilia was noted. His chemistry panel showed normal electrolytes however his BUN was slightly elevated at 21 but his serum creatinine was 2.85. His baseline serum creatinine seems to fluctuate some but seems to run between 2 and 2.5 at baseline. His UA was suggestive of infection and some dehydration with a specific gravity of 1.02, positive for blood, nitrites, leuk esterase, white cells, and bacteria. Urine culture was sent. Ceftriaxone was initiated. He was admitted to the medical floor and physical and Occupational Therapy were consulted. His urine culture came back negative. Blood cultures are still pending at the time of discharge however my suspicion for bacteremia is extremely low. We did note that he was on 3 times the Lyrica dose that he should have been for his renal function. He was taking 150 mg 3 times a day with a creatinine clearance between 25 and 30. His Lyrica was held during his hospitalization and he slowly improved with regards to overall physical function and mentation. At discharge we stopped his Lyrica dose that he was taking and transition him to 50 mg 3 times a day which is the max dose for his renal function at this time. Further adjustments may need to be made if his renal fun ction declines any further however it was stable while he was at the hospital and actually improved slightly. We also recommended that he decrease his Valium dosing and only use sparingly on an as-needed basis as this can increase his fatigue and weakness as well and may alter his mentation. He was evaluated by physical and Occupational Therapy and they did recommend that he be placed in a [place] [facility] facility due to generalized weakness however the patient is uninsured and declined this at the time of discharge. They also deferred recommended home health care services. He has a walker at home and while he was here he was fairly stable and ambulation utilizing a walker. I asked him to use his walker at all times and an outside of the house at the time of discharge until he can get a little bit stronger. He does shuffle a bit when he ambulates. As noted I really think that most of his issues were related to Lyrica toxicity. He was able to be discharged home in stable condition on 06/23/2023. I have asked him to follow-up with his primary care physician within the next 1 to 2 weeks for hospital follow-up. Discharge diagnoses: Generalized weakness Debility Lyrica toxicity History of stroke Hypertension Hyperlipidemia CKD stage IV Anemia DM-2 History of seizures Diabetic neuropathy Restless leg syndrome Constipation Chronic pain Depression Physical Exam Const alert, oriented x3, no apparent distress and well nourished; Negative for average body habitus or healthy appearing Constitutional Narrative: Overweight, older, sitting up in a chair at the bedside, watching television, interacts appropriately, very pleasant, eating breakfast General Appearance: cooperative, comfortable, well kempt and well developed Exam Limitations: no limitations Nutritional Appearance: overweight HEENT normocephalic, head/scalp atraumatic and moist oral mucous membranes HEENT Narrative: Dentition is poor, Mallampati is 2, no thrush, mild hearing loss Eyes PERRL and EOMs intact bilaterally Eyes Narrative: No scleral icterus Neck no lymphadenopathy and supple Neck Narrative: Trachea midline, no thyroid enlargement Resp normal respiratory effort, no retractions, no use of accessory muscles and clear to auscultation bilaterally Resp Narrative: Diminished at bases bilaterally due to decreased deep breathing Auscultation: Negative for rales, rhonchi or wheezes Cardio regular rate, regular rhythm, S1 normal heart sound, S2 normal heart sound, no murmurs, no rub, no gallops and no clicks Cardio Narrative: Abnormality with defect in the left upper chest wall in the area of the apex of the lung for lung due to previous removal of ribs GI normal to inspection, nondistended, normoactive bowel sounds, soft to palpation and non-tender GI Narrative: Ostomy in right lower quadrant-stool output is good Extremity no clubbing, cyanosis or edema Extremity Narrative: Pedal pulses are 2+ bilaterally Skin no wounds, skin turgor normal and no jaundice Skin Narrative: Skin grafts done previously on leg and back noted Neuro oriented x3, CN's II-XII intact bilaterally, moves all extremities and no focal motor deficits Neuro Narrative: Strength appears much better, mentation has improved drastically Speech: speech normal Psych affect normal Psych Narrative: Interacts appropriately, jovial with good eye contact and very pleasant Weight / BMI Weight Weight: 85.003 kg Body Mass Index (BMI) 63.8 ABG / Lab / Microbiology Data 06/23/23 04:30 06/23/23 04:30 Laboratory: Laboratory Results - last 24 hr 06/22/23 11:55: POC Glucose 359 H 06/22/23 16:56: POC Glucose 190 H 06/22/23 22:00: POC Glucose 211 H 06/23/23 04:30: WBC 8.3, RBC 4.02 L, Hgb 10.2 L, Hct 34.6 L, MCV 86.1, MCH 25.4 L, MCHC 29.5 L, RDW Std Deviation 45.7 H, RDW Coeff of Meenu 14.8 H, Plt Count 223, MPV 10.8, Immature Gran % (Auto) 0.500, Neut % (Auto) 76.7 H, Lymph % (Auto) 14.4 L, [place] % (Auto) 6.6, Eos % (Auto) 1.6, Baso % (Auto) 0.2, Absolute Neuts (auto) 6.4, Absolute Lymphs (auto) 1.20, Nucleated RBC % 0, Sodium 138, Potassium 3.8, Chloride 108 H, Carbon Dioxide 26.0, Anion Gap 4 L, BUN 24 H, Creatinine 2.19 H, Estim Creat Clear Calc 28.03, Est GFR (MDRD) Af Amer 37 L, Est GFR (MDRD) Non-Af 31 L, BUN/Creatinine Ratio 11.0, Glucose 185 H, Calcium 8.8 06/23/23 06:13: POC Glucose 139 H Microbiology: Microbiology 06/20/23 14:30 Urine, Random Urine Culture - Final Mixed Gram Positive Organisms 06/21/23 09:34 Mucosa - Nasopharyngeal Respiratory Panel (PCR) - Final 06/21/23 09:34 Mucosa - Nasopharyngeal SARS-CoV-2, Influenza & RSV (PCR) - Final D/C Instructions Discharge Diet: Light diet - advance as tolerated Discharge Activity: Return to Normal Activity Meaningful Use Info Meaningful Use Diagnoses (Choose all that apply): None applicable Discharge Plan Admission Admit Date/Time: 06/20/23 16:05 Primary Reason for Your Visit: Generalized weakness/debility Attending Provider: Kamila Reyes Primary Care Provider: Lloyd Jalloh Consulting Providers: Gio Camacho Instructions Additional Instructions / Restrictions: 1. Please use a walker at all times while you are ambulating in an outside of the house to help decrease your falling risk 2. I think most of your issues when you came to the hospital we will related to the fact that you are taking too high of a Lyrica dose for your kidney function. We have changed your Lyrica dose to what is appropriate dosing for your liver function. Please do not take more than what we prescribed at the time you are discharged from the hospital. 3. Use the diazepam as little as possible as this may increase your weakness and fatigue as well. Discharge Orders/Prescriptions Prescriptions: New nystatin 100,000 unit/mL Suspension 500,000 unit PO 4X/DAY 5 Days Qty: 100 0RF pregabalin [Lyrica] 50 mg capsule 50 mg PO TID Qty: 90 0RF Continued losartan 25 mg tablet 25 mg PO DAILY ropinirole 4 mg tablet 4 mg PO QHS aspirin 81 mg Tablet,Chewable 81 mg PO BREAKFAST Qty: 30 0RF melatonin 3 mg tablet 3 mg PO QHS ascorbic acid (vitamin C) 500 mg tablet 500 mg PO BID diazepam 5 mg/5 mL (1 mg/mL) solution 5 mg PO BID PRN (Reason: Muscle Spasm) triamcinolone acetonide 0.025 % cream 1 applic TOPICAL BID Patient Comments: APPLY TO THE BACK TWICE DAILY NEEDED FOR ITCHING venlafaxine 37.5 mg capsule,extended release 24hr 37.5 mg PO DAILY albuterol sulfate [Ventolin HFA] 90 mcg/actuation HFA aerosol inhaler 2 puff INHALATION Q6H PRN (Reason: sob) acetaminophen 325 mg tablet 650 mg PO Q6H PRN (Reason: pain) atorvastatin 80 mg tablet 80 mg PO DAILY diclofenac sodium [Voltaren Arthritis Pain] 1 % gel 2 g topical 4X/DAY insulin glargine [Basaglar KwikPen U-100 Insulin] 100 unit/mL (3 mL) insulin pen 15 unit subcut QHS mirtazapine 15 mg tablet 15 mg PO QHS polyethylene glycol 3350 [Miralax] 17 gram/dose powder 17 g PO DAILY tramadol 50 mg tablet 50 mg PO BID PRN (Reason: pain) Discontinued pregabalin 150 mg capsule 150 mg PO TID Referrals / Follow Up: Lloyd Jalloh MD [Primary Care Provider] - Within 1 Week Disposition Disposition (needs filled in before D/C Order can be placed): Home, Self Care Charges/Coding Visit Charges Inpatient E&M: 18936 Disch Hosp >30min
[2023-06-23 12:42] VITALS: BP 130/80; PULSE 67; RESP 18; TEMP 36.6; O2SAT 96
== END 2023-06-23 13:46 | disposition home or self-care (01) | DRG 918 ==
LOC: ED 15:40 → MS3 15:43
PROVIDERS: Physician Assistant; Emergency Provider Emergency Medicine; PCP Internal Medicine; Visit Provider Internal Medicine
DX: T42.6X1A Poisoning by other antiepileptic and sedative-hypnotic drugs, accidental (unintentional), initial encounter (principal); N18.4 Chronic kidney disease, stage 4 (severe); D63.1 Anemia in chronic kidney disease; E11.40 Type 2 diabetes mellitus with diabetic neuropathy, unspecified; E11.22 Type 2 diabetes mellitus with diabetic chronic kidney disease; Z79.4 Long term (current) use of insulin; E11.65 Type 2 diabetes mellitus with hyperglycemia; Z93.3 Colostomy status; F32.A Depression, unspecified; I12.9 Hypertensive chronic kidney disease with stage 1 through stage 4 chronic kidney disease, or unspecified chronic kidney disease; G25.81 Restless legs syndrome; E78.00 Pure hypercholesterolemia, unspecified; K59.00 Constipation, unspecified; R54 Age-related physical debility; R29.6 Repeated falls; G89.29 Other chronic pain; Z66 Do not resuscitate; Z79.82 Long term (current) use of aspirin; Z79.899 Other long term (current) drug therapy; Z86.69 Personal history of other diseases of the nervous system and sense organs; Z87.891 Personal history of nicotine dependence
CPT/HCPCS: 36415; 71045; 80048; 80053; 81001; 82962; 83036; 83735; 84100; 84484; 85025; 87040; 87086; 87088; 87631; 87633; 93005; 97162; 97166; 97530; 97535; 97802; 99285; J7030; A4216

== ENCOUNTER 2024-11-11 14:05 | Emergency (ER) | payer SELFPAY ==
[2024-11-11] VITALS (11 sets, daily range): BP systolic 89–126; BP diastolic 54–73; PULSE 43–85; RESP 15–20; TEMP 36.4–37.6; O2SAT 93–99; BMI 28.5
--- NOTE | 2024-11-11 14:17 | CT_ITS ---
PROCEDURE: ABDOMEN/PELVIS WITHOUT CONT 11/11/2024 REASON FOR EXAM: LEFT FLANK PAIN TECHNIQUE: ABDOMEN/PELVIS WITHOUT CONT Noncontrast technique limits evaluation of the abdominal and pelvic viscera. Coronal and Sagittal reconstruction series were provided. One or more dose reduction techniques were used (e.g., Automated exposure control, adjustment of the mA and/or kV according to patient size, use of iterative reconstruction technique). RADIATION DOSE SUMMARY: CTDlvol: 9.72 mGy DLP: 534.46 mGycm COMPARISON: Prior study dated February 01, 2023. 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 The anastomosis at the T2 level. Gaseous distention of the bowel interposition segment. Lung bases: Stable mild linear scarring at the lung bases. Coronary artery calcification. Liver: Normal size. No obvious mass. Gallbladder: The gallbladder is contracted. Findings suggestive of sludge in the gallbladder lumen. Spleen: Normal size. Pancreas: Normal size. No surrounding inflammation. Adrenals: Unremarkable Kidneys: Moderate degree of left hydronephrosis. I suspect a calculus at the left ureteropelvic junction. A left-sided double-J stent catheter is seen down to the bladder. Left perinephric stranding. Bladder: Mild degree of bladder wall thickening. Bowel: Colonic diverticulosis without diverticulitis. An ostomy is seen in the right lower quadrant. Appendix: The appendix is not identified. There is no inflammatory process identified in the right lower quadrant to suggest appendicitis. Lymph nodes: Unremarkable. Vasculature: Mild diffuse atherosclerotic calcifications are noted. Peritoneum / Retroperitoneum: Unremarkable Bones: Degenerative changes of the spine. CT/Abdomen/Pelvis without Cont IMPRESSION: Status post esophageal resection with interposition as described. Ostomy in the left lower quadrant. Left-sided double-J stent catheter with moderate degree of left hydronephrosis due to a calculus at the ureteropelvic junction on the left side. Reading Location: [id number]
--- NOTE | 2024-11-11 14:18 | EX.ED.DYSGE1 ---
HPI History of Present Illness Chief Complaint: Flank Pain Detail of Chief Complaint: Left leg pain Informant: patient Narrative Narrative: Patient presents with left-sided flank pain that started 4 days ago. Went to [facility] where he sat in the waiting room for 14 hours and then left. Patient then apparently tried to go back to [place] yesterday but their car broke down. He has history of kidney stones. He is got a stent in his left ureter since October 14 due to kidney stones. Saw urologist last week and was told he wanted to leave the stent in because there was a kidney stone behind it. Patient with fever up to 100.8 last night. He had sweats and was flushed. Patient's daughter gives some of the history. Patient not anticoagulated. Patient also has a colostomy. [facility] Medical History (Updated 11/11/24 @ 21:[address] 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 Anxiety and depression History of tobacco use CKD (chronic kidney disease), stage III Diabetic neuropathy History of seizure disorder Hypercholesterolemia DM type 2 (diabetes mellitus, type 2) Chronic asthmatic bronchitis History of CVA (cerebrovascular accident) Home Medications ?Medication ?Instructions ?Recorded ?Last Taken ?Type diazepam 5 mg/5 mL (1 mg/mL) oral 5 mg PO BID PRN Muscle Spasm 05/30/22 Unknown History solution insulin glargine 100 unit/mL (3 30 unit subcut .QAM DIABETES 06/20/23 11/11/24 History mL) subcutaneous pen (Basaglar KwikPen U-100 Insulin) acetaminophen 500 mg tablet 1,000 mg PO Q6H PRN PRN pain 11/11/24 11/11/24 History risperidone 0.25 mg tablet 0.25 mg PO BID 11/11/24 11/11/24 History sodium bicarbonate 650 mg tablet 650 mg PO BID 11/11/24 11/11/24 History Allergy/AdvReac Type Severity Reaction Status Date / Time No Known Allergies Allergy Verified 11/11/24 14:09 Family History Mother Myocardial infarction Hypertension Father Diabetes Alzheimer disease Surgical History History of embolic filter insertion History of esophageal surgery History of eye surgery History of appendectomy Social History household members: spouse Smoking Status: Former smoker how long ago did patient quit smoking: Quit 1-2 years prior, smoked occasional cigars. alcohol intake: never substance use type: does not use ROS ROS ED Review of Systems ROS Unobtainable: other Constitutional Constitutional ED: Reports lethargy; Denies chills, fever(s), sweats or weight loss Eyes Eyes: Denies blurry vision, change in vision or diplopia ENT ENT ED: Denies rhinorrhea or sore throat Cardiovascular Cardiovascular: Denies chest pain, orthopnea or racing heartbeat Respiratory/Chest Respiratory/Chest: Denies cough, dyspnea, dyspnea on exertion, orthopnea or sputum Gastrointestinal Gastrointestinal: Reports abdominal pain; Denies diarrhea, nausea or vomiting Genitourinary Genitourinary ED: Reports dysuria; Denies hematuria or urinary frequency Musculoskeletal Musculoskeletal: Reports back pain; Denies arthralgias, myalgias or neck pain Integumentary Denies abscess, Abrasions or rash Neurologic Neurologic: Denies headache(s) or weakness Psychiatric Psychiatric: Denies anxiety, depression or suicidal thoughts Endocrine Endocrinology: Denies polydipsia, polyphagia or polyuria Hematologic/Lymphatic Hematologic/Lymphatic: Denies easy bleeding, easy bruising or lymphadenopathy Allergic/Immunologic Allergic/Immunologic ED: Denies mouth swelling, tongue swelling or urticaria EXAM Physical Exam Const Vital Signs: 11/11/24 14:09 11/11/24 15:57 11/11/24 15:58 Temperature 99.7 F H 99.2 F H Temperature Source Oral Oral Pulse Rate 76 85 Respiratory Rate 16 17 Blood Pressure 123/73 H 102/60 102/60 Blood Pressure Mean 89 74 74 Pulse Ox 96 93 Oxygen Delivery Method Room Air Room Air 11/11/24 16:57 11/11/24 17:00 11/11/24 18:00 Temperature 99.2 F H 99.2 F H 97.6 F L Temperature Source Oral Oral Oral Pulse Rate 43 L 43 L Respiratory Rate 15 15 Blood Pressure 102/71 102/71 Blood Pressure Mean 81 81 Pulse Ox 94 94 Oxygen Delivery Method Room Air Room Air 11/11/24 18:00 11/11/24 19:00 11/11/24 20:00 Temperature 97.6 F L 97.6 F L 97.6 F L Temperature Source Oral Oral Oral Pulse Rate 72 71 68 Respiratory Rate 15 17 19 H Blood Pressure 99/54 L 89/54 L 106/63 Blood Pressure Mean 69 65 77 Pulse Ox 93 96 99 Oxygen Delivery Method Room Air Room Air Room Air 11/11/24 21:00 11/11/24 21:17 11/11/24 21:19 Temperature 98.8 F 98.8 F 98.8 F Temperature Source Oral Oral Pulse Rate 69 71 71 Respiratory Rate 20 H 19 H 19 H Blood Pressure 109/60 126/70 H 126/70 H Blood Pressure Mean 76 88 88 Pulse Ox 97 98 98 Oxygen Delivery Method Room Air Room Air Positive well nourished and well developed General Appearance ED: well developed and NAD HEENT Reports TM's clear and moist mucous membranes normocephalic and atraumatic; Negative for trauma or tenderness Tympanic Membrane ED: Yes TM's clear Eyes PERRL and EOMs intact bilaterally General Eye ED: Negative for pale conjunctiva or scleral icterus Neck no lymphadenopathy, supple and no JVD General: Negative for tenderness Chest Wall inspection of chest normal and palpation of chest normal Chest: Negative for tenderness Resp normal respiratory effort and clear to auscultation bilaterally Effort and Inspection: Negative for respiratory distress or pain with movement Auscultation: Negative for rhonchi, wheezes or diminished lung sounds Cardio regular rate, regular rhythm, S1 normal heart sound, S2 normal heart sound and no murmurs Peripheral Pulses: pulses 2+ throughout GI normal to inspection, nondistended, normoactive bowel sounds, soft to palpation, non-distended and no masses GI Narrative: Tenderness palpation over left lower quadrant with some guarding. There is no rebound, rigidity, or perio signs. No mass palpated. Positive CVA on the left. Patient has colostomy right lower abdomen. There is some liquidy stool that has some faint gross blood noted. Back/Spine no CVA tenderness and no thoracic nor lumbar tenderness Extremity normal to inspection General Extremety ED: Negative for edema General Extremity: Negative for edema Neuro oriented x3, CN's II-XII intact bilaterally, no sensory deficits noted and gait normal Sensorium / Orientation: awake, alert, oriented to person, oriented to place and oriented to time Motor Exam: strength 5/5 throughout and strength abnormal Psych mental status grossly normal Skin no rashes or lesions noted and no wounds MDM MDM MDM Narrative Medical decision making narrative: Patient presents with left-sided flank pain with history of nephrostomy (he ureteral stent). Patient with low-grade fever at home. IV line established. CBC with differential obtained showed white count of 12.1 with hemoglobin 13.2 and platelet count of 200. Chemistries unremarkable. BUN 54 and creatinine 6.92. Lactate was 1.3. Urinalysis positive for nitrites as well as 500 leukocyte esterase and 50-100 WBCs with +1 bacteria. Urine culture ordered. Lactate obtained was normal at 1.3. Patient started on Rocephin [address] scan of the abdomen pelvis showed left-sided double-J stent catheter with moderate degree of left hydronephrosis due to a calculus at the ureteropelvic junction on the left side. Discussed case with [facility] and they recommended transfer to [facility]. Discussed case with [facility] Dr. Pineda who accepted transfer of patient however I was asked to send patient from emergency department to their emergency department and spoke with Dr. Vaughn who also accepted transfer of patient. Patient was given IV fluid boluses as his blood pressure started to trend down into the 80s and 90s systolic. Concerned about possible early sepsis and decompensation. Lab Data Attestation: I reviewed the patient's lab results. Labs: Laboratory Results - last 24 hr 11/11/24 11/11/24 15:00 15:15 WBC 12.1 H RBC 4.17 L Hgb 13.2 Hct 39.4 L MCV 94.5 H MCH 31.7 MCHC 33.5 RDW Std Deviation 44.7 H RDW Coeff of Meenu 13.0 Plt Count 200 MPV 10.1 Immature Gran % (Auto) 0.700 Neut % (Auto) 86.0 H Lymph % (Auto) 6.9 L [place] % (Auto) 6.2 Eos % (Auto) 0.1 Baso % (Auto) 0.1 Absolute Neuts (auto) 10.4 H Absolute Lymphs (auto) 0.83 Nucleated RBC % 0 Sodium 132 L Potassium 4.9 Chloride 100 Carbon Dioxide 15.7 L Anion Gap 17 H BUN 54 H Creatinine 6.92 H Estim Creat Clear Calc 8.61 L* Est GFR (MDRD) Non-Af 7 L BUN/Creatinine Ratio 7.8 L Glucose 212 H Lactic Acid 1.3 Calcium 9.2 Urine Color Yellow Urine Clarity Cloudy Urine pH 6.0 Ur Specific [place] 1.015 Urine Protein 100 H Urine Glucose (UA) 100 H Urine Ketones Negative Urine Occult Blood 250 H Urine Nitrite Positive H Urine Bilirubin Negative Urine Urobilinogen Normal Ur Leukocyte Esterase 500 H Urine RBC 5-10 SEEN Urine WBC 50-100 SEEN Ur Squamous Epith Cells 0 SEEN Urine Bacteria 1+ Urine Mucus 0 SEEN Radiography Diagnostic Testing: Clinical Impression(s) from Imaging Studies Abdomen/Pelvis CT 11/11/24 14:17 IMPRESSION: Status post esophageal resection with interposition as described. Ostomy in the left lower quadrant. Left-sided double-J stent catheter with moderate degree of left hydronephrosis due to a calculus at the ureteropelvic junction on the left side. Reading Location: [facility] Critical Care Time Critical care time (excluding procedures): 30-74 minutes, Including time spent:, Discussing w/Patient &/or Family/Cook Pie, Discussing w/Consultants, Arranging Admission or Transfer, Performing Direct Patient Care at Bedside and - (30 minutes) Discharge Plan Triage Chief Complaint: Flank Pain ED Provider: Diana Rosado Dx/Rx/DC Orders Clinical Impression: Acute UTI, [place] (acute kidney injury), Transient hypotension, Urolithiasis Prescriptions: No Action diazepam 5 mg/5 mL (1 mg/mL) solution 5 mg PO BID PRN (Reason: Muscle Spasm) insulin glargine [Basaglar KwikPen U-100 Insulin] 100 unit/mL (3 mL) insulin pen 30 unit subcut .QAM risperidone 0.25 mg tablet 0.25 mg PO BID acetaminophen 500 mg tablet 1,000 mg PO Q6H PRN PRN (Reason: pain) sodium bicarbonate 650 mg tablet 650 mg PO BID Primary Care Provider: Lloyd Jalloh Referrals: Lloyd Jalloh MD [Primary Care Provider] - Print Language: Croatian Disposition Disposition: DC/Tx to Another Type of HCF
[2024-11-11] MEDS: 0.9% Normal Saline (1000mL) 1,000 ML 150 ML IV (15:15)
[2024-11-11 15:23] LABS: Hematocrit 39.4 % (40-54); Hemoglobin 13.2 g/dL (13.0-16.5); Immature Granulocytes Count 0.090 X10^3/uL (0.0-0.0); Mean Corp Hgb Conc 33.5 g/dL (32-36); Mean Corpuscular Volume 94.5 fL (80-94); Mean Platelet Vol. 10.1 fl (6.2-12.0); NRBC Flagged by Analyzer 0 % (0-5); Platelet Count 200 K/mm3 (150-450); RBC Distribution Width CV 13.0 % (11.6-14.6); RBC Distribution Width SD 44.7 fl (35.1-43.9); Red Blood Count 4.17 M/mm3 (4.6-6.2); White Blood Count 12.1 K/mm3 (4.4-11.0)
[2024-11-11 15:28] LABS: Mucous, Urine 0 SEEN /hpf (<or=2+); Squamous Epithelial Cells - UA 0 SEEN /hpf (0-5)
[2024-11-11 15:44] LABS: Anion Gap 17 (5-15); BUN 54 mg/dL (4-19); BUN/Creat Ratio 7.8 RATIO (10-20); Calcium,Total 9.2 mg/dL (7.6-11.0); Carbon Dioxide 15.7 mmol/L (21.0-32.0); Chloride 100 mmol/L (98-108); Estimated Creatinine Clearance 8.61 ml/min (50-250); Glucose 212 mg/dL (70-99); Potassium 4.9 mmol/L (3.3-5.1)
[2024-11-11 16:16] LABS: Color, Urine Yellow (Yellow); Glucose, Dipstick 100 mg/dl (Normal); Ketone-Dipstick Negative (Negative); Leukocyte Esterase-Dipstick 500 /ul (Negative); Nitrite-Dipstick Positive (Negative); Occult Blood-Urine 250 /ul (Negative); Protein-Dipstick 100 mg/dl (Negative); Specific Gravity, Urine 1.015 (1.002-1.030); Urine Bilirubin Dipstick Negative (Negative)
[2024-11-11 17:30] LABS: Red Blood Cells-Urine 5-10 SEEN /hpf (0-5)
--- NOTE | 2024-11-11 18:51 | PCA ---
Attempted transfer to [facility],per pt daughter request @[phone]. [facility] does not have urology available so they cannot take pt. Attempted [facility] next @ 1850, transfer center stated will most likely be multiple day wait list. Attempting [facility] per recommendation of Milli Ramos.
--- NOTE | 2024-11-11 19:21 | ED.RN ---
Daughter updated on transfer
[2024-11-11] MEDS: 0.9% Normal Saline (1000mL) 1,000 ML 999 ML IV ×2 (19:35→20:14)
--- NOTE | 2024-11-11 20:17 | ED.RN ---
lab states has received both blood cultures
[2024-11-11] MEDS: 0.9% Normal Saline (500mL Bag) 500 ML 999 ML IV (20:26)
--- NOTE | 2024-11-11 21:15 | ED.RN ---
Report called to [facility]
[2024-11-11 22:36] LABS: Prothrombin Time (Protime)PT. 16.1 SECONDS (11.7-14.9)
[2024-11-11 22:37] LABS: Partial Thromboplast Time 36.1 Seconds (24.1-36.2)
== END 2024-11-11 21:56 | disposition other institution (70) ==
PROVIDERS: Emergency Provider Emergency Medicine; PCP Internal Medicine; Visit Provider Emergency Medicine
DX: N13.2 Hydronephrosis with renal and ureteral calculous obstruction (principal); Z93.3 Colostomy status; Z93.6 Other artificial openings of urinary tract status; E11.22 Type 2 diabetes mellitus with diabetic chronic kidney disease; E11.40 Type 2 diabetes mellitus with diabetic neuropathy, unspecified; Z79.4 Long term (current) use of insulin; N18.30 Chronic kidney disease, stage 3 unspecified; N17.9 Acute kidney failure, unspecified; E78.00 Pure hypercholesterolemia, unspecified; M79.605 Pain in left leg; R03.1 Nonspecific low blood-pressure reading; Z86.73 Personal history of transient ischemic attack (TIA), and cerebral infarction without residual deficits; Z79.899 Other long term (current) drug therapy; Z87.891 Personal history of nicotine dependence
CPT/HCPCS: 51702; 74176; 80048; 81001; 83605; 85025; 85610; 85730; 87040; 87077; 87086; 87088; 87186; 96361; 96365; 96375; 96376; 99285; A4216; J2405

== ENCOUNTER 2025-03-09 10:17 | Observation (INO) | payer SELFPAY ==
[2025-03-09] VITALS (11 sets, daily range): BP systolic 113–146; BP diastolic 65–87; PULSE 64–78; RESP 16–33; TEMP 36.1–37.1; O2SAT 96–100; BMI 29.5; BMI 25.8
--- NOTE | 2025-03-09 10:40 | EKG12_ITS ---
Test Reason : SOB Blood Pressure : */* mmHG Vent. Rate : 72 BPM Atrial Rate : 72 BPM P-R Int : 160 ms QRS Dur : 74 ms QT Int : 374 ms P-R-T Axes : * 5 50 degrees QTcB Int : 409 ms Sinus rhythm with Premature atrial complexes Otherwise normal ECG Confirmed by Taj Rocha [id number]), editor department JANI BOATENG ([id number]) on 03/10/2025 10:22:12 AM Referred By: Confirmed By: Taj Rocha
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
[2025-03-09 10:47] LABS: Hematocrit 32.7 % (40-54); Hemoglobin 9.6 g/dL (13.0-16.5); Immature Granulocytes Count 0.040 X10^3/uL (0.0-0.0); Mean Corp Hgb Conc 29.4 g/dL (32-36); Mean Corpuscular Volume 80.9 fL (80-94); Mean Platelet Vol. 10.1 fl (6.2-12.0); NRBC Flagged by Analyzer 0 % (0-5); Platelet Count 267 K/mm3 (150-450); RBC Distribution Width CV 16.0 % (11.6-14.6); RBC Distribution Width SD 47.1 fl (35.1-43.9); Red Blood Count 4.04 M/mm3 (4.6-6.2); White Blood Count 8.4 K/mm3 (4.4-11.0)
[2025-03-09] MEDS: 0.9% Normal Saline (1000mL) 1,000 ML 1000 ML IV (10:58)
--- NOTE | 2025-03-09 11:15 | RAD_ITS ---
PROCEDURE: CHEST PA AND LATERAL, 03/09/2025 REASON FOR EXAM: WEAKNESS TECHNIQUE: A single portable AP view of the chest was obtained. COMPARISON: 06/20/2023 FINDINGS: Heart: Unremarkable. Mediastinum: Grossly similar widening of the RIGHT paratracheal stripe better evaluated on CT 02/01/2023. Abnormal appearance of the anterior mediastinum on the lateral view presumably postoperative and related to operative changes better depicted on 02/01/2023. Lungs/pleura: No focal consolidation. No appreciable pleural effusion or visible pneumothorax. Bones: Suspect demineralization. Mild degenerative findings. Similar resection or resorption of the medial LEFT clavicle. Similar old LEFT rib fractures. Lines and support devices: None. Other: Abdominal aortic atherosclerosis. RAD/Chest PA and Lateral IMPRESSION: 1. No visible acute cardiopulmonary findings 2. Additional description as above. Reading Location: [id number]
[2025-03-09 11:20] LABS: Anion Gap 12 (5-15); BUN 27 mg/dL (4-19); BUN/Creat Ratio 8.1 RATIO (10-20); Calcium,Total 9.1 mg/dL (7.6-11.0); Carbon Dioxide 20.8 mmol/L (21.0-32.0); Chloride 103 mmol/L (98-108); Estimated Creatinine Clearance 17.86 ml/min (50-250); Glucose 191 mg/dL (70-99); Potassium 4.7 mmol/L (3.3-5.1)
[2025-03-09 11:53] LABS: Color, Urine Yellow (Yellow); Glucose, Dipstick Normal (Normal); Ketone-Dipstick Negative (Negative); Leukocyte Esterase-Dipstick 100 /ul (Negative); Nitrite-Dipstick Positive (Negative); Occult Blood-Urine 150 /ul (Negative); Protein-Dipstick 30 mg/dl (Negative); Specific Gravity, Urine 1.020 (1.002-1.030); Urine Bilirubin Dipstick Negative (Negative)
--- NOTE | 2025-03-09 11:57 | HP.PCM.HOS_ITS ---
HPI - General General Date of Admission: 03/09/25 Date of Service: 03/09/25 Chief Complaint: weakness, debility HPI Narrative JOSE DARLING, is a 84 M who is Ethiopian speaking, who was admitted via the ED on 03/09/2025 with a complaitn of weakness and failure to thrive which had been going on for about 6 years. He was admitted with a complaint of weakness and inability to ambulate and failure to thrive. His daughter and were present, and his daughter translated for him. He had been feeling very weak and his daughter said patient had not been able to ambulate. He had fallen and she and her mother had to help move him to the couch. He had noticed that he had had a fever over the past 2 days but denied any chills. He had also been coughing occasionally but he did not have any shortness of breath. He had some nausea but no vomiting or diarrhea. He denied any palpitations and review of systems otherwise negative. Vitals in [facility] ED were BP of 132/78, UT of 78, RR of 16 and temp of 97.8F. He was saturating at 99% on room air. CBC showed hemoglobin of 9.6 with WBC of 8.4 and platelets of 267. Urinalysis did show evidence of UTI with 2+ bacteria. Chemistry showed creatinine of 3.33. Family subsequently complained that patient had a mild droop which they felt was new though he did have a history of stroke. He has been admitted to be managed for stroke rule out and also for debility and weakness with UTI. 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 Anxiety and depression History of tobacco use CKD (chronic kidney disease), stage III Diabetic neuropathy History of seizure disorder Hypercholesterolemia DM type 2 (diabetes mellitus, type 2) Chronic asthmatic bronchitis History of CVA (cerebrovascular accident) Home Medications ?Medication ?Instructions ?Recorded ?Last Taken ?Type diazepam 5 mg/5 mL (1 mg/mL) oral 5 mg PO BID PRN Musc le Spasm 05/30/22 03/08/25 History solution insulin glargine 100 unit/mL (3 30 unit subcut DAILY D IABETES 06/20/23 03/08/25 History mL) subcutaneous pen (Basaglar KwikPen U-100 Insulin) acetaminophen 500 mg tablet 1,000 mg PO Q6H PRN pain 0 11/11/24 03/08/25 History risperidone 0.25 mg tablet 0.25 mg PO BID dementia 03/08/25 History sodium bicarbonate 650 mg tablet 650 mg PO BID gerd 03/08/25 History albuterol sulfate 2.5 mg/3 mL 2.5 mg inhalation Q6H UT N wheezing 03/09/25 03/07/25 History (0.083 %) solution for nebulization atorvastatin 40 mg tablet 40 mg PO QHS cholesterol 03/08/25 History donepezil 5 mg tablet 5 mg PO DAILY dementia 03/0903/08/25 History insulin lispro 100 unit/mL 6 unit subcut TID diabetes 03/09/25 03/08/25 History subcutaneous pen olanzapine 2.5 mg tablet 2.5 mg PO QHS mood 03/09/25 03/08/25 History pantoprazole 40 mg tablet,delayed 40 mg PO DAILY gerd 03/09/25 03/08/25 History release tamsulosin 0.4 mg capsule 0.4 mg PO DAILY prostate 03/08/25 History tramadol 50 mg tablet 50 mg PO Q12H PRN pain 03/09 Unknown History warfarin 4 mg tablet 4 mg PO DAILY anticoagulant 03/09/25 03/08/25 History Allergy/AdvReac Type Severity Reaction Status Date / Time No Known Allergies Allergy Verified 03/09/25 10:29 Family History Mother Myocardial infarction Hypertension Father Diabetes Alzheimer disease Surgical History History of embolic filter insertion History of esophageal surgery History of eye surgery History of appendectomy Social History household members: spouse Smoking Status: Former smoker how long ago did patient quit smoking: Quit 1-2 years prior, smoked occasional cigars. alcohol intake: never substance use type: does not use ROS ROS Narrative daughter translated for him. Constitutional Constitutional: Denies anorexia, chills, fatigue, fever(s), malaise or weakness Eyes Eyes: Denies change in vision ENT HEENT: Denies dysphagia, headache(s) or sore throat Cardiovascular Cardiovascular: Denies chest pain, dyspnea on exertion, edema, orthopnea, palpitations, paroxysmal nocturnal dyspnea, rapid heart rate or syncope Respiratory/Chest Respiratory/Chest: Reports cough; Denies dyspnea, hemoptysis, productive cough, shortness of breath at rest, shortness of breath with exertion or wheezing Gastrointestinal Gastrointestinal: Reports nausea; Denies abdominal pain, constipation, diarrhea or vomiting Genitourinary Genitourinary: Denies burning urination or dysuria Musculoskeletal Musculoskeletal: Denies arthralgias Neurologic Neurologic: Denies confusion, dizziness, focal weakness, headache(s) or numbness Psychiatric Psychiatric: Denies anxiety or depression Vital Signs Vital Signs Vital Signs: 03/09/25 10:24 03/09/25 10:30 03/09/25 11:07 Temperature 98.7 F 98.3 F Temperature Source Oral Oral Pulse Rate 71 72 Respiratory Rate 33 H 22 H Respiratory Effort Short of Breath Respiratory Pattern Tachypnea Blood Pressure 146/73 H 143/74 H Blood Pressure Mean 97 97 Pulse Ox 97 97 Oxygen Delivery Method Room Air Room Air 03/09/25 11:23 Temperature Temperature Source Pulse Rate 69 Respiratory Rate 30 H Respiratory Effort Respiratory Pattern Blood Pressure 133/87 H Blood Pressure Mean 102 Pulse Ox 98 Oxygen Delivery Method Room Air Weight Weight: 188 lb 4.396 oz Body Mass Index (BMI) 29.5 Physical Exam Const alert and no apparent distress Constitutional Narrative: frail, weak General Appearance: cooperative HEENT normocephalic, head/scalp atraumatic and oropharynx normal HEENT Narrative: dry oral mucosa Eyes EOMs intact bilaterally and conjunctivae normal Neck supple and no JVD Resp Resp Narrative: mildly diminshed breath sounds bibasally, no wheezes or crackles. On room air. Cardio regular rate, regular rhythm, S1 normal heart sound, S2 normal heart sound and no murmurs GI normal to inspection, nondistended, normoactive bowel sounds, soft to palpation and non-tender GI Narrative: has colostomy bag in place Extremity normal to inspection, full ROM and no clubbing, cyanosis or edema Neuro oriented x3, CN's II-XII intact bilaterally and moves all extremities Sensorium / Orientation: awake and alert Motor Exam: strength 5/5 throughout Psych Psych Narrative: flat affect Results Lab / Micro Data 03/09/25 10:37 03/09/25 10:37 Labs: Laboratory Results - last 24 hr 03/09/25 10:37: WBC 8.4, RBC 4.04 L, Hgb 9.6 L, Hct 32.7 L, MCV 80.9, MCH 23.8 L , MCHC 29.4 L, RDW Std Deviation 47.1 H, RDW Coeff of Meenu 16.0 H, Plt Count 267, MPV 10.1, Immature Gran % (Auto) 0.500, Neut % (Auto) 80.3 H, Lymph % (Auto) 12.0 L, [place] % (Auto) 6.6, Eos % (Auto) 0.4, Baso % (Auto) 0.2, Absolute Neuts (auto) 6.8, Absolute Lymphs (auto) 1.01, Nucleated RBC % 0, Sodium 135, Potassium 4.7, Chloride 103, Carbon Dioxide 20.8 L, Anion Gap 12, BUN 27 H, C reatinine 3.33 H, Estim Creat Clear Calc 17.86 L, Est GFR (MDRD) Non-Af 18 L, B UN/Creatinine Ratio 8.1 L, Glucose 191 H, Calcium 9.1 Assessment & Plan Assessment/Plan (1) UTI (urinary tract infection): (2) Unable to ambulate: (3) Falls: (4) Weakness: PLAN: Plan #Debility and weakness with failure to thrive * Admit to PCU. * Hydrate gently with IV fluid normal saline. * PT OT consult. Fall precautions. #Strokelike symptoms * Patient has right-sided facial droop. Neuroexamination is otherwise normal. * CT of the brain showed no acute intracranial pathology. Will get MRI of the brain and carotid ultrasound * P.o. aspirin 81 mg daily and p.o. atorvastatin * Monitor NIH stroke scale. Order 2D echo. * Dysphagia screen and placed on a cardiac diet once he passes dysphagia screen. * PT OT consult. Fall precautions. * #UTI: Urinalysis showed evidence of UTI. Will start on IV ceftriaxone and get urine cultures. #CKD stage IV: Creatinine is 3.33 which is actually lower than her baseline. Will monitor. #Type 2 diabetes mellitus: On Lantus 30 units daily. Insulin sliding scale. Checks ACHS. #History of depression: On olanzapine DVT prophylaxis: On Coumadin. Unclear why. He has had a histoyr of stroke, which was thought to be possibly embolic, so this may be the reason why CODE STATUS: DNR CCA with intubation * I discussed CODE STATUS with patient and his and daughter. They were counseled about the difference between full code, DNR CCA and DNR CC. Daughter translated into Ethiopian as patient speaks only Ethiopian. Patient would like to be on the ventilator but does not want CPR. * Patient therefore opts to be DNR CCA with intubation. Charges/Coding Visit Charges Inpatient E&M: 58705 Init Hosp L3 Procedures Hospitalists Procedures: 84611 Advncd Care Plan 30 Min
--- NOTE | 2025-03-09 12:35 | CT_ITS ---
PROCEDURE: BRAIN/HEAD WITHOUT CONTRAST 03/09/2025 REASON FOR EXAM: RIGHT FACIAL DROOP TECHNIQUE: Procedure Code: CTBR Modality: CT Procedure: BRAIN/HEAD WITHOUT CONTRAST Coronal and Sagittal reconstruction series were provided. One or more dose reduction techniques were used (e.g., Automated exposure control, adjustment of the mA and/or kV according to patient size, use of iterative reconstruction technique. RADIATION DOSE SUMMARY: CTDlvol: 44.99 mGy DLP: 829.85 mGycm COMPARISON: Head CT of 01/04/2022. FINDINGS: Moderate generalized cerebral and cerebellar atrophy is seen, with symmetric ventricular enlargement consistent with the degree of atrophy. No intracranial hemorrhage, mass, or mass effect is seen. No extra-axial fluid collection is noted. No orbital pathology is seen. Mild mucosal thickening is seen of the right maxillary and bilateral ethmoid sinuses. No air-fluid level is noted. The remaining paranasal sinuses appear clear, as do the mastoid air cells. CT/Brain/Head without Contrast IMPRESSION: 1. No intracranial hemorrhage or other acute process is seen at this time. Fol low up imaging if and as clinically appropriate. 2. Moderate generalized cerebral and cerebellar atrophy. 3. Mild chronic appearing paranasal sinus disease. Reading Location: [place] [id number]
[2025-03-09 12:56] LABS: Mucous, Urine 0 SEEN /hpf (<or=2+)
[2025-03-09 12:58] LABS: Red Blood Cells-Urine 0-5 SEEN /hpf (0-5); Squamous Epithelial Cells - UA 0-5 SEEN /hpf (0-5)
--- NOTE | 2025-03-09 14:07 | ECHOCS_ITS ---
Reason For Study Reason For Study: TIA/CVA Procedure This was a 2D Doppler, Color Flow transthoracic echocardiogram. The patient was scanned supine. The study was technically difficult. Due to body habitus. Contrast injection was performed. Exam performed portable in patient room. Left Ventricle Normal size and thickness. The left ventricular ejection fraction is 55 %. Diastolic function is indeterminate. Right Ventricle Normal right ventricle. Atria The left atrium is mildly enlarged. Normal right atrium. Mitral Valve Moderate mitral annular calcification. Trivial mitral valve insufficiency. Tricuspid Valve Trivial tricuspid valve insufficiency. Right ventricular systolic pressure estimated to be 39 mmHg. Aortic Valve Trisinus/trileaflet aortic valve. Mild (1+) aortic valve insufficiency. Pulmonic Valve The pulmonic valve is not well visualized. Great Vessels Normal sized aortic root. Pericardium/Pleural No pericardial effusion. Medication Diluted definity 3.0ml given slow IV push to enhance endocardial definition. MMode/2D Measurements & Calculations LVIDd: 5.3 cm IVSd: 1.1 cm Ao root diam: 3.7 cm LVIDs: 3.6 cm LVPWd: 1.1 cm RVDd: 3.9 cm FS: 31.8 % LAV(MOD-bp): 85.8 ml LVAd ap4: 31.3 cm2 LVAd ap2: 28.7 cm2 LAV(MOD-bp) Indexed: 43.5 ml/m2 LVLd ap4: 8.2 cm LVLd ap2: 8.3 cm LAV(MOD-sp2): 79.0 ml EDV(MOD-sp4): 96.8 ml EDV(MOD-sp2): 87.3 ml LAV(MOD-sp4): 78.5 ml EDV(sp4-el): 101.3 ml EDV(sp2-el): 84.7 ml LVAs ap4: 20.9 cm2 LVAs ap2: 17.6 cm2 LVLs ap4: 7.6 cm LVLs ap2: 7.1 cm ESV(MOD-sp4): 50.4 ml ESV(MOD-sp2): 37.3 ml ESV(sp4-el): 49.1 ml ESV(sp2-el): 37.1 ml EF(MOD-sp4): 47.9 % EF(MOD-sp2): 57.2 % EF(sp4-el): 51.5 % SV(MOD-sp4): 46.4 ml SV(MOD-sp2): 50.0 ml EDV(MOD-bp): 91.8 ml SI(MOD-sp4): 23.5 ml/m2 SI(MOD-sp2): 25.3 ml/m2 ESV(MOD-bp): 43.3 ml EF(MOD-bp): 52.8 % SV(sp4-el): 52.2 ml LA A4 area: 25.5 cm2 LA dimension(2D): 3.3 cm RA A4 area: 22.1 cm2 TAPSE: 2.2 cm Time Measurements MV dec time: 0.20 sec Doppler Measurements & Calculations MV E max frank: 73.5 cm/sec Lat Peak E' Frank: 6.7 cm/sec Med Peak E' Frank: 11.3 cm/sec MV A max frank: 82.7 cm/sec E/E' lat: 11.0 E/E' med: 6.5 MV E/A: 0.89 MV V2 max: 89.3 cm/sec MV P1/2t max frank: 82.2 cm/sec Ao V2 max: 172.9 cm/sec MV max P.2 mmHg MV P1/2t: 71.9 msec Ao max P.0 mmHg MV V2 mean: 56.1 cm/sec MV dec slope: 334.9 cm/sec2 Ao V2 mean: 114.2 cm/sec MV mean P.4 mmHg MVA(P1/2t): 3.1 cm2 Ao mean P.1 mmHg MV V2 VTI: 25.3 cm Ao V2 VTI: 35.5 cm AV (velocity ratio): 0.57 LV V1 max: 110.7 cm/sec PA V2 max: 108.6 cm/sec TR max frank: 200.6 cm/sec LV V1 max P.9 mmHg TR max P.2 mmHg LV V1 mean P.5 mmHg LV V1 mean: 75.8 cm/sec LV V1 VTI: 20.3 cm ECHO/Echo Complete W/ Contrast Interpretation Summary The left ventricular ejection fraction is 55 %. Diastolic function is indeterminate. The left atrium is mildly enlarged. Moderate mitral annular calcification. Mild (1+) aortic valve insufficiency. The study was technically difficult. Ordering Physician: Dede Alvarez Referring Physician: Lloyd Jalloh Performed By: Mary Ellen Reyna, NADINE, RVT
--- NOTE | 2025-03-09 15:44 | CASEMGMT ---
Social Work SW emailed Ida with [employer] about meeting with this patient regarding insurance. VELMA Fung
--- NOTE | 2025-03-09 16:54 | CT_ITS ---
PROCEDURE: CT CHEST WITHOUT CONTRAST 03/09/2025 REASON FOR EXAM: HYPOXIA TECHNIQUE: Chest CT without contrast. Coronal and Sagittal reconstruction series were provided. One or more dose reduction techniques were used (e.g., Automated exposure control, adjustment of the mA and/or kV according to patient size, use of iterative reconstruction technique RADIATION DOSE SUMMARY: CTDlvol: 12.96 mGy DLP: 498.57 mGycm COMPARISON: CT chest 02/01/2023 FINDINGS: LUNGS/PLEURA: Clear. No airspace consolidation or findings of pulmonary edema. No pneumothorax or pleural effusion. Patent central airways. Bibasilar scattered linear/discoid atelectasis versus scarring. MEDIASTINUM: Postoperative changes of esophagectomy and colonic interposition anastomosis traversing the anterior mediastinum to the anterior left neck base, with nonspecific gaseous distention without evidence for obstruction. No suspicious lymph node enlargement. HEART: Cardiomegaly. No pericardial effusion. Moderate-advanced coronary artery calcifications, and coarse mitral annulus calcification. THORACIC AORTA: Normal in caliber. Mild atherosclerotic disease. UPPER ABDOMEN: No significant abnormality, as visualized. Postoperative changes as previously described. Colonic diverticulosis without visible active diverticulitis. BONES: Mild degenerative changes of the spine and bilateral shoulder. Chronic superior endplate compression fracture deformity of L1 without retropulsion. CT/Chest without Contrast IMPRESSION: Cardiomegaly. No acute cardiopulmonary disease. Ancillary findings noted adithya osuna Reading Location: [facility]
--- NOTE | 2025-03-09 18:48 | CDU_ITS ---
Reason For Study Reason For Study: CVA Symptoms Rt. Velocities/BP Lt. Velocities/BP Prox CCA 70.0/13.3 cm/sec. Prox CCA 80.9/9.7 cm/sec. Mid CCA 73.6/17.0 cm/sec. Mid CCA 64.5/11.5 cm/sec. Dist CCA 66.3/17.0 cm/sec. Dist CCA 79.1/17.0 cm/sec. Prox ICA 104.7/24.3 cm/sec. Prox ICA 110.1/27.9 cm/sec. Mid ICA 92.1/25.3 cm/sec. Mid ICA 90.0/24.3 cm/sec. Dist ICA 88.9/30.4 cm/sec. Dist ICA 99.2/29.8 cm/sec. Rt. ICA/CCA = 1.4. Lt. ICA/CCA = 1.7. Prox ECA 130.5/11.4 cm/sec. Prox ECA 144.8/2.4 cm/sec. Rt. Vert. 68.1/11.5 cm/sec. Lt. Vert. 38.1/11.6 cm/sec. Right Extracranial There is heterogeneous, irregular atherosclerotic plaque noted in the right common carotid artery. There is heterogeneous, irregular atherosclerotic plaque noted in the right internal carotid artery. There is heterogeneous, irregular atherosclerotic plaque noted in the right external carotid artery. Antegrade flow is noted in the right vertebral artery. Left Extracranial There is heterogeneous, irregular atherosclerotic plaque noted in the left common carotid artery. There is heterogeneous, irregular atherosclerotic plaque noted in the left internal carotid artery. There is heterogeneous, irregular atherosclerotic plaque noted in the left external carotid artery. Antegrade flow is noted in the left vertebral artery. Procedure Carotid Duplex 38650. This is a Carotid Duplex examination using B-mode, color flow and specral Doppler. The exam was diagnostic. Exam performed portable in patient room. VL/Carotid Duplex Ultrasound Interpretation Summary Mild (<50%) stenosis right extracranial internal carotid. Mild (<50%) stenosis left extracranial internal carotid. Flow within the vertebral arteries is antegrade bilaterally. Ordering Physician: Dede Alvarez Referring Physician: Lloyd Jalloh M.D. Performed By: Mario Alberto Spencer RVT
[2025-03-09 19:40] LABS: Prothrombin Time (Protime)PT. 33.7 SECONDS (11.7-14.9)
[2025-03-09] MEDS: 0.9% Normal Saline (1000mL) 1,000 ML 125 ML IV (19:40)
[2025-03-10] VITALS (10 sets, daily range): BP systolic 119–141; BP diastolic 63–75; PULSE 65–86; RESP 16–20; TEMP 36.6–36.8; O2SAT 95–99; BMI 25.8
[2025-03-10] MEDS: 0.9% Normal Saline (1000mL) 1,000 ML 125 ML IV (04:29)
[2025-03-10 07:12] LABS: Hematocrit 28.2 % (40-54); Hemoglobin 8.4 g/dL (13.0-16.5); Immature Granulocytes Count 0.020 X10^3/uL (0.0-0.0); Mean Corp Hgb Conc 29.8 g/dL (32-36); Mean Corpuscular Volume 81.0 fL (80-94); Mean Platelet Vol. 10.8 fl (6.2-12.0); NRBC Flagged by Analyzer 0 % (0-5); Platelet Count 236 K/mm3 (150-450); RBC Distribution Width CV 16.2 % (11.6-14.6); RBC Distribution Width SD 47.4 fl (35.1-43.9); Red Blood Count 3.48 M/mm3 (4.6-6.2); White Blood Count 7.3 K/mm3 (4.4-11.0)
[2025-03-10 07:48] LABS: Anion Gap 11 (5-15); BUN 29 mg/dL (4-19); BUN/Creat Ratio 10.1 RATIO (10-20); Calcium,Total 8.7 mg/dL (7.6-11.0); Carbon Dioxide 20.8 mmol/L (21.0-32.0); Chloride 104 mmol/L (98-108); Cholesterol 122 mg/dL (<=200); Estimated Creatinine Clearance 20.35 ml/min (50-250); Glucose 148 mg/dL (70-99); Low Density Lipoprotein Calc. 46 mg/dL; Potassium 4.4 mmol/L (3.3-5.1); Triglycerides 120 mg/dL; Very Low Density Lipoprotein 24 mg/dL (5-40); cholesterol:hdl ratio screen 2.22
[2025-03-10 08:10] LABS: Prothrombin Time (Protime)PT. 31.7 SECONDS (11.7-14.9)
--- NOTE | 2025-03-10 08:20 | NEURO.CONS ---
Assessment and Plan: Neuro Assessment/Plan JOSE DARLING is a 84 M with a past medical history of dementia, CKD, being evaluated by Teleneurology for worsening mental status, fall, and FTT. Exam currently with some confusion, poor attention but improving on history. Found on testing to have UTI and given improvement on treatment of UTI, symptoms likely the result of UTI. Plan: - continue to treat UTI and will re-evaluate after - for FTT, recommend some vitamin studies: Vit B12, folate, thiamine, Vitamin E I personally attended this patient and spent a total time of 45minutes evaluating this patient including clinical assessment, review of chart, medical history imaging, and determining appropriate treatment and workup. HPI Consult Data Date of Consult: 03/10/25 HPI Narrative HPI Narrative: JOSE DARLING, is a 84 M who is Mongolian speaking, who was admitted via the ED on 03/09/2025 with a complaitn of weakness and failure to thrive which had been going on for about 6 years. He was admitted with a complaint of weakness and inability to ambulate and failure to thrive. His daughter and were present, and his daughter translated for him. He had been feeling very weak and his daughter said patient had not been able to ambulate. He had fallen and she and her mother had to help move him to the couch. He had noticed that he had had a fever over the past 2 days but denied any chills. He had also been coughing occasionally but he did not have any shortness of breath. He had some nausea but no vomiting or diarrhea. He denied any palpitations and review of systems otherwise negative. Neurologic History Feeling a little bit better. Pt has dementia and kidney disease so has had slow decline. Two days ago he fell between two couches and can no longer pick himself up anymore. The baseline for the dementia is mostly short term memory loss. Normally is not oriented to time. Walks with a walker and cane at baseline. Had a prior history of 14 ministrokes. Yesterday had some R facial droop. Has had R facial droop and slurred speech from prior strokes so no new symptoms. Currently face and speech are improved but not at baseline. Exam -? NEURO: -? Mental Status: The patient was alert, aware to self and place but poorly to time. -? Language: speech is slightly slurred.? Naming and comprehension and fluency intact -? Cranial Nerves: PERRL 2mm/brisk. EOMI, visual wright full, no facial asymmetry, facial sensation intact, hearing intact, tongue midline -? Motor: normal bulk, tone, and strength throughout. No pronator drift or satelliting. Upper and lower extremities equal bilaterally. -? Detailed strength exam as performed by the nurse/PATRICIA and witnessed by the physician: R L SA 5 5 EE EF WE WF Cosmetologist Apprentice 5 5 HF KE KF 5 5 DF PF -? Sensation- diminished on the RLEn which is atypical usually there is allodynia. -? Coordination: No dysmetria on [id number], finger follow finger or [id number]. -? 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 Anxiety and depression History of tobacco use CKD (chronic kidney disease), stage III Diabetic neuropathy History of seizure disorder Hypercholesterolemia DM type 2 (diabetes mellitus, type 2) Chronic asthmatic bronchitis History of CVA (cerebrovascular accident) Home Medications ?Medication ?Instructions ?Recorded ?Last Taken ?Type diazepam 5 mg/5 mL (1 mg/mL) oral 5 mg PO BID PRN Muscle Spasm 05/30/22 03/08/25 History solution insulin glargine 100 unit/mL (3 30 unit subcut DAILY DIABETES 06/20/23 03/08/25 History mL) subcutaneous pen (Basaglar KwikPen U-100 Insulin) acetaminophen 500 mg tablet 1,000 mg PO Q6H PRN pain 11/11/24 03/08/25 History risperidone 0.25 mg tablet 0.25 mg PO BID dementia 11/11/24 03/08/25 History sodium bicarbonate 650 mg tablet 650 mg PO BID gerd 11/11/24 03/08/25 History albuterol sulfate 2.5 mg/3 mL 2.5 mg inhalation Q6H PRN wheezing 03/09/25 03/07/25 History (0.083 %) solution for nebulization atorvastatin 40 mg tablet 40 mg PO QHS cholesterol 03/09/25 03/08/25 History donepezil 5 mg tablet 5 mg PO DAILY dementia 03/09/25 03/08/25 History insulin lispro 100 unit/mL 6 unit subcut TID diabetes 03/09/25 03/08/25 History subcutaneous pen olanzapine 2.5 mg tablet 2.5 mg PO QHS mood 03/09/25 03/08/25 History pantoprazole 40 mg tablet,delayed 40 mg PO DAILY gerd 03/09/25 03/08/25 History release tamsulosin 0.4 mg capsule 0.4 mg PO DAILY prostate 03/09/25 03/08/25 History tramadol 50 mg tablet 50 mg PO Q12H PRN pain 03/09/25 Unknown History warfarin 4 mg tablet 4 mg PO DAILY anticoagulant 03/09/25 03/08/25 History Allergy/AdvReac Type Severity Reaction Status Date / Time No Known Allergies Allergy Verified 03/09/25 10:29 Family History Mother Myocardial infarction Hypertension Father Diabetes Alzheimer disease Surgical History History of embolic filter insertion History of esophageal surgery History of eye surgery History of appendectomy Social History household members: spouse Smoking Status: Former smoker how long ago did patient quit smoking: Quit 1-2 years prior, smoked occasional cigars. alcohol intake: never substance use type: does not use Vital Signs Vital Signs Vital Signs: 03/09/25 10:24 03/09/25 10:30 03/09/25 11:07 Temperature 98.7 F 98.3 F Temperature Source Oral Oral Pulse Rate 71 72 Pulse Strength Respiratory Rate 33 H 22 H Respiratory Effort Short of Breath Respiratory Depth Respiratory Pattern Tachypnea Blood Pressure 146/73 H 143/74 H Blood Pressure Mean 97 97 Blood Pressure Source Blood Pressure Position Blood Pressure Location Pulse Ox 97 97 Oxygen Delivery Method Room Air Room Air Oxygen Flow Rate (L/min) 03/09/25 11:23 03/09/25 12:09 03/09/25 13:03 Temperature 98.5 F 98.6 F Temperature Source Oral Oral Pulse Rate 69 69 75 Pulse Strength Respiratory Rate 30 H 32 H 29 H Respiratory Effort Respiratory Depth Respiratory Pattern Blood Pressure 133/87 H 128/73 H 132/72 H Blood Pressure Mean 102 91 92 Blood Pressure Source Blood Pressure Position Blood Pressure Location Pulse Ox 98 98 98 Oxygen Delivery Method Room Air Room Air Room Air Oxygen Flow Rate (L/min) 03/09/25 14:04 03/09/25 14:07 03/09/25 15:00 Temperature 98.7 F 97.8 F 97.3 F L Temperature Source Oral Temporal Pulse Rate 70 78 64 Pulse Strength Respiratory Rate 29 H 16 24 H Respiratory Effort Respiratory Depth Respiratory Pattern Blood Pressure 132/70 H 132/78 H 135/78 H Blood Pressure Mean 90 96 97 Blood Pressure Source Blood Pressure Position Blood Pressure Location Pulse Ox 98 99 96 Oxygen Delivery Method Room Air Nasal Cannula Oxygen Flow Rate (L/min) 3 03/09/25 15:13 03/09/25 19:00 03/09/25 19:00 Temperature Temperature Source Pulse Rate 70 Pulse Strength Respiratory Rate 18 Respiratory Effort Non-Labored Short of Breath Respiratory Depth Normal Respiratory Pattern Normal Blood Pressure Blood Pressure Mean Blood Pressure Source Blood Pressure Position Blood Pressure Location Pulse Ox 99 Oxygen Delivery Method Nasal Cannula Nasal Cannula Oxygen Flow Rate (L/min) 3 4 03/09/25 19:30 03/09/25 22:00 03/09/25 22:00 Temperature 97.0 F L 97.0 F L Temperature Source Temporal Temporal Temporal Pulse Rate 69 65 65 Pulse Strength Respiratory Rate 16 18 18 Respiratory Effort Respiratory Depth Respiratory Pattern Blood Pressure 113/65 139/72 H 139/72 H Blood Pressure Mean 81 94 94 Blood Pressure Source Monitor Monitor Blood Pressure Position Semi-Fowlers Semi-Fowlers Blood Pressure Location Right Arm Left Arm Pulse Ox 100 100 100 Oxygen Delivery Method Nasal Cannula Nasal Cannula Nasal Cannula Oxygen Flow Rate (L/min) 3 3 3 03/09/25 22:00 03/09/25 22:00 03/10/25 02:00 Temperature 98.3 F Temperature Source Axillary Pulse Rate 70 Pulse Strength Normal (2+) Respiratory Rate 16 Respiratory Effort Normal Non-Labored Respiratory Depth Normal Respiratory Pattern Normal Blood Pressure 119/72 Blood Pressure Mean 87 Blood Pressure Source Monitor Blood Pressure Position Semi-Fowlers Blood Pressure Location Left Arm Pulse Ox 99 Oxygen Delivery Method Nasal Cannula Nasal Cannula Oxygen Flow Rate (L/min) 3 2 03/10/25 02:12 03/10/25 06:00 03/10/25 06:26 Temperature 98.2 F Temperature Source Axillary Pulse Rate 66 65 Pulse Strength Respiratory Rate 18 16 Respiratory Effort Respiratory Depth Respiratory Pattern Normal Blood Pressure 141/75 H Blood Pressure Mean 97 Blood Pressure Source Monitor Blood Pressure Position Semi-Fowlers Blood Pressure Location Left Arm Pulse Ox 96 Oxygen Delivery Method Nasal Cannula Room Air Oxygen Flow Rate (L/min) 2 03/10/25 06:26 03/10/25 07:37 03/10/25 07:54 Temperature 98.0 F Temperature Source Temporal Pulse Rate 72 Pulse Strength Normal (2+) Respiratory Rate 18 Respiratory Effort Respiratory Depth Respiratory Pattern Blood Pressure 135/69 H Blood Pressure Mean 91 Blood Pressure Source Monitor Blood Pressure Position Semi-Fowlers Blood Pressure Location Left Arm Pulse Ox 97 96 Oxygen Delivery Method Room Air Room Air Oxygen Flow Rate (L/min) 03/10/25 07:56 Temperature Temperature Source Pulse Rate Pulse Strength Respiratory Rate Respiratory Effort Normal Non-Labored Respiratory Depth Normal Respiratory Pattern Normal Blood Pressure Blood Pressure Mean Blood Pressure Source Blood Pressure Position Blood Pressure Location Pulse Ox Oxygen Delivery Method Room Air Oxygen Flow Rate (L/min) Weight Weight: 81.6 kg Body Mass Index (BMI) 25.8 EEG Results Procedure Details EEG Procedure Details: JOSE DARLING is a 84 year old M with a past medical history of , who presents for evaluation of Electroencephalogram on DATE at TIME Lab / Micro Data 03/10/25 06:49 03/10/25 06:49 Labs: Laboratory Results - last 24 hr 03/09/25 10:37: WBC 8.4, RBC 4.04 L, Hgb 9.6 L, Hct 32.7 L, MCV 80.9, MCH 23.8 L, MCHC 29.4 L, RDW Std Deviation 47.1 H, RDW Coeff of Meenu 16.0 H, Plt Count 267, MPV 10.1, Immature Gran % (Auto) 0.500, Neut % (Auto) 80.3 H, Lymph % (Auto) 12.0 L, [place] % (Auto) 6.6, Eos % (Auto) 0.4, Baso % (Auto) 0.2, Absolute Neuts (auto) 6.8, Absolute Lymphs (auto) 1.01, Nucleated RBC % 0, Sodium 135, Potassium 4.7, Chloride 103, Carbon Dioxide 20.8 L, Anion Gap 12, BUN 27 H, Creatinine 3.33 H, Estim Creat Clear Calc 17.86 L, Est GFR (MDRD) Non-Af 18 L, BUN/Creatinine Ratio 8.1 L, Glucose 191 H, Calcium 9.1 03/09/25 11:17: Urine Color Yellow, Urine Clarity Sl. Cloudy, Urine pH 6.0, Ur Specific [place] 1.020, Urine Protein 30 H, Urine Glucose (UA) Normal, Urine Ketones Negative, Urine Occult Blood 150 H, Urine Nitrite Positive H, Urine Bilirubin Negative, Urine Urobilinogen Normal, Ur Leukocyte Esterase 100 H, Urine RBC 0-5 SEEN, Urine WBC 10-25 SEEN, Ur Squamous Epith Cells 0-5 SEEN, Amorphous Sediment 1+, Urine Bacteria 2+, Urine Mucus 0 SEEN 03/09/25 17:49: POC Glucose 137 H 03/09/25 19:09: PT 33.7 H, INR 3.2 03/09/25 22:59: POC Glucose 147 H 03/10/25 06:05: POC Glucose 132 H 03/10/25 06:49: WBC 7.3, RBC 3.48 L, Hgb 8.4 L, Hct 28.2 L, MCV 81.0, MCH 24.1 L, MCHC 29.8 L, RDW Std Deviation 47.4 H, RDW Coeff of Meenu 16.2 H, Plt Count 236, MPV 10.8, Immature Gran % (Auto) 0.300, Neut % (Auto) 70.3 H, Lymph % (Auto) 19.8, [place] % (Auto) 8.7, Eos % (Auto) 0.8, Baso % (Auto) 0.1, Absolute Neuts (auto) 5.1, Absolute Lymphs (auto) 1.44, Nucleated RBC % 0, PT 31.7 H, INR 3.0, Sodium 136, Potassium 4.4, Chloride 104, Carbon Dioxide 20.8 L, Anion Gap 11, BUN 29 H, Creatinine 2.89 H, Estim Creat Clear Calc 20.35 L, Est GFR (MDRD) Non-Af 21 L, BUN/Creatinine Ratio 10.1, Glucose 148 H, Calcium 8.7, Triglycerides 120, Cholesterol 122, LDL Cholesterol, Calc 46, VLDL Cholesterol 24, HDL Cholesterol 55, Cholesterol/HDL Ratio 2.22 Rhythm Strip Rhythm Strip: Sinus Rhythm Rate: 72 Ectopy: PAC(s) Imaging Radiology Impression Chest X-Ray 03/09/25 11:15 IMPRESSION: 1. No visible acute cardiopulmonary findings 2. Additional description as above. Reading Location: [facility] Brain CT 03/09/25 12:35 IMPRESSION: 1. No intracranial hemorrhage or other acute process is seen at this time. Follow up imaging if and as clinically appropriate. 2. Moderate generalized cerebral and cerebellar atrophy. 3. Mild chronic appearing paranasal sinus disease. Reading Location: [facility] [address] 03/09/25 16:54 IMPRESSION: Cardiomegaly. No acute cardiopulmonary disease. Ancillary findings noted above. Reading Location: [facility] Active Medications Active Medications Active Medications: Current Medications Generic Name Dose Route Start Last Admin Trade Name Freq PRN Reason Stop Dose Admin Acetaminophen 650 mg 03/09/25 18:48 Acetaminophen 325 Mg Tablet PO Q6H PRN PRN Pain 1-10 Or Fever >100.7 Albuterol/Ipratropium 3 ml 03/09/25 16:30 03/10/25 06:26 Ipratropium/Albuterol Sulfate 3 Ml Ampul.Neb INHALATION 3 ml Q6H.RT DU Administration Aspirin 81 mg 03/10/25 08:00 Aspirin 81 Mg Tab.Chew PO BREAKFAST DU Atorvastatin Calcium 40 mg 03/09/25 22:00 03/09/25 23:02 Atorvastatin Calcium 40 Mg Tablet PO 40 mg QHS DU Administration Diazepam 5 mg 03/09/25 16:37 Diazepam 5 Mg Tablet PO BID PRN PRN Muscle Spasm Donepezil HCl 5 mg 03/10/25 10:00 Donepezil Hcl 5 Mg Tablet PO DAILY DU Glucagon 1 mg 03/09/25 16:26 Glucagon 1 Mg/Ml Syringe IM X1 PRN Hypoglycemia Protocol Glucagon 1 mg 03/09/25 18:48 Glucagon 1 Mg/Ml Syringe IM X1 PRN Hypoglycemia Protocol Hydralazine HCl 5 mg 03/09/25 14:02 Hydralazine 20 Mg/Ml Vial IV 03/10/25 14:07 Q30M PRN maintain BP parameters with HR <60 Sodium Chloride 250 mls @ 15 mls/hr 03/09/25 15:20 IV .[id number] PRN Saline Flush Sodium Chloride 250 mls @ 15 mls/hr 03/09/25 15:20 IV .[id number] PRN Additional IVPB Infusion Dextrose 250 mls @ 0 mls/hr 03/09/25 16:26 Dextrose 10%-Water IV .Q0M PRN HYPOGLYCEMIA Protocol As Directed Sodium Chloride 1,000 mls @ 125 mls/hr 03/09/25 18:48 03/10/25 04:29 IV 03/10/25 10:47 125 mls/hr .Q8H DU Administration Ceftriaxone Sodium 1 gm in 50 mls @ 100 mls/hr 03/10/25 10:00 Rocephin IV Q24 DU Dextrose 250 mls @ 0 mls/hr 03/09/25 18:48 Dextrose 10%-Water IV .Q0M PRN HYPOGLYCEMIA Protocol As Directed Insulin Glargine 30 unit 03/10/25 10:00 Insulin Glargine-Yfgn 100 Unit/Ml Pen SC DAILY [facility] Insulin Human Lispro 6 unit 03/09/25 17:00 03/09/25 18:47 Insulin Lispro 100 Unit/Ml Insuln.Pen SC Not Given TIDCM [facility] Insulin Human Lispro 0 unit 03/09/25 22:00 03/10/25 06:43 Insulin Lispro 100 Unit/Ml Insuln.Pen SC Not Given ACHS [facility] Protocol Labetalol HCl 10 - 20 mg 03/09/25 14:02 Labetalol 20 Mg/4 Ml Vial IV 03/10/25 14:07 Q10M PRN PRN maintain BP parameters with HR >/=60 Morphine Sulfate 2 - 4 mg 03/09/25 18:48 Morphine 2 Mg/Ml Syringe IV Q3H PRN PRN Pain Score 6-10 Morphine Sulfate 2 - 4 mg 03/09/25 18:55 Morphine 4 Mg/Ml Syringe IV Q3H PRN PRN Pain Score 6-10 Nitroglycerin 0.4 mg 03/09/25 18:48 Nitroglycerin (Inpatient Use) 0.4 Mg Tab.Subl SL Q5M PRN CARDIAC/CHEST PAIN Olanzapine 2.5 mg 03/09/25 22:00 03/09/25 23:02 Olanzapine 2.5 Mg Tablet PO 2.5 mg QHS [facility] Administration Protocol Ondansetron HCl 4 mg 03/09/25 18:48 Ondansetron 4 Mg/2 Ml Vial IV Q8H PRN PRN NAUSEA/VOMITING Oxycodone HCl 5 mg 03/09/25 18:48 Oxycodone 5 Mg Tablet PO Q4H PRN PRN Pain Score 4-10 Pantoprazole Sodium 40 mg 03/10/25 10:00 Pantoprazole Sodium 40 Mg Tablet PO DAILY [facility] Risperidone 0.25 mg 03/09/25 22:00 03/09/25 23:02 Risperidone 0.25 Mg Tablet PO 0.25 mg BID [facility] Administration Protocol Sodium Bicarbonate 650 mg 03/09/25 22:00 03/09/25 23:02 Sodium Bicarbonate 650 Mg Tablet PO 650 mg BID [facility] Administration Sodium Chloride 10 - 40 ml 03/09/25 15:20 0.9% Saline Lock 10 Ml Syringe IV UD PRN SALINE FLUSH Tamsulosin HCl 0.4 mg 03/10/25 10:00 Tamsulosin Hcl 0.4 Mg Capsule PO DAILY [facility] Tramadol HCl 50 mg 03/09/25 16:26 Tramadol 50 Mg Tablet PO Q12H PRN PRN Pain Score 1-3 Warfarin Sodium 4 mg 03/09/25 17:00 03/09/25 22:53 Warfarin (Pbkc) 4 Mg Tablet PO Not Given DINNER [facility] NIHSS NIHSS Nursing Documentation NIHSS Nursing Documentation: NIHSS: Ischemic Stroke/TIA Start: 03/09/25 14:07 Text: For PCU Patients: NIH and Neuro Check every 4 Status: Active hours, PRN and with change in RN caregiver. Freq: [id number] Protocol: Activity Type Activity Date Activity User E-sign Co-sign Detail Recorded Client Recorded Date Recorded By Document 03/10/25 07:28 [place] [id number] 03/10/25 07:32 [place] 03/10/25 07:28 NIH Stroke Scale [NIHSS] A score of 0 is normal or asymptomatic . Total possible score is 42. Inpatient: RN or Physician to activate a stroke alert for onset of new stroke symptoms or with NIHSS increase >/= 3 points. Following change in neurological status, NIHSS will be performed per physician order or more frequently PRN. -1a. Level of Consciousness 1 - Not alert; Arousable by minor stimuli to obey, answer & respond -1b. LOC Questions 1 - Answers ONE question correctly -1c. LOC Commands 0 - Performs BOTH tasks correctly -2. Best Gaze 0 - Normal -3. Visual 0 - No visual loss -4. Facial Palsy 1 - Minor paralysis ( flattened nasolabial fold , asymmetry on smiling) -5a. Left Arm 0 - No drift; arm holds 90 ( or 45) degrees for full 10 seconds -5b. Right Arm 0 - No drift; arm holds 90 ( or 45) degrees for full 10 seconds -6a. Left Leg 0 - No drift; leg holds 30- degree position for full 5 seconds -6b. Right Leg 2 - Some effort against gravity; -7. Limb Ataxia 1 - Present in 1 limb -8. Sensory 0 - Normal; no sensory loss -9. Best Language 0 - No aphasia; normal -10. Dysarthria 1 = Mild-to- moderate dysarthria; -11. Extinction and Inattention 0 - No abnormality -Total 7 Query Text:A score of 0 is normal or asymptomatic. Total possible score is 42 . ED: Notify Physician for NIHSS increase by > / = 3 points. Inpatient: RN or Physician to activate a stroke alert for NIHSS increase of > / = 3 points. Coma Scale [Assess] -Eye Opening Spontaneous -Motor Obeys Commands -Verbal Confused [Total] -Coma Scale Total 14
--- NOTE | 2025-03-10 09:00 | MRI_ITS ---
PROCEDURE: BRAIN WITHOUT CONTRAST 03/10/2025 REASON FOR EXAM: Clinical history of mouth droop TECHNIQUE: Procedure Code: MRIBR Modality: MR Procedure: BRAIN WITHOUT CONTRAST Multiplanar and multisequence images were obtained. COMPARISON: MRI brain 01/05/2022 FINDINGS: No acute infarct or hemorrhage. Chronic bilateral gangliocapsular lacunar infarcts. Scattered nonspecific foci of periventricular and subcortical T2/FLAIR white matter hyperintensities in the cerebral hemispheres likely reflect chronic microvascular changes. Punctate susceptibility artifact in the right cerebellum may reflect a chronic microhemorrhage. No extra-axial fluid collection. No significant mass effect or herniation of the brain. Global cerebral volume loss with compensatory enlargement of the CSF spaces. No hydrocephalus. The basal cisterns are patent. The intracranial large vessel arterial flow voids are maintained. The mastoid air cells clear. There is scattered paranasal mucosal thickening. Right ocular lens replacement. The calvarial bone marrow signal is within normal limits. MRI/Brain without Contrast IMPRESSION: 1. No acute infarct or hemorrhage. 2. Global cerebral volume loss and chronic microvascular ischemic changes. Reading Location: [id number]
[2025-03-10] MEDS: Insulin Glargine-YFGN 100 UNIT/ML Pen 30 UNIT SC (10:28)
--- NOTE | 2025-03-10 11:14 | CASEMGMT ---
Social Work Per imaging pt negative for stroke, therefore PHQ9 not completed. VELMA Fung
--- NOTE | 2025-03-10 12:36 | CASEMGMT ---
Social Work SW spoke with the daughter on the phone. Admitting Dx: debility, weakness, failure to thrive PCP: Dr. Jalloh Specialists:eye doctor, neuro at [facility] Preferred [facility]acy: [facility] Insurance: None Prescription Benefit: none LNOK: Ivis Aguayo, ; Fozia Rubi, dtr Living Arrangements: Pt lives with in a single story home with 4 steps to enter with a rail. The daughter reported the patient was normally completing his own ADL's but not lately. Transportation: Pt does not drive. The daughter transports patient. DME: cane, walker, BGM with sufficient supplies as well as insulin. HHC/SNF: Pt has had HHC in the past, unsure of the name of agency but per it was too expensive and she cancelled it. Pt has been to SNF but unsure of the name of the SNF. Assessment: Pt lives with in a single story home with 4 steps to enter with a rail. The daughter reported the patient was normally completing his own ADL's but not lately. The daughter reported the patient will not HH at [place]. Plan: VELMA Tejeda
--- NOTE | 2025-03-10 12:41 | CASEMGMT ---
Social Work SW provided the patient with resources such as prescription assistance, [facility] Olguin and [facility] financial assistance. VELMA Fugn
--- NOTE | 2025-03-10 13:10 | PN_ITS ---
Subjective Subjective Patient seen and examined. Patient is Bulgarian speaking but does speak enough French to be able to communicate with. His nurse was by his bedside. He had no active complaints and felt much better today. He denied any fever or chills, nausea or vomiting or burning with urination. He denied any shortness of breath and review of systems otherwise negative. He is on room air and has remained hemodynamically stable. Objective Data Objective Data Vital Signs: Vital Signs Temp Pulse Resp BP Pulse Ox O2 Del Method O2 Flow Rate 98.0 F 71 18 134/72 H 96 Room Air 2 03/10/25 10:23 03/10/25 10:23 03/10/25 10:23 03/10/25 10:23 03/10/25 10:23 03/10/25 10:23 03/10/25 02:12 Oxygen Flow Rate (L/min) 2 Oxygen Delivery Method Room Air Weight: 179 lb 14.355 oz Body Mass Index (BMI) 25.8 Intake & Output: Intake and Output for Last 24 Hours 03/08/25 03/09/25 03/10/25 23:59 23:59 23:59 Intake Total 1290 / 1590 1750 / 1750 Output Total 250 / 250 Balance 1040 / 1340 1750 / 1750 Lab / Micro Data 03/10/25 06:49 03/10/25 06:49 Labs: Laboratory Results - last 24 hr 03/09/25 17:49: POC Glucose 137 H 03/09/25 19:09: PT 33.7 H, INR 3.2 03/09/25 22:59: POC Glucose 147 H 03/10/25 06:05: POC Glucose 132 H 03/10/25 06:49: WBC 7.3, RBC 3.48 L, Hgb 8.4 L, Hct 28.2 L, MCV 81.0, MCH 24.1 L , MCHC 29.8 L, RDW Std Deviation 47.4 H, RDW Coeff of Meenu 16.2 H, Plt Count 236, MPV 10.8, Immature Gran % (Auto) 0.300, Neut % (Auto) 70.3 H, Lymph % (Auto) 19.8, [place] % (Auto) 8.7, Eos % (Auto) 0.8, Baso % (Auto) 0.1, Absolute Neuts (auto) 5.1, Absolute Lymphs (auto) 1.44, Nucleated RBC % 0, PT 31.7 H, INR 3.0, Sodium 136, Potassium 4.4, Chloride 104, Carbon Dioxide 20.8 L, Anion Gap 11, B UN 29 H, Creatinine 2.89 H, Estim Creat Clear Calc 20.35 L, Est GFR (MDRD) Non- Af 21 L, BUN/Creatinine Ratio 10.1, Glucose 148 H, Hemoglobin A1c 8.3 H, Calcium 8.7, Triglycerides 120, Cholesterol 122, LDL Cholesterol, Calc 46, VLDL Cholesterol 24, HDL Cholesterol 55, Cholesterol/HDL Ratio 2.22 03/10/25 10:21: POC Glucose 153 H 03/10/25 12:23: POC Glucose 261 H Radiography Diagnostic Testing: Radiology Impression Echocardiogram 03/09/25 14:07 Interpretation Summary The left ventricular ejection fraction is 55 %. Diastolic function is indeterminate. The left atrium is mildly enlarged. Moderate mitral annular calcification. Mild (1+) aortic valve insufficiency. The study was technically difficult. Ordering Physician: Dede Alvarez Referring Physician: Lloyd Jalloh Performed By: Mary Ellen Reyna, RDCS, RVT Chest CT 03/09/25 16:54 IMPRESSION: Cardiomegaly. No acute cardiopulmonary disease. Ancillary findings noted above. Reading Location: [id number] Brain MRI 03/10/25 09:00 IMPRESSION: 1. No acute infarct or hemorrhage. 2. Global cerebral volume loss and chronic microvascular ischemic changes. Reading Location: [id number] Rhythm Strip Rhythm Strip: Sinus Rhythm Rate: 72 Ectopy: PAC(s) Physical Exam Const alert and no apparent distress Constitutional Narrative: frail, looks better today General Appearance: cooperative HEENT normocephalic, head/scalp atraumatic and oropharynx normal Eyes EOMs intact bilaterally and conjunctivae normal Neck supple and no JVD Resp Resp Narrative: mildly diminshed breath sounds bibasally, no wheezes or crackles. On room air. Cardio regular rate, regular rhythm, S1 normal heart sound, S2 normal heart sound and no murmurs GI normal to inspection, nondistended, normoactive bowel sounds, soft to palpation and non-tender GI Narrative: has colostomy bag in place Extremity normal to inspection, full ROM and no clubbing, cyanosis or edema General Extremity: no tenderness to palpation of joints or extremities Skin General Skin Exam: no breakdown Neuro oriented x3 and moves all extremities Neuro Narrative: mouth droop has resolved Sensorium / Orientation: awake and alert Motor Exam: strength 5/5 throughout Psych Psych Narrative: flat affect Assessment & Plan Assessment/Plan (1) UTI (urinary tract infection): (2) Unable to ambulate: (3) Falls: (4) Weakness: PLAN: Plan #Debility and weakness with failure to thrive * feels better today. PT/OT On board. Fall precautions. #Strokelike symptoms * has right sided facial droop on admixxion which has now resolved. * CT of the brain showed no acute intracranial pathology. * MRI of the brain negative for any evidence of stroke * 2D echo showed EF of 55% with indeterminate diastolic function. * P.o. aspirin 81 mg daily and p.o. atorvastatin * PT OT on board. Fall precautions. * #UTI: Urinalysis showed evidence of UTI. Will start on IV ceftriaxone and get urine cultures. #CKD stage IV: Creatinine is further down to 2.89 from 3.33 yestrday, which is actually lower than her baseline. Will monitor. #Type 2 diabetes mellitus: On Lantus 30 units daily. Insulin sliding scale. Checks ACHS. #History of depression: On olanzapine DVT prophylaxis: On Coumadin. Unclear why. He has had a history of stroke, which was thought to be possibly embolic, so this may be the reason why. INR today is 3. CODE STATUS: DNR CCA with intubation * Charges/Coding Visit Charges Inpatient E&M: 30175 Subs Hosp L2
[2025-03-10] MEDS: Warfarin (PBKC) 4 MG Tablet PO (16:26)
[2025-03-11] VITALS (7 sets, daily range): BP systolic 110–134; BP diastolic 61–72; PULSE 66–74; RESP 18–20; TEMP 36.2–36.8; O2SAT 96–100; BMI 25.8
[2025-03-11 07:27] LABS: Prothrombin Time (Protime)PT. 29.3 SECONDS (11.7-14.9)
[2025-03-11 07:30] LABS: Hematocrit 27.3 % (40-54); Hemoglobin 8.1 g/dL (13.0-16.5); Immature Granulocytes Count 0.030 X10^3/uL (0.0-0.0); Mean Corp Hgb Conc 29.7 g/dL (32-36); Mean Corpuscular Volume 80.1 fL (80-94); Mean Platelet Vol. 10.5 fl (6.2-12.0); NRBC Flagged by Analyzer 0 % (0-5); Platelet Count 246 K/mm3 (150-450); RBC Distribution Width CV 16.3 % (11.6-14.6); RBC Distribution Width SD 47.2 fl (35.1-43.9); Red Blood Count 3.41 M/mm3 (4.6-6.2); White Blood Count 6.1 K/mm3 (4.4-11.0)
[2025-03-11 08:07] LABS: Anion Gap 11 (5-15); BUN 30 mg/dL (4-19); BUN/Creat Ratio 11.4 RATIO (10-20); Calcium,Total 8.8 mg/dL (7.6-11.0); Carbon Dioxide 20.3 mmol/L (21.0-32.0); Chloride 107 mmol/L (98-108); Estimated Creatinine Clearance 22.27 ml/min (50-250); Glucose 157 mg/dL (70-99); Potassium 3.9 mmol/L (3.3-5.1)
--- NOTE | 2025-03-11 09:42 | PN_ITS ---
Subjective Subjective Patient seen and examined with his nurse by his bedside. He had no active complaints and had an uneventful night. Review of systems is otherwise negative. He has remained hemodynamically stable. He is on room air Objective Data Objective Data Vital Signs: Vital Signs Temp Pulse Resp BP Pulse Ox O2 Del Method O2 Flow Rate 97.2 F L 66 18 134/72 H 97 Room Air 2 03/11/25 07:36 03/11/25 07:39 03/11/25 07:39 03/11/25 07:36 03/11/25 07:39 03/11/25 07:39 03/10/25 02:12 Oxygen Flow Rate (L/min) 2 Oxygen Delivery Method Room Air Weight: 179 lb 14.355 oz Body Mass Index (BMI) 25.8 Intake & Output: Intake and Output for Last 24 Hours 03/09/25 03/10/25 03/11/25 23:59 23:59 23:59 Intake Total 1290 / 1590 3150 / 3500 830 / 830 Output Total 250 / 250 550 / 550 Balance 1040 / 1340 2600 / 2950 830 / 830 Lab / Micro Data 03/11/25 06:25 03/11/25 06:25 Labs: Laboratory Results - last 24 hr 03/10/25 10:21: POC Glucose 153 H 03/10/25 12:23: POC Glucose 261 H 03/10/25 16:24: POC Glucose 288 H 03/10/25 20:42: POC Glucose 148 H 03/11/25 06:25: WBC 6.1, RBC 3.41 L, Hgb 8.1 L, Hct 27.3 L, MCV 80.1, MCH 23.8 L , MCHC 29.7 L, RDW Std Deviation 47.2 H, RDW Coeff of Meenu 16.3 H, Plt Count 246, MPV 10.5, Immature Gran % (Auto) 0.500, Neut % (Auto) 63.5, Lymph % (Auto) 23.3, [place] % (Auto) 10.6 H, Eos % (Auto) 1.8, Baso % (Auto) 0.3, Absolute Neuts (auto) 3.9, Absolute Lymphs (auto) 1.43, Nucleated RBC % 0, PT 29.3 H, INR 2.7, Sodium 138, Potassium 3.9, Chloride 107, Carbon Dioxide 20.3 L, Anion Gap 11, BUN 30 H, Creatinine 2.64 H, Estim Creat Clear Calc 22.27 L, Est GFR (MDRD) Non-Af 23 L, BUN/Creatinine Ratio 11.4, Glucose 157 H, Calcium 8.8 03/11/25 07:34: POC Glucose 156 H Radiography Diagnostic Testing: Radiology Impression Echocardiogram 03/09/25 14:07 Interpretation Summary The left ventricular ejection fraction is 55 %. Diastolic function is indeterminate. The left atrium is mildly enlarged. Moderate mitral annular calcification. Mild (1+) aortic valve insufficiency. The study was technically difficult. Ordering Physician: Dede Alvarez Referring Physician: Lloyd Jalloh Performed By: Mary Ellen Reyna RDCS, RVT Carotid Duplex 03/09/25 18:48 Interpretation Summary Mild (<50%) stenosis right extracranial internal carotid. Mild (<50%) stenosis left extracranial internal carotid. Flow within the vertebral arteries is antegrade bilaterally. Ordering Physician: Dede Alvarez Referring Physician: Lloyd Jalloh M.D. Performed By: Mario Alberto Spencer, ABIEL Brain MRI 03/10/25 09:00 IMPRESSION: 1. No acute infarct or hemorrhage. 2. Global cerebral volume loss and chronic microvascular ischemic changes. Reading Location: [facility] Rhythm Strip Rhythm Strip: Sinus Rhythm Rate: 72 Ectopy: PAC(s) Physical Exam Const alert and no apparent distress Constitutional Narrative: frail, looks better today General Appearance: cooperative HEENT normocephalic, head/scalp atraumatic and oropharynx normal Eyes EOMs intact bilaterally and conjunctivae normal Neck supple and no JVD Resp Resp Narrative: mildly diminshed breath sounds bibasally, no wheezes or crackles. On room air. Cardio regular rate, regular rhythm, S1 normal heart sound, S2 normal heart sound and no murmurs GI normal to inspection, nondistended, normoactive bowel sounds, soft to palpation and non-tender GI Narrative: has colostomy bag in place Extremity normal to inspection, full ROM and no clubbing, cyanosis or edema General Extremity: no tenderness to palpation of joints or extremities Skin General Skin Exam: no breakdown Neuro oriented x3 and moves all extremities Neuro Narrative: mouth droop has resolved Sensorium / Orientation: awake and alert Motor Exam: strength 5/5 throughout Psych cooperative Psych Narrative: flat affect Appearance: appropriate Assessment & Plan Assessment/Plan (1) UTI (urinary tract infection): (2) Unable to ambulate: (3) Falls: (4) Weakness: PLAN: Plan #Debility and weakness with failure to thrive * feels better today. PT/OT On board. Fall precautions. #Strokelike symptoms * has right sided facial droop on admixxion which has now resolved. * CT of the brain showed no acute intracranial pathology. * MRI of the brain negative for any evidence of stroke * 2D echo showed EF of 55% with indeterminate diastolic function. * P.o. aspirin 81 mg daily and p.o. atorvastatin * PT OT on board. Fall precautions. * #UTI: Urinalysis showed evidence of UTI. Will start on IV ceftriaxone and get urine cultures. #CKD stage IV: Creatinine is further down to 2.64, from 2.89 yesterday, which is actually lower than his baseline. Will monitor. #Type 2 diabetes mellitus: On Lantus 30 units daily. Insulin sliding scale. Checks ACHS. #History of stroke: on coumadin. On atorvastatin. #History of depression: On olanzapine DVT prophylaxis: On Coumadin. Unclear why. He has had a history of stroke, which was thought to be possibly embolic, so this may be the reason why. INR today is 2.7. CODE STATUS: DNR CCA with intubation * Charges/Coding Visit Charges Inpatient E&M: 08941 Subs Hosp L2
[2025-03-11] MEDS: Insulin Glargine-YFGN 100 UNIT/ML Pen 30 UNIT SC (09:52)
--- NOTE | 2025-03-11 10:59 | CASEMGMT ---
Social Work Direction Home CM is completing an assessment today with the patient. Patient is being assessed for in home waiver services. CM reported the process takes about 90 days. CM requested a copy of the patients H&P. SW provided H&P for continuity of care. VELMA Fung
--- NOTE | 2025-03-11 15:36 | CASEMGMT ---
Social Work OMEGA called the daughter and asked if she wanted outpatient therapy set up for the patient. The daughter reported no that she can work with him at home. The family does not want HH either. OMEGA called hospital therapy and left a message and asking if they can give the family some exercises they can do at home. VELMA Fung
[2025-03-11] MEDS: Warfarin (PBKC) 4 MG Tablet PO (16:39)
[2025-03-12 01:01] VITALS: BMI 25.8
[2025-03-12 02:00] VITALS: BP 142/67; PULSE 78; RESP 16; TEMP 36.3; O2SAT 96
--- NOTE | 2025-03-12 04:32 | NURSING ---
pt. refusing to wear telemetry- tried to explain on multiple occasions why it was important to wear. Pt. continued to refuse, stating he would put it back on in the morning. [employer] ady Gupta notified.
[2025-03-12 04:39] LABS: Hematocrit 26.2 % (40-54); Hemoglobin 7.6 g/dL (13.0-16.5); Immature Granulocytes Count 0.030 X10^3/uL (0.0-0.0); Mean Corp Hgb Conc 29.0 g/dL (32-36); Mean Corpuscular Volume 80.6 fL (80-94); Mean Platelet Vol. 10.7 fl (6.2-12.0); NRBC Flagged by Analyzer 0 % (0-5); Platelet Count 254 K/mm3 (150-450); RBC Distribution Width CV 16.0 % (11.6-14.6); RBC Distribution Width SD 47.2 fl (35.1-43.9); Red Blood Count 3.25 M/mm3 (4.6-6.2); White Blood Count 5.9 K/mm3 (4.4-11.0)
[2025-03-12 04:47] LABS: Prothrombin Time (Protime)PT. 34.4 SECONDS (11.7-14.9)
[2025-03-12 05:16] LABS: Anion Gap 11 (5-15); BUN 26 mg/dL (4-19); BUN/Creat Ratio 10.0 RATIO (10-20); Calcium,Total 8.6 mg/dL (7.6-11.0); Carbon Dioxide 19.2 mmol/L (21.0-32.0); Chloride 109 mmol/L (98-108); Estimated Creatinine Clearance 22.36 ml/min (50-250); Glucose 126 mg/dL (70-99); Potassium 3.8 mmol/L (3.3-5.1)
[2025-03-12 06:46] VITALS: PULSE 73; RESP 16; O2SAT 97
[2025-03-12 08:00] VITALS: BP 132/74; PULSE 75; RESP 18; TEMP 36.6; O2SAT 96
[2025-03-12] MEDS: Insulin Glargine-YFGN 100 UNIT/ML Pen 30 UNIT SC (08:18)
--- NOTE | 2025-03-12 09:15 | WOUNDNOTE ---
Was asked to see patient for prolapsed stoma. appliance intact but does have some moisture to the flange. nursing states patient has been messing with the appliance. stoma is prolapsed and measures approx 2. peristomal skin is intact. cleansed skin with warm water. pat dry. applied a new 2 piece flat [place] appliance with a small amount of stoma paste. pt tolerated well. this nurse cannot fix the prolapse, but can assist with appliance changes. will monitor.
[2025-03-12] MEDS: 0.9% Saline Lock 10 ML Syringe IV (10:09)
--- NOTE | 2025-03-12 11:49 | PN_ITS ---
Subjective Subjective Patient seen and examined with his nurse by his bedside. He had no active complaints. Review of systems is otherwise negative. His Hb has dropped to 7.6 today from 8.1 yesterday. Check iron profile also. Objective Data Objective Data Vital Signs: Vital Signs Temp Pulse Resp BP Pulse Ox O2 Del Method O2 Flow Rate 97.9 F 75 18 132/74 H 96 Room Air 2 03/12/25 08:00 03/12/25 08:00 03/12/25 08:00 03/12/25 08:00 03/12/25 08:00 03/12/25 08:00 03/10/25 02:12 Oxygen Flow Rate (L/min) 2 Oxygen Delivery Method Room Air Weight: 179 lb 14.355 oz Body Mass Index (BMI) 25.8 Intake & Output: Intake and Output for Last 24 Hours 03/10/25 03/11/25 03/12/25 23:59 23:59 23:59 Intake Total 3150 / 3500 1680 / 1680 310 / 310 Output Total 550 / 550 Balance 2600 / 2950 1680 / 1680 310 / 310 Lab / Micro Data 03/12/25 04:14 03/12/25 04:14 Labs: Laboratory Results - last 24 hr 03/11/25 16:38: POC Glucose 270 H 03/11/25 21:15: POC Glucose 108 H 03/12/25 04:14: WBC 5.9, RBC 3.25 L, Hgb 7.6 L, Hct 26.2 L, MCV 80.6, MCH 23.4 L , MCHC 29.0 L, RDW Std Deviation 47.2 H, RDW Coeff of Meenu 16.0 H, Plt Count 254, MPV 10.7, Immature Gran % (Auto) 0.500, Neut % (Auto) 65.6, Lymph % (Auto) 23.6, [place] % (Auto) 7.3, Eos % (Auto) 2.7, Baso % (Auto) 0.3, Absolute Neuts (auto) 3.9, Absolute Lymphs (auto) 1.40, Nucleated RBC % 0, PT 34.4 H, INR 3.3, Sodium 139, Potassium 3.8, Chloride 109 H, Carbon Dioxide 19.2 L, Anion Gap 11, BUN 26 H, Creatinine 2.63 H, Estim Creat Clear Calc 22.36 L, Est GFR (MDRD) Non-Af 24 L , BUN/Creatinine Ratio 10.0, Glucose 126 H, Calcium 8.6 03/12/25 05:34: POC Glucose 271 H Micro: Microbiology 03/12/25 09:32 Stool Stool Occult Blood (ROBERTO) - Final 03/09/25 11:17 Urine, Clean Catch Urine Culture - Final Mixed Gram Positive Organisms Rhythm Strip Rhythm Strip: Sinus Rhythm Rate: 72 Ectopy: PAC(s) Physical Exam Const alert and no apparent distress Constitutional Narrative: frail, though he continues to look stronger by the day General Appearance: cooperative HEENT normocephalic, head/scalp atraumatic and oropharynx normal Eyes EOMs intact bilaterally and conjunctivae normal Neck supple and no JVD Resp Resp Narrative: mildly diminshed breath sounds bibasally, no wheezes or crackles. On room air. Cardio regular rate, regular rhythm, S1 normal heart sound, S2 normal heart sound and no murmurs GI normal to inspection, nondistended, normoactive bowel sounds, soft to palpation and non-tender GI Narrative: has colostomy bag in place Extremity normal to inspection, full ROM and no clubbing, cyanosis or edema General Extremity: no tenderness to palpation of joints or extremities Skin General Skin Exam: no breakdown Neuro oriented x3, CN's II-XII intact bilaterally and moves all extremities Neuro Narrative: mouth droop has resolved Sensorium / Orientation: awake and alert Motor Exam: strength 5/5 throughout Psych cooperative Psych Narrative: flat affect Appearance: appropriate Assessment & Plan Assessment/Plan (1) UTI (urinary tract infection): (2) Unable to ambulate: (3) Falls: (4) Weakness: PLAN: Plan #Debility and weakness with failure to thrive * continues to feel better. * PT/OT On board. Fall precautions. #Strokelike symptoms * has right sided facial droop on admission which has now resolved. * CT of the brain showed no acute intracranial pathology. * MRI of the brain negative for any evidence of stroke * 2D echo showed EF of 55% with indeterminate diastolic function. * P.o. aspirin 81 mg daily and p.o. atorvastatin * PT OT on board. Fall precautions. * carotid duplex shows mild <50% stenosis orf the right extracranial internal caortid and <50% stenosis of left extracranial internal carotid. * #UTI: Urinalysis showed evidence of UTI. Will start on IV ceftriaxone and get urine cultures. #Anemia * Hemoglobin today 7.6. Was 321 yesterday with his baseline around 9. Stool for occult blood is negative. Will check iron panel. * #CKD stage IV: Creatinine is 2.63 today, which is actually lower than his baseline. Will monitor. #Type 2 diabetes mellitus: On Lantus 30 units daily. Insulin sliding scale. Checks ACHS. #History of stroke: on coumadin. On atorvastatin. #History of depression: On olanzapine DVT prophylaxis: On Coumadin. Unclear why. He has had a history of stroke, which was thought to be possibly embolic, so this may be the reason why. INR today is 3.3. CODE STATUS: DNR CCA with intubation * Charges/Coding Visit Charges Inpatient E&M: 83265 Subs Hosp L2
[2025-03-12 13:38] LABS: Hematocrit 29.3 % (40-54); Hemoglobin 8.9 g/dL (13.0-16.5)
[2025-03-12 14:35] VITALS: BP 131/75; PULSE 77; RESP 16; TEMP 37; O2SAT 98
--- NOTE | 2025-03-12 14:39 | DS.PCM_ITS ---
Providers Date of Admission: 03/09/25 Date of Discharge: 03/12/25 Primary Care Physician: Dr. Lloyd Jalloh MD Consultations 03/09/25 14:07 Consult: Tele-Neurology Routine Consulting Provider: [facility] Reason for Consult: Acute Ischemic Stroke/TIA EMERGENT Consult: No MD Notified: Yes Date Notified: 03/09/25 Time Notified: 14:55 Method of Notification: Answering Service Nursing Unit Staff Notify [facility] of Tele-Neurology Consult: Yes 03/11/25 03:26 Consult: Onc/Wound/structural steel ironworker Routine Comment: Reason for Consult:: persistent protuberant ostomy Reason For Visit: DEBILITY, WEAKNESS, FAILURE TO THRIVE Diagnosis Discharge Diagnosis (1) UTI (urinary tract infection): Status: Acute Code(s): N39.0 - Urinary tract infection, site not specified (2) Unable to ambulate: Status: Acute Code(s): R26.2 - Difficulty in walking, not elsewhere classified (3) Falls: Status: Acute Code(s): W19.XXXA - Unspecified fall, initial encounter (4) Weakness: Status: Acute Code(s): R53.1 - Weakness Plan #Debility and weakness with failure to thrive * continues to feel better. * PT/OT On board. Fall precautions. #Strokelike symptoms * has right sided facial droop on admission which has now resolved. * CT of the brain showed no acute intracranial pathology. * MRI of the brain negative for any evidence of stroke * 2D echo showed EF of 55% with indeterminate diastolic function. * P.o. aspirin 81 mg daily and p.o. atorvastatin * PT OT on board. Fall precautions. * carotid duplex shows mild <50% stenosis orf the right extracranial internal caortid and <50% stenosis of left extracranial internal carotid. * #UTI: Urinalysis showed evidence of UTI. Will start on IV ceftriaxone and get urine cultures. #Anemia * Hemoglobin today 7.6. Was 321 yesterday with his baseline around 9. Stool for occult blood is negative. Will check iron panel. * #CKD stage IV: Creatinine is 2.63 today, which is actually lower than his baseline. Will monitor. #Type 2 diabetes mellitus: On Lantus 30 units daily. Insulin sliding scale. Checks ACHS. #History of stroke: on coumadin. On atorvastatin. #History of depression: On olanzapine DVT prophylaxis: On Coumadin. Unclear why. He has had a history of stroke, which was thought to be possibly embolic, so this may be the reason why. INR today is 3.3. CODE STATUS: DNR CCA with intubation * Medications at Discharge Home Medications diazepam 5 mg/5 mL (1 mg/mL) oral solution 5 mg PO BID PRN Muscle Spasm 05/30/22 insulin glargine 100 unit/mL (3 mL) subcutaneous pen (Basaglar KwikPen U-100 Insulin) 30 unit subcut DAILY DIABETES 06/20/23 acetaminophen 500 mg tablet 1,000 mg PO Q6H PRN pain 11/11/24 risperidone 0.25 mg tablet 0.25 mg PO BID dementia 11/11/24 sodium bicarbonate 650 mg tablet 650 mg PO BID gerd 11/11/24 albuterol sulfate 2.5 mg/3 mL (0.083 %) solution for nebulization 2.5 mg inhalation Q6H PRN wheezing 03/09/25 atorvastatin 40 mg tablet 40 mg PO QHS cholesterol 03/09/25 donepezil 5 mg tablet 5 mg PO DAILY dementia 03/09/25 insulin lispro 100 unit/mL subcutaneous pen 6 unit subcut TID diabetes 03/09/25 olanzapine 2.5 mg tablet 2.5 mg PO QHS mood 03/09/25 pantoprazole 40 mg tablet,delayed release 40 mg PO DAILY gerd 03/09/25 tamsulosin 0.4 mg capsule 0.4 mg PO DAILY prostate 03/09/25 tramadol 50 mg tablet 50 mg PO Q12H PRN pain 03/09/25 warfarin 4 mg tablet 4 mg PO DAILY anticoagulant 03/09/25 cefdinir 300 mg capsule 300 mg PO DAILY #5 caps 03/12/25 Hospital Course Operations None Procedures 2-D Echocardiogram Summary of Care Provided Minutes Spent on Discharge: 45 Hospital Course: JOSE DARLING, is a 84 M who is [place] speaking, but is able to communicate fairly well in Urdu, who was admitted via the ED on 03/09/2025 with a complaitn of weakness and failure to thrive which had been going on for about 6 years. He was admitted with a complaint of weakness and inability to ambulate and failure to thrive. His daughter and were present, and his daughter translated for him. He had been feeling very weak and his daughter said patient had not been able to ambulate. He had fallen and she and her mother had to help move him to the couch. He had noticed that he had had a fever over the past 2 days but denied any chills. He had also been coughing occasionally but he did not have any shortness of breath. He had some nausea but no vomiting or diarrhea. He denied any palpitations and review of systems otherwise negative. Vitals in [facility] ED were BP of 132/78, SD of 78, RR of 16 and temp of 97.8F. He was saturating at 99% on room air. CBC showed hemoglobin of 9.6 with WBC of 8.4 and platelets of 267. Urinalysis did show evidence of UTI with 2+ bacteria. Chemistry showed creatinine of 3.33. Family subsequently complained that patient had a mild droop which they felt was new though he did have a history of stroke. He was admitted to be managed for stroke rule out and also for debility and weakness with UTI. CT of the brain showed no evidence of a stroke and MRI of the brain was also negative for stroke. He had carotid ultrasound which showed mild less than 50% stenosis of the extracranial right and left carotid arteries. Urine cultures grew mixed: Positive organisms. Patient worked with therapy and did well during this admission his multiple completely resolved. Neurology reviewed him and did not think that his symptoms were due to a stroke most likely due to the UTI. He did work well enough with therapy to be discharged home. He was discharged home on 03/12/2025 on p.o. cefdinir 300 mg daily for 5 days, adjusted for kidney function. He is to follow-up with his PCP within the next 2 weeks. Of note his hemoglobin dropped to 7.6 on day of discharge but on recheck it was 8.9 which was around his baseline. Stool for occult blood also checked was negative. Patient seen and examined prior to discharge. He had no active complaints. Review of systems otherwise negative. Labs and orders reviewed. Home medication reviewed and reconciled. Physical Exam Const alert, oriented x3 and no apparent distress General Appearance: cooperative and comfortable HEENT normocephalic, head/scalp atraumatic, hearing grossly normal bilaterally, moist oral mucous membranes and oropharynx normal Mouth: oral and palatal mucosa normal Eyes EOMs intact bilaterally and conjunctivae normal Neck supple and no JVD Resp Resp Narrative: mildly diminshed breath sounds bibasally, no wheezes or crackles. On room air. Cardio regular rate, regular rhythm, S1 normal heart sound, S2 normal heart sound and no murmurs GI normal to inspection, nondistended, normoactive bowel sounds, soft to palpation and non-tender GI Narrative: has colostomy bag in place Extremity normal to inspection, full ROM and no clubbing, cyanosis or edema General Extremity: no tenderness to palpation of joints or extremities Skin General Skin Exam: no breakdown Neuro oriented x3 and moves all extremities Neuro Narrative: mouth droop has resolved Sensorium / Orientation: awake and alert Motor Exam: strength 5/5 throughout Psych cooperative Appearance: appropriate Weight / BMI Weight Weight: 179 lb 14.355 oz Body Mass Index (BMI) 25.8 ABG / Lab / Microbiology Data 03/12/25 13:20 03/12/25 04:14 Laboratory: Laboratory Results - last 24 hr 03/11/25 16:38: POC Glucose 270 H 03/11/25 21:15: POC Glucose 108 H 03/12/25 04:14: WBC 5.9, RBC 3.25 L, Hgb 7.6 L, Hct 26.2 L, MCV 80.6, MCH 23.4 L , MCHC 29.0 L, RDW Std Deviation 47.2 H, RDW Coeff of Meenu 16.0 H, Plt Count 254, MPV 10.7, Immature Gran % (Auto) 0.500, Neut % (Auto) 65.6, Lymph % (Auto) 23.6, [place] % (Auto) 7.3, Eos % (Auto) 2.7, Baso % (Auto) 0.3, Absolute Neuts (auto) 3.9, Absolute Lymphs (auto) 1.40, Nucleated RBC % 0, PT 34.4 H, INR 3.3, Sodium 139, Potassium 3.8, Chloride 109 H, Carbon Dioxide 19.2 L, Anion Gap 11, BUN 26 H, Creatinine 2.63 H, Estim Creat Clear Calc 22.36 L, Est GFR (MDRD) Non-Af 24 L , BUN/Creatinine Ratio 10.0, Glucose 126 H, Calcium 8.6 03/12/25 05:34: POC Glucose 271 H 03/12/25 11:38: POC Glucose 124 H 03/12/25 13:20: Hgb 8.9 L, Hct 29.3 L Microbiology: Microbiology 03/12/25 09:32 Stool Stool Occult Blood (ROBERTO) - Final 03/09/25 11:17 Urine, Clean Catch Urine Culture - Final Mixed Gram Positive Organisms D/C Instructions Discharge Activity: Return to Normal Activity Weight Bearing Status: Weight bearing as tolerated Call your doctor if you observe: Fever of 101 or Higher, Shortness of breath, Dizziness, Swelling in the ankles and Chest pain DC O2, CPAP, BIPAP Needs Home O2 Discharge instructions: No DC home with Oxygen: No Patient's Goals Of Care - F/U Goals Reviewed Goals of care reviewed with patient: Yes - No change Meaningful Use Info Meaningful Use Meaningful Use Diagnoses (Choose all that apply): None applicable Discharge Plan Admission Admit Date/Time: 03/09/25 12:00 Primary Reason for Your Visit: debility and weakness, UTI Attending Provider: Dede Alvarez Primary Care Provider: Lloyd Jalloh Consulting Providers: Andrea Myers; Will Larios; Sigrid Sauer; Chela Price; Davida Beyer; Manuel Whittaker; Xiao Jhaveri; Karson Mansfield; Jayy Farmer; Hunter Silver; Diana Arzola; Leyda Flores; Bryon Porter; Mirna Mathew; Faiza Escamilla; John Tafoya; Marcus Jarrett; Sissy Otero; Angel Holman; Radha Reyes; Ezekiel Moise Instructions Patient Instructions: ED Urinary Tract Infections in Men Discharge Orders/Prescriptions Prescriptions: New cefdinir 300 mg capsule 300 mg PO DAILY Qty: 5 0RF Continued diazepam 5 mg/5 mL (1 mg/mL) solution 5 mg PO BID PRN (Reason: Muscle Spasm) insulin glargine [Basaglar KwikPen U-100 Insulin] 100 unit/mL (3 mL) insulin pen 30 unit subcut DAILY risperidone 0.25 mg tablet 0.25 mg PO BID acetaminophen 500 mg tablet 1,000 mg PO Q6H PRN (Reason: pain) sodium bicarbonate 650 mg tablet 650 mg PO BID albuterol sulfate 2.5 mg /3 mL (0.083 %) solution for nebulization 2.5 mg inhalation Q6H PRN (Reason: wheezing) atorvastatin 40 mg tablet 40 mg PO QHS donepezil 5 mg tablet 5 mg PO DAILY olanzapine 2.5 mg tablet 2.5 mg PO QHS warfarin 4 mg tablet 4 mg PO DAILY tamsulosin 0.4 mg capsule 0.4 mg PO DAILY pantoprazole 40 mg tablet,delayed release (DR/EC) 40 mg PO DAILY insulin lispro 100 unit/mL insulin pen 6 unit subcut TID tramadol 50 mg tablet 50 mg PO Q12H PRN (Reason: pain) Referrals / Follow Up: Lloyd Jalloh MD [Primary Care Provider, Internal Medicine] - Within 1 Week Disposition Disposition (needs filled in before D/C Order can be placed): Home Health Service Charges/Coding Visit Charges Inpatient E&M: 81415 Disch Hosp >30min
[2025-03-12 14:40] LABS: Ferritin 61 ng/mL (37-417); Iron 18 ug/dL (65-175); Iron Binding Capacity,Total 343 ug/dL (250-450); Iron Binding Capacity,Unsat 325 ug/dL (228-428)
--- NOTE | 2025-03-12 15:48 | PHA.DC.MR.R ---
Pharmacy MD Med Reconciliation Pharmacy Service has performed discharge medication reconciliation for this patient. The patient's discharge medication list was reviewed for discrepancies and discrepancies were resolved. Medications at Discharge Home Medications diazepam 5 mg/5 mL (1 mg/mL) oral solution 5 mg PO BID PRN Muscle Spasm 05/30/22 insulin glargine 100 unit/mL (3 mL) subcutaneous pen (Basaglar KwikPen U-100 Insulin) 30 unit subcut DAILY DIABETES 06/20/23 acetaminophen 500 mg tablet 1,000 mg PO Q6H PRN pain 11/11/24 risperidone 0.25 mg tablet 0.25 mg PO BID dementia 11/11/24 sodium bicarbonate 650 mg tablet 650 mg PO BID gerd 11/11/24 albuterol sulfate 2.5 mg/3 mL (0.083 %) solution for nebulization 2.5 mg inhalation Q6H PRN wheezing 03/09/25 atorvastatin 40 mg tablet 40 mg PO QHS cholesterol 03/09/25 donepezil 5 mg tablet 5 mg PO DAILY dementia 03/09/25 insulin lispro 100 unit/mL subcutaneous pen 6 unit subcut TID diabetes 03/09/25 olanzapine 2.5 mg tablet 2.5 mg PO QHS mood 03/09/25 pantoprazole 40 mg tablet,delayed release 40 mg PO DAILY gerd 03/09/25 tamsulosin 0.4 mg capsule 0.4 mg PO DAILY prostate 03/09/25 tramadol 50 mg tablet 50 mg PO Q12H PRN pain 03/09/25 warfarin 4 mg tablet 4 mg PO DAILY anticoagulant 03/09/25 cefdinir 300 mg capsule 300 mg PO DAILY #5 caps 03/12/25
== END 2025-03-12 16:17 | disposition home health service (06) ==
LOC: ED 12:13 → PCU 14:41
PROVIDERS: Admitting Provider Student in an Organized Health Care Education/Training Program; Emergency Provider Emergency Medicine; PCP Internal Medicine; Visit Provider Student in an Organized Health Care Education/Training Program
DX: N39.0 Urinary tract infection, site not specified (principal); Z93.3 Colostomy status; N18.4 Chronic kidney disease, stage 4 (severe); F02.80 Dementia in other diseases classified elsewhere, unspecified severity, without behavioral disturbance, psychotic disturbance, mood disturbance, and anxiety; J44.89 Other specified chronic obstructive pulmonary disease; E11.40 Type 2 diabetes mellitus with diabetic neuropathy, unspecified; E11.22 Type 2 diabetes mellitus with diabetic chronic kidney disease; Z79.4 Long term (current) use of insulin; R26.2 Difficulty in walking, not elsewhere classified; E78.00 Pure hypercholesterolemia, unspecified; Z87.891 Personal history of nicotine dependence; R47.81 Slurred speech; R62.7 Adult failure to thrive; Z79.899 Other long term (current) drug therapy; R29.810 Facial weakness; F32.A Depression, unspecified; Z66 Do not resuscitate; D64.9 Anemia, unspecified; I65.23 Occlusion and stenosis of bilateral carotid arteries
CPT/HCPCS: 36415; 70450; 70551; 71046; 71250; 80048; 80061; 81001; 81002; 82274; 82728; 82962; 83036; 83540; 83550; 85014; 85018; 85025; 85610; 87086; 87088; 92526; 92610; 93005; 93306; 93880; 94640; 94762; 96361; 96365; 96366; 97162; 97166; 97530; 99221; 99285; Q9957; A4216; C8929; G0378